=== PATIENT | female | born 1990 | race Caucasian/White ===

== ENCOUNTER → 2019-03-05 16:03 | Outpatient (CLI) | payer MEDICAID, SELFPAY ==
[2019-03-05 11:25] VITALS: BMI 20.2
[2019-03-12 15:48] LABS: HPV APTIMA, High Risk Negative (Negative)
== END ==
PROVIDERS: Family Provider Family Medicine; PCP Family Medicine; Referring Provider Nurse Practitioner Women's Health; Visit Provider Nurse Practitioner Women's Health
DX: Z12.4 Encounter for screening for malignant neoplasm of cervix (principal)
CPT/HCPCS: 87624; 88175; G0145

== ENCOUNTER → 2019-03-23 12:40 | Outpatient (CLI) | payer MEDICAID, SELFPAY ==
[2019-03-05 11:25] VITALS: BMI 20.2
--- NOTE | 2019-03-23 12:44 | US_ITS ---
STUDY: ULTRASOUND TRANSVAGINAL CLINICAL: Female, 28 years old. Removal of IUD 2 weeks ago, pelvic pain TECHNIQUE: Transvaginal COMPARISON: None. FINDINGS: Normal uterine size measuring 9.7 x 4.3 cm in maximal craniocaudal dimension. There are no myometrial masses. Normal endometrial thickness measuring 10 mm. There are no endometrial masses, and there is no fluid in the endometrial cavity. There is a questionable echogenic 5 x 8 mm focus in the lower endometrium. This may be related to focal calcification versus foreign body. Normal uterine cervix. Normal right ovary, measuring 2.1 x 2.9 x 4.0 cm. There are multiple follicles without a dominant cyst. Normal left ovary, measuring 3.1 x 2.2 x 1.6 cm. There are multiple follicles without a dominant cyst. There is mild free fluid in the pelvis. US/Pelvic (Non ) IMPRESSION: There is a questionable echogenic 5 x 8 mm focus in the lower endometrium. This may be related to focal calcification versus foreign body. Mild pelvic fluid. Electronically Signed: Tucker Champagne DO at 23:58 EDT Tel [phone], Service support ,
--- NOTE | 2019-03-23 12:44 | US_ITS ---
STUDY: ULTRASOUND TRANSVAGINAL CLINICAL: Female, 28 years old. Removal of IUD 2 weeks ago, pelvic pain TECHNIQUE: Transvaginal COMPARISON: None. FINDINGS: Normal uterine size measuring 9.7 x 4.3 cm in maximal craniocaudal dimension. There are no myometrial masses. Normal endometrial thickness measuring 10 mm. There are no endometrial masses, and there is no fluid in the endometrial cavity. There is a questionable echogenic 5 x 8 mm focus in the lower endometrium. This may be related to focal calcification versus foreign body. Normal uterine cervix. Normal right ovary, measuring 2.1 x 2.9 x 4.0 cm. There are multiple follicles without a dominant cyst. Normal left ovary, measuring 3.1 x 2.2 x 1.6 cm. There are multiple follicles without a dominant cyst. There is mild free fluid in the pelvis. US/Transvaginal Non- IMPRESSION: There is a questionable echogenic 5 x 8 mm focus in the lower endometrium. This may be related to focal calcification versus foreign body. Mild pelvic fluid. Electronically Signed: Tucker Champagne DO at 23:58 EDT Tel [phone], Service support ,
== END ==
PROVIDERS: Family Provider Family Medicine; PCP Family Medicine; Referring Provider Obstetrics & Gynecology; Visit Provider Obstetrics & Gynecology
DX: R10.2 Pelvic and perineal pain (principal)
CPT/HCPCS: 76830; 76856; 93976

== ENCOUNTER → 2023-10-21 | Outpatient (CLI) | payer MEDICAID, SELFPAY ==
--- NOTE | 2023-10-21 09:38 | US_ITS ---
STUDY: ULTRASOUND BREAST - RIGHT REASON FOR EXAM: Female, 33 years old. Palpable mass TECHNIQUE: Axial and longitudinal images of the RIGHT breast were performed with a high resolution ultrasound transducer. # OF IMAGES: 10 COMPARISON: Diagnostic mammogram earlier today FINDINGS: RIGHT Breast: Heterogeneous background echotexture. At 10:00, 12 cm from nipple, in the area of the palpable abnormality, ultrasound fails demonstrate a discrete solid or cystic mass most consistent with normal breast parenchyma.: US/Breast Limited Unilateral IMPRESSION: Normal diagnostic mammogram right breast ultrasound. However, biopsy of any palpable abnormality should be performed if clinically indicated. ASSESSMENT CATEGORY: BIRADS Category 1: Negative. A letter regarding these results will be sent to the patient by the facility within 30 days. Electronically Signed: Mina White MD at 15:50 EST ,
--- NOTE | 2023-10-21 09:38 | BI_ITS ---
MAMMOGRAPHY - BILATERAL DIAGNOSTIC REASON FOR EXAM: Female, 33 years old. breast lump, painful PERTINENT HISTORY: Non-contributory. TECHNIQUE: Digital examination. Mediolateral oblique (MLO) and craniocaudad (CC) views of both breasts were obtained. CAD: CAD was performed on this study. COMPARISON: None. FINDINGS: Breast Composition: The breasts are extremely dense, which lowers the sensitivity of mammography. There are no dominant masses or suspicious calcifications. No other significant abnormalities are identified. BI/DIAG MAMM W/CAD, BILAT IMPRESSION: Stable bilateral diagnostic mammogram. Ultrasound of the palpable abnormality will be obtained. ASSESSMENT CATEGORY: BIRADS Category 0: Incomplete. Need additional imaging evaluation. A letter regarding these results will be sent to the patient by the facility within 30 days. FOLLOW UP RECOMMENDATION: Ultrasound Recommended. (I) Approximately 10% of breast cancers are not detected by mammography. A normal mammogram should not delay biopsy of a clinically suspicious abnormality. Electronically Signed: Mina White MD at 10:26 EST ,
== END | disposition home or self-care (01) ==
LOC: OPUS 09:36
PROVIDERS: PCP Family Medicine; Referring Provider Registered Nurse; Visit Provider Registered Nurse
DX: N63.10 Unspecified lump in the right breast, unspecified quadrant (principal)
CPT/HCPCS: 77062; 76642; 77066; G0279

== ENCOUNTER → 2024-09-11 | Outpatient (CLI) | payer MEDICAID, SELFPAY ==
[2024-09-11 16:29] LABS: Absolute Lymphocyte Count 1.67 X10^3/uL (0.83-4.51); Absolute Neutrophil Count 3.3 X10^3/uL (2.0-7.7); Basophil# 0.03 X10^3/uL; Basophil% 0.5 % (0-1); Eosinophil# 0.19 X10^3/uL; Eosinophils% 3.3 % (0-5); Hematocrit 31.1 % (37-47); Hemoglobin 9.8 g/dL (12.0-15.0); Lymphocyte # 1.67 X10^3/ul (0.83-4.51); Mean Corp Hgb Conc 31.5 g/dL (32-36); Mean Corpuscular Hgb 26.1 pg (27.0-32.0); Mean Corpuscular Volume 82.7 fL (81-99); Mean Platelet Vol. 9.4 fl (6.2-12.0); Monocyte# 0.59 X10^3/uL; Monocyte% 10.3 % (0-10); NRBC Flagged by Analyzer 0 % (0-5); Neutrophil # 3.25 X10^3/uL (2.7-7.7); Neutrophil % 56.6 % (47-70); Platelet Count 191 K/mm3 (150-450); RBC Distribution Width CV 13.9 % (11.6-14.6); RBC Distribution Width SD 42.3 fl (35.1-43.9); Red Blood Count 3.76 M/mm3 (4.2-5.4); White Blood Count 5.8 K/mm3 (4.4-11.0)
[2024-09-18 09:09] LABS: HPV APTIMA, High Risk Negative (Negative)
== END | disposition home or self-care (01) ==
LOC: WOBLAB 16:18
PROVIDERS: PCP Family Medicine; Referring Provider Registered Nurse; Visit Provider Registered Nurse
DX: N93.9 Abnormal uterine and vaginal bleeding, unspecified (principal); Z12.4 Encounter for screening for malignant neoplasm of cervix
CPT/HCPCS: 36415; 85025; 87624; 88175; G0145

== ENCOUNTER → 2025-01-15 | Outpatient (CLI) | payer MEDICAID, SELFPAY ==
[2025-01-15 13:12] LABS: Free T3 2.9 pg/mL (2.18-3.98); T4 Free Direct 0.97 ng/dL (0.76-1.46)
== END | disposition home or self-care (01) ==
LOC: BWCLAB 11:23
PROVIDERS: Referring Provider Obstetrics & Gynecology; Visit Provider Obstetrics & Gynecology
DX: N93.9 Abnormal uterine and vaginal bleeding, unspecified (principal)
CPT/HCPCS: 36415; 84439; 84481

== ENCOUNTER 2025-07-12 16:25 | Observation (INO) | payer MEDICAID, SELFPAY ==
[2025-07-12] VITALS (10 sets, daily range): BP systolic 99–114; BP diastolic 61–74; PULSE 92–109; RESP 12–18; TEMP 36.4–37.2; O2SAT 98–100; BMI 23.3; BMI 23.1
--- NOTE | 2025-07-12 16:30 | US_ITS ---
EXAM: US Pelvis Transvaginal CLINICAL INDICATION: VAGINAL BLEEDING TECHNIQUE: Real-time transvaginal pelvic ultrasound with image documentation. Transvaginal imaging was used for better evaluation of the endometrium and adnexa. COMPARISON: No relevant prior studies available. FINDINGS: UTERUS/CERVIX: 4.5 uterine fibroid. Endometrium not visualized secondary to uterine fibroid. The uterus measures 10.8 x 6.2 x 5.6 cm. RIGHT OVARY: Unremarkable. Normal blood flow. The right ovary measures 4.8 x 2.4 x 2.4 cm. LEFT OVARY: Left ovary not visualized secondary to overlying bowel gas. FREE FLUID: No free fluid. BLADDER: Empty bladder which cannot be evaluated with this probe. US/Transvaginal Non- IMPRESSION: Uterine fibroid. Reading Location: [id number]
--- NOTE | 2025-07-12 16:50 | ED.VIS.FEGU ---
HPI HPI - Female History of Present Illness Chief Complaint: Vag Bleeding Narrative Narrative: Chief complaint and HPI: Vaginal bleeding. 35-year-old female with past medical history of menorrhagia and iron deficiency anemia presents for evaluation of vaginal bleeding with symptoms of anemia. 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 Patient states that she has a history of iron deficiency anemia but stopped taking iron supplementation secondary to medication side effects. She states in January she had an IUD placed that helped with her menorrhagia. States she still gets monthly periods however they are not heavy. Patient states that the end of her last menstrual period was 8/5. She states on her IUD fell out. She states shortly after she developed heavy bleeding with clots. She states the bleeding is intermittent. She states she feels lightheaded and short of breath when ambulating. States this feels similar to her symptomatic anemia which is why she presents to the emergency department. She denies any transfer one fever, chills, chest pain, abdominal pain, nausea, vomiting, dysuria. Review of systems: See HPI Medications: As listed on the chart Allergies: As listed on the chart PFSH: Per chart Vital signs: As listed on the chart. Reviewed. Physical exam: Gen: A&O x3, NAD Head: Normocephalic, atraumatic Eyes: No sclera icterus, conjunctiva clear ENT: Moist mucous membranes Neck: Trachea midline, No JVD CV: RRR, no murmurs, no peripheral edema Resp: Lungs CTA BL, no w/r/c GI: Abd soft, non-distended, non-tender, no r/r/g Pelvic: Normal external genitalia. No lesions, masses, or rashes appreciated. + Vaginal bleeding with clots in the vaginal vault. Cervix unable to be visualized secondary to bleeding. Musc: Full ROM, no deformity Skin: Warm, dry Neuro: Alert, oriented, grossly intact, sensation intact Psych: Cooperative, appropriate mood and affect [facility] Medical History (Updated 02/17/25 @ 14:21 by Sultana Hernandez) Apneic episode Weight gain History of opioid abuse Anemia Encounter for IUD removal Home Medications ?Medication ?Instructions ?Recorded ?Last Taken ?Type buprenorphine 8 mg-naloxone 2 mg 8 mg PO BID 10/25/16 Unknown History sublingual film hydroxyzine HCl 10 mg tablet 10 mg PO QHS #2 tabs 03/13/24 Unknown Rx levonorgestrel 14 mcg/24 hr (up to 1 insert intrauterine ONCE #1 ea 11/16/24 Unknown Clinic 3 yrs) 13.5 mg intrauterine device levonorgestrel 14 mcg/24 hr (up to 1 device intrauterine ONCE 01/15/25 Unknown History 3 yrs) 13.5 mg intrauterine device (Josephine) Allergy/AdvReac Type Severity Reaction Status Date / Time mebendazole Allergy Unknown Verified 07/12/25 16:26 promethazine HCl (From Allergy Other Verified 07/12/25 16:26 Phenergan) sertraline HCl (From Zoloft) Allergy Unknown Verified 07/12/25 16:26 Family History Grandfather Colon cancer Cancer prostate Surgical History H/O: Social History (Updated 02/17/25 @ 14:23 by Sultana Hernandez) adopted: No household members: family and children housing: house number of children: 2 current occupational status: unemployed 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 sexually active: No Smoking Status: Current every day smoker tobacco type: e-cigarettes how long ago did patient quit smoking: more than 30 days ago alcohol intake: never substance use type: former substance user well-balanced diet: rarely or never caffeine: Yes (2) Type: coffee what type of physical activity do you participate in: walking frequency: 5-6 times per week seatbelt use: always do you feel safe at home: Yes EXAM Physical Exam Const Vital Signs: 07/12/25 16:26 07/12/25 18:25 07/12/25 18:53 Temperature 98.2 F 99.0 F Temperature Source Oral Oral Pulse Rate 109 H 100 100 Respiratory Rate 16 16 Blood Pressure 114/74 99/63 109/64 Blood Pressure Mean 87 75 79 Blood Pressure Source Monitor Blood Pressure Position Supine Blood Pressure Location Right Arm Pulse Ox 98 100 Oxygen Delivery Method Room Air 07/12/25 19:08 Temperature 98.9 F Temperature Source Oral Pulse Rate 99 Respiratory Rate 12 Blood Pressure 102/65 Blood Pressure Mean 77 Blood Pressure Source Monitor Blood Pressure Position Supine Blood Pressure Location Right Arm Pulse Ox 99 Oxygen Delivery Method MDM MDM MDM Narrative Medical decision making narrative: 35-year-old female with past medical history of menorrhagia and iron deficiency anemia presents for evaluation of vaginal bleeding with symptoms of anemia. 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 Has a history of iron deficiency anemia. IUD fell out on and since then has had vaginal bleeding with clots. Feels lightheaded and short of breath with ambulation. Differential diagnosis includes but is not limited to acute on chronic anemia, electrolyte abnormality, dehydration, suspect less likely , uterine/vaginal pathology. Pelvic exam was positive for vaginal bleeding and blood clots. I was unable to visualize the cervix. NS bolus ordered. Laboratory workup ordered including urine and transvaginal ultrasound. CBC shows leukopenia of 3.8. Patient has history of leukopenia in the past. She has anemia 5.6. She states her baseline is about 7.6. However in 2023 she was 9.8. Platelets unremarkable. Serum negative. Patient will warrant blood transfusion. 2 units ordered. Given that she still having vaginal bleeding with acute anemia. I did reach out to Dr. Tai Kerr. She agrees that the patient will need to be admitted. Recommends updating her on transvaginal ultrasound results. BMP relatively unremarkable. Serum negative. Ultrasound was performed. Waiting on read. Dr. Tai Kerr looked at the imaging herself, patient has a large fibroid which is likely the cause of her bleeding. Patient will be admitted to her service. She came down to evaluate the patient. Patient confirmed understanding plan. 30 minutes of critical care time utilized in managing the patient. This is due to high probability of and deterioration of the patient based on the patient's condition and excludes any separately billable procedures. Impression: 1. Acute on chronic anemia requiring blood transfusion 2. Vaginal bleeding 3. Uterine fibroid Lab Data Labs: Laboratory Results - last 24 hr 07/12/25 07/12/25 16:41 17:31 WBC 3.8 L RBC 3.35 L Hgb 5.6 L* Hct 20.0 L MCV 59.7 L MCH 16.7 L MCHC 28.0 L RDW Std Deviation 42.0 RDW Coeff of German 20.0 H Plt Count 225 MPV 8.9 Immature Gran % (Auto) 0.300 Neut % (Auto) 58.1 Lymph % (Auto) 27.2 [place] % (Auto) 12.5 H Eos % (Auto) 1.6 Baso % (Auto) 0.3 Absolute Neuts (auto) 2.2 Absolute Lymphs (auto) 1.02 Nucleated RBC % 0 Sodium 139 Potassium 3.9 Chloride 107 Carbon Dioxide 20.6 L Anion Gap 12 BUN 9 Creatinine 0.44 L Estim Creat Clear Calc 151.17 Est GFR (MDRD) Non-Af 128 BUN/Creatinine Ratio 20.4 H Glucose 99 Calcium 8.9 Serum , Qual NEGATIVE Blood Type A POSITIVE Antibody Screen NEGATIVE Crossmatch See Detail Discharge Plan Triage Chief Complaint: Vag Bleeding ED Provider: [place] Brizuela Dx/Rx/DC Orders Prescriptions: No Action hydroxyzine HCl 10 mg tablet 10 mg PO QHS Qty: 2 0RF levonorgestrel 14 mcg/24 hr (3 yrs) 13.5 mg intrauterine device 1 insert intrauterine ONCE Qty: 1 0RF Josephine 14 mcg/24 hr (3 yrs) 13.5 mg intrauterine device 1 device intrauterine ONCE Rx Instructions: as a single dose buprenorphine-naloxone 1 EACH film 8 mg PO BID Patient Comments: Primary Care Provider: Care Physician,No Primary Referrals: Care Physician,No Primary [Primary Care Provider] - Print Language: Panamanian
[2025-07-12] MEDS: 0.9% Normal Saline (1000mL) 1,000 ML 999 ML IV (16:52)
[2025-07-12 16:57] LABS: Hematocrit 20.0 % (37-47); Immature Granulocytes Count 0.010 X10^3/uL (0.0-0.0); Mean Corp Hgb Conc 28.0 g/dL (32-36); Mean Corpuscular Volume 59.7 fL (81-99); Mean Platelet Vol. 8.9 fl (6.2-12.0); NRBC Flagged by Analyzer 0 % (0-5); POSITIVE COUNT YES; Platelet Count 225 K/mm3 (150-450); RBC Distribution Width CV 20.0 % (11.6-14.6); RBC Distribution Width SD 42.0 fl (35.1-43.9); Red Blood Count 3.35 M/mm3 (4.2-5.4); White Blood Count 3.8 K/mm3 (4.4-11.0)
[2025-07-12 17:04] LABS: Differential Indicated SCAN CRITERIA MET; Hemoglobin 5.6 g/dL (12.0-15.0)
[2025-07-12 17:24] LABS: Internal QC Validated? YES +Cl - CLEAR BKGD; Pregnancy, Serum, hCG Quali. NEGATIVE Negative
[2025-07-12 17:26] LABS: Record Kit Lot#, Serum Preg. 962302
[2025-07-12 17:42] LABS: Anion Gap 12 (5-15); BUN 9 mg/dL (4-19); BUN/Creat Ratio 20.4 RATIO (10-20); Calcium,Total 8.9 mg/dL (7.6-11.0); Carbon Dioxide 20.6 mmol/L (21.0-32.0); Chloride 107 mmol/L (98-108); Estimated Creatinine Clearance 151.17 ml/min (50-250); Glucose 99 mg/dL (70-99); Potassium 3.9 mmol/L (3.3-5.1)
--- NOTE | 2025-07-12 20:23 | PCM.HP.OB ---
HPI - General General Date of Admission: 07/12/25 HPI Narrative TED ZABALA, is a 35 F who presents with acute heavy menstrual bleeding. Patient is a history of using IUDs in the past which have worked well for her to have minimal to light bleeding and then she has had intermittent heavy bleeding since the fall, she had her IUD replaced in January and has had bleeding persistent since and then it fell out several weeks ago. She hadn't followed up for her string check and declined coming in sooner as recommended. She started feeling dizzy and lightheaded and has been passing large clots with changing a pad several times an hour the last few days and presented to the ED with a Hg of 5.6 and mild tachycardia. bleeding ahs been slowing down the last few hours while in the ED and she is receiving a transfusion. US showed 4.5 cm fibroid. [facility] Medical History (Updated 07/12/25 @ 20:[address] Annamarie Norton MD) Apneic episode Weight gain History of opioid abuse Anemia Encounter for IUD removal Home Medications ?Medication ?Instructions ?Recorded ?Last Taken ?Type buprenorphine 8 mg-naloxone 2 mg 8 mg PO BID 10/25/16 07/11/25 History sublingual film Allergy/AdvReac Type Severity Reaction Status Date / Time mebendazole Allergy Unknown Verified 07/12/25 16:26 promethazine HCl (From Allergy Other Verified 07/12/25 16:26 Phenergan) sertraline HCl (From Zoloft) Allergy Unknown Verified 07/12/25 16:26 Family History Grandfather Colon cancer Cancer prostate Surgical History H/O: Social History (Updated 02/17/25 @ 14:23 by Sultana Hernandez) adopted: No household members: family and children housing: house number of children: 2 current occupational status: unemployed 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 sexually active: No Smoking Status: Current every day smoker tobacco type: e-cigarettes how long ago did patient quit smoking: more than 30 days ago alcohol intake: never substance use type: former substance user well-balanced diet: rarely or never caffeine: Yes (2) Type: coffee what type of physical activity do you participate in: walking frequency: 5-6 times per week seatbelt use: always do you feel safe at home: Yes History 3 Elective abortions 1 Hx Para 2 Spontaneous abortions 0 Hx # Term Pregnancies 2 Ectopic pregnancies 0 Hx # Pregnancies 0 Multiple births 0 # of living children 2 Past Pregnancies Del. Date Name GA/Weeks Outcome Route Bth Weight Infant Gen Labor Lgth Anesthesia Del Locatn Provider FOB Unknown Maddix 2006 42 live - full term Male epidural [facility] Dr Rahman Unknown Talia 2011 38 live - full term Female epidural [facility] Dr Errol [place] Constitutional Constitutional: Reports systems reviewed and no addt'l complaints, except as documented, fatigue and weakness; Denies as per HPI, change in weight, fever(s), malaise or other Eyes Eyes: Reports systems reviewed and no addt'l complaints, except as documented; Denies as per HPI, change in vision or other ENT HEENT: Reports systems reviewed and no addt'l complaints, except as documented Respiratory/Chest Respiratory/Chest: Reports systems reviewed and no addt'l complaints, except as documented Gastrointestinal Gastrointestinal: Reports systems reviewed and no addt'l complaints, except as documented and as per HPI Genitourinary Genitourinary: Reports as per HPI Musculoskeletal Musculoskeletal: Reports systems reviewed and no addt'l complaints, except as documented Neurologic Neurologic: Reports systems reviewed and no addt'l complaints, except as documented Psychiatric Psychiatric: Reports systems reviewed and no addt'l complaints, except as documented Endocrine Endocrinology: Reports systems reviewed and no addt'l complaints, except as documented Hematologic/Lymphatic Hematologic/Lymphatic: Reports systems reviewed and no addt'l complaints, except as documented Vital Signs Vital Signs Vital Signs: 07/12/25 16:26 07/12/25 18:25 07/12/25 18:53 Temperature 98.2 F 99.0 F Temperature Source Oral Oral Pulse Rate 109 H 100 100 Respiratory Rate 16 16 Blood Pressure 114/74 99/63 109/64 Blood Pressure Mean 87 75 79 Blood Pressure Source Monitor Blood Pressure Position Supine Blood Pressure Location Right Arm Pulse Ox 98 100 Oxygen Delivery Method Room Air 07/12/25 19:08 07/12/25 20:06 07/12/25 20:12 Temperature 98.9 F 98.4 F 98.4 F Temperature Source Oral Oral Pulse Rate 99 96 92 Respiratory Rate 12 18 18 Blood Pressure 102/65 106/69 106/69 Blood Pressure Mean 77 81 81 Blood Pressure Source Monitor Monitor Blood Pressure Position Supine Semi-Fowlers Blood Pressure Location Right Arm Right Arm Pulse Ox 99 98 98 Oxygen Delivery Method Room Air Weight Weight: 136 lb Body Mass Index (BMI) 23.3 Physical Exam Const alert, oriented x3 and no apparent distress HEENT normocephalic Head and Scalp: atraumatic Eyes EOMs intact bilaterally and conjunctivae normal Neck full ROM, no lymphadenopathy, supple and thyroid normal General: trachea midline Lymph Lymphatic: no lymphadenopathy noted Resp normal respiratory effort, no retractions and no use of accessory muscles Cardio Rate: tachycardic GI soft to palpation, non-tender, non-distended and no masses Inspection: Negative for abdominal distention Back/Spine no CVA tenderness Extremity normal to inspection Skin no rashes or lesions noted Neuro moves all extremities and deep tendon reflexes 2+ bilaterally Psych mental status grossly normal Labs Labs Labs: Blood Type A POSITIVE Antibody Screen NEGATIVE Hct 20.0 % (37-47) L Hgb 5.6 g/dL (12.0-15.0) L* Assessment & Plan (1) Abnormal uterine bleeding: COMMENT: US reviewed and fibroid present. TXA ordered for acute, transfusion. (2) Fibroid: COMMENT: 4 cm submucosal. s/p IUD. anemic. admit for transfusion, IV TXA. (3) History of opioid abuse: COMMENT: on suboxone PLAN: Plan admit for monitoring, transfusion, give IV TXA. repeat cbc 4 hours post transfusion. s/p US. continue suboxone. scds.
--- NOTE | 2025-07-12 20:37 | ED.RN ---
PATIENT WANTING TO REACH INFORMATION PROVIDED BY NURSE ABOUT TRANEXAMIC ACID BEFORE RECEIVING.
[2025-07-12] MEDS: TRANEXAMIC ACID IV (21:09)
[2025-07-12] MEDS: NORMAL SALINE 0.9% IV (21:09)
--- OUTSIDE RECORDS SUMMARY | 2025-07-12 21:32 | XMS RPT_ITS | CCD ---
Author Organization [facility] [employer] Care Team Providers Care Silk Screen Printer Name Role Phone VIRGINIE CROCKER Unavailable Unavailable VIRGINIE CROCKER Unavailable Unavailable Dr. Virginie Crocker Primary Care Provider Dr. Virginie Crocker Referring Provider CHAUNCEY Ramos Attending Provider Unavailable Primary Care Provider WILLIAM Wesley DO Primary Care Physician WILLIAM VANN DO Attending Unavailable WILLIAM VANN DO Primary Care Unavailable Care Physician, No Primary Primary Care Unava ilable Annamarie Lira Attending Unavailable Annamarie Lira Referring Unavailable Virginie Crocker Primary Care Unavailable Autumn Ramos Attending Unavailable Autumn Ramos Referring Unavailable Autumn Ramos Attending Unavailable Autumn Ramos Referring Unavailable Care Physician, No Primary Primary Care Unava ilable Care Physician, No Primary Referring Unava ilable Michelle Luis Attending Unavailabl e Care Physician, No Primary Primary Care Unava ilable Care Physician, No Primary Primary Care Unava ilable Autumn Ramos Attending Unavailable Care Physician, No Primary Referring Unava ilable Care Physician, No Primary Primary Care Unava ilable Michelle Kerr Attending Unavailable Care Physician, No Primary Referring Unava ilable Care Physician, No Primary Referring Unava ilable Annamarie Lira Attending Unavailable Care Physician, No Primary Primary Care Unava ilable Virginie Crocker Primary Care Unavailable Virginie Crocker Referring Unavailable Autumn Ramos Attending Unavailable Lizzette, Virginie Primary Care Unavailable Virginie Crocker Referring Unavailable Autumn Ramos Attending Unavailable Care Physician, No Primary Primary Care Provider Unavailable Dr. Berlin Brizuela DO Emergency Provider Errol JADE, Dr. De Luna Admit Provider Errol JADE, Dr. De Luna Attending Provider Allergies Allergy Classification Reported Allergen(s) Allergy Type Date of Onset Reaction(s) Facility (5 sources) mebendazole; Translations: [MEBENDAZOLE] Drug Allergy 5 [facility] (5 sources) promethazine; Translations: [PROMETHAZINE HCL] Drug Allergy 2 Other: See [facility] (5 sources) sertraline; Translations: [SERTRALINE HCL] Drug Allergy 8 GI [facility] (1 source) Promethazine; Translations: [promethazine] Drug Allergy Anxiety (finding) [facility] (1 source) Sertraline; Translations: [sertraline] Drug Allergy Mood swings (finding) [facility] Medications Current Medications Medication Drug Class(es) Dates Sig (Normalized) Sig (Original) buprenorphine 8 mg / naloxone 2 mg sublingual film (4 sources) Partial Opioid Agonist, Opioid Antagonist Start: 11-12-2024 take 3 doses under the tongue once daily Suboxone 8 mg-2 mg sublingual film Dose = 3 EA, Sublingual, qDay, 0 Refill(s) Start Date: 11/12/24 Status: Ordered Start: 10-25-2016 take 1 dose by mouth twice daily Buprenorphine-Naloxone 1 EACH film Activ e 8 mg PO TWICE A DAY October 25, 2016 1:00am buprenorphine-na lOXone SL (SUBOXONE) 8-2 mg subl Dissolve 1 tablet under the tongue twice daily. Active ondansetron 4 mg disintegrating oral tablet (3 sources) Serotonin-3 Receptor Antagonist Start: 01-30-2017 take 1 tablet by mouth every six hours as needed ondansetron orally disintegrating (ZOFRAN ODT) 4 mg disintegrating tablet Take 1 tablet by mouth every 6 hours as needed for Nausea/Vomiting. 12 tablet 1 01/30/2017 Active Start: 01-11-2014 End: 03-05-2019 take 4 mg by mouth every eight hours as needed for nausea Ondansetron Hcl 8 MG tablet Discontinued 4 mg PO EVERY 8 HOURS NEEDED as needed for Nausea 20 0 January 11, 2014 2:40pm March 05, 2019 11:12am Start: 01-11-2014 End: 03-05-2019 take 4 mg by mouth every eight hours as needed Ondansetron Hcl Discontinued 4 MG PO EVERY 8 HOURS NEEDED January 11, 2014 1:40pm March 05, 2019 10:12am Completed/Discontinued Medications Medication Drug Class(es) Dates Sig (Normalized) Sig (Original) azithromycin 250 mg oral tablet (2 sources) Macrolide Antimicrobial Start: 10-25-2016 End: 03-05-2019 take 1 tablet by mouth once daily Azithromycin 250 MG tablet Discontinued 250 mg PO DAILY 4 0 October 25, 2016 1:00am March 05, 2019 11:12am hydrOXYzine hydrochloride 10 mg oral tablet (1 source) Antihistamine Start: 03-13-2024 End: 07-12-2025 take 1 tablet by mouth at bedtime Hydroxyzine Hcl 10 mg tablet Discontinued 10 mg PO AT BEDTIME 2 0 March 13, 2024 12:00am July 12, 2025 8:09pm levonorgestrel 0.027022 mg/hr intrauterine system (2 sources) Progestin, Progestin-containin g Intrauterine Device Start: 01-15-2025 End: 07-12-2025 Levonorgestrel (Josephine) 14 mcg/24 hr (3 yrs) 13.5 mg intrauterine device Discontinued 1 NMA INTRA-UTER ONCE January 15, 2025 1:00am July 12, 2025 8:10pm as a single dose levonorgestrel ( MIRENA) 20 mcg/24 hour (5 years) IUD 1 Each by INTRAUTERINE route one time only. Active Problems Active Problems Problem Classification Problem Date Documented Date Episodic/Chronic Contraceptive and procreative management (7 sources) Patient encounter status; Translations: [Encounter for removal of intrauterine contraceptive device] Onset: 08-14-2011 Resolved: 03-03-2012 10-16-2023 Episodic Comment on above: IUD removed intact, needs prior authorization and will return for josephine reinsertion next week. is not sexually active, desires IUD for menses control Deficiency and other anemia (2 sources) Anemia; Translations: [Anemia, unspecified] 11-12-2024 Episodic Comment on above: chronic- transfuse 2 units prbcs and reassess Deficiency and other anemia (1 source) Anemia, unspecified; Translations: [Anemia, unspecified] Onset: 02-19-2025 Episodic Delirium, dementia, and amnestic and other cognitive disorders (1 source) Postconcussion syndrome; Translations: [Postconcussional syndrome] Onset: 04-29-2018 04-29-2018 Chronic Disorders of teeth and jaw (2 sources) Toothache; Translations: [Other specified disorders of teeth and supporting structures] 12-04-2014 Episodic Headache; including migraine (1 source) Chronic post-traumatic headache; Translations: [Chronic post-traumatic headache, not intractable] Onset: 04-29-2018 04-29-2018 Chronic Nonmalignant breast conditions (4 sources) Breast lump; Translations: [Unspecified lump in unspecified breast] Onset: 10-07-2014 10-16-2023 Episodic Comment on above: diagnostic mammogram and ultrasound Other and unspecified benign neoplasm (1 source) Leiomyoma; Translations: [Benign neoplasm of connective and other soft tissue, unspecified] 07-12-2025 Episodic Comment on above: 4 cm submucosal. s/p IUD. anemic. admit for transfusion, IV TXA. Other female genital disorders (2 sources) Abnormal uterine and vaginal bleeding, unspecified; Translations: [Abnormal uterine and vaginal bleeding, unspecified] Onset: 11-30-2024 Chronic Other female genital disorders (1 source) Abnormal uterine bleeding; Translations: [Abnormal uterine and vaginal bleeding, unspecified] 07-12-2025 Chronic Comment on above: US reviewed and fibr oid present. TXA ordered for acute, transfusion. Residual codes; unclassified (1 source) Failed encounter; Translations: [No-show for appointment] 09-10-2024 Episodic Residual codes; unclassified (1 source) Unsuccessful intrauterine contraceptive device insertion; Translations: [Procedure and treatment not carried out for other reasons] 01-15-2025 Episodic Comment on above: will attempt to retr y with anti-anxiety medication. would trial a dose of hydroxyzine and take 30 minutes to prior to insertion if attempt again. currently not sexually active. Substance-related disorders (4 sources) Other psychoactive substance dependence, uncomplicated; Translations: [Unspecified drug dependence, unspecified] Onset: 11-17-2012 Resolved: 01-12-2013 12-06-2014 Chronic Comment on above: on suboxone Unclassified (1 source) Unknown / UNK(Unknown) Onset: 01-28-2018 Past or Other Problems Problem Classification Problem Date Documented Da te Episodic/Chronic Deficiency and other anemia (1 source) Iron deficiency anemia; Translations: [Iron deficiency anemia, unspecified] Onset: 08-20-2008 Resolved: 01-12-2013 01-12-2013 Episodic Inflammatory diseases of female pelvic organs (2 sources) Bacterial vaginosis; Translations: [Acute vaginitis] Onset: 09-25-2012 Resolved: 01-12-2013 02-04-2015 Episodic Other complications of (1 source) History of delivery of macrosomal infant; Translations: [Supervision of with other poor reproductive or obstetric history, unspecified trimester] Onset: 04-15-2012 Resolved: 01-12-2013 11-27-2021 Episodic Other complications of (1 source) Maternal tobacco use in ; Translations: [Smoking (tobacco) complicating , unspecified trimester] Onset: 04-15-2012 Resolved: 01-12-2013 11-27-2021 Episodic Other complications of (1 source) Supervision of other high risk pregnancies, unspecified trimester; Translations: [Supervision of other high-risk ] Onset: 04-29-2012 Resolved: 01-12-2013 11-27-2021 Episodic Other infections; including parasitic (1 source) Trichomonal vaginitis; Translations: [Trichomonal vulvovaginitis] Onset: 02-04-2015 02-04-2015 Episodic Screening and history of mental health and substance abuse codes (1 source) H/O: depression; Translations: [Personal history of other mental and behavioral disorders] Onset: 04-15-2012 Resolved: 01-12-2013 11-27-2021 Episodic Spondylosis; intervertebral disc disorders; other back problems (1 source) Chronic low back pain; Translations: [Chronic midline low back pain without sciatica] Onset: 05-05-2018 05-05-2018 Episodic Results Test Name Value Interpretation Reference Range Facility Absolute lymphocyte countOrd ered By: Berlin Brizuela on 07-12-2025 Lymphocytes Auto (Unsp spec) [#/Vol] 1.02 10*3/uL 0.83-4.51 [facility] Absolute neutrophil countOrd ered By: Berlin Brizuela on 07-12-2025 Neutrophils (Bld) [#/Vol] 2.2 10*3/uL 2.0-7.7 [facility] Anion gap in Serum or Plasma Ordered By: Berlin Brizuela on 07-12-2025 Anion gap [Moles/Vol] 12 mmol/L 5-15 [facility] Automated lymphocyte count a s percentage of total leukocytesOrdered By: Berlin Brizuela on 07-12-2025 Lymphocytes/100 WBC Auto (Unsp spec) 27.2 % 19-41 [facility] BUN/creatinine ratioOrdered By: Berlin Brizuela on 07-12-2025 Urea nitrogen/Creatinine [Mass ratio] 20.4 mg/mg High 10-20 [facility] Basophil percentageOrdered B y: Berlin Brizuela on 07-12-2025 Basophils/100 WBC (Bld) 0.3 % 0-1 [facility] Carbon dioxide, total [Moles /volume] in Central venous bloodOrdered By: Berlin Brizuela on 07-12-2025 CO2 [Moles/Vol] 20.6 mmol/L Low 21.0-32.0 [facility] Chloride assayOrdered By: Nicholas Brizuela on 07-12-2025 Chloride [Moles/Vol] 107 mmol/L 98-108 [facility] Eosinophil percentageOrdered By: Berlin Brizuela on 07-12-2025 Eosinophils/100 WBC (Bld) 1.6 % 0-5 [facility] Erythrocyte distribution wid th ratioOrdered By: Berlin Brizuela on 07-12-2025 Erythrocyte distribution width (RBC) [Ratio] 20.0 % High 11.6-14.6 [facility] Erythrocyte distribution wid th standard deviationOrdered By: Berlin Eagle on 07-12-2025 Erythrocyte distribution width (RBC) [Ratio] 42.0 fl 35.1-43.9 [facility] Glomerular filtration rate ( GFR) estimation/1.73 sq m using serum, plasma, or whole bOrdered By: Berlin Brizuela on 07-12-2025 GFR/1.73 sq M.predicted among non-blacks MDRD (S/P/Bld) [Vol rate/Area] 128 mL/min/{1.73_m2} >60 [facility] Comment on above: mL/min/1.73m2 CKD-EP I Creatinine Equation (2020) Hematocrit Auto (Bld) [Volum e fraction]Ordered By: Berlin Brizuela on 07-12-2025 Hematocrit (Bld) [Volume fraction] 20.0 % Low 37-47 [facility] Hemoglobin measurementOrdere d By: Berlin Brizuela on 07-12-2025 Hemoglobin (Bld) [Mass/Vol] 5.6 g/dL Low 12.0-15.0 [facility] Comment on above: CRITICAL VALUE MICHELE D TO VIANNEY HOOD07/12/25 1704 Galilea Kaufman.RESULTS READ BACK BY SAME. Immature granulocytes/100 WB C Auto (Bld)Ordered By: Berlin Brizuela on 07-12-2025 Immature granulocytes/100 WBC (Bld) 0.300 % 0.0-0.9 [facility] Comment on above: IG% - Immature Granu locytes (promyelocytes, myelocytes and metamyelocytes) > 1% indicates that a LEFT SHIFT is Present. MCV (mean corpuscular volume ) determinationOrdered By: Berlin Brizuela on 07-12-2025 MCV (RBC) [Entitic vol] 59.7 fL Low 81-99 [facility] Mean corpuscular hemoglobin (MCH) determinationOrdered By: Berlin Brizuela on 07-12-2025 MCH (RBC) [Entitic mass] 16.7 pg Low 27.0-32.0 [facility] Mean corpuscular hemoglobin concentration (MCHC) determinationOrdered By: Berlin Brizuela on 07-12-2025 MCHC (RBC) [Mass/Vol] 28.0 g/dL Low 32-36 [facility] Mean platelet volume determi nationOrdered By: Berlin Brizuela on 07-12-2025 Platelet mean volume (Bld) [Entitic vol] 8.9 fL 6.2-12.0 [facility] Monocyte percentageOrdered B y: Berlin Brizuela on 07-12-2025 Monocytes/100 WBC (Bld) 12.5 % High 0-10 [facility] Neutrophil percentageOrdered By: Berlin Brizuela on 07-12-2025 Neutrophils/100 WBC (Bld) 58.1 % 47-70 [facility] Nucleated red blood cell per centageOrdered By: Berlin Brizuela on 07-12-2025 Nucleated RBC/100 WBC (Bld) [Ratio] 0 % 0-5 [facility] Platelet countOrdered By: Nicholas Brizuela on 07-12-2025 Platelets (Bld) [#/Vol] 225 10*3/uL 150-450 [facility] Potassium measurement (mass/ volume)Ordered By: Berlin Brizuela on 07-12-2025 Potassium (Unsp spec) [Mass/Vol] 3.9 mmol/L 3.3-5.1 [facility] RBC Auto (Bld) [#/Vol]Ordere d By: Berlin Brizuela on 07-12-2025 RBC (Bld) [#/Vol] 3.35 10*6/uL Low 4.2-5.4 [facility] Serum beta-hCG test, qualita tiveOrdered By: Berlin Brizuela on 07-12-2025 Beta HCG ( test) Ql Negative [facility] Serum creatinine measurement (mass/volume)Ordered By: Berlin Brizuela on 07-12-2025 Creatinine [Mass/Vol] 0.44 mg/dL Low 0.70-1.20 [facility] Serum glucose measurement (m ass/volume)Ordered By: Berlin Brizuela on 07-12-2025 Glucose [Mass/Vol] 99 mg/dL 70-99 [facility] Serum or plasma calcium rick urement (mass/volume)Ordered By: Berlin Eagle on 07-12-2025 Calcium [Mass/Vol] 8.9 mg/dL 7.6-11.0 [facility] Serum or plasma urea nitroge n measurement (mass/volume)Ordered By: Berlin [facility] on 07-12-2025 Urea nitrogen [Mass/Vol] 9 mg/dL 4-19 [facility] Sodium levelOrdered By: Silas KwonShagufta on 07-12-2025 Sodium [Moles/Vol] 139 mmol/L 133-145 [facility] White blood cell (WBC) count Ordered By: Berlin [facility] on 07-12-2025 WBC (Bld) [#/Vol] 3.8 10*3/uL Low 4.4-11.0 [facility] Free T3on 01-15-2025 Free T3 [Mass/Vol] 2.9 pg/mL Normal 2.18-3.98 [facility] Comment on above: Performed By: #### L [id number], [id number] #### [facility] [address] [place], [address] Paunch Trimmer Office Visit Reporton 01-15-2025 Paunch Trimmer Office Visit Report [facility]'s [address], [address] [place] [address] OFFICE VISIT Date of Service: 01/15/25 MR#: [id number] Acct: [id number] Name: TED ZABALA Rep #: [id number] 2 : 1990 Provider: Dr. Annamarie narayan MD Age/Sex: 34/F [place] [facility] [place]: Signed with Addenda ADDENDUM by Natasha Driver on 01/15/25 at 1130 Office Procedure Documentation entered by Natasha Driver 01/15/25 11:30: IUD Insertion IUD GC/Chlamydia:: not done Test: Yes Negative Consent Signed: Yes Time out checklist: patient, procedure, site marked/identified, positioning of patient, supplies available, allergies confirmed and team agrees on procedure IUD: Yes Josephine IUD inserted Time out time: 11:17 Details: Sign in Communication: Completed Sign out documentation: Completed The uterus sounded to 11 cm. After prepping the cervix with betadine and using sterile technique, the cervix was grasped with a single tooth tenaculum and the IUD was inserted without difficulty and the string was cut to 3cm from the external os of the cervix. All instruments were removed from the vagina and excellent hemostasis was noted. Procedure Summary: patient tolerated the procedure well without complication. Office Meds levonorgestrel 14 mcg/24 hr (up to 3 yrs) 13.5 mg intrauterine device Performing Provider: Annamarie Lira MD Performing Location: [facility] Administered by: Annamarie Lira MD on 01/15/25 11:16 Dose Route Admin Location Dispensed Lot Number Expiration Date [facility] [place] Man ufacturer 1 insert intrauterine [facility] 1 insert [id number] 01/29/27 40630-6 MIRIAM JAIN [employer] Total Dispensed Waste 1 insert 0 % Date cc: * Signed Intake Vital Signs 11/16/24 15:47 01/15/25 10:38 01/15/25 10:39 Height 5 ft 4 in 5 ft 4 in 5 ft 4 in Weight: 144 lb 2 oz BMI 24.7 BP 110/75 Intake Visit Reasons: IUD INSERTION 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 Is patient in pain?: No Allergies mebendazole Allergy (Verified 01/15/25 10:38) Unknown promethazine HCl (From Phenergan) Allergy (Verified 01/15/25 10:38) Other sertraline HCl (From Zoloft) Allergy (Verified 01/15/25 10:38) Unknown Medications ???Medication ???Instructions ???Recorded ???Confirmed ???Type buprenorphine 8 mg-naloxone 2 mg 8 mg PO BID 10/25/16 01/15/25 Hist ory sublingual film hydroxyzine HCl 10 mg tablet 10 mg PO QHS #2 tabs 03/13/2401/02 Rx levonorgestrel 14 mcg/24 hr (up to 1 device intrauterine ONCE 01/1501/15/25 History 3 yrs) 13.5 mg intrauterine device (Josephine) Is last menstrual period known: Yes Last Menstrual Period: 01/02/25 Post menopausal: No Patient : No : No PFSH PFSH Medical History Encounter for IUD removal Surgical History H/O: Family History Grandfather Colon cancer Cancer prostate Social History adopted: No household members: family and children housing: house number of children: 2 current occupational status: unemployed 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 Date Name GA/Weeks Outcome Route Bth Weight Infant Gen Labor Lgth Anesthesia Del Locatn Provider FOB Unknown Maddix 2006 42 live - full term Male epidural [facility] Dr Rahman Unknown Talia 2011 38 live - full term Female epidural W Dr Lira HPI IUD INSERTION Details: TED ZABALA is a 34 year old who presents for tripp IUD insertion Female Reproductive History Last Menstrual Period: 01/02/25 ROS Const Constitutional: Reports system reviewed and no additional complaints, except as documented : Reports system reviewed and no additional complaints, except as documented and as per HPI Exam Const General: cooperative, healthy appearing, comfortable and no acute distress External Female Exam: normal external appearance and (more content not included)... Normal [facility] T4 Free Directon 01-15-2025 T4 FREE DIRECT 0.97 ng/dL Normal 0.76-1.46 [facility] Comment on above: Performed By: #### L [id number], [id number] #### [facility] [address] [place], [address] Paunch Trimmer Office Visit Reporton 11-16-2024 Paunch Trimmer Office Visit Report [facility] [address] [place] [address], [address] [place] [address] OFFICE VISIT Date of Service: 11/16/24 MR#: [id number] Acct: [id number] Name: TED ZABALA Rep #: [id number] 4 : 1990 Provider: Dr. Michelle Mejia DO Age/Sex: 34/F [place] [facility] [place]: Signed with Addenda ADDENDUM by Kiki Cadena on 11/26/24 at 1422 Assessment and Plan Assessment and Plan (1) Abnormal uterine bleeding: Status: Acute Comment: CBC today tvus/pelvic us pap obtained today. not sexually active declines sti screening. discussed [place]/pop will re-address after evaluation as this month is improved symptoms. bleeding precautions provided. Orders: Orders POC Urine 11/16/24 Z30.9 - Encounter for contraceptive management, unspecified Josephine IUD 11/16/24 Z30.430 - Encounter for insertion of intrauterine contraceptive device Medications: New levonorgestrel 1 insert intrauterine ONCE 1 ea 0RF Z30.430 - Encounter for insertion of intrauterine contraceptive device Plan Details Additional Comments: IUD [facility] [place] [id number] Expiration 12/2024 [id number] 12/01/24 1059 Date Michelle Luis DO cc: * Signed Intake Vital Signs 09/11/24 15:41 11/09/24 10:24 11/16/24 15:45 11/16/24 15:47 Height 5 ft 4 in 5 ft 4 in 5 ft 4 in 5 ft 4 in Weight: 141 lb BMI 24.2 BP 99/68 Blood Pressure Location Rt brachial Position Sitting Respiration 16 Pulse 81 Pulse Source Monitor Pulse Oximetry (%) 98 Oxygen Delivery Method room air Intake Visit Reasons: Josephine IUD insertion Chief Complaint: Josephine IUD Insertion Allergies mebendazole Allergy (Verified 11/16/24 15:46) Unknown promethazine HCl (From Phenergan) Allergy (Verified 11/16/24 15:46) Other sertraline HCl (From Zoloft) Allergy (Verified 11/16/24 15:46) Unknown Medications ???Medication ???Instructions ???Recorded ???Confirmed ???Type buprenorphine 8 mg-naloxone 2 mg 8 mg PO BID 10/25/16 11/16/24 History sublingual film hydroxyzine HCl 10 mg tablet 10 mg PO QHS #2 tabs 03/13/24 11/16/24 Rx Nurse's Note: Josephine IUD insertion PFSH PFSH Medical History Encounter for IUD removal Surgical History H/O: Family History Grandfather Colon cancer Cancer prostate Social History adopted: No household members: family and children housing: house number of children: 2 current occupational status: unemployed 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 Date Name GA/Weeks Outcome Route Bth Weight Gen Labor Lgth Anesthesia Del Locatn Provider FOB Unknown Maddix 2006 42 live - full term Male epidural [facility] Dr Rahman Unknown Talia2011 38 live - full term Female epidural W Dr Lira HPI Josephine IUD insertion Details: TED ZABALA is a 34 year old who presents for IUD insertion ROS Const ROS Unobtainable: All systems reviewed are unremarkable except as noted in H Resp Resp: Reports system reviewed and no additional complaints, except as documented; Denies cough GI GI: Reports as per HPI Psych Psych: Reports system reviewed and no additional complaints, except as documented Exam Const General: cooperative, healthy appearing, comfortable and no acute distress Resp Effort Inspection: normal respiratory effort General: bimanual renal exam normal bilaterally External Female Exam: normal appearance of the urethra Urethra: normal appearance of the urethra Speculum Exam - Vagina: normal appearance of the vagina Speculum Exam - Cervix: normal appearance of the cervix Bimanual Exam- Adnexa, other: normal adnexae and normal Pelvic Support: normal Other: see IUD insertion procedure. Skin General: no rashes or lesions noted Psych Appearance: grossly normal Speech and Movement: speech and movement normal Office Procedures IUD Insertion IUD GC/Chlamydia:: not done Pre (more content not included)... Normal [facility] .Auto Diffon 11-12-2024 Basophil, Absolute 0.1 10 3/mcL Normal 0.0-0.2 [facility] Comment on above: Performed By: #### F OL, B12 #### [place] [address] #### IBC, ADIFF, FE, FERR, RETO, TSH, CBC, CMP, ANEU, GFR #### [address] [address] Basophils/100 WBC (Bld) 1.3 % Normal 0.0-2.5 [facility] Comment on above: Performed By: #### F OL, B12 #### [place] [address] #### IBC, ADIFF, FE, FERR, RETO, TSH, CBC, CMP, ANEU, GFR #### [address] [address] Eosinophil, Absolute 0.1 10 3/mcL Normal 0.0-0.7 [facility] Comment on above: Performed By: #### F OL, B12 #### [place] [address] #### IBC, ADIFF, FE, FERR, RETO, TSH, CBC, CMP, ANEU, GFR #### [address] [address] Eosinophils/100 WBC (Bld) 3.3 % Normal 0.0-7.0 [facility] Comment on above: Performed By: #### F OL, B12 #### [place] [address] #### IBC, ADIFF, FE, FERR, RETO, TSH, CBC, CMP, ANEU, GFR #### [address] [address] Lymphocyte, Absolute 1.4 10 3/mcL Normal 0.9-4.3 [facility] Comment on above: Performed By: #### F OL, B12 #### [place] [address] #### IBC, ADIFF, FE, FERR, RETO, TSH, CBC, CMP, ANEU, GFR #### [address] [address] Lymphocytes/100 WBC (Bld) 34.9 % Normal 20.0-40.0 [facility] Comment on above: Performed By: #### F OL, B12 #### [place] [address] #### IBC, ADIFF, FE, FERR, RETO, TSH, CBC, CMP, ANEU, GFR #### [address] [address] Monocyte, Absolute 0.5 10 3/mcL Normal 0.1-1.4 [facility] Comment on above: Performed By: #### F OL, B12 #### [place] [address] #### IBC, ADIFF, FE, FERR, RETO, TSH, CBC, CMP, ANEU, GFR #### [address] [address] Monocytes/100 WBC (Bld) 11.7 % Normal 2.0-13.0 [facility] Comment on above: Performed By: #### F OL, B12 #### [address] [address] #### IBC, ADIFF, FE, FERR, RETO, TSH, CBC, CMP, ANEU, GFR #### [address] [address] Neutrophils/100 WBC (Bld) 48.8 % Low 50.0-75.0 [facility] Comment on above: Performed By: #### F OL, B12 #### [address] [address] #### IBC, ADIFF, FE, FERR, RETO, TSH, CBC, CMP, ANEU, GFR #### [address] [address] .GFRon 11-12-2024 GFR 145 ml/min/1.73sqm [facility] Comment on above: Result Comment: GFR Population mean for , Non- Americans Ages 20-29 = 116 mL/min/1.73 sq.m. Ages 30-39 = 107 mL/min/1.73 sq.m. Ages 40-49 = 99 mL/min/1.73 sq.m. Ages 50-59 = 93 mL/min/1.73 sq.m. Ages 60-69 = 85 mL/min/1.73 sq.m. Ages 70+ = 75 mL/min/1.73 sq.m. Chronic Kidney Disease: Less than 60 mL/min/1.73 square meters End Stage Renal Disease: Less than 15 mL/min/1.73 square meters Performed By: #### F OL, B12 #### [address] [address] #### IBC, ADIFF, FE, FERR, RETO, TSH, CBC, CMP, ANEU, GFR #### [address] [address] GFR Non- 120 ml/min/1.73sqm [facility] Comment on above: Result Comment: GFR Population mean for , Non- Americans Ages 20-29 = 116 mL/min/1.73 sq.m. Ages 30-39 = 107 mL/min/1.73 sq.m. Ages 40-49 = 99 mL/min/1.73 sq.m. Ages 50-59 = 93 mL/min/1.73 sq.m. Ages 60-69 = 85 mL/min/1.73 sq.m. Ages 70+ = 75 mL/min/1.73 sq.m. Chronic Kidney Disease: Less than 60 mL/min/1.73 square meters End Stage Renal Disease: Less than 15 mL/min/1.73 square meters Performed By: #### F OL, B12 #### [place] [address] #### IBC, ADIFF, FE, FERR, RETO, TSH, CBC, CMP, ANEU, GFR #### [address] [address] .NEUABSon 11-12-2024 Neutrophil, Absolute 2.0 10 3/mcL Low 2.3-8.1 [facility] Comment on above: Performed By: #### F OL, B12 #### [place] [address] #### IBC, ADIFF, FE, FERR, RETO, TSH, CBC, CMP, ANEU, GFR #### [address] [address] B12on 11-12-2024 Cobalamin (Vitamin B12) [Mass/Vol] 455 pg/mL Normal 211-911 [facility] Comment on above: Performed By: #### F OL, B12 #### [place] [address] #### IBC, ADIFF, FE, FERR, RETO, TSH, CBC, CMP, ANEU, GFR #### [address] [address] CBCon 11-12-2024 Erythrocyte distribution width (RBC) [Ratio] 15.7 % High 11.5-15.5 [facility] Comment on above: Performed By: #### F OL, B12 #### [place] [address] #### IBC, ADIFF, FE, FERR, RETO, TSH, CBC, CMP, ANEU, GFR #### [address] [address] Hematocrit (Bld) [Volume fraction] 25.4 % Low 34.0-46.0 [facility] Comment on above: Performed By: #### F OL, B12 #### [place] [address] #### IBC, ADIFF, FE, FERR, RETO, TSH, CBC, CMP, ANEU, GFR #### [place] [address] Hgb 8.3 G/dL Low 12.0-16.0 [facility] Comment on above: Performed By: #### F OL, B12 #### [place] [address] #### IBC, ADIFF, FE, FERR, RETO, TSH, CBC, CMP, ANEU, GFR #### [place] [id number] MCH (RBC) [Entitic mass] 24.2 pg Low 27.0-33.0 [facility] Comment on above: Performed By: #### F OL, B12 #### [place] [address] #### IBC, ADIFF, FE, FERR, RETO, TSH, CBC, CMP, ANEU, GFR #### [place] [address] MCHC 32.5 G/dL Normal 32.0-36.0 [facility] Comment on above: Performed By: #### F OL, B12 #### [place] [address] #### IBC, ADIFF, FE, FERR, RETO, TSH, CBC, CMP, ANEU, GFR #### [place] [id number] MCV (RBC) [Entitic vol] 74.6 fL Low 80.0-99.0 [facility] Comment on above: Performed By: #### F OL, B12 #### [place] [address] #### IBC, ADIFF, FE, FERR, RETO, TSH, CBC, CMP, ANEU, GFR #### [address] [address] Platelet 214 10 3/mcL Normal 150-450 [facility] Comment on above: Performed By: #### F OL, B12 #### [place] [address] #### IBC, ADIFF, FE, FERR, RETO, TSH, CBC, CMP, ANEU, GFR #### [address] [address] Platelet mean volume (Bld) [Entitic vol] 7.2 fL Normal 6.6-10.5 [facility] Comment on above: Performed By: #### F OL, B12 #### [place] [address] #### IBC, ADIFF, FE, FERR, RETO, TSH, CBC, CMP, ANEU, GFR #### [address] [address] RBC 3.41 10 6/mcL Low 4.10-5.30 [facility] Comment on above: Performed By: #### F OL, B12 #### [place] [address] #### IBC, ADIFF, FE, FERR, RETO, TSH, CBC, CMP, ANEU, GFR #### [place] [address] WBC 4.1 10 3/mcL Low 4.5-10.8 [facility] Comment on above: Performed By: #### F OL, B12 #### [place] [address] #### IBC, ADIFF, FE, FERR, RETO, TSH, CBC, CMP, ANEU, GFR #### [address] [address] CMPon 11-12-2024 Albumin Level 4.0 G/dL Normal 3.5-5.0 [facility] Comment on above: Performed By: #### F OL, B12 #### [place] [address] #### IBC, ADIFF, FE, FERR, RETO, TSH, CBC, CMP, ANEU, GFR #### [address] [address] Albumin/Globulin [Mass ratio] 1.2 {ratio} Normal 1.1-2.5 [facility] Comment on above: Performed By: #### F OL, B12 #### [place] [address] #### IBC, ADIFF, FE, FERR, RETO, TSH, CBC, CMP, ANEU, GFR #### [address] [address] ALP [Catalytic activity/Vol] 54 U/L Normal 40-135 [facility] Comment on above: Performed By: #### F OL, B12 #### [place] [address] #### IBC, ADIFF, FE, FERR, RETO, TSH, CBC, CMP, ANEU, GFR #### [address] [address] ALT [Catalytic activity/Vol] 28 U/L Normal 14-59 [facility] Comment on above: Performed By: #### F OL, B12 #### [place] [address] #### IBC, ADIFF, FE, FERR, RETO, TSH, CBC, CMP, ANEU, GFR #### [address] [address] AST [Catalytic activity/Vol] 18 U/L Normal 10-40 [facility] Comment on above: Performed By: #### F OL, B12 #### [place] [address] #### IBC, ADIFF, FE, FERR, RETO, TSH, CBC, CMP, ANEU, GFR #### [address] [address] Bili Total 0.2 mg/dL Normal 0.2-1.0 [facility] Comment on above: Result Comment: Use of this assay is not recommended for patients undergoing treatment with eltrombopag due to the potential for falsely elevated results. Performed By: #### F OL, B12 #### [place] [address] #### IBC, ADIFF, FE, FERR, RETO, TSH, CBC, CMP, ANEU, GFR #### [address] [address] BUN/Creatinine Ratio 23 ratio Normal 7-27 [facility] Comment on above: Performed By: #### F OL, B12 #### [place] [address] #### IBC, ADIFF, FE, FERR, RETO, TSH, CBC, CMP, ANEU, GFR #### [address] [address] Calcium [Mass/Vol] 8.9 mg/dL Normal 8.4-10.2 [facility] Comment on above: Performed By: #### F OL, B12 #### [place] [address] #### IBC, ADIFF, FE, FERR, RETO, TSH, CBC, CMP, ANEU, GFR #### [address] [address] Chloride [Moles/Vol] 103 mmol/L Normal 98-107 [facility] Comment on above: Performed By: #### F OL, B12 #### [place] [address] #### IBC, ADIFF, FE, FERR, RETO, TSH, CBC, CMP, ANEU, GFR #### [address] [address] CO2 [Moles/Vol] 27 mmol/L Normal 22-29 [facility] Comment on above: Performed By: #### F OL, B12 #### [place] [address] #### IBC, ADIFF, FE, FERR, RETO, TSH, CBC, CMP, ANEU, GFR #### [address] [address] Creatinine [Mass/Vol] 0.57 mg/dL Normal 0.55-1.02 [facility] Comment on above: Result Comment: Test ing performed on Siemens Dimension EXL analyzer using a modified kinetic Antonella technique. Performed By: #### F OL, B12 #### [place] [address] #### IBC, ADIFF, FE, FERR, RETO, TSH, CBC, CMP, ANEU, GFR #### [address] [address] Electrolyte Balance 9.0 mEq/L Normal 4.0-15.0 [facility] Comment on above: Performed By: #### F OL, B12 #### [place] [address] #### IBC, ADIFF, FE, FERR, RETO, TSH, CBC, CMP, ANEU, GFR #### [address] [address] Globulin 3.3 G/dL Normal [facility] Comment on above: Performed By: #### F OL, B12 #### [place] [address] #### IBC, ADIFF, FE, FERR, RETO, TSH, CBC, CMP, ANEU, GFR #### [address] [address] Glucose [Mass/Vol] 90 mg/dL Normal 70-105 [facility] Comment on above: Performed By: #### F OL, B12 #### [place] [address] #### IBC, ADIFF, FE, FERR, RETO, TSH, CBC, CMP, ANEU, GFR #### [address] [address] Potassium [Moles/Vol] 4.0 mmol/L Normal 3.5-5.1 [facility] Comment on above: Performed By: #### F OL, B12 #### [address] [address] #### IBC, ADIFF, FE, FERR, RETO, TSH, CBC, CMP, ANEU, GFR #### [address] [address] Sodium [Moles/Vol] 139 mmol/L Normal 136-145 [facility] Comment on above: Performed By: #### F OL, B12 #### [place] [address] #### IBC, ADIFF, FE, FERR, RETO, TSH, CBC, CMP, ANEU, GFR #### [place] [id number] Total Protein 7.3 G/dL Normal 6.4-8.2 [facility] Comment on above: Performed By: #### F OL, B12 #### [place] [address] #### IBC, ADIFF, FE, FERR, RETO, TSH, CBC, CMP, ANEU, GFR #### [address] [address] Urea nitrogen [Mass/Vol] 13 mg/dL Normal 7-18 [facility] Comment on above: Performed By: #### F OL, B12 #### [place] [address] #### IBC, ADIFF, FE, FERR, RETO, TSH, CBC, CMP, ANEU, GFR #### [address] [address] FEon 11-12-2024 Iron [Mass/Vol] 9 ug/dL Low 50-170 [facility] Comment on above: Performed By: #### F OL, B12 #### [place] [address] #### IBC, ADIFF, FE, FERR, RETO, TSH, CBC, CMP, ANEU, GFR #### [address] [address] Adan 11-12-2024 Ferritin [Mass/Vol] 5.0 ng/mL Low 8.0-252.0 [facility] Comment on above: Performed By: #### F OL, B12 #### [address] [address] #### IBC, ADIFF, FE, FERR, RETO, TSH, CBC, CMP, ANEU, GFR #### [address] [address] FOLon 11-12-2024 Folate 14.16 ng/mL Normal 5.38-24.00 [facility] Comment on above: Performed By: #### F OL, B12 #### [address] [address] #### IBC, ADIFF, FE, FERR, RETO, TSH, CBC, CMP, ANEU, GFR #### [address] [address] IBCon 11-12-2024 TIBC 456 mcg/dL High 250-450 [facility] Comment on above: Performed By: #### F OL, B12 #### [place] [address] #### IBC, ADIFF, FE, FERR, RETO, TSH, CBC, CMP, ANEU, GFR #### [address] [address] LABORATORYOrdered By: SYSTEM SYSTEM on 11-12-2024 Albumin BCP dye [Mass/Vol] 4.0 G/dL Normal 3.5 - 5.0 G/dL AO ADM SS Albumin/Globulin [Mass ratio] 1.2 {ratio} Normal 1.1 - 2.5 ratio AO ADM SS ALP [Catalytic activity/Vol] 54 U/L Normal 40 - 135 U/L AO ADM SS ALT With P-5'-P [Catalytic activity/Vol] 28 U/L Normal 14 - 59 U/L AO ADM SS AST With P-5'-P [Catalytic activity/Vol] 18 U/L Normal 10 - 40 U/L AO ADM SS Basophils (Bld) [#/Vol] 0.1 103/mcL Normal 0.0 - 0.2 10^3/mcL AO Workflow SS Basophils/100 WBC (Bld) 1.3 % Normal 0.0 - 2.5 % AO Workflow SS Bilirubin [Mass/Vol] 0.2 mg/dL Normal 0.2 - 1 .0 mg/dL AO ADM SS Comment on above: Interpretive Data: U se of this assay is not recommended for patients undergoing treatment with eltrombopag due to the potential for falsely elevated results. Calcium [Mass/Vol] 8.9 mg/dL Normal 8.4 - 10. 2 mg/dL AO ADM SS Chloride [Moles/Vol] 103 mmol/L Normal 98 - 10 7 mmol/L AO ADM SS CO2 [Moles/Vol] 27 mmol/L Normal 22 - 29 mmol/L AO ADM SS Cobalamin (Vitamin B12) [Mass/Vol] 455 pg/mL Normal 211 - 911 pg/mL AH ADM SS Creatinine [Mass/Vol] 0.57 mg/dL Normal 0.55 - 1.02 mg/dL AO ADM SS Comment on above: Interpretive Data: T esting performed on Siemens Dimension EXL analyzer using a modified kinetic Antonella technique. Electrolyte Balance 9.0 mEq/L Normal 4.0 - 15 .0 mEq/L AO ADM SS Eosinophil, Absolute 0.1 103/mcL Normal 0.0 - 0 .7 10^3/mcL AO Workflow SS Eosinophils/100 WBC (Bld) 3.3 % Normal 0.0 - 7.0 % AO Workflow SS Erythrocyte distribution width (RBC) [Ratio] 15.7 % High 11.5 - 15.5 % AO Workflow SS Ferritin [Mass/Vol] 5.0 ng/mL Low 8.0 - 25 2.0 ng/mL AO ADM SS Folate [Mass/Vol] 14.16 ng/mL Normal 5.38 - 24.00 ng/mL ADM SS GFR/1.73 sq M.predicted among blacks MDRD (S/P/Bld) [Vol rate/Area] 145 ml/min/1.73sqm Invalid Interpretation Code AO Chemistry S Comment on above: Interpretive Data: GFR Population mean for , Non- Americans Ages 20-29 = 116 mL/min/1.73 sq.m. Ages 30-39 = 107 mL/min/1.73 sq.m. Ages 40-49 = 99 mL/min/1.73 sq.m. Ages 50-59 = 93 mL/min/1.73 sq.m. Ages 60-69 = 85 mL/min/1.73 sq.m. Ages 70+ = 75 mL/min/1.73 sq.m. Chronic Kidney Disease: Less than 60 mL/min/1.73 square meters End Stage Renal Disease: Less than 15 mL/min/1.73 square meters GFR/1.73 sq M.predicted among non-blacks MDRD (S/P/Bld) [Vol rate/Area] 120 ml/min/1.73sqm Invalid Interpretation Code AO Chemistry S Comment on above: Interpretive Data: GFR Population mean for , Non- Americans Ages 20-29 = 116 mL/min/1.73 sq.m. Ages 30-39 = 107 mL/min/1.73 sq.m. Ages 40-49 = 99 mL/min/1.73 sq.m. Ages 50-59 = 93 mL/min/1.73 sq.m. Ages 60-69 = 85 mL/min/1.73 sq.m. Ages 70+ = 75 mL/min/1.73 sq.m. Chronic Kidney Disease: Less than 60 mL/min/1.73 square meters End Stage Renal Disease: Less than 15 mL/min/1.73 square meters Globulin 3.3 G/dL Invalid Interpretation Code AO ADM SS Glucose [Mass/Vol] 90 mg/dL Normal 70 - 105 mg/dL AO ADM SS Hematocrit (Bld) [Volume fraction] 25.4 % Low 34.0 - 46.0 % AO Workflow SS Hemoglobin (Bld) [Mass/Vol] 8.3 G/dL Low 12.0 - 16.0 G/dL AO Workflow SS Immature reticulocytes/Total reticulocytes (Bld) 0.45 IRF Normal 0.20 - 0.46 IRF AO Workflow SS Iron [Mass/Vol] 9 ug/dL Low 50 - 170 mcg/dL AO ADM SS Iron binding capacity [Mass/Vol] 456 mcg/dL High 250 - 450 mcg/dL AO ADM SS Lymphocytes (Bld) [#/Vol] 1.4 103/mcL Normal 0.9 - 4.3 10^3/mcL AO Workflow SS Lymphocytes/100 WBC (Bld) 34.9 % Normal 20.0 - 40.0 % AO Workflow SS MCH (RBC) [Entitic mass] 24.2 pg Low 27.0 - 33.0 pg AO Workflow SS MCHC 32.5 G/dL Normal 32.0 - 36.0 G/dL AO Workflow SS MCV (RBC) [Entitic vol] 74.6 fL Low 80.0 - 99.0 fL AO Workflow SS Monocytes (Bld) [#/Vol] 0.5 103/mcL Normal 0.1 - 1.4 10^3/mcL AO Workflow SS Monocytes/100 WBC (Bld) 11.7 % Normal 2.0 - 13.0 % AO Workflow SS Neutrophils (Bld) [#/Vol] 2.0 103/mcL Low 2.3 - 8.1 10^3/mcL AO Workflow SS Neutrophils/100 WBC (Bld) 48.8 % Low 50.0 - 75.0 % AO Workflow SS Platelet mean volume (Bld) [Entitic vol] 7.2 fL Normal 6.6 - 10.5 fL AO Workflow SS Platelets (Bld) [#/Vol] 214 103/mcL Normal 150 - 450 10^3/mcL AO Workflow SS Potassium [Moles/Vol] 4.0 mmol/L Normal 3.5 - 5.1 mmol/L AO ADM SS Protein [Mass/Vol] 7.3 G/dL Normal 6.4 - 8.2 G/dL AO ADM SS RBC (Bld) [#/Vol] 3.41 106/mcL Low 4.10 - 5.3 0 10^6/mcL AO Workflow SS Reticulocytes, Auto 1.0 % Normal 0.2 - 2.3 % AO W orkflow SS Sodium [Moles/Vol] 139 mmol/L Normal 136 - 145 mmol/L AO ADM SS TSH Qn 1.39 m[IU]/L Normal 0.36 - 3.74 mcIU/mL AO ADM SS Urea nitrogen [Mass/Vol] 13 mg/dL Normal 7 - 18 mg/dL AO ADM SS Urea nitrogen/Creatinine [Mass ratio] 23 ratio Normal 7 - 27 ratio AO ADM SS WBC (Bld) [#/Vol] 4.1 103/mcL Low 4.5 - 10.8 10^3/mcL AO Workflow SS RETO (AO)on 11-12-2024 Immature Retic Fraction 0.45 IRF Normal 0.20-0.46 [facility] Comment on above: Performed By: #### F OL, B12 #### [facility] [address] [place], [place] [address] #### IBC, ADIFF, FE, FERR, RETO, TSH, CBC, CMP, ANEU, GFR #### [address] [address] Reticulocytes, Auto 1.0 % Normal 0.2-2.3 [facility] Comment on above: Performed By: #### F OL, B12 #### [address] [address] #### IBC, ADIFF, FE, FERR, RETO, TSH, CBC, CMP, ANEU, GFR #### [address] [address] TSHon 11-12-2024 TSH Qn 1.39 m[IU]/L Normal 0.36-3.74 [facility] Comment on above: Performed By: #### F OL, B12 #### [address] [address] #### IBC, ADIFF, FE, FERR, RETO, TSH, CBC, CMP, ANEU, GFR #### [address] [address] PAP IG HPV APTIMA 16/18,45on 09-18-2024 ADEQ Comment Normal . [facility] Comment on above: Order Comment: Speci men Comment: [id number] Specimen Comment: Source.............Cervix Specimen Comment: No. of containers..01 ThinPrep Vial Result Comment: Sati sfactory for evaluation. Endocervical and/or squamous metaplastic cells (endocervical component) are present. Performed By: #### L 7400.0280 #### [facility] [address] [place], [address] COMM . Normal . [facility] Comment on above: Order Comment: Speci men Comment: [id number] Specimen Comment: Source.............Cervix Specimen Comment: No. of containers..01 ThinPrep Vial Performed By: #### L 7400.0280 #### [facility] [address] [place], [place], [id number] COMMENT Comment Normal . [facility] Comment on above: Order Comment: Speci men Comment: [id number] Specimen Comment: Source.............Cervix Specimen Comment: No. of containers..01 ThinPrep Vial Result Comment: This liquid based ThinPrep(R) pap test was screened with the use of an image guided system. Performed By: #### L 7400.0280 #### [facility] [address] [place], [address] DIAG Comment Normal . [facility] Comment on above: Order Comment: Speci men Comment: [id number] Specimen Comment: Source.............Cervix Specimen Comment: No. of containers..01 ThinPrep Vial Result Comment: NEGA TIVE FOR INTRAEPITHELIAL LESION OR MALIGNANCY. Performed By: #### L 7400.0280 #### [facility] [address] [place], [address] HPV APTIMA, HR Negative Normal Negative [facility] Comment on above: Order Comment: Speci men Comment: [id number] Specimen Comment: Source.............Cervix Specimen Comment: No. of containers..01 ThinPrep Vial Result Comment: This nucleic acid amplification test detects fourteen high- risk HPV types (16,18,31,33,35,39,45,51,52,56,58,59,66,68) without differentiation. Performed By: #### L 7400.0280 #### [facility] [address] [place], [place], [id number] HPV Charlotte Rfx Comment Normal . [facility] Comment on above: Order Comment: Speci men Comment: [id number] Specimen Comment: Source.............Cervix Specimen Comment: No. of containers..01 ThinPrep Vial Result Comment: Crit angel not met, HPV Genotype not performed. Performed at: - [facility] [id number] [employer]ader: Hansa Longoria MD, Phone: [phone] Performed at: = - [facility] [id number] [employer]lee[employer] Grader: Hansa Longoria MD, Phone: [phone] Performed By: #### L 7400.0280 #### [facility] [address] [place], [place], [id number] PAPSMR Comment Normal . [facility] Comment on above: Order Comment: Speci men Comment: [id number] Specimen Comment: Source.............Cervix Specimen Comment: No. of containers..01 ThinPrep Vial Result Comment: The Pap smear is a screening test designed to aid in the detection of premalignant and malignant conditions of the uterine cervix. It is not a diagnostic procedure and should not be used as the sole means of detecting cervical cancer. Both false-positive and false-negative reports do occur. Performed By: #### L 7400.0280 #### [facility] [address] [place], [place], [id number] PERFORM Comment Normal . [facility] Comment on above: Order Comment: Speci men Comment: [id number] Specimen Comment: Source.............Cervix Specimen Comment: No. of containers..01 ThinPrep Vial Result Comment: James M[employer] (ASCP) Performed By: #### L 7400.0280 #### [facility] [address] [place], [place], [address] CBC W/Diff, Automatedon 10-1 Absolute Lymph 1.67 X10 3/uL Normal 0.83-4.51 [facility] Comment on above: Performed By: #### L 100.0100 #### [facility] [address] [place], [address] Absolute Neut 3.3 X10 3/uL Normal 2.0-7.7 [facility] Comment on above: Performed By: #### L 100.0100 #### [facility] [address] [place] [place], [address] Basophils/100 WBC (Bld) 0.5 % Normal 0-1 [facility] Comment on above: Performed By: #### L 100.0100 #### [facility] [address] [place], [address] Eosinophils/100 WBC (Bld) 3.3 % Normal 0-5 [facility] Comment on above: Performed By: #### L 100.0100 #### [facility] [address] [place], [address] Erythrocyte distribution width (RBC) [Ratio] 13.9 % Normal 11.6-14.6 [facility] Comment on above: Performed By: #### L 100.0100 #### [facility] [address] [place], [address] Hematocrit (Bld) [Volume fraction] 31.1 % Low 37-47 [facility] Comment on above: Performed By: #### L 100.0100 #### [facility] [address] [place], [address] Hemoglobin (Bld) [Mass/Vol] 9.8 g/dL Low 12.0-15.0 [facility] Comment on above: Performed By: #### L 100.0100 #### [facility] [address] [place], [address] IG% 0.300 Normal 0.0-0.9 [facility] [facility] Comment on above: Result Comment: IG% - Immature Granulocytes (promyelocytes, myelocytes and metamyelocytes) > 1% indicates that a LEFT SHIFT is Present. Performed By: #### L 100.0100 #### [facility] [address] [place] [place], [address] Lymphocytes/100 WBC (Bld) 29.0 % Normal 19-41 [facility] Comment on above: Performed By: #### L 100.0100 #### [facility] [address] [place] [place], [address] MCH (RBC) [Entitic mass] 26.1 pg Low 27.0-32.0 [facility] Comment on above: Performed By: #### L 100.0100 #### [facility] [address] [place], [address] MCHC (RBC) [Mass/Vol] 31.5 g/dL Low 32-36 [facility] Comment on above: Performed By: #### L 100.0100 #### [facility] [address] [place], [address] MCV (RBC) [Entitic vol] 82.7 fL Normal 81-99 [facility] Comment on above: Performed By: #### L 100.0100 #### [facility] [address] [place] [place], [address] Monocytes/100 WBC (Bld) 10.3 % High 0-10 [facility] Comment on above: Performed By: #### L 100.0100 #### [facility] [address] [place], [address] Neutrophils/100 WBC (Bld) 56.6 % Normal 47-70 [facility] Comment on above: Performed By: #### L 100.0100 #### [facility] [address] [place] [place], [address] Nucleated RBC (Bld) [#/Vol] 0 10*3/uL Normal 0-5 [facility] Comment on above: Performed By: #### L 100.0100 #### [facility] [address] [place], [address] Platelet mean volume (Bld) [Entitic vol] 9.4 fL Normal 6.2-12.0 [facility] Comment on above: Performed By: #### L 100.0100 #### [facility] [address] [place], [address] Platelets (Bld) [#/Vol] 191 10*3/uL Normal 150-450 [facility] Comment on above: Performed By: #### L 100.0100 #### [facility] [address] [place], [address] RBC (Bld) [#/Vol] 3.76 10*6/uL Low 4.2-5.4 [facility] Comment on above: Performed By: #### L 100.0100 #### [facility] [address] [place], [address] RDW SD 42.3 fl Normal 35.1-43.9 [facility] Comment on above: Performed By: #### L 100.0100 #### [facility] [address] [place], [address] WBC (Bld) [#/Vol] 5.8 10*3/uL Normal 4.4-11.0 [facility] Comment on above: Performed By: #### L 100.0100 #### [facility] [address] 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 Is patient in pain?: No Allergies mebendazole Allergy (Verified 09/11/24 15:40) Unknown promethazine HCl (From Phenergan) Allergy (Verified 09/11/24 15:40) Other sertraline HCl (From Zoloft) Allergy (Verified 09/11/24 15:40) Unknown Medications ???Medication ???Instructions ???Recorded ???Confirmed ???Type buprenorphine 8 mg-naloxone 2 mg 8 mg PO BID 10/25/16 09/11/24 History sublingual film hydroxyzine HCl 10 mg tablet 10 mg PO QHS #2 tabs 03/13/24 09/11/24 Rx Is last menstrual period known: Yes Last Menstrual Period: 09/05/24 Post menopausal: No Patient : No : No Control Method: None PFSH Medical History Encounter for IUD removal Surgical History H/O: Family History Grandfather Colon cancer Cancer prostate Social History adopted: No household members: family and children housing: house number of children: 2 current occupational status: unemployed 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 monthly bleeding with spotting, increased periods of heavy bleeding with clots. LMP 09/05/2024 Flow: Heavy, Light, Spotting if heavy:??? clots- yes but not this month, last month orange size clot multiple. 30 that week. feeling anemic. ? saturating a pad front to back, side to side in less than an hour 2 hours in a row- no Female Reproductive History Last Menstrual Period: 09/05/24 History 3 Elective abortions 1 Hx Para 2 Spontaneous abortions 0 Hx # Term Pregnancies 2 Ectopic pregnancies 0 Hx #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 levonorgestrel 14 mcg/24 hr (3 yrs) 13.5 mg intrauterine device 1 insert intrauterine ONCE Qty: 1 0RF Josephine 14 mcg/24 hr (3 yrs) 13.5 mg intrauterine device 1 device intrauterine ONCE Rx Instructions: as a single dose buprenorphine-naloxone 1 EACH film 8 mg PO BID Patient Comments: Primary Care Provider: Care Physician,No Primary Referrals: Care Physician,No Primary [Primary Care Provider] - Print Language: Burkinan What to do if you have Problems For any increased pain, shortness of breath, bleeding, nausea or vomiting, chestpain, or any unexpected problems, contact your Primary Care Provider. Call [facility] ([phone]) or report to the closest Emergency Room. Call 911 if necessary. 07/12/251937 <Electronically signed by Berlin Brizuela DO> Cosigner Signature (if applicable): CC: No Primary Care Physician ~ Signed [facility] Work Phone: [phone]) 981-183310-09-2024 NoteHNO ID: [id number] Author: AIDE WOODS MA Service: ? Author Type: [employer] Type: Progress Notes Filed: 09/10/2024 17:31 Note Text: Items addressed in this encounter: Virtual Visit Pre Check In Attempted to reach patient no answer GALLO Woods MA September 09, 2024 12:46 PM 12:46 [facility]10-09-2024 History of Present illness Narrative* Aide Woods MA - 09/09/2024 12:46 PM EDT Items addressed in this encounter: Virtual Visit Pre Check In Attempted to reach patient no answer GALLO Woods MA September 09, 2024 12:46 PM 12:46 PM documented in this encounterUniversity [facility]als [facility] CenterEvaluation + Plan note No data available for this section [facility] Evaluation note* Diagnosis Onset Date Resolution Status Breast lump in female acute Encounter for IUD removal ac [employer] [employer] [facility] Work Phone: Evaluation note* Diagnosis No-show for appointment- Primary documented in this encounter [facility] noteNo assessment information availableWKettering [facility] Work Phone: Hospital Discharge instructions No data available for this section [facility] Progress note No data available for this section [facility] Reason for referral (narrative)No reason for referral information availableWKettering Health [facility] Work Phone: Summary Purpose Family History Relationship Condition Age at Onset Recorded Date/T cyndie grandfather Malignant neoplasm of colon Unknown Malignant neoplasm Unknown Advance Directives Advance Directive Response Recorded Date/ Time Advance Directives No February 18 023 12:29pm Living Will No February 18, 2023 12:29pm Power of Product Support Manager No February 18 23 12:29pm Advance Directive Response Recorded Date/ Time Do you have a [facility] Power of Product Support Manager? No July 12, 2025 4:42pm Advance Directives No November 09, 2024 11:24am Chief Complaint and Reason for Visit Chief Complaint IUD removal only, pt no show last appt UNSPECIFIED LUMP IN UNSPECIFIED BREAST Reason for Visit Breast lump in femal e Encounter for IUD removal Chief Complaint Admit Date ANEMIA, VAGINAL BLEEDING July 12 8:12pm Additional Source Comments INFORMATION SOURCE (unrecogn ized section and content) DATE CREATED AUTHOR 05/23/2018 [facility] DATE CREATED AUTHOR AUTHOR'S ORGANIZ ATION 09/13/2024 [facility] DATE CREATED AUTHOR AUTHOR'S ORGANIZ ATION 11/15/2024 [facility] DATE CREATED AUTHOR AUTHOR'S ORGANIZ ATION 02/20/2025 [facility] Care Teams (unrecognized sec tion and content) Team Status: Active Member Role Status Dates Dr. Virginie Crocker MD Family Provider Active Dr. Virginie Crocker MD Primary Care Provider Active Team Status: Inactive Member Role Status Dates Dr. Virginie Crocker MD Primary Care Provider, Referring Provider Active Autumn Ramos , CNM Attending Provider Active Team Status: Inactive Member Role Status Dates Dr. Virginie Crocker MD Primary Care Provider Active Autumn Ramos CNM Attending Provider, Referring Pr primo Active Team Status: Active Member Role/Relationship Status Dates No Primary Care Physician Primary Care Provider Active Team Status: Active Member Role/Relationship Status Dates No Primary Care Physician Primary Care Provider Active Start: July 12, 2025 Dr. Berlin Brizuela DO Emergency Provider Activ e Start: July 12, 2025 Dr. Annamarie Lira MD Admit Provider Active Start: July 12, 2025 Dr. Annamarie Lira MD Attending Provider Active Start: July 12, 2025 Goals (unrecognized section and content) Goals may be documented in a n alternate section No data available for this sectionGoals may be documented in an alternate section Source Comments (unrecognize d section and content) In the event this informatio n is protected by the Federal Confidentiality of Alcohol and Drug Abuse Patient Records regulations: The Federal rules restrict any use of the information to criminally investigate or prosecute any alcohol or drug abuse patient.[facility] Reason for Visit (unrecogniz ed section and content) Reason Comments Multiple Concerns FOR RECORDS PERTAINING TO PATIENTS WHO ARE OR HAVE BEEN ENROLLED IN A CHEMICAL DEPENDENCY/SUBSTANCEABUSE PROGRAM, SOME INFORMATION MAY BE OMITTED. This clinical summary was aggregated from multiple sources. Caution should be exercised in using it in the provision of clinical care. This summary normalizes information from multiple sources, and as a consequence, information in this document may materially change the coding, format and clinical context of patient data. In addition, data may be omitted in some cases. CLINICAL DECISIONS SHOULD BE BASED ON THE PRIMARY CLINICAL RECORDS. [facility]. provides no warranty or guarantee of the accuracy or completeness of information in this document.
[2025-07-13] VITALS (11 sets, daily range): BP systolic 100–122; BP diastolic 51–84; PULSE 88–131; RESP 11–18; TEMP 36.7–39.3; O2SAT 95–99
[2025-07-13] MEDS: KCL 20MEQ in D5.45NS 20 MEQ/1,000 ML IV.SOLN. 100 MEQ IV (02:50)
--- NOTE | 2025-07-13 04:00 | PCM.PN.OB ---
Subjective Subjective called by nursing at 315 and evaluated at 330. patient refusing subuxone and refusing benadryl and tylenol after febrile episode post transfusion. temp 102.6 initially right after finishing the 2nd unit of blood. patient feeling feverish and chills. she denies any CP SOB feels some nausea no abdominal pain or flank pain. has only changed her pad once since 730 last night. Objective Data Objective Data Vital Signs: Vital Signs Temp Pulse Resp BP Pulse Ox O2 Del Method 102.6 F H 129 H 14 108/64 95 Room Air 07/13/25 02:40 07/13/25 02:40 07/13/25 02:40 07/13/25 02:40 07/13/25 02:40 07/13/25 02:40 Oxygen Delivery Method Room Air Weight: 134 lb 14.766 oz Body Mass Index (BMI) 23.1 Intake & Output: Intake and Output for Last 24 Hours 07/11/25 07/12/25 07/13/25 23:59 23:59 23:59 Intake Total 1506 / 1506 400 / 400 Balance 1506 / 1506 400 / 400 Lab / Micro Data 07/12/25 16:41 07/12/25 16:41 Labs: Laboratory Results - last 24 hr 07/12/25 16:41: WBC 3.8 L, RBC 3.35 L, Hgb 5.6 L*, Hct 20.0 L, MCV 59.7 L, MCH 16.7 L, MCHC 28.0 L, RDW Std Deviation 42.0, RDW Coeff of German 20.0 H, Plt Count 225, MPV 8.9, Immature Gran % (Auto) 0.300, Neut % (Auto) 58.1, Lymph % (Auto) 27.2, Ceiba % (Auto) 12.5 H, Eos % (Auto) 1.6, Baso % (Auto) 0.3, Absolute Neuts (auto) 2.2, Absolute Lymphs (auto) 1.02, Nucleated RBC % 0, Sodium 139, Potassium 3.9, Chloride 107, Carbon Dioxide 20.6 L, Anion Gap 12, BUN 9, Creatinine 0.44 L, Estim Creat Clear Calc 151.17, Est GFR (MDRD) Non-Af 128, BUN/Creatinine Ratio 20.4 H, Glucose 99, Calcium 8.9, Serum , Qual NEGATIVE 07/12/25 17:31: Blood Type A POSITIVE, Antibody Screen NEGATIVE, Crossmatch See Detail Radiography Diagnostic Testing: Radiology Impression Transvaginal US 07/12/25 16:30 IMPRESSION: Uterine fibroid. Reading Location: [facility] Constitutional Constitutional: Reports as per HPI Cardiovascular Cardiovascular: Reports as per HPI Respiratory/Chest Respiratory/Chest: Reports as per HPI Gastrointestinal Gastrointestinal: Reports as per HPI Assessment & Plan (1) History of opioid abuse: COMMENT: on suboxone (2) Fibroid: COMMENT: 4 cm submucosal. s/p IUD. anemic. admit for transfusion, IV TXA. (3) Anemia: COMMENT: chronic- transfuse 2 units prbcs and reassess (4) Abnormal uterine bleeding: COMMENT: US reviewed and fibroid present. TXA ordered for acute, transfusion. (5) Transfusion reaction: COMMENT: evaluate blood products, supportive care, cbc ever test ua tylenol hydroxyzine (refused benadryl) (6) Opiate withdrawal: COMMENT: patient initially refusing suboxone, now accepting restarting therapy- given. PLAN: Plan consulted hospitalist for additional management, supportive care. patient now agreeing to take suboxone, tylenol, and agrees to hydroxyzine.
[2025-07-13 04:05] LABS: Hematocrit 24.7 % (37-47); Hemoglobin 7.8 g/dL (12.0-15.0); Immature Granulocytes Count 0.030 X10^3/uL (0.0-0.0); Mean Corp Hgb Conc 31.6 g/dL (32-36); Mean Corpuscular Volume 64.8 fL (81-99); Mean Platelet Vol. 8.4 fl (6.2-12.0); NRBC Flagged by Analyzer 0 % (0-5); POSITIVE DIFFERENTIAL YES; POSITIVE MORPHOLOGY YES; Platelet Count 110 K/mm3 (150-450); RBC Distribution Width CV 25.3 % (11.6-14.6); RBC Distribution Width SD 57.1 fl (35.1-43.9); Red Blood Count 3.81 M/mm3 (4.2-5.4); White Blood Count 5.9 K/mm3 (4.4-11.0)
[2025-07-13 04:10] LABS: Differential Indicated SCAN CRITERIA MET
[2025-07-13 04:14] LABS: Color, Urine- Transfusion RXN Yellow (Yellow)
--- NOTE | 2025-07-13 04:17 | PCM.CONS.GEN ---
Assessment & Plan Assessment/Plan (1) Transfusion reaction: QUALIFIERS: Encounter type: initial encounter Qualified Code(s): T80.92XA - Unspecified transfusion reaction, initial encounter (2) Fever: QUALIFIERS: Fever type: febrile nonhemolytic transfusion reaction Qualified Code(s): R50.84 - Febrile nonhemolytic transfusion reaction (3) Tachycardia as manifestation of blood transfusion reaction: (4) Abnormal uterine bleeding: (5) Fibroid: (6) Opiate withdrawal: (7) History of opioid abuse: (8) Depression with anxiety: (9) Hypokalemia: (10) Tobacco abuse: PLAN: Plan 1. Transfusion Reaction with Fever and Tachycardia - Continue supportive care with prn acetaminophen and prn diphenhydramine. Direct antiglobulin test negative. Check UA, Blood Cultures x 2 and CXR in case of evolving infection and to evaluate for possible TRALI. Check VBG to establish baseline. Blood Bank has been notified of suspected transfusion reaction. Patient has suspected febrile non-hemolytic transfusion reaction. The CLAY HOUSE WORKER informed me he patient's fever defervesced before she was treated with IM hydroxyzine after refusing diphenhydramine because it makes her sleepy. In the unlikely event the patient worsens in spite of conservative treatment the plan is to treat with steroids and consult public relations director for further recommendations. 2. Acute heavy menstrual bleeding with associated dizziness and lightheadedness after passing large clots and having to change her menstrual pads several times an hour for the past few days culminating in patient presenting to the ER here with a critically low hemoglobin of 5.6 g/dL and mild resting tachycardia with patient subsequently found to have n ~4.5 cm fibroid on ultrasound. She was then admitted and treated with IV tranexamic acid and transfused PRBC's with subsequent Fever up to 102.6 degrees Fahrenheit and sinus tachycardia of 129 bpm ~1 hour after transfusion prompting urgent hospitalist consultation for suspected transfusion reaction complicating #1 - Noted with improved hemoglobin up to 7.8 g/dL. 3. History of opiate abuse with patient temporarily refusing to take buprenorphine-naloxone for ~24 hours prompting concern for evolving opiate withdrawal compounding #1 & #2 - Patient now taking her medications as prescribed after mina counseling from [facility] attending. 4. Depression with Anxiety; currently not on treatment exacerbated by #1 - #3 - We will give hydroxyzine prn for breakthrough symptoms. Patient also noted to have severe anxiety with panic after she was going to be admitted to the 3rd floor - but could not be sent there because she refused to get on the elevator - resulting in her admission to PCU. 5. G3-P2; s/p x 2 (with one elective two living children) with history of IUD placement (01/2024); with intermittent heavy bleeding since last Fall and chronic anemia with patient reporting device fell out several weeks ago with no follow up for string check in addition to declining to come in sooner than recommended adding to the medical complexity of #1 - #4 - Noted. 6. Hypokalemia of 3.2 mmol/L noted on lab testing this AM - Give supplemental oral KCl and then recheck level to confirm repletion. 7. Tobacco abuse - Tobacco Cessation will be strongly encouraged. 8. DVT prophylaxis - SCD's only in light of #2. Total time: Approximately (but not less than) 60 minutes. HPI Consult Data Date of Consult: 07/13/25 HPI Narrative Reason for Consultation: Suspected Transfusion Reaction. HPI Narrative: TED ZABALA, is a 35 F with a past medical history of G3-P2; s/p x 2 (with one elective two living children) tobacco abuse, history of chronic opiate abuse; on buprenorphine-naloxone BID, history of depression with anxiety; currently not on treatment, history of IUD placement (01/2024); with intermittent heavy bleeding since last Fall and chronic anemia with patient reporting device fell out several weeks ago with no follow up for string check in addition to declining to come in sooner than recommended who was admitted to the [facility] service of Dr. Norton on the evening of July 12, 2025 with acute heavy menstrual bleeding with associated dizziness and lightheadedness after passing large clots and having to change her menstrual pads several times an hour for the past few days culminating in patient presenting to the ER here with a critically low hemoglobin of 5.6 g/dL and mild resting tachycardia with patient subsequently found to have n ~4.5 cm fibroid on ultrasound. She was then admitted and treated with IV tranexamic acid and transfused PRBC's with subsequent Fever up to 102.6 degrees Fahrenheit and sinus tachycardia of 129 bpm ~1 hour after transfusion prompting urgent hospitalist consultation for suspected transfusion reaction. I spoke directly to Dr. Norton and she informed me the patient has been very anxious and fearful throughout this admission with patient temporarily refusing to take her buprenorphine-naloxone adding concern for possible evolving superimposed opiate withdrawal. Her most recent hemoglobin has risen to 7.8 g/dL with moderate thrombocytopenia of 110K (down form 225K at 16:41 hours yesterday). I advised notification of the blood bank and stopping transfusion in addition to antihistamines with hydroxyzine as patient does not like to take diphenhydramine. Patient was also treated with acetaminophen for her fever. A CXR was also ordered to evaluate for TRALI with patient only admitting to nausea and anxiety - with no complaints of SOB or rash at this time. We will check VBG to establish baseline. Patient allegedly has no history of blood transfusions. Patient has suspected non-antibody medicated acute hemolytic reaction to damaged RBC's but we will also check UA and blood cultures in case of underlying infection. If patient worsens the plan is to treat with steroids and consult public relations director for further recommendations. Thank you for allowing us to participate in the care of your patient. REPLACED BY [facility] Medical History Apneic episode Weight gain History of opioid abuse Anemia Encounter for IUD removal Home Medications ?Medication ?Instructions ?Recorded ?Last Taken ?Type buprenorphine 8 mg-naloxone 2 mg 8 mg PO BID 10/25/16 07/11/25 History sublingual film Allergy/AdvReac Type Severity Reaction Status Date / Time mebendazole Allergy Unknown Verified 07/12/25 16:26 promethazine HCl (From Allergy Other Verified 07/12/25 16:26 Phenergan) sertraline HCl (From Zoloft) Allergy Unknown Verified 07/12/25 16:26 Family History Grandfather Colon cancer Cancer prostate Surgical History H/O: Social History adopted: No household members: family and children housing: house number of children: 2 current occupational status: unemployed 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 Eyes: Patient denies changes in vision or discharge from eyes. ENT: Patient denies runny nose, sore throat or ear pain. Resp: Patient denies SOB or cough. CV: Patient denies chest pain, palpitations, heart racing or LE edema. GI: Patient denies abdominal pain, nausea, vomiting, diarrhea or constipation. : Patient denies dysuria or hematuria. MSK: Patient denies arthralgia or myalgias, Skin: Patient has no evidence of rash or jaundice. Psych: Patient admits to heightened anxiety but she denies SI or HI. Neuro: Patient denies headache, paresthesias or focal neurologic deficits. Allergy: Patient denies lip swelling, tongue swelling or urticaria. Hematology: Patient admits to recent heavy vaginal bleeding with fever spiking ~1 hour after transfusion as per HPI. Endocrinology: Patient denies polyuria, polydipsia, polyphagia or heat/cold intolerance. 14 point ROS otherwise negative except for positives noted above in HPI. Physical Exam Const alert, oriented x3, no apparent distress, average body habitus and healthy appearing Constitutional Narrative: Patient nontoxic in appearance. General Appearance: cooperative HEENT normocephalic, head/scalp atraumatic, hearing grossly normal bilaterally and moist oral mucous membranes Eyes PERRL, EOMs intact bilaterally and conjunctivae normal Neck no lymphadenopathy, supple and no JVD Resp normal respiratory effort, no retractions, no use of accessory muscles and clear to auscultation bilaterally Cardio regular rate and regular rhythm Cardio Narrative: Tachycardia in the ~120 bpm range noted. GI normal to inspection, nondistended, normoactive bowel sounds, soft to palpation, non-tender and non-distended Extremity normal to inspection, full ROM and no clubbing, cyanosis or edema Skin Skin Narrative: Patient has no evidence of rash or jaundice. She does have a large tattoo over her Left forearm. Neuro oriented x3, CN's II-XII intact bilaterally, moves all extremities, no focal motor deficits and no sensory deficits noted Sensorium / Orientation: awake, alert, oriented to person, oriented to place and oriented to time Speech: speech normal Psych Mood & Affect: anxious Medical Records Data Attestation: I reviewed the patient's medical records Lab / Micro Data Attestation: I reviewed the patient's lab results. 07/13/25 03:51 07/13/25 03:51 Labs: Laboratory Results - last 24 hr 07/12/25 16:41: WBC 3.8 L, RBC 3.35 L, Hgb 5.6 L*, Hct 20.0 L, MCV 59.7 L, MCH 16.7 L, MCHC 28.0 L, RDW Std Deviation 42.0, RDW Coeff of [place] 20.0 H, Plt Count 225, MPV 8.9, Immature Gran % (Auto) 0.300, Neut % (Auto) 58.1, Lymph % (Auto) 27.2, [place] % (Auto) 12.5 H, Eos % (Auto) 1.6, Baso % (Auto) 0.3, Absolute Neuts (auto) 2.2, Absolute Lymphs (auto) 1.02, Nucleated RBC % 0, Sodium 139, Potassium 3.9, Chloride 107, Carbon Dioxide 20.6 L, Anion Gap 12, BUN 9, Creatinine 0.44 L, Estim Creat Clear Calc 151.17, Est GFR (MDRD) Non-Af 128, BUN/Creatinine Ratio 20.4 H, Glucose 99, Calcium 8.9, Serum , Qual NEGATIVE 07/12/25 17:31: Blood Type A POSITIVE, Antibody Screen NEGATIVE, Crossmatch See Detail 07/13/25 03:51: WBC 5.9, RBC 3.81 L, Hgb 7.8 L, Hct 24.7 L, MCV 64.8 L D, MCH 20.5 L, MCHC 31.6 L D, RDW Std Deviation 57.1 H, RDW Coeff of [place] 25.3 H, Plt Count 110 L, MPV 8.4, Immature Gran % (Auto) 0.500, Neut % (Auto) 81.1 H, Lymph % (Auto) 8.1 L, [place] % (Auto) 9.6, Eos % (Auto) 0.2, Baso % (Auto) 0.5, Absolute Neuts (auto) 4.8, Absolute Lymphs (auto) 0.48 L, Nucleated RBC % 0 Imaging Radiology Impression Transvaginal US 07/12/25 16:30 IMPRESSION: Uterine fibroid. Reading Location: [id number] Imaging Services [address] [place] [address] [id number] Chest 1 View (Portable) MR#: [id number] Acct: [id number] Name: TED ZABALA Rep #: [id number] : 1990 F 35 From: Shiraz Luke MD PCP: Care Physician,No Primary Status: ADM ALFREDITO Study: Chest 1 View (Portable) Date of Exam: 07/13/25 Exam# [id number] Ordering Dr: Ilya Adan DO PROCEDURE: CHEST 1 VIEW (PORTABLE) 07/13/2025 REASON FOR EXAM: SUSPECTED TRANSFUSION REACTION. TECHNIQUE: Frontal view of the chest. COMPARISON: No FINDINGS: Normal heart size. Well inflated lungs. No consolidation, effusion, or pneumothorax. RAD/Chest 1 View (Portable) IMPRESSION: No acute chest findings Reading [facility] CC: Dr. Ilya Adan DO; No Primary Care Physician ~ Ink Blender: Signed Charges/Coding Multi Select Codes Visit Charges Office Visit/Consults: 35094 IP Consult L4
--- NOTE | 2025-07-13 04:30 | RAD_ITS ---
PROCEDURE: CHEST 1 VIEW (PORTABLE) 07/13/2025 REASON FOR EXAM: SUSPECTED TRANSFUSION REACTION. TECHNIQUE: Frontal view of the chest. COMPARISON: No FINDINGS: Normal heart size. Well inflated lungs. No consolidation, effusion, or pneumothorax. RAD/Chest 1 View (Portable) IMPRESSION: No acute chest findings Reading Location: [facility]
[2025-07-13 04:42] LABS: Anion Gap 11 (5-15); BUN 9 mg/dL (4-19); BUN/Creat Ratio 20.0 RATIO (10-20); Calcium,Total 8.5 mg/dL (7.6-11.0); Carbon Dioxide 21.7 mmol/L (21.0-32.0); Chloride 105 mmol/L (98-108); Estimated Creatinine Clearance 141.52 ml/min (50-250); Glucose 111 mg/dL (70-99); Potassium 3.2 mmol/L (3.3-5.1)
[2025-07-13 05:09] LABS: Anisocytosis 2+; Differential Comment SCANNED; Hypochromasia 1+
[2025-07-13 05:09] LABS: Occult Blood-Urine Supernatant 3+ (Negative)
[2025-07-13 05:10] LABS: TXN RXN Red Blood Cells-Urine 25-50 SEEN /hpf
[2025-07-13 06:21] LABS: SITE vein; VBG BASE EXCESS 5 mmol/L (-1.0-3.5); VBG PO2 62 mmHg (25-40); VBG SO2 93 % (50-70); VBG TCO2 30 mmol/L (23-33)
[2025-07-13 06:37] LABS: Mucous, Urine 0 SEEN /hpf (<or=2+)
[2025-07-13 06:38] LABS: Color, Urine Yellow (Yellow); Glucose, Dipstick Normal (Normal); Ketone-Dipstick 15 mg/dl (Negative); Leukocyte Esterase-Dipstick Negative /ul (Negative); Nitrite-Dipstick Negative (Negative); Occult Blood-Urine 150 /ul (Negative); Protein-Dipstick Negative (Negative); Red Blood Cells-Urine 25-50 SEEN /hpf (0-5); Specific Gravity, Urine 1.015 (1.002-1.030); Squamous Epithelial Cells - UA 0-5 SEEN /hpf (5-10); Urine Bilirubin Dipstick Negative (Negative)
[2025-07-13] MEDS: TRANEXAMIC ACID IV (06:44)
[2025-07-13] MEDS: NORMAL SALINE 0.9% IV (06:44)
[2025-07-13 09:23] LABS: Hematocrit 24.0 % (37-47); Hemoglobin 7.4 g/dL (12.0-15.0); Immature Granulocytes Count 0.030 X10^3/uL (0.0-0.0); Mean Corp Hgb Conc 30.8 g/dL (32-36); Mean Corpuscular Volume 65.2 fL (81-99); Mean Platelet Vol. 9.4 fl (6.2-12.0); NRBC Flagged by Analyzer 0 % (0-5); POSITIVE MORPHOLOGY YES; Platelet Count 132 K/mm3 (150-450); RBC Distribution Width CV 25.3 % (11.6-14.6); RBC Distribution Width SD 58.3 fl (35.1-43.9); Red Blood Count 3.68 M/mm3 (4.2-5.4); White Blood Count 7.3 K/mm3 (4.4-11.0)
[2025-07-13 09:33] LABS: Differential Indicated SCAN CRITERIA MET
[2025-07-13 10:19] LABS: Anisocytosis 1+; Polychromasia 1+
--- NOTE | 2025-07-13 10:52 | PCM.PN.OB ---
Subjective Subjective repeat exam- minimial vaginal bleeding, feeling much better. no dizziness no fevers or chills. no cp sob no abdominal pain Objective Data Objective Data Vital Signs: Vital Signs Temp Pulse Resp BP Pulse Ox O2 Del Method 98.1 F 88 11 L 100/56 L 98 Room Air 07/13/25 10:00 07/13/25 10:00 07/13/25 10:00 07/13/25 10:00 07/13/25 10:00 07/13/25 10:00 Oxygen Delivery Method Room Air Weight: 134 lb 14.766 oz Body Mass Index (BMI) 23.1 Intake & Output: Intake and Output for Last 24 Hours 07/11/25 07/12/25 07/13/25 23:59 23:59 23:59 Intake Total 1506 / 1506 1006 / 1006 Balance 1506 / 1506 1006 / 1006 Lab / Micro Data 07/13/25 08:20 07/13/25 03:51 Labs: Laboratory Results - last 24 hr 07/12/25 16:41: WBC 3.8 L, RBC 3.35 L, Hgb 5.6 L*, Hct 20.0 L, MCV 59.7 L, MCH 16.7 L, MCHC 28.0 L, RDW Std Deviation 42.0, RDW Coeff of German 20.0 H, Plt Count 225, MPV 8.9, Immature Gran % (Auto) 0.300, Neut % (Auto) 58.1, Lymph % (Auto) 27.2, [place] % (Auto) 12.5 H, Eos % (Auto) 1.6, Baso % (Auto) 0.3, Absolute Neuts (auto) 2.2, Absolute Lymphs (auto) 1.02, Nucleated RBC % 0, Sodium 139, Potassium 3.9, Chloride 107, Carbon Dioxide 20.6 L, Anion Gap 12, BUN 9, Creatinine 0.44 L, Estim Creat Clear Calc 151.17, Est GFR (MDRD) Non-Af 128, BUN/Creatinine Ratio 20.4 H, Glucose 99, Calcium 8.9, Serum , Qual NEGATIVE 07/12/25 17:31: Blood Type A POSITIVE, Antibody Screen NEGATIVE, Crossmatch See Detail 07/13/25 03:51: WBC 5.9, RBC 3.81 L, Hgb 7.8 L, Hct 24.7 L, MCV 64.8 L D, MCH 20.5 L, MCHC 31.6 L D, RDW Std Deviation 57.1 H, RDW Coeff of [place] 25.3 H, Plt Count 110 L, MPV 8.4, Immature Gran % (Auto) 0.500, Neut % (Auto) 81.1 H, Lymph % (Auto) 8.1 L, [place] % (Auto) 9.6, Eos % (Auto) 0.2, Baso % (Auto) 0.5, Absolute Neuts (auto) 4.8, Absolute Lymphs (auto) 0.48 L, Nucleated RBC % 0, Differential Comment SCANNED, Hypochromasia 1+, Anisocytosis 2+, Sodium 138, Potassium 3.2 L, Chloride 105, Carbon Dioxide 21.7, Anion Gap 11, BUN 9, Creatinine 0.47 L, Estim Creat Clear Calc 141.52, Est GFR (MDRD) Non-Af 126, BUN/Creatinine Ratio 20.0, Glucose 111 H, Calcium 8.5 07/13/25 04:07: Urine Color Yellow, Urine Clarity Clear, Urine pH 6.0, Ur Specific [place] 1.015, Urine Protein Negative, Urine Glucose (UA) Normal, Urine Ketones 15 H, Urine Occult Blood 150 H, Urine Nitrite Negative, Urine Bilirubin Negative, Urine Urobilinogen Normal, Ur Leukocyte Esterase Negative, Urine RBC 25-50 SEEN, Urine WBC 0 SEEN, Ur Squamous Epith Cells 0-5 SEEN, Urine Bacteria RARE, Urine Mucus 0 SEEN 07/13/25 04:15: Direct Antiglob Test NEG w/POLYSPECIFIC 07/13/25 08:20: WBC 7.3, RBC 3.68 L, Hgb 7.4 L, Hct 24.0 L, MCV 65.2 L, MCH 20.1 L, MCHC 30.8 L, RDW Std Deviation 58.3 H, RDW Coeff of German 25.3 H, Plt Count 132 L, MPV 9.4, Immature Gran % (Auto) 0.400, Neut % (Auto) 80.2 H, Lymph % (Auto) 11.5 L, [place] % (Auto) 7.4, Eos % (Auto) 0.1, Baso % (Auto) 0.4, Absolute Neuts (auto) 5.9, Absolute Lymphs (auto) 0.84, Nucleated RBC % 0, Platelet Estimate SLT DEC, Polychromasia 1+, Anisocytosis 1+, Ovalocytes 1+ Micro: Microbiology 07/13/25 04:15 Blood product unit Transfusion Reaction Gram Stain - Final ABG Data ABG results: ABG 07/13/25 06:18 Specimen Type MOOK Sample Site vein VBG pH 7.48 H VBG pO2 62 H VBG HCO3 29 H VBG Total CO2 30 VBG O2 Sat (Calc) 93 H VBG Base Excess 5 H POC Mix VBG pCO2 Pt Tmp 38.8 L O2 Delivery Device Room Air Radiography Diagnostic Testing: Radiology Impression Transvaginal US 07/12/25 16:30 IMPRESSION: Uterine fibroid. Reading Location: [facility] Chest X-Ray 07/13/25 04:30 IMPRESSION: No acute chest findings Reading Location: [address] Constitutional Constitutional: Reports systems reviewed and no addt'l complaints, except as documented Cardiovascular Cardiovascular: Reports systems reviewed and no addt'l complaints, except as documented Respiratory/Chest Respiratory/Chest: Reports systems reviewed and no addt'l complaints, except as documented Gastrointestinal Gastrointestinal: Reports systems reviewed and no addt'l complaints, except as documented Physical Exam Const alert, oriented x3 and no apparent distress HEENT Head and Scalp: atraumatic Resp normal respiratory effort GI soft to palpation and non-tender Assessment & Plan (1) Transfusion reaction: QUALIFIERS: Encounter type: initial encounter Qualified Code(s): T80.92XA - Unspecified transfusion reaction, initial encounter COMMENT: evaluate blood products, supportive care, cbc ever test ua tylenol hydroxyzine (refused benadryl) (2) Opiate withdrawal: COMMENT: patient initially refusing suboxone, now accepting restarting therapy- given. (3) Fibroid: COMMENT: 4 cm submucosal. s/p IUD. anemic. admit for transfusion, IV TXA. (4) Anemia: COMMENT: chronic- transfuse 2 units prbcs and reassess (5) Abnormal uterine bleeding: COMMENT: US reviewed and fibroid present. TXA ordered for acute, transfusion. (6) History of opioid abuse: COMMENT: on suboxone PLAN: Plan stable now, appreciate medicine involvement. stable for discharge to home follow up within 1 week discharge on lysteda. Charges/Coding Visit Charges Inpatient E&M: 51320 Disch Hosp
--- NOTE | 2025-07-13 10:54 | DCINST_ITS ---
Discharge Instructions DC O2, CPAP, BIPAP needs Home O2 Discharge instructions: No Dressing / Incision Discharge Activity: Return to Normal Activity May shower in (days): 0 Dressing / Incision Call your doctor if you observe: Fever of 101 or Higher, Using more than 1 pad per hour (for 2 hours in a row or more), Shortness of breath, Dizziness, Chest pain, Increased palpitations (irregular heartbeat) and - Follow Up Care Test Results: Test results from this visit will be discussed in further detail at your follow- up appointment, if applicable. Discharge Plan Admission Admit Date/Time: 07/12/25 20:12 Attending Provider: Annamarie Norton Primary Care Provider: Mathew Bonilla,Susy Primary Consulting Providers: Ilya Adan; Oscar Thompson Discharge Orders/Prescriptions Prescriptions: New tranexamic acid 650 mg tablet 1,300 mg PO TID 4 Days Qty: 24 0RF ferrous sulfate [FeroSul] 325 mg (65 mg iron) tablet 325 mg PO BID Qty: 60 1RF No Action buprenorphine-naloxone 1 EACH film 8 mg PO BID Patient Comments: Referrals / Follow Up: Care Physician,No Primary [Primary Care Provider] - Disposition Disposition (needs filled in before D/C Order can be placed): Home, Self Care
--- NOTE | 2025-07-13 11:17 | PN.HOSP_ITS ---
Objective Data Objective Data Vital Signs: Vital Signs Temp Pulse Resp BP Pulse Ox O2 Del Method 98.1 F 88 11 L 100/56 L 98 Room Air 07/13/25 10:00 07/13/25 10:00 07/13/25 10:00 07/13/25 10:00 07/13/25 10:00 07/13/25 10:00 Oxygen Delivery Method Room Air Weight: 134 lb 14.766 oz Body Mass Index (BMI) 23.1 Intake & Output: Intake and Output for Last 24 Hours 07/11/25 07/12/25 07/13/25 23:59 23:59 23:59 Intake Total 1506 / 1506 1006 / 1006 Balance 1506 / 1506 1006 / 1006 Lab / Micro Data 07/13/25 08:20 07/13/25 03:51 Labs: Laboratory Results - last 24 hr 07/12/25 16:41: WBC 3.8 L, RBC 3.35 L, Hgb 5.6 L*, Hct 20.0 L, MCV 59.7 L, MCH 16.7 L, MCHC 28.0 L, RDW Std Deviation 42.0, RDW Coeff of [place] 20.0 H, Plt Count 225, MPV 8.9, Immature Gran % (Auto) 0.300, Neut % (Auto) 58.1, Lymph % (Auto) 27.2, [place] % (Auto) 12.5 H, Eos % (Auto) 1.6, Baso % (Auto) 0.3, Absolute Neuts (auto) 2.2, Absolute Lymphs (auto) 1.02, Nucleated RBC % 0, Sodium 139, Potassium 3.9, Chloride 107, Carbon Dioxide 20.6 L, Anion Gap 12, BUN 9, C reatinine 0.44 L, Estim Creat Clear Calc 151.17, Est GFR (MDRD) Non-Af 128, B UN/Creatinine Ratio 20.4 H, Glucose 99, Calcium 8.9, Serum , Qual NEGATIVE 07/12/25 17:31: Blood Type A POSITIVE, Antibody Screen NEGATIVE, Crossmatch See Detail 07/13/25 03:51: WBC 5.9, RBC 3.81 L, Hgb 7.8 L, Hct 24.7 L, MCV 64.8 L D, MCH 20.5 L, MCHC 31.6 L D, RDW Std Deviation 57.1 H, RDW Coeff of [place] 25.3 H, Plt Count 110 L, MPV 8.4, Immature Gran % (Auto) 0.500, Neut % (Auto) 81.1 H, Lymph % (Auto) 8.1 L, [place] % (Auto) 9.6, Eos % (Auto) 0.2, Baso % (Auto) 0.5, Absolute Neuts (auto) 4.8, Absolute Lymphs (auto) 0.48 L, Nucleated RBC % 0, Differential Comment SCANNED, Hypochromasia 1+, Anisocytosis 2+, Sodium 138, Potassium 3.2 L, Chloride 105, Carbon Dioxide 21.7, Anion Gap 11, BUN 9, Creatinine 0.47 L, Estim Creat Clear Calc 141.52, Est GFR (MDRD) Non-Af 126, BUN/Creatinine Ratio 20.0, G lucose 111 H, Calcium 8.5 07/13/25 04:07: Urine Color Yellow, Urine Clarity Clear, Urine pH 6.0, Ur Specific [place] 1.015, Urine Protein Negative, Urine Glucose (UA) Normal, Urine Ketones 15 H, Urine Occult Blood 150 H, Urine Nitrite Negative, Urine Bilirubin Negative, Urine Urobilinogen Normal, Ur Leukocyte Esterase Negative, Urine RBC 25-50 SEEN, Urine WBC 0 SEEN, Ur Squamous Epith Cells 0-5 SEEN, Urine Bacteria RARE, Urine Mucus 0 SEEN 07/13/25 04:15: Direct Antiglob Test NEG w/POLYSPECIFIC 07/13/25 08:20: WBC 7.3, RBC 3.68 L, Hgb 7.4 L, Hct 24.0 L, MCV 65.2 L, MCH 20.1 L, MCHC 30.8 L, RDW Std Deviation 58.3 H, RDW Coeff of [place] 25.3 H, Plt Count 132 L, MPV 9.4, Immature Gran % (Auto) 0.400, Neut % (Auto) 80.2 H, Lymph % (Auto) 11.5 L, [place] % (Auto) 7.4, Eos % (Auto) 0.1, Baso % (Auto) 0.4, Absolute Neuts (auto) 5.9, Absolute Lymphs (auto) 0.84, Nucleated RBC % 0, Platelet Estimate SLT DEC, Polychromasia 1+, Anisocytosis 1+, Ovalocytes 1+ Micro: Microbiology 07/13/25 04:15 Blood product unit Transfusion Reaction Gram Stain - Final ABG Data ABG results: ABG 07/13/25 06:18 Specimen Type MOOK Sample Site vein VBG pH 7.48 H VBG pO2 62 H VBG HCO3 29 H VBG Total CO2 30 VBG O2 Sat (Calc) 93 H VBG Base Excess 5 H POC Mix VBG pCO2 Pt Tmp 38.8 L O2 Delivery Device Room Air Radiography Diagnostic Testing: Radiology Impression Transvaginal US 07/12/25 16:30 IMPRESSION: Uterine fibroid. Reading Location: [facility] Chest X-Ray 07/13/25 04:30 IMPRESSION: No acute chest findings Reading Location: [place] [id number] Physical Exam Narrative Seen and examined Patient was admitted with severe anemia and vaginal bleeding. Discussed with the HAT SPRAYER attending Dr. Ayden Kerr. Patient had fever at the end of the second transfusion 102 Fahrenheit but no hives rash, wheals or other systemic symptoms including nausea vomiting, abdominal pain or hematuria Physical exam General: Alert, Oriented x3, Cooperative HEENT: Atraumatic, PERRLA, EOMI, Normocephalic. Oral: No Gingival or Mucosal Lesions/ Ulcerations Neck: Supple, No JVD, Negative Carotid Bruits Chest wall/Lungs: Air entry equal in bilateral lung bases. No crepitation/rhonchi Cardiovascular: Regular rate and rhythm, Normal S1,S2, No M/G/R Abdomen: Bowel Sounds Present, Soft, Non Tender, Non-Distended : Minorities he has decreased and almost stopped. No dysuria. No renal angle tenderness. No suprapubic tenderness. Extremities: No edema, Capillary Refill Less than 3 Seconds Skin: No rashes, No breakdown Musculoskeletal: No Tenderness to Palpation of Joints or Extremities Neurological: Cranial nerves II-XII grossly intact, DTR 2+/4. No acute focal neurological deficit. Psych/Mental Status: Normal Affect, Appropriate. Assessment & Plan Assessment/Plan (1) Transfusion reaction: QUALIFIERS: Encounter type: initial encounter Qualified Code(s): T80.92XA - Unspecified transfusion reaction, initial encounter (2) Fever: QUALIFIERS: Fever type: febrile nonhemolytic transfusion reaction Qualified Code(s): R50.84 - Febrile nonhemolytic transfusion reaction (3) Tachycardia as manifestation of blood transfusion reaction: (4) Abnormal uterine bleeding: (5) Fibroid: (6) Opiate withdrawal: (7) History of opioid abuse: (8) Depression with anxiety: (9) Hypokalemia: (10) Tobacco abuse: PLAN: Plan The patient was admitted with severe vaginal bleeding started on past after she noticed her IUD fell out. Her bleeding was intermittent but heavy with clots. Mild shortness of breath and lightheadedness from embolization. Mild sinus tachycardia. H&H was 5.6/20% on admission 1. Acute severe symptomatic anemia with dizziness and lightheadedness due to vaginal bleeding/menorrhagia from uterine fibroid: Patient was admitted by HOUSE CARPENTER attending. Medicine was consulted to manage anemia. Patient had 2 units of PRBC transfusion. H&H improved from 5.6/20% to 7.8/24.7%. Patient is discharged on ferrous sulfate by HAT SPRAYER attending and tranexamic acid. Follow-up with radio antenna installer Dr. Ayden Kerr. 2. Febrile nonhemolytic transfusion reaction: Patient had fever 102 Fahrenheit almost at the end of the second liter [place] transfusion. She denies any rash hives wheals abdominal pain, nausea vomiting hematuria or abdominal pain. Her hemoglobin went up appropriately after initial transfusion therefore no hemolytic reaction. It might be triggered by cytokines related from the donor WBC. 3. History of opiate abuse with patient temporarily refusing to take buprenorphine-naloxone for ~24 hours: No acute withdrawal noticed. 4. Depression with Anxiety; follow with PCP 5. Hypokalemia of 3.2 mmol/L: Was corrected . 7. Tobacco abuse - Tobacco Cessation strongly encouraged 8. DVT prophylaxis - SCD's Patient discharged by HOUSE CARPENTER attending. Charges/Coding Visit Charges Inpatient E&M: 10582 Subs Hosp L2
--- NOTE | 2025-07-13 11:38 | PHA.DC.MC.R ---
Pharmacy [facility] Counseling Pharmacy Service has performed discharge medication reconciliation and counseling for this patient. 1. FERROUS SULFATE 325MG PO BID 2. TRANEXAMIC ACID 1300MG PO TID X 4 DAYS 3. POTASSIUM CHLORIDE 20MEQ PO BID X 3 DAYS The patient's discharge medication list was reviewed for discrepancies and discrepancies were resolved. The patient was counseled on the following discharge medications and changes in medications for homegoing were reviewed. The Reason for Use, instructions for use, and potential side effects were reviewed for all new medications. The patient's questions regarding all of their medications were answered. The patient was able to verbally demonstrate an understanding of their discharge medications. Medications at Discharge Home Medications buprenorphine 8 mg-naloxone 2 mg sublingual film 8 mg PO BID 10/25/16 ferrous sulfate 325 mg (65 mg iron) tablet (FeroSul) 325 mg PO BID #60 tabs 07/13/25 potassium chloride 20 mEq tablet,extended release (K-Tab) 20 meq PO BID 3 days #6 tabs 07/13/25 tranexamic acid 650 mg tablet 1,300 mg (2 x 650 mg) PO TID 4 days #24 tabs 07/13/25
== END 2025-07-13 12:01 | disposition home or self-care (01) ==
LOC: ED 17:08 → MS3 20:25 → PCU 20:58
PROVIDERS: Admitting Provider Obstetrics & Gynecology; Emergency Provider Surgery; Visit Provider Obstetrics & Gynecology
DX: R50.84 Febrile nonhemolytic transfusion reaction (principal); F11.23 Opioid dependence with withdrawal; D64.9 Anemia, unspecified; R06.02 Shortness of breath; N92.0 Excessive and frequent menstruation with regular cycle; D25.9 Leiomyoma of uterus, unspecified; N93.9 Abnormal uterine and vaginal bleeding, unspecified; E87.6 Hypokalemia; Z79.891 Long term (current) use of opiate analgesic; F41.8 Other specified anxiety disorders; F17.290 Nicotine dependence, other tobacco product, uncomplicated
CPT/HCPCS: 36415; 36430; 71045; 76830; 80048; 81001; 82803; 84703; 85025; 86850; 86880; 86900; 86901; 87040; 96361; 96365; 96366; 96367; 96368; 96372; 99284; 99406; P9016; A4216

== ENCOUNTER → 2025-10-05 | Outpatient (CLI) | payer MEDICAID, SELFPAY ==
[2025-10-05 17:30] LABS: hCG Titer Quant., Serum < 1 mIU/mL (<9 non-preg)
[2025-10-05 17:41] LABS: Follicle Stimulating Hormone 8.9 mIU/mL
[2025-10-07 04:07] LABS: PROGESTERONE 0.4 ng/mL (.)
== END | disposition home or self-care (01) ==
PROVIDERS: Visit Provider Obstetrics & Gynecology
DX: N91.2 Amenorrhea, unspecified (principal)
CPT/HCPCS: 36415; 82670; 83001; 83002; 84144; 84443; 84702

== ENCOUNTER → 2025-10-06 | Outpatient (CLI) | payer MEDICAID, SELFPAY ==
[2025-10-06 17:02] LABS: Hematocrit 23.6 % (37-47); Hemoglobin 6.7 g/dL (12.0-15.0); Immature Granulocytes Count 0.010 X10^3/uL (0.0-0.0); Mean Corp Hgb Conc 28.4 g/dL (32-36); Mean Corpuscular Volume 56.6 fL (81-99); Mean Platelet Vol. 9.5 fl (6.2-12.0); NRBC Flagged by Analyzer 0 % (0-5); POSITIVE MORPHOLOGY YES; Platelet Count 244 K/mm3 (150-450); RBC Distribution Width CV 21.3 % (11.6-14.6); RBC Distribution Width SD 41.7 fl (35.1-43.9); Red Blood Count 4.17 M/mm3 (4.2-5.4); White Blood Count 3.4 K/mm3 (4.4-11.0)
[2025-10-06 17:13] LABS: Differential Indicated SCAN CRITERIA MET
[2025-10-06 18:12] LABS: Free T3 14.4 pg/mL (2.18-3.98)
[2025-10-06 19:43] LABS: Differential Comment SCANNED
[2025-10-06 19:44] LABS: Anisocytosis 2+; Polychromasia 1+
[2025-10-06 19:45] LABS: Hypochromasia 1+
== END | disposition home or self-care (01) ==
PROVIDERS: Referring Provider Obstetrics & Gynecology; Visit Provider Obstetrics & Gynecology
DX: R79.89 Other specified abnormal findings of blood chemistry (principal)
CPT/HCPCS: 36415; 84439; 84481; 85025; 86376

== ENCOUNTER 2025-10-15 08:26 | Outpatient (CLI) | payer MEDICAID, SELFPAY ==
[2025-10-15 08:59] VITALS: BP 97/55; PULSE 102; RESP 16; TEMP 36.1; O2SAT 100
[2025-10-15] MEDS: 0.9% NaCl Peripheral Flush Adult IV (09:36)
[2025-10-15] MEDS: Iron Sucrose Complex 300 MG in 0.9% Normal Saline (250mL Bag) 250 ML 177 MG IV (09:44)
[2025-10-15] MEDS: 0.9% NaCl IVPB Med Flush (100mL) 15 ML IV (09:48)
[2025-10-15 12:08] VITALS: BP 109/72; PULSE 87; RESP 16; TEMP 36.3; O2SAT 100
== END 2025-10-15 23:59 | disposition home or self-care (01) ==
LOC: MEDOUTP 08:26
PROVIDERS: Referring Provider Obstetrics & Gynecology; Visit Provider Obstetrics & Gynecology
DX: D64.9 Anemia, unspecified (principal)
CPT/HCPCS: 96365; 96366; J1756; A4216

== ENCOUNTER 2025-10-22 09:53 | Outpatient (CLI) | payer MEDICAID, SELFPAY ==
[2025-10-22 09:57] VITALS: BP 106/60; PULSE 83; RESP 16; TEMP 35.7
[2025-10-22] MEDS: 0.9% NaCl Peripheral Flush Adult IV ×2 (10:01→10:22)
[2025-10-22] MEDS: Iron Sucrose Complex (Venofer) 300 MG in 0.9% NaCl 250 ML 176.7 MG IV (10:38)
[2025-10-22 12:38] VITALS: BP 99/63; PULSE 79; RESP 16; O2SAT 96
== END 2025-10-22 23:59 | disposition home or self-care (01) ==
PROVIDERS: Referring Provider Obstetrics & Gynecology; Visit Provider Obstetrics & Gynecology
DX: D64.9 Anemia, unspecified (principal)
CPT/HCPCS: 96365; 96366; J1756; A4216

== ENCOUNTER 2025-10-29 09:46 | Outpatient (CLI) | payer MEDICAID, SELFPAY ==
--- OUTSIDE RECORDS SUMMARY | 2025-10-29 09:52 | XMS RPT_ITS | CCD ---
Author Organization [facility] Care Team Providers Care Telehealth Nurse Name Role Phone BENY CROCKER Unavailable Unavailable BENY CROCKER Unavailable Dr. Beny Reynolds Primary Care Provider Dr. Beny Crocker Referring Provider [phone] CHAUNCEY Ramos Attending Provider Unavailable Primary Care Provider UnavailWILLIAM Denise DO Primary Care Physician WILLIAM VANN DO Attending Unavailable WILLIAM VANN DO Primary Care Unavailable Care Physician, No Primary Primary Care Provider Unavailable Dr. Berlin Brizuela DO Emergency Provider Errol JADE, Dr. De Luna Admit Provider Errol JADE, Dr. De Luna Attending Provider [phone] Dr. Ilya Adan DO Other Provider Unavail able Dr. Oscar Thompson MD Other Provider [phone] Dr. Annamarie Lira MD Other Provider Dr. Ilya Adan DO Attending Provider Unav ailable Care Physician, No Primary Referring Provider Un available Annamarie Lira Attending Unavailable Care Physician, No Primary Primary Care Unava ilAnnamarie Haile Admitting Unavailable Oscar Thompson Consulting Unavailable Ilya Adan Consulting Unavailable Michelle Luis Attending Unavailabl e Care Physician, No Primary Primary Care Unava ilable Care Physician, No Primary Referring Unava ilable Michelle Kerr Attending Unavailable Care Physician, No Primary Primary Care Unava ilable Care Physician, No Primary Referring Unava ilable Care Physician, No Primary Primary Care Unava ilable Annamarie Lira Attending Unavailable Care Physician, No Primary Referring Unava ilable Care Physician, No Primary Primary Care Unava ilable Errol, Annamarie Attending Unavailable Care Physician, No Primary Referring Unava ilable Michelle Luis Attending Unavailabl e Care Physician, No Primary Primary Care Unava ilable Luis Felipe Nguyen Attending Unavailable Care Physician, No Primary Referring Unava ilable Care Physician, No Primary Primary Care Unava ilable Care Physician, No Primary Primary Care Unava ilable Marcanthkaila, Annamarie Attending Unavailable Care Physician, No Primary Referring Unava ilable Ilya Adan Consulting Unavailable Care Physician, No Primary Primary Care Unava ilable Marcanthony, Annamarie Admitting Unavailable Marcanthony, Annamarie Attending Unavailable Marcanthony, Annamarie Consulting Unavailable de FabriceIlya Attending Unavailable Marcanthony, Annamarie Referring Unavailable Vande Velde, Michelle Attending Unavailabl e Care Physician, No Primary Primary Care Unava ilable Care Physician, No Primary Referring Unava ilable Care Physician, No Primary Referring Unava ilable Autumn Ramos Attending Unavailable Care Physician, No Primary Primary Care Unava ilable Care Physician, No Primary Primary Care Unava ilable Marcanthony, Annamarie Referring Unavailable Marcanthony, Annamarie Attending Unavailable Care Physician, No Primary Primary Care Unava ilable Marcanthony, Annamarie Attending Unavailable Marcanthony, Annamarie Referring Unavailable Vande VeldeFatemehMichelle Referring Unavailabl e Vande Velde, Michelle Attending Unavailabl e Care Physician, No Primary Primary Care Unava ilable Care Physician, No Primary Primary Care Unava ilable Marcanthony, Annamarie Attending Unavailable Marcanthony, Annamarie Referring Unavailable Vande Velde, Michelle Referring Unavailabl e Vande VeldeMichelle Attending Unavailabl e Care Physician, No Primary Primary Care Unava ilable Allergies Allergy Classification Reported Allergen(s) Allergy Type Date of Onset Reaction(s) Facility (7 sources) mebendazole; Translations: [MEBENDAZOLE] Drug Allergy 5 GI Upset [facility] Repository (7 sources) promethazine; Translations: [PROMETHAZINE HCL] Drug Allergy 2 Other: See Comments [facility] Repository (7 sources) sertraline; Translations: [SERTRALINE HCL] Drug Allergy 05-23-200 8 GI Upset [facility] Repository (1 source) Promethazine; Translations: [promethazine] Drug Allergy Anxiety (finding) [facility] (1 source) Sertraline; Translations: [sertraline] Drug Allergy Mood swings (finding) [facility] Medications Current Medications Medication Drug Class(es) Dates Sig (Normalized) Sig (Original) buprenorphine 8 mg / naloxone 2 mg sublingual film (6 sources) Partial Opioid Agonist, Opioid Antagonist Start: [...] tablet under the tongue twice daily. Active ferrous sulfate 325 mg oral tablet (2 sources) Start: 07-13-2025 take 1 tablet by mouth twice daily Ferrous Sulfate (Ferosul) 325 mg (65 mg iron) tablet Active 325 mg PO TWICE A DAY 60 1 July 13, 2025 12:00am ondansetron 4 mg disintegrating oral tablet (5 sources) Serotonin-3 Receptor Antagonist Start: 01-30-2017 take [...] 11, 2014 1:40pm March 05, 2019 10:12am potassium chloride 20 meq extended release oral tablet (2 sources) Start: 07-13-2025 take 1 tablet by mouth twice daily Potassium Chloride (K-Tab) 20 mEq tablet extended release Active 20 meq PO TWICE A DAY 6 3 0 July 13, 2025 12:00am tranexamic acid 650 mg oral tablet (2 sources) Antifibrinolytic Agent Start: 07-13-2025 take 2 tablets by mouth three times daily Tranexamic Acid 650 mg tablet Active 1300 mg PO THREE TIMES A DAY 24 4 0 July 13, 2025 12:00am Completed/Discontinued Medications Medication Drug Class(es) Dates Sig (Normalized) Sig (Original) azithromycin 250 mg oral tablet (4 sources) Macrolide Antimicrobial Start: 10-25-2016 End: 03-05-2019 take 1 tablet by mouth once daily Azithromycin 250 MG tablet Discontinued 250 mg PO DAILY 4 0 October 25, 2016 1:00am March 05, 2019 11:12am hydrOXYzine hydrochloride 10 mg oral tablet (3 sources) Antihistamine Start: 03-13-2024 End: 07-12-2025 take 1 tablet by mouth at bedtime Hydroxyzine Hcl 10 mg tablet Discontinued 10 mg PO AT BEDTIME 2 0 March 13, 2024 12:00am July 12, 2025 8:09pm levonorgestrel 0.978208 mg/hr intrauterine system (4 sources) Progestin, Progestin-containin g Intrauterine Device Start: [...] Problem Classification Problem Date Documented Date Episodic/Chronic Anxiety disorders (5 sources) Mixed anxiety and depressive disorder; Translations: [Other specified anxiety disorders] Onset: 07-13-2025 07-13-2025 Chronic Complications of surgical procedures or medical care (11 sources) Blood transfusion reaction; Translations: [Unspecified transfusion reaction, initial encounter] Onset: 07-13-2025 07-13-2025 Episodic Comment on above: evaluate blood produ cts, supportive care, cbc brent test ua tylenol hydroxyzine (refused benadryl) Deficiency and other anemia (6 sources) Anemia; Translations: [Anemia, unspecified] 11-12-2024 Episodic Comment on above: chronic- transfuse 2 units prbcs and reassess Deficiency and other anemia (1 source) Anemia, unspecified; Translations: [Anemia, unspecified] Onset: 08-16-2025 Episodic Delirium, dementia, and amnestic and other cognitive disorders (1 source) Postconcussion syndrome; Translations: [Postconcussional syndrome] Onset: 04-29-2018 04-29-2018 Chronic Disorders of teeth and jaw (4 sources) Toothache; Translations: [Other specified disorders of teeth and supporting structures] 12-04-2014 Episodic Fever of unknown origin (5 sources) Fever; Translations: [Fever, unspecified] Onset: 08-16-2025 07-13-2025 Episodic Headache; including migraine (1 source) Chronic post-traumatic headache; Translations: [Chronic post-traumatic headache, not intractable] Onset: 04-29-2018 04-29-2018 Chronic Menstrual disorders (1 source) Amenorrhea, unspecified; Translations: [Amenorrhea, unspecified] Onset: 10-13-2025 Chronic Nonmalignant breast conditions (6 sources) Breast lump; Translations: [Unspecified lump in unspecified breast] Onset: 10-07-2014 10-16-2023 Episodic Comment on above: diagnostic mammogram and ultrasound Other and unspecified benign neoplasm (5 sources) Leiomyoma; Translations: [Benign neoplasm of connective and other soft tissue, unspecified] 07-12-2025 Episodic Comment on above: 4 cm submucosal. s/p IUD. anemic. admit for transfusion, IV TXA. Other and unspecified benign neoplasm (1 source) Benign neoplasm of connective and other soft tissue, unspecified; Translations: [Benign neoplasm of connective and other soft tissue, unspecified] Onset: 08-16-2025 Episodic Other female genital disorders (5 sources) Abnormal uterine bleeding; Translations: [Abnormal uterine and vaginal bleeding, unspecified] 07-12-2025 Chronic Comment on above: US reviewed and fibr oid present. TXA ordered for acute, transfusion. Other female genital disorders (2 sources) Abnormal uterine and vaginal bleeding, unspecified; Translations: [Abnormal uterine and vaginal bleeding, unspecified] Onset: 08-16-2025 Chronic Other screening for suspected conditions (not mental disorders or infectious disease) (1 source) Other specified abnormal findings of blood chemistry; Translations: [Other specified abnormal findings of blood chemistry] Onset: 10-11-2025 Episodic Residual codes; unclassified (1 source) Failed encounter; Translations: [No-show for appointment] 09-10-2024 Episodic Residual codes; unclassified (3 sources) Unsuccessful intrauterine contraceptive device insertion; Translations: [Procedure and treatment not carried out for other reasons] 01-15-2025 Episodic Comment on above: will attempt to retr y with anti-anxiety medication. would trial a dose of hydroxyzine and take 30 minutes to prior to insertion if attempt again. currently not sexually active. Residual codes; unclassified (4 sources) Tobacco user; Translations: [Tobacco use] 07-13-2025 Episodic Substance-related disorders (9 sources) Other psychoactive substance dependence, uncomplicated; Translations: [Unspecified drug dependence, unspecified] Onset: 11-17-2012 Resolved: 01-12-2013 12-06-2014 Chronic Comment on above: on suboxone Substance-related disorders (5 sources) Opioid withdrawal; Translations: [Opioid use, unspecified with withdrawal] Onset: 08-16-2025 07-13-2025 Episodic Comment on above: patient initially re fusing suboxone, now accepting restarting therapy- given. Thyroid disorders (1 source) Thyrotoxicosis with diffuse goiter without thyrotoxic crisis or storm; Translations: [Thyrotoxicosis with diffuse goiter without thyrotoxic crisis or storm] Onset: 10-11-2025 Chronic Unclassified (1 source) Unknown / UNK(Unknown) Onset: 01-28-2018 Past or Other Problems Problem Classification Problem Date Documented Date Episodic/Chronic Cardiac dysrhythmias (1 source) Tachycardia, unspecified; Translations: [Tachycardia, unspecified] Onset: 07-13-2025 Episodic Contraceptive and procreative management (9 sources) Patient encounter status; Translations: [Encounter for removal of intrauterine contraceptive device] Onset: 08-14-2011 Resolved: 03-03-2012 10-16-2023 Episodic Comment on above: IUD removed intact, needs prior authorization and will return for josephine reinsertion next week. is not sexually active, desires IUD for menses control Deficiency and other anemia (1 source) Iron deficiency anemia; Translations: [Iron deficiency anemia, unspecified] Onset: 08-20-2008 Resolved: 01-12-2013 01-12-2013 Episodic E Codes: Adverse effects of medical care (1 source) Other medical procedures as the cause of abnormal reaction of the patient, or of later complication, without mention of misadventure at the time of the procedure; Translations: [Other medical procedures as the cause of abnormal reaction of the patient, or of later complication, without mention of misadventure at the time of the procedure] Onset: 07-13-2025 Episodic Fluid and electrolyte disorders (5 sources) Hypokalemia; Translations: [Hypokalemia] Onset: 07-13-2025 07-13-2025 Episodic Inflammatory diseases of female pelvic organs (2 sources) Bacterial vaginosis; Translations: [Acute vaginitis] Onset: 09-25-2012 Resolved: 01-12-2013 02-04-2015 Episodic Other complications of (1 source) History of delivery of macrosomal ; Translations: [Supervision of with other poor reproductive [...] Translations: [Trichomonal vulvovaginitis] Onset: 02-04-2015 02-04-2015 Episodic Residual codes; unclassified (1 source) Tobacco use; Translations: [Tobacco use] Onset: 07-13-2025 Episodic Screening and history of mental health and substance abuse codes (1 source) H/O: depression; Translations: [Personal history of other mental and behavioral disorders] Onset: 04-15-2012 Resolved: 01-12-2013 11-27-2021 Episodic Spondylosis; intervertebral disc disorders; other back problems (1 source) Chronic low back pain; Translations: [Chronic midline low back pain without sciatica] Onset: 05-05-2018 05-05-2018 Episodic Results Test Name Value Interpretation Reference Range Facility Endocrinology Visit Reporton 10-11-2025 Endocrinology Visit Report [facility] [address] [place] [address] OFFICE VISIT Date of Service: 10/11/25 MR#: [id number] Acct: [id number] Name: TED ZABAAL Rep #: [id number] 3 : 1990 Provider: Alexia Schofield Age/Sex: 35/F Location: [facility] Status: Signed Intake Vital Signs 10/07/25 12:03 10/11/25 08:27 Height 5 ft 4 in 5 ft 4 in Weight: 120 lb 8 oz BMI 20.7 BP 101/70 Blood Pressure Location Lt brachial Position Sitting Pulse 106 H Pulse Source Monitor Pulse Oximetry (%) 98 Oxygen Delivery Method room air Intake Visit Reasons: thyroid Chief Complaint: Hyperthyroidism Is patient in pain?: No Allergies mebendazole Allergy (Verified 10/11/25 08:31) Unknown promethazine HCl (From Phenergan) Allergy (Verified 10/11/25 08:31) Other sertraline HCl (From Zoloft) Allergy (Verified 10/11/25 08:31) Unknown Medications ???Medication ???Instructions ???Recorded ???Confirmed ???Type buprenorphine 8 mg-naloxone 2 mg 8 mg PO BID 10/25/16 10/11/25 Hist ory sublingual film tranexamic acid 650 mg tablet 1,300 mg (2 x 650 mg) PO TID 5 10/11/25 Rx days #30 tabs methimazole 10 mg tablet 40 mg (4 x 10 mg) PO QDAY #120 tab s 10/11/25 10/11/25 Rx propranolol 60 mg capsule,24 60 mg PO QDAY #90 caps 10/11/25 Rx hr,extended release PFSH Medical History Thyrotoxicosis due to Graves' disease Apneic episode Weight gain History of opioid abuse Anemia Encounter for IUD removal Surgical History H/O: [...] do you feel safe at home: Yes Female Reproductive History Menstrual Ab induced: 1 Ab spontaneous: 0 Ectopics: 0 HPI HPI Chief Complaint: Hyperthyroidism Details: TED ZABALA, is a 35 F who presents to the office today for evaluation and management of thyroid disease. She has significant history of severe anemia due to uterine bleeding. HB 6.7 She reports the following symptoms: palpitations, tremors, heat intolerance, 24 pound weight loss, fatigue In January T4 0.97 T3 2.9 In October TSH < 0.005 T4 3.0 T3 14.4 TPO 144 Her mother and aunt both have hypothyroidism. She has read about Grave's disease. ROS Const Constitutional: Positive for fatigue and weight change; No change in appetite Eyes Eyes: No change in vision ENT ENT: No dizziness/vertigo or difficulty swallowing Cardio Cardiology: Positive for fast heart rate and palpitations; No chest pain at rest, chest pain with exertion or shortness of breath Musc Musculoskeletal: No abnormal gait, joint pain, numbness or tingling Neuro Neurology: No abnormal gait, memory loss, numbness or tingling Psych Psychiatric: No change in appetite, No memory loss and No Thoughts of harming yourself/Others Resp Respiratory: No cough, chest congestion or shortness of breath Gastro GI: No abdominal pain, constipation, diarrhea or difficulty swallowing Genitourinary-Female: No burning urination Skin Skin: No itchy eyes or wounds Endo Endocrine: Positive for fatigue, heat intolerance and weight change Aller/Imm Allergy/Immunologic: No itchy eyes Exam Const General: cooperative, healthy appearing, comfortable, no acute distress, well developed and not cushingoid Nutritional Appearance: well nourished Orientation: alert, awake and oriented x3 HENMT Head: normal to inspection Ears: hearing grossly normal bilaterally Nose: external nose normal Mouth: oral mucosae normal Eyes General: appearance normal, both eyes and all related structures Alignment and Position: alignment normal Periorbital: periorbital findings normal Eyelids: eyelids normal Conjunctivae: conjunctivae normal Neck Neck: normal visual inspection Neck mass: No Thyroid: asymmetrical (L > R) Carotids: bruit Lymphatic: no lymphadenopathy noted Chest Chest palpation inspection (more content not included)... Normal [facility] Thyroid Peroxidase ABon 11-0 THYR PEROX AB 144 IU/mL High 0-34 [facility] Comment on above: Result Comment: Perf ormed at: CB - [facility] [address] [id number] Embosser Apprentice: Rodney Espinoza PhD, Phone: [phone] Performed By: #### L 400.0001 #### [facility] [address] [place], [address] Road Supervisor Office Visit Reporton 10-07-2025 Road Supervisor Office Visit Report [facility] [address], [address] [place] [address] OFFICE VISIT Date of Service: 10/07/25 MR#: [id number] Acct: [id number] Name: TED ZABALA Rep #: [id number] 4 : 1990 Provider: Dr. Michelle Mejia DO Age/Sex: 35/F Location: [facility] Status: Signed with Addenda ADDENDUM by Dr. Michelle Luis DO on 10/07/25 at 1650 Assessment and Plan Assessment and Plan (1) Abnormal thyroid stimulating hormone (TSH) level: Status: Acute (2) Chronic anemia: Status: Chronic (3) Transfusion reaction: Status: Acute Qualifiers: Encounter type: initial encounter Qualified Code(s): T80.92XA - Unspecified transfusion reaction, initial encounter Comment: evaluate blood products, supportive care, cbc brent test ua tylenol hydroxyzine (refused benadryl) (4) Abnormal uterine bleeding: Status: Acute Comment: US reviewed and fibroid present. TXA ordered for acute, transfusion. plan EMB at fu visit, discussed risks of waiting vs immediate, comfortable with waiting. plan myfembree. Orders: Orders Pelvic w/ Transvaginal Today N93.9 - Abnormal uterine and vaginal bleeding, unspecified Referrals Endocrinology E05.00 - Thyrotoxicosis with diffuse goiter without thyrotoxic crisis or storm Office Visits / Consults: 17117 OV L4 Est 30min 10/07/25 1650 Date Michelle Luis DO cc: * Signed Intake Vital Signs 07/16/25 13:00 10/07/25 12:02 10/07/25 12:03 Height 5 ft 4 in 5 ft 4 in 5 ft 4 in Weight: 122 lb 1 oz BMI 20.9 BP 111/77 Intake Visit Reasons: Hyperthyroidism and anemia Chief Complaint: Hyperthyroidism and Anemia Signal System Testing Maintainer Required: No Is patient in pain?: No Allergies mebendazole Allergy (Verified 10/07/25 12:03) Unknown promethazine HCl (From Phenergan) Allergy (Verified 10/07/25 12:03) Other sertraline HCl (From Zoloft) Allergy (Verified 10/07/25 12:03) Unknown Medications ???Medication ???Instructions ???Recorded ???Confirmed ???Type buprenorphine 8 mg-naloxone 2 mg 8 mg PO BID 10/25/16 10/07/25 Hist ory sublingual film tranexamic acid 650 mg tablet 1,300 mg (2 x 650 mg) PO TID 5 10/07/25 Rx days #30 tabs Is last menstrual period known: No Post menopausal: No Patient : No : No PFSH Medical History Apneic episode Weight gain History of opioid abuse Anemia Encounter for IUD removal Surgical History H/O: [...] you feel safe at home: Yes HPI Hyperthyroidism and anemia Details: The patient is a 35-year-old female with a history of anemia, hyperthyroidism, and uterine fibroids presenting for evaluation of irregular menses and management of anemia. She does not want an emb today. Anemia - Hemoglobin was 6.7 g/dL, increased to 7.4 g/dL after hospitalization. - Stopped taking iron supplements three weeks ago due to gastrointestinal side effects. - Reports fatigue, palpitations described as heart dancing, and mild dyspnea on exertion, which she attributes to discontinuation of iron supplements. - Open to resuming iron supplementation if antiemetic medication is provided to counteract gastrointestinal side effects. - Mother reminded her that she previously took Zofran to manage nausea associated with iron supplements. - Open to blood transfusion if necessary. Hyperthyroidism - Recent TSH level was 0.005 mIU/L. - Reports significant weight loss and increased anxiety since May, with multiple panic attacks daily. - Denies previous history of thyroid issues or treatment. - Family history of thyroid problems. Menstrual History - Last menstrual period was in August. - Reports minimal bleeding this week, using half a tampon every couple of days, which has now stopped. - Last two menstrual cycles were loan coordinator and shorter, lasting 4-5 days with minimal bleeding and no clots. - Attribute (more content not included)... Normal [facility] PROGESTERONE 4317on 10-07-20 25 PROGESTERONE 0.4 ng/mL Normal . [facility] Comment on above: Order Comment: N Result Comment: Foll icular phase 0.1 - 0.9 Luteal phase 1.8 - 23.9 Ovulation phase 0.1 - 12.0 First trimester 11.0 - 44.3 Second trimester 25.4 - 83.3 Third trimester 58.7 - 214.0 Postmenopausal 0.0 - 0.1 Performed at: [address] [id number] Embosser Apprentice: Rodney Espinoza PhD, Phone: [phone] Performed By: #### L 9000.0810 #### [facility] [address] [place], [address] CBC W/Diff, Automatedon HYPOCHROMASIA 1+ Normal [facility] Comment on above: Performed By: #### L 400.0001 #### [facility] [address] [place], [address] Anisocytosis Ql (Bld) 2+ Normal [facility] Comment on above: Performed By: #### L 400.0001 #### [facility] [address] [place], [address] POLYCHROMASIA 1+ Normal [facility] Comment on above: Performed By: #### L 400.0001 #### [facility] [address] [place], [address] PLT EST ADEQUATE Normal ADEQ [facility] Comment on above: Performed By: #### L 400.0001 #### [facility] [address] [place], [address] SMEAR COMMENT SCANNED Normal [facility] Comment on above: Performed By: #### L 400.0001 #### [facility] [address] [place], [address] Free T3on 10-06-2025 Free T3 [Mass/Vol] 14.4 pg/mL High 2.18-3.98 [facility] Comment on above: Performed By: #### L 400.0001 #### [facility] [address] [place], [address] T4 Free Directon 10-06-2025 T4 FREE DIRECT 3.00 ng/dL High 0.76-1.46 [facility] Comment on above: Performed By: #### L 400.0001 #### [facility] [address] [place], [place], [id number] Estradiolon 10-05-2025 ESTRADIOL 107.0 pg/mL Normal [facility] Comment on above: Result Comment: FEMA LES ADULT FEMALE: Premenopausal: 15-350 pg/mL(E2 levels vary widely through the menstrual cycle) Postmenopausal: <10 pg/mL OREN STAGES MEAN AGE REFERENCE RANGES Stage I(>14 days and prepubertal) 7.1 years Undetectable-20 pg/mLL Stage II 10.5 years Undetectable-24 pg/mL Stage III 11.6 years Undetectable-60 pg/mL Stage IV 12.3 years 15-85 pg/mL Stage V 14.5 years 15-350 pg/mL Puberty onset (transition from Oren stage I to Oren stage II) occurs for girls at a median age of 10.5 (/- 2) years. There is evidence that it may occur up to 1 year earlier in obese girls and in girls. Progression through Oren stages is variable. Oren stage V (adult) should be reached by age 18. Performed By: #### L 9000.0810 #### [facility] [address] [place], [place], [id number] FSH and LHon 10-05-2025 FSH 8.9 mIU/mL Normal [facility] Comment on above: Result Comment: FEMA LE: Follicular: 1.4 - 18.1 mIU/mL Midcycle: 3.4 - 33.4 mIU/mL Luteal: 1.5 - 9.1 mIU/mL Post Menopause: 23.0 - 116.3 mIU/mL MALE: 1.4 - 18.1 mIU/mL Performed By: #### L 100.0100 #### [facility] [address] [place], [place], [id number] LH 7.2 mIU/mL Normal [facility] Comment on above: Result Comment: FEMA LE: Follicular: 1.9-12.5 mIU/mL Midcycle: 8.7-76.3 mIU/mL Luteal: 0.5-16.9 mIU/mL Post Menopause: 15.9-54.0 mIU/mL MALE: 20-70 Years: 1.5-9.3 mIU/mL >70 Years: 3.1-34.6 mIU/mL Performed By: #### L 100.0100 #### [facility] [address] [place] [place], [address] Thyroid Stim Hormone (TSH)on 10-05-2025 TSH Qn m[IU]/L Low 0.300-4.200 [facility] Comment on above: Performed By: #### L 100.0100 #### [facility] [address] [place], [place], [id number] hCG Titer Quant., Serumon HCG QUANT. < 1 Normal <9 non-preg [facility] Comment on above: Result Comment: Gest ational Age 0.2-1 Week: 5-50 mIU/mL 1-2 Weeks: 50-500 mIU/mL 2-3 Weeks: 100-5000 mIU/mL 3-4 Weeks: 500-10,000 mIU/mL 4-5 Weeks:1000-50,000 mIU/mL 5-6 Weeks: 10,000-100,000 mIU/mL 6-8 Weeks: 15,000-200,000 mIU/mL 2-3 Months:10,000-100,000 mIU/mL Performed By: #### L 100.0100 #### [facility] [address] [place], [place], [id number] Culture, Blood (WB)on 2024 CUB Please obtain blood cultures x 2 from 2 diff sourc No growth in 5 days. Normal [facility] Comment on above: Performed By: #### L 500.2500 #### [facility] [address] [place] [place], [address] Transfusion RX Blood Culture on 07-18-2025 TXCUB PRBC UNIT [id number] No growth in 5 days. Normal [facility] Comment on above: Performed By: #### L 400.0001 #### [facility] [address] [place], [address] Road Supervisor Office Visit Reporton 07-16-2025 Road Supervisor Office Visit Report [facility] [address], [address] [place] [address] OFFICE VISIT Date of Service: 07/16/25 MR#: [id number] Acct: [id number] Name: TED ZABALA Rep #: [id number] : 1990 Provider: Dr. Annamarie narayan MD Age/Sex: 35/F Location: [facility] Status: Signed Intake Vital Signs 01/15/25 10:39 07/12/25 21:12 07/16/25 13:00 Height 5 ft 4 in 5 ft 4 in 5 ft 4 in Weight: 139 lb 5 oz BMI 23.9 BP 113/72 Intake Visit Reasons: Heavy bleeding post IUD Signal System Testing Maintainer Required: No Is patient in pain?: No Allergies mebendazole Allergy (Verified 07/16/25 13:03) Unknown promethazine HCl (From Phenergan) Allergy (Verified 07/16/25 13:03) Other sertraline HCl (From Zoloft) Allergy (Verified 07/16/25 13:03) Unknown Medications ???Medication ???Instructions ???Recorded ???Confirmed ???Type buprenorphine 8 mg-naloxone 2 mg 8 mg PO BID 10/25/16 07/16/25 Hist ory sublingual film ferrous sulfate 325 mg (65 mg 325 mg PO BID #60 tabs 07/13/25 Rx iron) tablet (FeroSul) potassium chloride 20 mEq 20 meq PO BID 3 days #6 tabs 07/1307/16/25 Rx tablet,extended release (K-Tab) tranexamic acid 650 mg tablet 1,300 mg (2 x 650 mg) PO TID 4 11/2507/16/25 Rx days #24 tabs Post menopausal: No Patient : No : No [facility] Medical History Apneic episode Weight gain History of opioid abuse Anemia Encounter for IUD removal Surgical History H/O: [...] you feel safe at home: Yes HPI Heavy bleeding post IUD Details: TED ZABALA is a 35 year old who presents for follow up of anemia, heavy menses. she has been having heavy irregular bleeding since her IUD was placed and then removed, and was admitted t [facility] this week and transfused 2 unit sof blood, bleeding stopped with lysteda administration. she had a headache todya but otherwise is doing well. no abdominal pain History 3 Elective abortions 1 Hx Para 2 Spontaneous abortions 0 Hx # Term Pregnancies 2 Ectopic pregnancies 0 Hx # Pregnancies 0 Multiple births 0 # of living children 2 Past Pregnancies Del. Date Name GA/Weeks Outcome Route Bth Weight Infant Gen Labor Lgth Anesthesia Del Locatn Provider FOB Unknown Maddix 2006 42 live - full term Male epidural [facility] Dr Rahman Unknown Talia2011 36 live - full term Female epidural W Dr Errol Mays Constitutional: Denies fatigue, fever(s), headache(s), increased appetite, poor appetite, weight gain or weight loss GI GI: Reports as per HPI; Denies abdominal pain, constipation, nausea or vomiting : Reports as per HPI; Denies difficulty voiding, dysuria, hematuria, pelvic pain, urinary frequency, urinary incontinence, urinary hesitancy, urinary urgency, vaginal discharge, vaginal dryness, vaginal odor, vaginal pruritus or other Exam Const General: cooperative, healthy appearing, comfortable, no acute distress and well developed Orientation: alert HENMT Head: normal to inspection and normocephalic Ears: hearing grossly normal bilaterally and external ears normal Nose: external nose normal and nares normal Face and sinus: normal facial exam Neck Neck: normal visual inspection, no lymphadenopathy and trachea midline Thyroid: thyroid normal Resp Effort Inspection: normal respiratory effort Musc Other: gross motor intact no deficits, full bilateral strength Skin General: no rashes or lesions noted Neuro Motor: muscle tone normal throughout Coding Level of Care Code Off vis,est,level 4 Diagnoses Fibroid D21.9 Abnormal uterine bleeding N93.9 Anemia D64.9 History of opioid abuse F11.11 Assessment and Plan Assessment and Plan (1) Fibroid: Status: Acute Comment: 4 cm submucosal. s/p IUD. anemic. admit for transfusion, IV TXA. plan myfembre (more content not included)... Normal [facility] Absolute lymphocyte countOrd ered By: Annamarie Lira on 07-13-2025 Lymphocytes Auto (Unsp spec) [#/Vol] 0.84 10*3/uL 0.83-4.51 [facility] Absolute neutrophil countOrd ered By: Annamarie Lira on 07-13-2025 Neutrophils (Bld) [#/Vol] 5.9 10*3/uL 2.0-7.7 [facility] Anion gap in Serum or Plasma Ordered By: Annamarie Lira on 07-13-2025 Anion gap [Moles/Vol] 11 mmol/L 5-15 [facility] Automated lymphocyte count a s percentage of total leukocytesOrdered By: Annamarie Lira on 07-13-2025 Lymphocytes/100 WBC Auto (Unsp spec) 11.5 % Low 19-41 [facility] [id number] 07-13-2025 DIRECT BRENT NEG w/POLYSPECIFIC Normal NEGATIVE [facility] Comment on above: Performed By: #### L 400.0001 #### [facility] [address] [place], [address] BUN/creatinine ratioOrdered By: Annamarie Lira on 07-13-2025 Urea nitrogen/Creatinine [Mass ratio] 20.0 mg/mg 10- [facility] Basic Metabolic Profile (BMP )on 07-13-2025 BUN Normal 4-19 [facility] Comment on above: Result Comment: Canc elled via OM: Order cancelled - Patient discharged Performed By: #### L 500.2500 #### [facility] [address] [facility] [address] BUN/CRE Normal 10- [facility] Comment on above: Result Comment: Canc elled via OM: Order cancelled - Patient discharged Performed By: #### L 500.2500 #### [facility] [address] [facility] [address] Calcium Normal 7.6-11.0 [facility] Comment on above: Result Comment: Canc elled via OM: Order cancelled - Patient discharged Performed By: #### L 500.2500 #### [facility] [address] [place], [address] CL Normal 98-108 [facility] Comment on above: Result Comment: Canc elled via OM: Order cancelled - Patient discharged Performed By: #### L 500.2500 #### [facility] [address] [place], [address] CO2 Normal 21.0-32.0 [facility] Comment on above: Result Comment: Canc elled via OM: Order cancelled - Patient discharged Performed By: #### L 500.2500 #### [facility] [address] [place], [address] CREAT,SERUM Normal 0.70-1.20 [facility] Comment on above: Result Comment: Canc elled via OM: Order cancelled - Patient discharged Performed By: #### L 500.2500 #### [facility] [address] [place], [address] eGFR Normal >60 [facility] Comment on above: Result Comment: Canc elled via OM: Order cancelled - Patient discharged Performed By: #### L 500.2500 #### [facility] [address] [place], [address] GAP Normal 5-15 [facility] Comment on above: Result Comment: Canc elled via OM: Order cancelled - Patient discharged Performed By: #### L 500.2500 #### [facility] [address] [place], [address] GLU Normal 70-99 [facility] Comment on above: Result Comment: Canc elled via OM: Order cancelled - Patient discharged Performed By: #### L 500.2500 #### [facility] [address] [place], [address] Potassium Normal 3.3-5.1 [facility] Comment on above: Result Comment: Canc elled via OM: Order cancelled - Patient discharged Performed By: #### L 500.2500 #### [facility] [address] [place], [address] Basic Metabolic Profile (BMP) Normal 133-145 [facility] Comment on above: Result Comment: Canc elled via OM: Order cancelled - Patient discharged Performed By: #### L 500.2500 #### [facility] [address] [place], [address] BUN/CRE 20.0 RATIO Normal 10-20 [facility] Comment on above: Performed By: #### L 500.2500, L100.0100 #### [facility] [address] [place], [address] Calcium [Mass/Vol] 8.5 mg/dL Normal 7.6-11.0 [facility] Comment on above: Performed By: #### L 500.2500, L100.0100 #### [facility] [address] [place], [address] Chloride [Moles/Vol] 105 mmol/L Normal 98-108 [facility] Comment on above: Performed By: #### L 500.2500, L100.0100 #### [facility] [address] [place], [address] CO2 [Moles/Vol] 21.7 mmol/L Normal 21.0-32.0 [facility] Comment on above: Performed By: #### L 500.2500, L100.0100 #### [facility] [address] [place], [address] Creatinine [Mass/Vol] 0.47 mg/dL Low 0.70-1.20 [facility] Comment on above: Performed By: #### L 500.2500, L100.0100 #### [facility] [address] [place], [address] ECRCL 141.52 ml/min Normal 50-250 [facility] Comment on above: Performed By: #### L 500.2500, L100.0100 #### [facility] [address] [place], [address] GAP 11 Normal 5-15 [facility] Comment on above: Performed By: #### L 500.2500, L100.0100 #### [facility] [address] [place], [address] GFR/1.73 sq M.predicted among non-blacks MDRD (S/P/Bld) [Vol rate/Area] 126 mL/min/{1.73_m2} Normal >60 [facility] Comment on above: Result Comment: mL/m in/1.73m2 CKD-EPI Creatinine Equation (2020) Performed By: #### L 500.2500, L100.0100 #### [facility] [address] [place], [address] Glucose [Mass/Vol] 111 mg/dL High 70-99 [facility] Comment on above: Performed By: #### L 500.2500, L100.0100 #### [facility] [address] [place], [address] Potassium [Moles/Vol] 3.2 mmol/L Low 3.3-5.1 [facility] Comment on above: Performed By: #### L 500.2500, L100.0100 #### [facility] [address] [place], [address] Sodium [Moles/Vol] 138 mmol/L Normal 133-145 [facility] Comment on above: Performed By: #### L 500.2500, L100.0100 #### [facility] [address] [place], [address] Urea nitrogen [Mass/Vol] 9 mg/dL Normal 4-19 [facility] Comment on above: Performed By: #### L 500.2500, L100.0100 #### [facility] [address] [place], [address] Basophil percentageOrdered B y: Annamarie Lira on 07-13-2025 Basophils/100 WBC (Bld) 0.4 % 0-1 W [facility] Bilirubin Test strip Ql (U)O rdered By: Berlin Brizuela on 07-13-2025 Bilirubin Ql (U) Negative Negative [facility] Blood manual differential co mment interpretation (narrative result)Ordered By: Annamarie Lira on 07-13-2025 Manual differential comment Cipriano (Bld) [Interp] SCANNED [facility] Comment on above: LYMPHOPENIA NOTED Blood polychromasia detectio n by light microscopyOrdered By: Annamarie Lira on 07-13-2025 Polychromasia LM Ql (Bld) 1+ [facility] CBC W/Diff, Automatedon 07-02 Anisocytosis Ql (Bld) 1+ Normal [facility] Comment on above: Performed By: #### L 100.0100 #### [facility] [address] [place], [address] OVALOCYTE 1+ Normal [facility] Comment on above: Performed By: #### L 100.0100 #### [facility] [address] [place], [address] PLT EST SLT DEC Normal ADEQ [facility] Comment on above: Performed By: #### L 100.0100 #### [facility] [address] [place], [address] POLYCHROMASIA 1+ Normal [facility] Comment on above: Performed By: #### L 100.0100 #### [facility] [address] [place], [address] Absolute Neut Normal 2.0-7.7 [facility] Comment on above: Result Comment: OVER LAPPING ORDERS-TIMED CBCD ALSO ORDERED Performed By: #### L 500.2500, L100.0100 #### [facility] [address] [place], [address] HCT Normal 37-47 [facility] Comment on above: Result Comment: OVER LAPPING ORDERS-TIMED CBCD ALSO ORDERED Performed By: #### L 500.2500, L100.0100 #### [facility] [address] [place], [address] HGB Normal 12.0-15.0 [facility] Comment on above: Result Comment: OVER LAPPING ORDERS-TIMED CBCD ALSO ORDERED Performed By: #### L 500.2500, L100.0100 #### [facility] [address] [place], [address] MCH Normal 27.0-32.0 [facility] Comment on above: Result Comment: OVER LAPPING ORDERS-TIMED CBCD ALSO ORDERED Performed By: #### L 500.2500, L100.0100 #### [facility] [address] [place], [address] MCHC Normal 32-36 [facility] Comment on above: Result Comment: OVER LAPPING ORDERS-TIMED CBCD ALSO ORDERED Performed By: #### L 500.2500, L100.0100 #### [facility] [address] [place], [address] MCV Normal 81-99 [facility] Comment on above: Result Comment: OVER LAPPING ORDERS-TIMED CBCD ALSO ORDERED Performed By: #### L 500.2500, L100.0100 #### [facility] [address] [place], [address] NEUT% Normal 47-70 [facility] Comment on above: Result Comment: OVER LAPPING ORDERS-TIMED CBCD ALSO ORDERED Performed By: #### L 500.2500, L100.0100 #### [facility] [address] [place], [address] PLT Normal 150-450 [facility] Comment on above: Result Comment: OVER LAPPING ORDERS-TIMED CBCD ALSO ORDERED Performed By: #### L 500.2500, L100.0100 #### [facility] [address] [place], [address] RBC Normal 4.2-5.4 [facility] Comment on above: Result Comment: OVER LAPPING ORDERS-TIMED CBCD ALSO ORDERED Performed By: #### L 500.2500, L100.0100 #### [facility] [address] [place], [address] RDW CV Normal 11.6-14.6 [facility] Comment on above: Result Comment: OVER LAPPING ORDERS-TIMED CBCD ALSO ORDERED Performed By: #### L 500.2500, L100.0100 #### [facility] [address] [place], [address] RDW SD Normal 35.1-43.9 [facility] Comment on above: Result Comment: OVER LAPPING ORDERS-TIMED CBCD ALSO ORDERED Performed By: #### L 500.2500, L100.0100 #### [facility] [address] [place], [address] WBC Normal 4.4-11.0 [facility] Comment on above: Result Comment: OVER LAPPING ORDERS-TIMED CBCD ALSO ORDERED Performed By: #### L 500.2500, L100.0100 #### [facility] [address] [place], [address] Absolute Neut Normal 2.0-7.7 [facility] Comment on above: Result Comment: DUPL ICATE BY AFLICKINGER Performed By: #### L 400.0001 #### [facility] [address] [place], [address] HCT Normal 37-47 [facility] Comment on above: Result Comment: DUPL ICATE BY AFLICKINGER Performed By: #### L 400.0001 #### [facility] [address] [place], [address] HGB Normal 12.0-15.0 [facility] Comment on above: Result Comment: DUPL ICATE BY AFLICKINGER Performed By: #### L 400.0001 #### [facility] [address] [place], [address] MCH Normal 27.0-32.0 [facility] Comment on above: Result Comment: DUPL ICATE BY AFLICKINGER Performed By: #### L 400.0001 #### [facility] [address] [place], [address] MCHC Normal 32-36 [facility] Comment on above: Result Comment: DUPL ICATE BY AFLICKINGER Performed By: #### L 400.0001 #### [facility] [address] [place], [address] MCV Normal 81-99 [facility] Comment on above: Result Comment: DUPL ICATE BY AFLICKINGER Performed By: #### L 400.0001 #### [facility] [address] [place], [address] NEUT% Normal 47-70 [facility] Comment on above: Result Comment: DUPL ICATE BY AFLICKINGER Performed By: #### L 400.0001 #### [facility] [address] [place], [address] PLT Normal 150-450 [facility] Comment on above: Result Comment: DUPL ICATE BY AFLICKINGER Performed By: #### L 400.0001 #### [facility] [address] [place], [address] RBC Normal 4.2-5.4 [facility] Comment on above: Result Comment: DUPL ICATE BY AFLICKINGER Performed By: #### L 400.0001 #### [facility] [address] [place], [address] RDW CV Normal 11.6-14.6 [facility] Comment on above: Result Comment: DUPL ICATE BY AFLICKINGER Performed By: #### L 400.0001 #### [facility] [address] [place], [address] RDW SD Normal 35.1-43.9 [facility] Comment on above: Result Comment: DUPL ICATE BY AFLICKINGER Performed By: #### L 400.0001 #### [facility] [address] [place], [address] WBC Normal 4.4-11.0 [facility] Comment on above: Result Comment: DUPL ICATE BY AFLICKINGER Performed By: #### L 400.0001 #### [facility] [address] [place], [address] Anisocytosis Ql (Bld) 2+ Normal [facility] Comment on above: Performed By: #### L 100.0100 #### [facility] [address] [place], [address] HYPOCHROMASIA 1+ Normal [facility] Comment on above: Performed By: #### L 100.0100 #### [facility] [address] [facility] [address] SMEAR COMMENT SCANNED Normal [facility] Comment on above: Result Comment: LYMP HOPENIA NOTED Performed By: #### L 100.0100 #### [facility] [address] [place], [address] CO2 (BldV) [Moles/Vol]Ordere d By: Annamarie Lira on 07-13-2025 CO2 [Moles/Vol] 30 mmol/L 23-33 [facility] Carbon dioxide, total [Moles /volume] in Central venous bloodOrdered By: Annamarie Lira on 07-13-2025 CO2 [Moles/Vol] 21.7 mmol/L 21.0-32.0 [facility] Chest 1 View (Portable)on Chest 1 View (Portable) [facility] Imaging Services [address] [place] [address] Chest 1 View (Portable) MR#: [id number] Acct: [id number] Name: TED ZABALA Shefali Rep #: [id number] : 1990 F 35 From: Shiraz Chery MD PCP: Care Physician,No Primary Status: ADM ALFREDITO Study: Chest 1 View (Portable) Date of Exam: 07/13/25 Exam# [id number] Ordering Dr: Ilya Adan DO PROCEDURE: CHEST 1 VIEW (PORTABLE) 07/13/2025 REASON FOR EXAM: SUSPECTED TRANSFUSION REACTION. TECHNIQUE: Frontal view of the chest. COMPARISON: No FINDINGS: Normal heart size. Well inflated lungs. No consolidation, effusion, or pneumothorax. RAD/Chest 1 View (Portable) IMPRESSION: No acute chest findings Reading Location: [place] [address] CC: Dr. Ilya Adan, DO; No Primary Care Physician Caddy/Caddie Supervisor: Signed Normal [facility] Chloride assayOrdered By: Serena Lira on 07-13-2025 Chloride [Moles/Vol] 105 mmol/L 98-108 [facility] Consultation - [facility] 07-13-2025 Consultation - Hospitalist [facility] Medical Records Department [address] [place] [address] Consultation - Hospitalist 07/13/25 0417 MR#: [id number] Acct: [id number] Name: TED ZABALA Rep #: [id number] : 1990 35 From: Ilya Adan DO PCP: Care Physician,No Primary Status:ADM ALFREDITO Location: [place] [address] Assessment Plan Assessment/Plan (1) Transfusion reaction: QUALIFIERS: Encounter type: initial encounter Qualified Code(s): T80.92XA - Unspecified transfusion reaction, initial encounter (2) Fever: QUALIFIERS: Fever type: febrile nonhemolytic transfusion reaction Qualified Code(s): R50.84 - Febrile nonhemolytic transfusion reaction (3) Tachycardia as manifestation of blood transfusion reaction: (4) Abnormal uterine bleeding: (5) Fibroid: (6) Opiate withdrawal: (7) History of opioid abuse: (8) Depression with anxiety: (9) Hypokalemia: (10) Tobacco abuse: PLAN: Plan 1. Transfusion Reaction with Fever and Tachycardia - Continue supportive care with prn acetaminophen and prn diphenhydramine. Direct antiglobulin test negative. Check UA, Blood Cultures x 2 and CXR in case of evolving infection and to evaluate for possible TRALI. Check VBG to establish baseline. Blood Bank has been notified of suspected transfusion reaction. Patient has suspected febrile non-hemolytic transfusion reaction. The HARVE[employer] WORKER [employer]ELD [employer] informed me he patient's fever defervesced before she was treated with IM hydroxyzine after refusing diphenhydramine because it makes her sleepy. In the unlikely event the patient worsens in spite of conservative treatment the plan is to treat with steroids and consult fuel storage technician for further recommendations. 2. Acute heavy menstrual bleeding with associated dizziness and lightheadedness after passing large clots and having to change her menstrual pads several times an hour for the past few days culminating in patient presenting to the ER here with a critically low hemoglobin of 5.6 g/dL and mild resting tachycardia with patient subsequently found to have n 4.5 cm fibroid on ultrasound. She was then admitted and treated with IV tranexamic acid and transfused PRBC's with subsequent Fever up to 102.6 degrees Fahrenheit and sinus tachycardia of 129 bpm 1 hour after transfusion prompting urgent hospitalist consultation for suspected transfusion reaction complicating #1 - Noted with improved hemoglobin up to 7.8 g/dL. 3. History of opiate abuse with patient temporarily refusing to take buprenorphine-naloxone for 24 hours prompting concern for evolving opiate withdrawal compounding #1 #2 - Patient now taking her medications as prescribed after mina counseling from INFORMATICS ANALYST attending. 4. Depression with Anxiety; currently not on treatment exacerbated by #1 - #3 - We will give hydroxyzine prn for breakthrough symptoms. Patient also noted to have severe anxiety with panic after she was going to be admitted to the 3rd floor - but could not be sent there because she refused to get on the elevator - resulting in her admission to PCU. 5. G3-P2; s/p x 2 (with one elective two living children) with history of IUD placement (01/2024); with intermittent heavy bleeding since last Fall and chronic anemia with patient reporting device fell out several weeks ago with no follow up for string check in addition to declining to come in sooner than recommended adding to the medical complexity of #1 - #4 - Noted. 6. Hypokalemia of 3.2 mmol/L noted on lab testing this AM - Give supplemental oral KCl and then recheck level to confirm repletion. 7. Tobacco abuse - Tobacco Cessation will be strongly encouraged. 8. DVT prophylaxis - SCD's only in light of #2. Total time: Approximately (but not less than) 60 minutes. HPI Consult Data Date of Consult: 07/13/25 HPI Narrative Reason for Consultation: Suspected Transfusion Reaction. HPI Narrative: TED ZABALA, is a 35 F with a past medical history of G3-P2; s/p x 2 (with one elective two living children) tobacco abuse, history of chronic opiate abuse; on buprenorphine-naloxone BID, history of depression with anxiety; currently not on treatment, history of IUD placement (01/2024); with intermittent heavy bleeding since last Fall and chronic anemia with patient reporting device fell out several weeks ago with no follow up for string check in addition to declining to come in sooner than recommended who was admitted to the [facility] service of Dr. Lira on the evening of July 12, 2025 with acute heavy menstrual bleeding with associated dizziness and lightheadedness after passing large clots and having to change her menstrual pads several times an hour for the past few days culminating in patient presenting to the ER here with a critically low hemoglobin of 5.6 g/dL and mild resting tachycardia with patient subsequently found to have n 4.5 cm fibroi (more content not included)... Normal [facility] Discharge Instructionon 07-02 Discharge Instruction [facility] Medical Records Department [address] [place] [address] Instructions for Home/Discharge Instructions 07/13/25 1054 MR#: [id number] Acct: [id number] Name: TED ZABALA Rep #: [id number] : 1990 35 From: Annamarie Lira MD PCP: Care Physician,No Primary Status:ADM ALFREDITO Discharge Instructions DC O2, CPAP, BIPAP needs Home O2 Discharge instructions: No Dressing / Incision Discharge Activity: Return to Normal Activity May shower in (days): 0 Dressing / Incision Call your doctor if you observe: Fever of 101 or Higher, Using more than 1 pad per hour (for 2 hours in a row or more), Shortness of breath, Dizziness, Chest pain, Increased palpitations (irregular heartbeat) and - Follow Up Care Test Results: Test results from this visit will be discussed in further detail at your follow-up appointment, if applicable. Discharge Plan Admission Admit Date/Time: 07/12/25 20:12 Attending Provider: Annamarie Lira Primary Care Provider: Care Physician,No Primary Consulting Providers: Ilya Adan; Oscar Thompson Discharge Orders/Prescriptions Prescriptions: New tranexamic acid 650 mg tablet 1,300 mg PO TID 4 Days Qty: 24 0RF ferrous sulfate [FeroSul] 325 mg (65 mg iron) tablet 325 mg PO BID Qty: 60 1RF No Action buprenorphine-naloxone 1 EACH film 8 mg PO BID Patient Comments: Referrals / Follow Up: Care Physician,No Primary [Primary Care Provider] - Disposition Disposition (needs filled in before D/C Order can be placed): Home, Self Care 07/13/25 1057 Ananmarie Lira MD CC: Dr. Ilya Adan DO; Dr. Oscar Thompson MD; No Primary Care Physician Signed Normal [facility] Eosinophil percentageOrdered By: Annamarie Lira on 07-13-2025 Eosinophils/100 WBC (Bld) 0.1 % 0-5 [facility] Erythrocyte distribution wid th ratioOrdered By: Annamarie Lira on 07-13-2025 Erythrocyte distribution width (RBC) [Ratio] 25.3 % High 11.6-14.6 [facility] Erythrocyte distribution wid th standard deviationOrdered By: Annamarie Lira on 07-13-2025 Erythrocyte distribution width (RBC) [Ratio] 58.3 fl High 35.1-43.9 [facility] Glomerular filtration rate ( GFR) estimation/1.73 sq m using serum, plasma, or whole bOrdered By: Annamarie Lira on 07-13-2025 GFR/1.73 sq M.predicted among non-blacks MDRD (S/P/Bld) [Vol rate/Area] 126 mL/min/{1.73_m2} >60 [facility] Comment on above: mL/min/1.73m2 CKD-EP I Creatinine Equation (2020) Gram stain for investigation of transfusion reactionOrdered By: Annamarie Lira on 07-13-2025 Microscopic observation Gram stain Nom (Unsp spec) [facility] Hematocrit Auto (Bld) [Volum e fraction]Ordered By: Annamarie Lira on 07-13-2025 Hematocrit (Bld) [Volume fraction] 24.0 % Low 37-47 [facility] Hemoglobin measurementOrdere d By: Annamarie Lira on 07-13-2025 Hemoglobin (Bld) [Mass/Vol] 7.4 g/dL Low 12.0-15.0 [facility] Hypochromatic red blood cell detectionOrdered By: Annamarie Lira on 07-13-2025 Hypochromia Ql (Bld) 1+ [facility] Immature granulocytes/100 WB C Auto (Bld)Ordered By: Annamarie Lira on 07-13-2025 Immature granulocytes/100 WBC (Bld) 0.400 % 0.0-0.9 [facility] Comment on above: IG% - Immature Granu locytes (promyelocytes, myelocytes and metamyelocytes) > 1% indicates that a LEFT SHIFT is Present. Ketones Test strip Ql (U)Ord ered By: Berlin Brizuela on 07-13-2025 Ketones Ql (U) 15 mg/dl High Negative [facility] Laboratory - Hematology and Cell countsOrdered By: Annamarie Lira on 07-13-2025 Anisocytosis Ql (Bld) 1+ [facility] MCV (mean corpuscular volume ) determinationOrdered By: Annamarie Lira on 07-13-2025 MCV (RBC) [Entitic vol] 65.2 fL Low 81-99 [facility] Mean corpuscular hemoglobin (MCH) determinationOrdered By: Annamarie Lira on 07-13-2025 MCH (RBC) [Entitic mass] 20.1 pg Low 27.0-32.0 [facility] Mean corpuscular hemoglobin concentration (MCHC) determinationOrdered By: Annamarie Lira on 07-13-2025 MCHC (RBC) [Mass/Vol] 30.8 g/dL Low 32-36 [facility] Mean platelet volume determi nationOrdered By: Annamarie Lira on 07-13-2025 Platelet mean volume (Bld) [Entitic vol] 9.4 fL 6.2-12.0 [facility] Microscopic analysis of urin e for red blood cells (RBC)Ordered By: Berlin Brizuela on 07-13-2025 Microscopic analysis of urine for red blood cells (RBC) 25-50 SEEN /hpf 0-5 [facility] Monocyte percentageOrdered B y: Annamarie Lira on 07-13-2025 Monocytes/100 WBC (Bld) 7.4 % 0-10 W [facility] Mucus LM Ql (Urine sed)Order ed By: Berlin Brizuela on 07-13-2025 Mucus Ql (Urine sed) 0 SEEN /hpf [facility] Neutrophil percentageOrdered By: Annamarie Lira on 07-13-2025 Neutrophils/100 WBC (Bld) 80.2 % High 47-70 [facility] Nitrite Test strip Ql (U)Ord ered By: Berlin Brizuela on 07-13-2025 Nitrite Ql (U) Negative Negative [facility] No Panel InformationOrdered By: Annamarie Lira on 07-13-2025 Blood Gas Sample Site vein [facility] Blood Gas Specimen Type MOOK W [facility] Oxygen Delivery Device Room Air [facility] Nucleated red blood cell per centageOrdered By: Annamarie Lira on 07-13-2025 Nucleated RBC/100 WBC (Bld) [Ratio] 0 % 0-5 [facility] Ovalocyte detectionOrdered B y: Annamarie Lira on 07-13-2025 Ovalocytes LM Ql (Bld) 1+ [facility] Platelet countOrdered By: Serena Lira on 07-13-2025 Platelets (Bld) [#/Vol] 132 10*3/uL Low 150-450 [facility] Platelet estimateOrdered By: Annamarie Lira on 07-13-2025 Platelets LM Ql (Bld) SLT DEC ADEQ [facility] Potassium measurement (mass/ volume)Ordered By: Annamarie Lira on 07-13-2025 Potassium (Unsp spec) [Mass/Vol] 3.2 mmol/L Low 3.3-5.1 [facility] Protein Test strip Ql (U)Ord ered By: Berlin Brizuela on 07-13-2025 Protein Ql (U) Negative Negative [facility] RBC Auto (Bld) [#/Vol]Ordere d By: Annamarie Lira on 07-13-2025 RBC (Bld) [#/Vol] 3.68 10*6/uL Low 4.2-5.4 [facility] Serum creatinine measurement (mass/volume)Ordered By: Annamarie Lira on 07-13-2025 Creatinine [Mass/Vol] 0.47 mg/dL Low 0.70-1.20 [facility] Serum glucose measurement (m ass/volume)Ordered By: Annamarie Lira on 07-13-2025 Glucose [Mass/Vol] 111 mg/dL High 70-99 [facility] Serum or plasma calcium rick urement (mass/volume)Ordered By: Annamarie Lujannik on 07-13-2025 Calcium [Mass/Vol] 8.5 mg/dL 7.6-11.0 [facility] Serum or plasma urea nitroge n measurement (mass/volume)Ordered By: Annamarie Lira on 07-13-2025 Urea nitrogen [Mass/Vol] 9 mg/dL 4-19 [facility] Sodium levelOrdered By: Refugio ally Errol on 07-13-2025 Sodium [Moles/Vol] 138 mmol/L 133-145 [facility] Squamous epithelial cells de tection in urine sediment by light microscopyOrdered By: Berlin Brizuela on 07-13-2025 Epithelial cells.squamous LM Ql (Urine sed) 0-5 SEEN /hpf 5-10 [facility] Transfusion RX Gram Stainon 07-13-2025 TXGS PRBC UNIT [id number] Gram Stain No organisms seen Normal [facility] Comment on above: Performed By: #### L 400.0001 #### [facility] [address] [place], [place], [id number] Transfusion RXN Urinalysison 07-13-2025 UR Preservative Normal [facility] Comment on above: Performed By: #### L 100.0100 #### [facility] [address] [place], [address] Txn Rxn Pre-Specmen Workupon 07-13-2025 *POST* GRIFFIN POS? Not performed Normal [facility] Comment on above: Result Comment: WRON G ORDER Performed By: #### L 100.0100 #### [facility] [address] [place], [address] A1 CELL Not performed Normal [facility] Comment on above: Result Comment: WRON G ORDER Performed By: #### L 100.0100 #### [facility] [address] [place], [address] ABO and Rh group Nom (Bld) Test Not Performed Normal [facility] Comment on above: Result Comment: WRON G ORDER Performed By: #### L 100.0100 #### [facility] [address] [place], [address] ANTI A Not performed Normal [facility] Comment on above: Result Comment: WRON G ORDER Performed By: #### L 100.0100 #### [facility] [address] [place], [address] ANTI B Not performed Normal [facility] Comment on above: Result Comment: WRON G ORDER Performed By: #### L 100.0100 #### [facility] [address] [place], [address] ANTI D Not performed Normal [facility] Comment on above: Result Comment: WRON G ORDER Performed By: #### L 100.0100 #### [facility] [address] [place], [address] B CELLS Not performed Normal [facility] Comment on above: Result Comment: WRON G ORDER Performed By: #### L 100.0100 #### [facility] [address] [place], [address] COMP BRENT Not performed Normal NEGATIVE [facility] Comment on above: Result Comment: WRON G ORDER Performed By: #### L 100.0100 #### [facility] [address] [place], [address] D CONTROL Not performed Normal [facility] Comment on above: Result Comment: WRON G ORDER Performed By: #### L 100.0100 #### [facility] [address] [place], [address] GRIFFIN INTERPR-PRE Not performed Normal NEGATIVE [facility] Comment on above: Result Comment: WRON G ORDER Performed By: #### L 100.0100 #### [facility] [address] [place], [address] GRIFFIN POLYSP -PRE Not performed Normal NEGATIVE [facility] Comment on above: Result Comment: WRON G ORDER Performed By: #### L 100.0100 #### [facility] [address] [place], [address] IgG BRENT Not performed Normal NEGATIVE [facility] Comment on above: Result Comment: WRON G ORDER Performed By: #### L 100.0100 #### [facility] [address] [place], [address] VISUAL,SERUM Not performed Normal Yellow [facility] Comment on above: Result Comment: WRON G ORDER Performed By: #### L 100.0100 #### [facility] [address] [place], [address] Urinalysis, Completeon 07-13 BACTERIA RARE Normal None Seen [facility] Comment on above: Order Comment: SPOKE WITH NURSE WILL TRY TO COLLECT 07-13-25 03:20AM CLEAN CATCH Performed By: #### L 400.0001 #### [facility] [address] [place], [address] BILIRUBIN URINE Negative Normal Negative [facility] Comment on above: Order Comment: SPOKE WITH NURSE WILL TRY TO COLLECT 07-13-25 03:20AM CLEAN CATCH Performed By: #### L 400.0001 #### [facility] [address] [place], [address] Clarity (U) Clear Normal Clear [facility] Comment on above: Order Comment: SPOKE WITH NURSE WILL TRY TO COLLECT 07-13-25 03:20AM CLEAN CATCH Performed By: #### L 400.0001 #### [facility] [address] [place], [address] Color (U) Yellow Normal Yellow [facility] Comment on above: Order Comment: SPOKE WITH NURSE WILL TRY TO COLLECT 07-13-25 03:20AM CLEAN CATCH Performed By: #### L 400.0001 #### [facility] [address] [facility] [address] EPI,SQUAMOUS 0-5 SEEN Normal 5-10 [facility] Comment on above: Order Comment: SPOKE WITH NURSE WILL TRY TO COLLECT 08-1225 03:20AM CLEAN CATCH Performed By: #### L 400.0001 #### [facility] [address] [place] [id number] GLUCOSE, UR Normal Normal Normal [facility] Comment on above: Order Comment: SPOKE WITH NURSE WILL TRY TO COLLECT 08 03:20AM CLEAN CATCH Performed By: #### L 400.0001 #### [facility] [address] [place] [address] KETONE UR 15 mg/dl Abnormal Negative [facility] Comment on above: Order Comment: SPOKE WITH NURSE WILL TRY TO COLLECT 0825 03:20AM CLEAN CATCH Performed By: #### L 400.0001 #### [facility] [address] [place] [id number] LEUK ESTERASE Negative Normal Negative [facility] Comment on above: Order Comment: SPOKE WITH NURSE WILL TRY TO COLLECT 08-1225 03:20AM CLEAN CATCH Performed By: #### L 400.0001 #### [facility] [address] [facility] [address] Nitrite Ql (U) Negative Normal Negative [facility] Comment on above: Order Comment: SPOKE WITH NURSE WILL TRY TO COLLECT 08-12-25 03:20AM CLEAN CATCH Performed By: #### L 400.0001 #### [facility] [address] [facility] [address] OCCULT BLOOD-UR 150 /ul Abnormal Negative [facility] Comment on above: Order Comment: SPOKE WITH NURSE WILL TRY TO COLLECT 081225 03:20AM CLEAN CATCH Performed By: #### L 400.0001 #### [facility] [address] [place], [address] pH UR 6.0 Normal 5.0 - 8.0 [facility] Comment on above: Order Comment: SPOKE WITH NURSE WILL TRY TO COLLECT 07-13-25 03:20AM CLEAN CATCH Performed By: #### L 400.0001 #### [facility] [address] [place], [address] PROT DIPSTX Negative Normal Negative [facility] Comment on above: Order Comment: SPOKE WITH NURSE WILL TRY TO COLLECT 07-13-25 03:20AM CLEAN CATCH Performed By: #### L 400.0001 #### [facility] [address] [facility] [address] RBC 25-50 SEEN Normal 0-5 [facility] Comment on above: Order Comment: SPOKE WITH NURSE WILL TRY TO COLLECT 07-13-25 03:20AM CLEAN CATCH Performed By: #### L 400.0001 #### [facility] [address] [facility] [address] SP.GR. DIPSTX 1.015 Normal 1.002-1.030 [facility] Comment on above: Order Comment: SPOKE WITH NURSE WILL TRY TO COLLECT 07-13-25 03:20AM CLEAN CATCH Performed By: #### L 400.0001 #### [facility] [address] [facility] [address] UROBILI Normal Normal Normal [facility] Comment on above: Order Comment: SPOKE WITH NURSE WILL TRY TO COLLECT 07-13-25 03:20AM CLEAN CATCH Performed By: #### L 400.0001 #### [facility] [address] [place], [address] Mucus Ql (Urine sed) 0 SEEN Normal [facility] Comment on above: Order Comment: SPOKE WITH NURSE WILL TRY TO COLLECT 07-13-25 03:20AM CLEAN CATCH Performed By: #### L 400.0001 #### [facility] [address] [place], [address] WBC 0 SEEN Normal 0-5 [facility] Comment on above: Order Comment: SPOKE WITH NURSE WILL TRY TO COLLECT 07-13-25 03:20AM CLEAN CATCH Performed By: #### L 400.0001 #### [facility] [address] [place], [address] BACTERIA Normal None Seen [facility] Comment on above: Order Comment: CLEAN CATCH Result Comment: TARI ENT DISCHARGED. Performed By: #### L 400.0001 #### [facility] [address] [place], [address] BILIRUBIN URINE Normal Negative [facility] Comment on above: Order Comment: CLEAN CATCH Result Comment: TARI ENT DISCHARGED. Performed By: #### L 400.0001 #### [facility] [address] [place], [address] Clarity (U) Normal Clear [facility] Comment on above: Order Comment: CLEAN CATCH Result Comment: TARI ENT DISCHARGED. Performed By: #### L 400.0001 #### [facility] [address] [place], [address] Color (U) Normal Yellow [facility] Comment on above: Order Comment: CLEAN CATCH Result Comment: TARI ENT DISCHARGED. Performed By: #### L 400.0001 #### [facility] [address] [place], [address] EPI,SQUAMOUS Normal 5-10 [facility] Comment on above: Order Comment: CLEAN CATCH Result Comment: TARI ENT DISCHARGED. Performed By: #### L 400.0001 #### [facility] [address] [place], [address] GLUCOSE, UR Normal Normal [facility] Comment on above: Order Comment: CLEAN CATCH Result Comment: TARI ENT DISCHARGED. Performed By: #### L 400.0001 #### [facility] [address] [place], [address] KETONE UR Normal Negative [facility] Comment on above: Order Comment: CLEAN CATCH Result Comment: TARI ENT DISCHARGED. Performed By: #### L 400.0001 #### [facility] [address] [place], [address] LEUK ESTERASE Normal Negative [facility] Comment on above: Order Comment: CLEAN CATCH Result Comment: TARI ENT DISCHARGED. Performed By: #### L 400.0001 #### [facility] [address] [place] [id number] Mucus Ql (Urine sed) Normal [facility] Comment on above: Order Comment: CLEAN CATCH Result Comment: TARI ENT DISCHARGED. Performed By: #### L 400.0001 #### [facility] [address] [place], [address] Nitrite Ql (U) Normal Negative [facility] Comment on above: Order Comment: CLEAN CATCH Result Comment: TARI ENT DISCHARGED. Performed By: #### L 400.0001 #### [facility] [address] [place] [id number] OCCULT BLOOD-UR Normal Negative [facility] Comment on above: Order Comment: CLEAN CATCH Result Comment: TARI ENT DISCHARGED. Performed By: #### L 400.0001 #### [facility] [address] [facility] [address] pH UR Normal 5.0 - 8.0 [facility] Comment on above: Order Comment: CLEAN CATCH Result Comment: TARI ENT DISCHARGED. Performed By: #### L 400.0001 #### [facility] [address] [facility] [address] PROT DIPSTX Normal Negative [facility] Comment on above: Order Comment: CLEAN CATCH Result Comment: TARI ENT DISCHARGED. Performed By: #### L 400.0001 #### [facility] [address] [facility] [address] RBC Normal 0-5 [facility] Comment on above: Order Comment: CLEAN CATCH Result Comment: TARI ENT DISCHARGED. Performed By: #### L 400.0001 #### [facility] [address] [place], [address] SP.GR. DIPSTX Normal 1.002-1.030 [facility] Comment on above: Order Comment: CLEAN CATCH Result Comment: TARI ENT DISCHARGED. Performed By: #### L 400.0001 #### [facility] [address] [place], [address] UR Preservative Normal [facility] Comment on above: Order Comment: CLEAN CATCH Result Comment: TARI ENT DISCHARGED. Performed By: #### L 400.0001 #### [facility] [address] [place], [address] UROBILI Normal Normal [facility] Comment on above: Order Comment: CLEAN CATCH Result Comment: TARI ENT DISCHARGED. Performed By: #### L 400.0001 #### [facility] [address] [place], [address] WBC Normal 0-5 [facility] Comment on above: Order Comment: CLEAN CATCH Result Comment: TARI ENT DISCHARGED. Performed By: #### L 400.0001 #### [facility] [address] [place], [address] Urine clarityOrdered By: Derek Brizuela on 07-13-2025 Clarity (U) Clear Clear [facility] Urine color determinationOrd ered By: Berlin Brizuela on 07-13-2025 Color (U) Yellow Yellow [facility] Urine glucose detectionOrder ed By: Berlin Brizuela on 07-13-2025 Glucose Ql (U) Normal mg/dl Normal [facility] Urine leukocyte esterase det ection by dipstickOrdered By: Berlin Brizuela on 07-13-2025 Leukocyte esterase Test strip Ql (U) Negative Negative [facility] Urine pHOrdered By: Berlin Jensen on 07-13-2025 pH (U) 6.0 [pH] 5.0 - 8.0 [facility] Urine sediment bacteria coun t by microscopy (number/high power field)Ordered By: Berlin NarvaezShagufta on 07-13-2025 Bacteria LM.HPF (Urine sed) [#/Area] RARE /hpf None Seen [facility] Urine specific gravity measu rementOrdered By: [facility] 07-[facility] Specific gravity (U) [Rel density] 1.015 1.002-1.030 [facility] Urine urobilinogen measureme ntOrdered By: [facility] on 07-13-2025 Urobilinogen Ql (U) Normal mg/dl Normal [facility] Venous Blood Gason Blood Gas Type MOOK Normal [facility] Comment on above: Performed By: #### L 9000.0810 #### [facility] [address] [place], [address] CO2 [Moles/Vol] 30 mmol/L Normal 23-33 [facility] Comment on above: Performed By: #### L 9000.0810 #### [facility] [address] [place], [address] HCO3 (Bld) [Moles/Vol] 29 mmol/L High 22-26 [facility] Comment on above: Performed By: #### L 9000.0810 #### [facility] [address] [place], [address] O2 Delivery Dev Room Air Normal [facility] Comment on above: Performed By: #### L 9000.0810 #### [facility] [address] [place], [address] SITE vein Normal [facility] Comment on above: Performed By: #### L 9000.0810 #### [facility] [address] [place], [address] VBG BE 5 mmol/L High -1.0-3.5 [facility] Comment on above: Performed By: #### L 9000.0810 #### [facility] [address] [place], [place], [address] VBG pCO2 38.8 mmHg Low 41-51 [facility] Comment on above: Performed By: #### L 9000.0810 #### [facility] [address] [place], [place], [address] VBG pH 7.48 High 7.32-7.42 [facility] Comment on above: Performed By: #### L 9000.0810 #### [facility] [address] [place], [address] VBG PO2 62 mmHg High 25-40 [facility] Comment on above: Performed By: #### L 9000.0810 #### [facility] [address] [place], [place], [address] VBG SO2 93 High 50-70 [facility] Comment on above: Performed By: #### L 9000.0810 #### [facility] [address] [place], [place], [id number] Venous blood base excess haritha surementOrdered By: Annamarie Lira on 07-13-2025 Base excess Calc (BldV) [Moles/Vol] 5 mmol/L High -1.0-3.5 [facility] Venous blood bicarbonate haritha surementOrdered By: Annamarie Lira on 07-13-2025 HCO3 (Bld) [Moles/Vol] 29 mmol/L High 22-26 [facility] Venous blood oxygen saturati on measurementOrdered By: Annamarie Lira on 07-13-2025 Oxygen saturation in Blood 93 % High 50-70 [facility] Venous blood pH measurementO rdered By: Annamarie Lira on 07-13-2025 pH (BldV) 7.48 [pH] High 7.32-7.42 [facility] Venous blood partial pressur e of carbon dioxide measurementOrdered By: Annamarie Lira on 07-13-2025 CO2 (BldV) [Partial pressure] 38.8 mm[Hg] Low 41-51 [facility] Venous blood partial pressur e of oxygen measurementOrdered By: Annamarie Lira on 07-13-2025 Oxygen (BldV) [Partial pressure] 62 mm[Hg] High 25-40 [facility] White blood cell (WBC) count Ordered By: Annamarie Lira on 07-13-2025 WBC (Bld) [#/Vol] 7.3 10*3/uL 4.4-11.0 [facility] White blood cell countOrdere d By: Berlin Brizuela on 07-13-2025 White blood cell count 0 SEEN /hpf 0-5 [facility] Absolute lymphocyte countOrd ered By: Berlin Brizuela on 07-12-2025 Lymphocytes Auto (Unsp spec) [#/Vol] 1.02 10*3/uL 0.83-4.51 [facility] Absolute neutrophil countOrd ered By: Berlin Brizuela on 07-12-2025 Neutrophils (Bld) [#/Vol] 2.2 10*3/uL 2.0-7.7 [facility] Anion gap in Serum or Plasma Ordered By: Berlin Brizuela on 07-12-2025 Anion gap [Moles/Vol] 12 mmol/L 5-15 [facility] Automated lymphocyte count a s percentage of total leukocytesOrdered By: Berlin Brizuela on 07-12-2025 Lymphocytes/100 WBC Auto (Unsp spec) 27.2 % 19-41 [facility] BRCon 07-12-2025 RC Normal [facility] Comment on above: Result Comment: [id number] AP RC TRANSFUSED 07/12/25 1840 [id number] AP RC TRANSFUSED 07/12/25 2206 Performed By: #### L 100.0100 #### [facility] [place], [address] BUN/creatinine ratioOrdered By: Berlin Brizuela on 07-12-2025 Urea nitrogen/Creatinine [Mass ratio] 20.4 mg/mg High 10-20 [facility] Basic Metabolic Profile (BMP )on 07-12-2025 BUN/CRE 20.4 RATIO High 10-20 [facility] Comment on above: Performed By: #### L 100.0100 #### [facility] [address] [place], [address] Calcium [Mass/Vol] 8.9 mg/dL Normal 7.6-11.0 [facility] Comment on above: Performed By: #### L 100.0100 #### [facility] [address] [place], [address] Chloride [Moles/Vol] 107 mmol/L Normal 98-108 [facility] Comment on above: Performed By: #### L 100.0100 #### [facility] [address] [place], [address] CO2 [Moles/Vol] 20.6 mmol/L Low 21.0-32.0 [facility] Comment on above: Performed By: #### L 100.0100 #### [facility] [address] [place], [address] Creatinine [Mass/Vol] 0.44 mg/dL Low 0.70-1.20 [facility] Comment on above: Performed By: #### L 100.0100 #### [facility] [address] [place], [address] ECRCL 151.17 ml/min Normal 50-250 [facility] Comment on above: Performed By: #### L 100.0100 #### [facility] [address] [place], [address] GAP 12 Normal 5-15 [facility] Comment on above: Performed By: #### L 100.0100 #### [facility] [address] [place], [address] GFR/1.73 sq M.predicted among non-blacks MDRD (S/P/Bld) [Vol rate/Area] 128 mL/min/{1.73_m2} Normal >60 [facility] Comment on above: Result Comment: mL/m in/1.73m2 CKD-EPI Creatinine Equation (2020) Performed By: #### L 100.0100 #### [facility] [address] [place], [address] Glucose [Mass/Vol] 99 mg/dL Normal 70-99 [facility] Comment on above: Performed By: #### L 100.0100 #### [facility] [address] [place], [address] Potassium [Moles/Vol] 3.9 mmol/L Normal 3.3-5.1 [facility] Comment on above: Performed By: #### L 100.0100 #### [facility] [address] [place], [address] Sodium [Moles/Vol] 139 mmol/L Normal 133-145 [facility] Comment on above: Performed By: #### L 100.0100 #### [facility] [address] [place], [address] Urea nitrogen [Mass/Vol] 9 mg/dL Normal 4-19 [facility] Comment on above: Performed By: #### L 100.0100 #### [facility] [address] [place], [address] Basophil percentageOrdered B y: Berlin Brizuela on 07-12-2025 Basophils/100 WBC (Bld) 0.3 % 0-1 [facility] CBC W/Diff, Automatedon 07-02 Hemoglobin (Bld) [Mass/Vol] 5.6 g/dL Invalid Interpretation Code 12.0-15.0 [facility] Comment on above: Result Comment: CRIT ICAL VALUE CALLED TO VIANNEY HOOD 07/12/25 1704 Galilea Kaufman. RESULTS READ BACK BY SAME. Performed By: #### L 100.0100 #### [facility] [address] [place], [address] Absolute Lymph 1.02 X10 3/uL Normal 0.83-4.51 [facility] Comment on above: Performed By: #### L 100.0100 #### [facility] [address] [place], [address] Absolute Neut 2.2 X10 3/uL Normal 2.0-7.7 [facility] Comment on above: Performed By: #### L 100.0100 #### [facility] [address] [place], [address] Basophils/100 WBC (Bld) 0.3 % Normal 0-1 [facility] Comment on above: Performed By: #### L 100.0100 #### [facility] [address] [place], [address] Eosinophils/100 WBC (Bld) 1.6 % Normal 0-5 [facility] Comment on above: Performed By: #### L 100.0100 #### [facility] [address] [place], [address] Erythrocyte distribution width (RBC) [Ratio] 20.0 % High 11.6-14.6 [facility] Comment on above: Performed By: #### L 100.0100 #### [facility] [address] [place], [address] Hematocrit (Bld) [Volume fraction] 20.0 % Low 37-47 [facility] Comment on above: Performed By: #### L 100.0100 #### [facility] [address] [place], [address] IG% 0.300 Normal 0.0-0.9 [facility] Comment on above: Result Comment: IG% - Immature Granulocytes (promyelocytes, myelocytes and metamyelocytes) > 1% indicates that a LEFT SHIFT is Present. Performed By: #### L 100.0100 #### [facility] [address] [place], [address] Lymphocytes/100 WBC (Bld) 27.2 % Normal 19-41 [facility] Comment on above: Performed By: #### L 100.0100 #### [facility] [address] [place], [address] MCH (RBC) [Entitic mass] 16.7 pg Low 27.0-32.0 [facility] Comment on above: Performed By: #### L 100.0100 #### [facility] [address] [place], [address] MCHC (RBC) [Mass/Vol] 28.0 g/dL Low 32-36 [facility] Comment on above: Performed By: #### L 100.0100 #### [facility] [address] [place], [address] MCV (RBC) [Entitic vol] 59.7 fL Low 81-99 [facility] Comment on above: Performed By: #### L 100.0100 #### [facility] [address] [place], [address] Monocytes/100 WBC (Bld) 12.5 % High 0-10 [facility] Comment on above: Performed By: #### L 100.0100 #### [facility] [address] [place], [address] Neutrophils/100 WBC (Bld) 58.1 % Normal 47-70 [facility] Comment on above: Performed By: #### L 100.0100 #### [facility] [address] [place], [address] Nucleated RBC (Bld) [#/Vol] 0 10*3/uL Normal 0-5 [facility] Comment on above: Performed By: #### L 100.0100 #### [facility] [address] [place], [address] Platelet mean volume (Bld) [Entitic vol] 8.9 fL Normal 6.2-12.0 [facility] Comment on above: Performed By: #### L 100.0100 #### [facility] [address] [place], [address] Platelets (Bld) [#/Vol] 225 10*3/uL Normal 150-450 [facility] Comment on above: Performed By: #### L 100.0100 #### [facility] [address] [place], [address] RBC (Bld) [#/Vol] 3.35 10*6/uL Low 4.2-5.4 [facility] Comment on above: Performed By: #### L 100.0100 #### [facility] [address] [place], [address] RDW SD 42.0 fl Normal 35.1-43.9 [facility] Comment on above: Performed By: #### L 100.0100 #### [facility] [address] [place], [address] WBC (Bld) [#/Vol] 3.8 10*3/uL Low 4.4-11.0 [facility] Comment on above: Performed By: #### L 100.0100 #### [facility] [address] [place], [address] Carbon dioxide, total [Moles /volume] in Central venous bloodOrdered By: Berlin Brizuela on 07-12-2025 CO2 [Moles/Vol] 20.6 mmol/L Low 21.0-32.0 [facility] Chloride assayOrdered By: Nicholas Brizuela on 07-12-2025 Chloride [Moles/Vol] 107 mmol/L 98-108 [facility] Emergency Department Summary on 07-12-2025 Emergency Department Summary [facility] Medical Records Department [address] [place] [address] Emergency Department Summary 07/12/25 MR#: [id number] Acct: [id number] Name: TED ZABALA Rep #: [id number] : 1990 35 From: Berlin Brizuela DO PCP: Care Physician,No Primary Status:REG ER Location: ED HPI HPI - Female History of Present Illness Chief Complaint: Vag Bleeding Narrative Narrative: Chief complaint and HPI: Vaginal bleeding. 35-year-old female with past medical history of menorrhagia and iron deficiency anemia presents for evaluation of vaginal bleeding with symptoms of anemia. 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 Patient states that she has a history of iron deficiency anemia but stopped taking iron supplementation secondary to medication side effects. She states in January she had an IUD placed that helped with her menorrhagia. States she still gets monthly periods however they are not heavy. Patient states that the end of her last menstrual period was 8/5. She states on her IUD fell out. She states shortly [...] on the chart. Reviewed. Physical exam: Gen: A O x3, NAD Head: Normocephalic, atraumatic Eyes: No [...] intact Psych: Cooperative, appropriate mood and affect PFSH PFS Medical History (Updated 02/17/25 @ 14:21 by Sultana Hernandez) Apneic episode Weight gain History of opioid abuse Anemia Encounter for IUD removal Home Medications ???Medication ???Instructions ???Recorded ???Last Taken ???Type buprenorphine 8 mg-naloxone 2 mg 8 mg PO BID 10/25/16 Unknown Histo ry sublingual film hydroxyzine HCl 10 mg tablet 10 mg PO QHS #2 tabs 03/13/24 Unkn own Rx levonorgestrel 14 mcg/24 hr (up to 1 insert intrauterine ONCE #1 ea 11/16/24 Unknown Clinic 3 yrs) 13.5 mg intrauterine device levonorgestrel 14 mcg/24 hr (up to 1 device intrauterine ONCE 01/15 Unknown History 3 yrs) 13.5 mg intrauterine [...] Monitor Blood Pressure Position Supine Blood Pressure (more content not included)... Normal [facility] Eosinophil percentageOrdered By: [facility] on 07-12-2025 Eosinophils/100 WBC (Bld) 1.6 % 0-5 [facility] Erythrocyte distribution wid th ratioOrdered By: [facility] 07-12-[facility] Erythrocyte distribution width (RBC) [Ratio] 20.0 % High 11.6-14.6 [facility] Erythrocyte distribution wid th standard deviationOrdered By: [facility] Shagufta on 07-12-2025 Erythrocyte distribution width (RBC) [Ratio] 42.0 fl 35.1-43.9 [facility] Glomerular filtration rate ( GFR) estimation/1.73 sq m using serum, plasma, or whole bOrdered By: [facility] on 07-12-2025 GFR/1.73 sq M.predicted among non-blacks MDRD (S/P/Bld) [Vol rate/Area] 128 mL/min/{1.73_m2} >60 [facility] Comment on above: mL/min/1.73m2 CKD-EP I Creatinine Equation (2020) H AND P Exam - OB/GYNon 07-02 H&P Exam - [employer]PER[employer]OR [facility] Medical Records Department [address] [place] [address] H P Exam - [employer]PER[employer]OR 07/12/252022 MR#: [id number] Acct: [id number] Name: TED ZABALA Rep #: [id number] : 1990 35 From: Annamarie Lira MD PCP: Care Physician,No Primary Status:ADM ALFREDITO Location: MS3 AM189-1 HPI - General General Date of Admission: 07/12/25 HPI Narrative TED ZABALA, is a 35 F who presents with acute heavy menstrual bleeding. Patient is a history of using IUDs in the past which have worked well for her to have minimal to light bleeding and then she has had intermittent heavy bleeding since the fall, she had her IUD replaced in January and has had bleeding persistent since and then it fell out several weeks ago. She hadn't followed up for her string check and declined coming in sooner as recommended. She started feeling dizzy and lightheaded and has been passing large clots with changing a pad several times an hour the last few days and presented to the ED with a Hg of 5.6 and mild tachycardia. bleeding ahs been slowing down the last few hours while in the ED and she is receiving a transfusion. US showed 4.5 cm fibroid. [facility] Medical History (Updated 07/12/25 @ 20:[address] Annamarie Lira MD) Apneic episode Weight gain History of opioid abuse Anemia Encounter for IUD removal Home Medications ???Medication ???Instructions ???Recorded ???Last Taken ???Type buprenorphine 8 mg-naloxone 2 mg 8 mg PO BID 10/25/16 07/11/25 Hist ory sublingual film Allergy/AdvReac Type Severity Reaction Status Date / [...] 42 live - full term Male epidural [facility] Dr Rahman Unknown Talia 2011 36 live - full term Female epidural W Dr Errol [place] Constitutional Constitutional: Reports systems reviewed and no addt'l complaints, except as documented, fatigue and weakness; Denies as per HPI, change in weight, fever(s), malaise or other Eyes Eyes: Reports systems reviewed and no addt'l complaints, except as documented; Denies as per HPI, change in vision or other ENT HEENT: Reports systems reviewed and no addt'l complaints, except as documented Respiratory/Chest Respiratory/Chest: Reports systems reviewed and no addt'l complaints, except as documented Gastrointestinal Gastrointestinal: Reports systems reviewed and no addt'l complaints, except as documented and as per HPI Genitourinary Genitourinary: Reports as per HPI Musculoskeletal Musculoskeletal: Reports systems reviewed and no addt'l complaints, except as documented Neurologic Neurologic: Reports systems reviewed and no addt'l complaints, except as documented Psychiatric Psychiatric: Reports systems reviewed and no addt'l complaints, except as documented Endocrine Endocrinology: Reports systems reviewed and no addt'l complaints, except as documented Hematologic/Lymphatic Hematologic/Lymphatic: Reports systems reviewed and no addt'l complaints, except as documented Vital Signs Vital Signs Vital Signs: 07/12/25 16:26 07/12/25 18:25 07/12/25 18:53 Temperature 98.2 F 99.0 F Temperature Source Oral Oral Pulse Rate 109 H 100 100 Respiratory Rate 16 16 Blood Pressure 114/74 99/63 109/64 Blood Pressure Mean 87 75 79 Blood Pressure Source Monitor Blood Pressure Position Supine Blood Pr (more content not included)... Normal [facility] Hematocrit Auto (Bld) [Volum e fraction]Ordered By: Berlin Brizuela on 07-12-2025 Hematocrit (Bld) [Volume fraction] 20.0 % Low 37-47 [facility] Hemoglobin measurementOrdere d By: Berlin Brizuela on 07-12-2025 Hemoglobin (Bld) [Mass/Vol] 5.6 g/dL Low 12.0-15.0 [facility] Comment on above: CRITICAL VALUE MICHELE D TO VIANNEY HOOD07/12/25 1704 Galilea Kaufman.RESULTS READ BACK BY SAME. Immature granulocytes/100 WB C Auto (Bld)Ordered By: Berlin Brizuela on 07-12-2025 Immature granulocytes/100 WBC (Bld) 0.300 % 0.0-0.9 [facility] Comment on above: IG% - Immature Granu locytes (promyelocytes, myelocytes and metamyelocytes) > 1% indicates that a LEFT SHIFT is Present. MCV (mean corpuscular volume ) determinationOrdered By: Berlin Brizuela on 07-12-2025 MCV (RBC) [Entitic vol] 59.7 fL Low 81-99 [facility] Mean corpuscular hemoglobin (MCH) determinationOrdered By: Berlin Brizuela on 07-12-2025 MCH (RBC) [Entitic mass] 16.7 pg Low 27.0-32.0 [facility] Mean corpuscular hemoglobin concentration (MCHC) determinationOrdered By: Berlin Brizuela on 07-12-2025 MCHC (RBC) [Mass/Vol] 28.0 g/dL Low 32-36 [facility] Mean platelet volume determi nationOrdered By: Berlin Brizuela on 07-12-2025 Platelet mean volume (Bld) [Entitic vol] 8.9 fL 6.2-12.0 [facility] Monocyte percentageOrdered B y: Berlin Brizuela on 07-12-2025 Monocytes/100 WBC (Bld) 12.5 % High 0-10 [facility] Neutrophil percentageOrdered By: Berlin Brizuela on 07-12-2025 Neutrophils/100 WBC (Bld) 58.1 % 47-70 [facility] Nucleated red blood cell per centageOrdered By: Berlin Brizuela on 07-12-2025 Nucleated RBC/100 WBC (Bld) [Ratio] 0 % 0-5 [facility] Platelet countOrdered By: Nicholas Brizuela on 07-12-2025 Platelets (Bld) [#/Vol] 225 10*3/uL 150-450 [facility] Potassium measurement (mass/ volume)Ordered By: Berlin Brizuela on 07-12-2025 Potassium (Unsp spec) [Mass/Vol] 3.9 mmol/L 3.3-5.1 [facility] ,Serum,hCG Quali.on 07-12-2025 HCG, SERUM QUAL Negative Normal [facility] Comment on above: Performed By: #### L 100.0100 #### [facility] [address] [place], [place] [address], [place], [address] RBC Auto (Bld) [#/Vol]Ordere d By: Berlin Brizuela on 07-12-2025 RBC (Bld) [#/Vol] 3.35 10*6/uL Low 4.2-5.4 [facility] Serum beta-hCG test, qualita tiveOrdered By: Berlin Brizuela on 07-12-2025 Beta HCG ( test) Ql Negative [facility] Serum creatinine measurement (mass/volume)Ordered By: Berlin Brizuela on 07-12-2025 Creatinine [Mass/Vol] 0.44 mg/dL Low 0.70-1.20 [facility] Serum glucose measurement (m ass/volume)Ordered By: Berlin Brizuela on 07-12-2025 Glucose [Mass/Vol] 99 mg/dL 70-99 [facility] Serum or plasma calcium rick urement (mass/volume)Ordered By: Berlin Eagle on 07-12-2025 Calcium [Mass/Vol] 8.9 mg/dL 7.6-11.0 [facility] Serum or plasma urea nitroge n measurement (mass/volume)Ordered By: Berlin Brizuela on 07-12-2025 Urea nitrogen [Mass/Vol] 9 mg/dL 4-19 [facility] Sodium levelOrdered By: Silas Brizuela on 07-12-2025 Sodium [Moles/Vol] 139 mmol/L 133-145 [facility] Transvaginal Non-on 07-12-2025 Transvaginal Non- [facility] Imaging Services [address] [place] [address] Transvaginal Non- MR#: [id number] Acct: [id number] Name: TED ZABALA Rep #: [id number] : 1990 F 35 From: Ayden Mcgowan MD PCP: Care Physician,No Primary Status: REG ER Study: Transvaginal Non- Date of Exam: Exam# [id number] Ordering Dr: Berlin Brizuela DO EXAM: US Pelvis Transvaginal CLINICAL INDICATION: [...] US/Transvaginal Non- IMPRESSION: Uterine fibroid. Reading Location: [facility] CC: Dr. Berlin Brizuela DO; No Primary Care Physician Caddy/Caddie Supervisor: Signed Normal [facility] Type AND Screenon 07-12-2025 ABO and Rh group Nom (Bld) Blood group A Rh(D) positive Normal [facility] Comment on above: Order Comment: A Performed By: #### L 100.0100 #### [facility] [address] [place], [address] White blood cell (WBC) count Ordered By: Berlin Brizuela on 07-12-2025 WBC (Bld) [#/Vol] 3.8 10*3/uL Low 4.4-11.0 [facility] Free T3on 01-15-2025 Free T3 [Mass/Vol] 2.9 pg/mL Normal 2.18-3.98 [facility] Comment on above: Performed By: #### L 501.46987, L506.0400 #### [facility] [address] [place], [address] Road Supervisor Office Visit Reporton 01-15-2025 Road Supervisor Office Visit Report [facility] [address], [address] [place] [address] OFFICE VISIT Date of Service: 01/15/25 MR#: [id number] Acct: [id number] Name: TED ZABALA Rep #: [id number] : 1990 Provider: Dr. Annamarie narayan MD Age/Sex: 34/F Location: [facility] Status: Signed with Addenda [...] Performing Provider: Annamarie Lira MD Performing Location: [facility] Administered by: Annamarie Lira MD on 01/15/25 11:16 [address]ose [address] Admin Location Dispensed Lot Number Expiration Date [facility] Man ufacturer [address] 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 Normal [facility] T4 Free Directon 01-15-2025 T4 FREE DIRECT 0.97 ng/dL Normal 0.76-1.46 [facility] Comment on above: Performed By: #### L 501.39340, L506.0400 #### [facility] [place], [address] Road Supervisor Office Visit Reporton 11-16-2024 Road Supervisor Office Visit Report [facility] [address], [address] [place] [address] OFFICE VISIT Date of Service: 11/16/24 MR#: [id number] Acct: [id number] Name: TED ZABALA Rep #: [id number] : 1990 Provider: Dr. Michelle Mejia DO Age/Sex: 34/F Location: [facility] Status: Signed with Addenda ADDENDUM by Dr. Annmaarie Lira MD on 07/30/25 at 1502 Assessment and Plan Assessment and Plan (1) Abnormal uterine bleeding: Status: Acute Comment: US reviewed and fibroid present. TXA ordered for acute, transfusion. plan EMB at fu visit, discussed risks of waiting vs immediate, comfortable with waiting. plan myfembree. Orders: Orders POC Urine 11/16/24 Z30.9 - Encounter for contraceptive management, unspecified Josephine IUD 11/16/24 Z30.430 - Encounter for insertion of intrauterine contraceptive device Medications: New levonorgestrel 1 insert intrauterine ONCE 1 ea 0RF Z30.430 - Encounter for insertion of intrauterine contraceptive device Comments Comments: [id number] 07/30/25 1502 Date Annamarie Lira MD cc: * Signed ADDENDUM by Kiki Cadena on 11/26/24 at [...] contraceptive device Plan Details Additional Comments: IUD [facility] [id number] Expiration 12/2024 [id number] 12/01/24 1059 Date Michelle Luis DO cc: [...] 42 live - full term Male epidural [facility] Dr Rahman Unknown Talia 2011 36 live - full term Female epidural [facility] Lira [facility] Josephine IUD insertion Details: TED ZABALA is a 34 year old who presents for IUD insertion ROS Const ROS Unobtainable: All systems reviewed are unremarkable except as noted in H Resp Resp: Reports system reviewed and no additional complaints, except as documented; Denies cough (more content not included)... [facility] [facility] .Auto Diffon 11-12-2024 Basophil, Absolute 0.1 10 3/mcL Normal 0.0-0.2 [facility] Comment on above: Performed By: #### F OL, B12 #### [address] [address] #### IBC, ADIFF, FE, FERR, RETO, TSH, CBC, CMP, ANEU, GFR #### [address] [address] Basophils/100 WBC (Bld) 1.3 % Normal 0.0-2.5 [facility] Comment on above: Performed By: #### F OL, B12 #### [address] [address] #### IBC, ADIFF, FE, FERR, RETO, TSH, CBC, CMP, ANEU, GFR #### [address] [address] Eosinophil, Absolute 0.1 10 3/mcL Normal 0.0-0.7 [facility] Comment on above: Performed By: #### F OL, B12 #### [address] [address] #### IBC, ADIFF, FE, FERR, RETO, TSH, CBC, CMP, ANEU, GFR #### [address] [address] Eosinophils/100 WBC (Bld) 3.3 % Normal 0.0-7.0 [facility] Comment on above: Performed By: #### F OL, B12 #### [place] [address] #### IBC, ADIFF, FE, FERR, RETO, TSH, CBC, CMP, ANEU, GFR #### [address] [address] Lymphocyte, Absolute 1.4 10 3/mcL Normal 0.9-4.3 [facility] Comment on above: Performed By: #### F OL, B12 #### [place] [address] #### IBC, ADIFF, FE, FERR, RETO, TSH, CBC, CMP, ANEU, GFR #### [address] [address] Lymphocytes/100 WBC (Bld) 34.9 % Normal 20.0-40.0 [facility] Comment on above: Performed By: #### F OL, B12 #### [place] [address] #### IBC, ADIFF, FE, FERR, RETO, TSH, CBC, CMP, ANEU, GFR #### [address] [address] Monocyte, Absolute 0.5 10 3/mcL Normal 0.1-1.4 [facility] Comment on above: Performed By: #### F OL, B12 #### [place] [address] #### IBC, ADIFF, FE, FERR, RETO, TSH, CBC, CMP, ANEU, GFR #### [address] [address] Monocytes/100 WBC (Bld) 11.7 % Normal 2.0-13.0 [facility] Comment on above: Performed By: #### F OL, B12 #### [address] [address] #### IBC, ADIFF, FE, FERR, RETO, TSH, CBC, CMP, ANEU, GFR #### [address] [address] Neutrophils/100 WBC (Bld) 48.8 % Low 50.0-75.0 [facility] Comment on above: Performed By: #### F OL, B12 #### [address] [address] #### IBC, ADIFF, FE, FERR, RETO, TSH, CBC, CMP, ANEU, GFR #### [address] [address] .GFRon 11-12-2024 GFR 145 ml/min/1.73sqm [facility] Comment on above: Result Comment: GFR [...] Performed By: #### F OL, B12 #### [address] [address] #### IBC, ADIFF, FE, FERR, RETO, TSH, CBC, CMP, ANEU, GFR #### [address] [address] GFR Non- 120 ml/min/1.73sqm Normal [facility] Comment on above: Result Comment: GFR Population [...] Performed By: #### F OL, B12 #### [address] [address] #### IBC, ADIFF, FE, FERR, RETO, TSH, CBC, CMP, ANEU, GFR #### [address] [address] .NEUABSon 11-12-2024 Neutrophil, Absolute 2.0 10 3/mcL Low 2.3-8.1 [facility] Comment on above: Performed By: #### F OL, B12 #### [address] [address] #### IBC, ADIFF, FE, FERR, RETO, TSH, CBC, CMP, ANEU, GFR #### [address] [address] B12on 11-12-2024 Cobalamin (Vitamin B12) [Mass/Vol] 455 pg/mL Normal 211-911 [facility] Comment on above: Performed By: #### F OL, B12 #### [address] [address] #### IBC, ADIFF, FE, FERR, RETO, TSH, CBC, CMP, ANEU, GFR #### [address] [address] CBCon 11-12-2024 Erythrocyte distribution width (RBC) [Ratio] 15.7 % High 11.5-15.5 [facility] Comment on above: Performed By: #### F OL, B12 #### [facility] [address] [place], [place] [address] #### IBC, ADIFF, FE, FERR, RETO, TSH, CBC, CMP, ANEU, GFR #### [address] [address] Hematocrit (Bld) [Volume fraction] 25.4 % Low 34.0-46.0 [facility] Comment on above: Performed By: #### F OL, B12 #### [place] [address] #### IBC, ADIFF, FE, FERR, RETO, TSH, CBC, CMP, ANEU, GFR #### [place] [address] Hgb 8.3 G/dL Low 12.0-16.0 [facility] Comment on above: Performed By: #### F OL, B12 #### [place] [address] #### IBC, ADIFF, FE, FERR, RETO, TSH, CBC, CMP, ANEU, GFR #### [address] [address] MCH (RBC) [Entitic mass] 24.2 pg Low 27.0-33.0 [facility] Comment on above: Performed By: #### F OL, B12 #### [place] [address] #### IBC, ADIFF, FE, FERR, RETO, TSH, CBC, CMP, ANEU, GFR #### [place] [address] MCHC 32.5 G/dL Normal 32.0-36.0 [facility] Comment on above: Performed By: #### F OL, B12 #### [place] [address] #### IBC, ADIFF, FE, FERR, RETO, TSH, CBC, CMP, ANEU, GFR #### [address] [address] MCV (RBC) [Entitic vol] 74.6 fL Low 80.0-99.0 [facility] Comment on above: Performed By: #### F OL, B12 #### [place] [address] #### IBC, ADIFF, FE, FERR, RETO, TSH, CBC, CMP, ANEU, GFR #### [address] [address] Platelet 214 10 3/mcL Normal 150-450 [facility] Comment on above: Performed By: #### F OL, B12 #### [place] [address] #### IBC, ADIFF, FE, FERR, RETO, TSH, CBC, CMP, ANEU, GFR #### [place] [address] Platelet mean volume (Bld) [Entitic vol] 7.2 fL Normal 6.6-10.5 [facility] Comment on above: Performed By: #### F OL, B12 #### [place] [address] #### IBC, ADIFF, FE, FERR, RETO, TSH, CBC, CMP, ANEU, GFR #### [address] [address] RBC 3.41 10 6/mcL Low 4.10-5.30 [facility] Comment on above: Performed By: #### F OL, B12 #### [place] [address] #### IBC, ADIFF, FE, FERR, RETO, TSH, CBC, CMP, ANEU, GFR #### [address] [address] WBC 4.1 10 3/mcL Low 4.5-10.8 [facility] Comment on above: Performed By: #### F OL, B12 #### [place] [address] #### IBC, ADIFF, FE, FERR, RETO, TSH, CBC, CMP, ANEU, GFR #### [address] [address] CMPon 12-12-2024 Albumin Level 4.0 G/dL Normal 3.5-5.0 [facility] Comment on above: Performed By: #### F OL, B12 #### [place] [address] #### IBC, ADIFF, FE, FERR, RETO, TSH, CBC, CMP, ANEU, GFR #### [address] [address] Albumin/Globulin [Mass ratio] 1.2 {ratio} Normal 1.1-2.5 [facility] Comment on above: Performed By: #### F OL, B12 #### [place] [address] #### IBC, ADIFF, FE, FERR, RETO, TSH, CBC, CMP, ANEU, GFR #### [address] [address] ALP [Catalytic activity/Vol] 54 U/L Normal 40-135 [facility] Comment on above: Performed By: #### F OL, B12 #### [place] [address] #### IBC, ADIFF, FE, FERR, RETO, TSH, CBC, CMP, ANEU, GFR #### [address] [address] ALT [Catalytic activity/Vol] 28 U/L Normal 14-59 [facility] Comment on above: Performed By: #### F OL, B12 #### [place] [address] #### IBC, ADIFF, FE, FERR, RETO, TSH, CBC, CMP, ANEU, GFR #### [address] [address] AST [Catalytic activity/Vol] 18 U/L Normal 10-40 [facility] Comment on above: Performed By: #### F OL, B12 #### [place] [address] #### IBC, ADIFF, FE, FERR, RETO, TSH, CBC, CMP, ANEU, GFR #### [address] [address] Bili Total 0.2 mg/dL Normal 0.2-1.0 [facility] Comment on above: Result Comment: Use of this assay is not recommended for patients undergoing treatment with eltrombopag due to the potential for falsely elevated results. Performed By: #### F OL, B12 #### [place] [address] #### IBC, ADIFF, FE, FERR, RETO, TSH, CBC, CMP, ANEU, GFR #### [address] [address] BUN/Creatinine Ratio 23 ratio Normal 7-27 [facility] Comment on above: Performed By: #### F OL, B12 #### [place] [address] #### IBC, ADIFF, FE, FERR, RETO, TSH, CBC, CMP, ANEU, GFR #### [address] [address] Calcium [Mass/Vol] 8.9 mg/dL Normal 8.4-10.2 [facility] Comment on above: Performed By: #### F OL, B12 #### [place] [address] #### IBC, ADIFF, FE, FERR, RETO, TSH, CBC, CMP, ANEU, GFR #### [address] [address] Chloride [Moles/Vol] 103 mmol/L Normal 98-107 [facility] Comment on above: Performed By: #### F OL, B12 #### [place] [address] #### IBC, ADIFF, FE, FERR, RETO, TSH, CBC, CMP, ANEU, GFR #### [address] [address] CO2 [Moles/Vol] 27 mmol/L Normal 22-29 [facility] Comment on above: Performed By: #### F OL, B12 #### [place] [address] #### IBC, ADIFF, FE, FERR, RETO, TSH, CBC, CMP, ANEU, GFR #### [address] [address] Creatinine [Mass/Vol] 0.57 mg/dL Normal 0.55-1.02 [facility] Comment on above: Result Comment: Test ing performed on Siemens Dimension EXL analyzer using a modified kinetic Antonella technique. Performed By: #### F OL, B12 #### [place] [address] #### IBC, ADIFF, FE, FERR, RETO, TSH, CBC, CMP, ANEU, GFR #### [address] [address] Electrolyte Balance 9.0 mEq/L Normal 4.0-15.0 [facility] Comment on above: Performed By: #### F OL, B12 #### [place] [address] #### IBC, ADIFF, FE, FERR, RETO, TSH, CBC, CMP, ANEU, GFR #### [place] [id number] Globulin 3.3 G/dL Normal [facility] Comment on above: Performed By: #### F OL, B12 #### [place] [address] #### IBC, ADIFF, FE, FERR, RETO, TSH, CBC, CMP, ANEU, GFR #### [address] [address] Glucose [Mass/Vol] 90 mg/dL Normal 70-105 [facility] Comment on above: Performed By: #### F OL, B12 #### [place] [address] #### IBC, ADIFF, FE, FERR, RETO, TSH, CBC, CMP, ANEU, GFR #### [address] [address] Potassium [Moles/Vol] 4.0 mmol/L Normal 3.5-5.1 [facility] Comment on above: Performed By: #### F OL, B12 #### [place] [address] #### IBC, ADIFF, FE, FERR, RETO, TSH, CBC, CMP, ANEU, GFR #### [address] [address] Sodium [Moles/Vol] 139 mmol/L Normal 136-145 [facility] Comment on above: Performed By: #### F OL, B12 #### [place] [address] #### IBC, ADIFF, FE, FERR, RETO, TSH, CBC, CMP, ANEU, GFR #### [address] [address] Total Protein 7.3 G/dL Normal 6.4-8.2 [facility] Comment on above: Performed By: #### F OL, B12 #### [place] [address] #### IBC, ADIFF, FE, FERR, RETO, TSH, CBC, CMP, ANEU, GFR #### [address] [address] Urea nitrogen [Mass/Vol] 13 mg/dL Normal 7-18 [facility] Comment on above: Performed By: #### F OL, B12 #### [place] [address] #### IBC, ADIFF, FE, FERR, RETO, TSH, CBC, CMP, ANEU, GFR #### [address] [address] FEon 11-12-2024 Iron [Mass/Vol] 9 ug/dL Low 50-170 [facility] Comment on above: Performed By: #### F OL, B12 #### [place] [address] #### IBC, ADIFF, FE, FERR, RETO, TSH, CBC, CMP, ANEU, GFR #### [address] [address] Adan 11-12-2024 Ferritin [Mass/Vol] 5.0 ng/mL Low 8.0-252.0 [facility] Comment on above: Performed By: #### F OL, B12 #### [address] [address] #### IBC, ADIFF, FE, FERR, RETO, TSH, CBC, CMP, ANEU, GFR #### [address] [address] FOLon 11-12-2024 Folate 14.16 ng/mL Normal 5.38-24.00 [facility] Comment on above: Performed By: #### F OL, B12 #### [address] [address] #### IBC, ADIFF, FE, FERR, RETO, TSH, CBC, CMP, ANEU, GFR #### [address] [address] IBCon 11-12-2024 TIBC 456 mcg/dL High 250-450 [facility] Comment on above: Performed By: #### F OL, B12 #### [address] [address] #### IBC, ADIFF, FE, FERR, RETO, TSH, CBC, CMP, ANEU, GFR #### [address] [address] LABORATORYOrdered By: SYSTEM SYSTEM on 11-12-2024 Albumin [...] above: Interpretive Data: T esting performed on [employer] Dimension EXL analyzer using a modified kinetic [...] 14.16 ng/mL Normal 5.38 - 24.00 ng/mL AH ADM SS GFR/1.73 sq M.predicted among blacks [...] Retic Fraction 0.45 IRF Normal 0.20-0.46 [facility] Comment on above: Performed By: #### F OL, B12 #### [address] [address] #### IBC, ADIFF, FE, FERR, RETO, TSH, CBC, CMP, ANEU, GFR #### [address] [address] Reticulocytes, Auto 1.0 % Normal 0.2-2.3 [facility] Comment on above: Performed By: #### F OL, B12 #### [address] [address] #### IBC, ADIFF, FE, FERR, RETO, TSH, CBC, CMP, ANEU, GFR #### [address] [address] TSHon 11-12-2024 TSH Qn 1.39 m[IU]/L Normal 0.36-3.74 [facility] Comment on above: Performed By: #### F OL, B12 #### [place] [address] #### IBC, ADIFF, FE, FERR, RETO, TSH, CBC, CMP, ANEU, GFR #### [address] [address] MRI BRAIN WO IVCONon 018 MRI BRAIN WO IVCON * * *Final Report* * *DATE OF EXAM: Jan 28 2018 3:44PM [facility] 0294 - MRI BRAIN WO IVCON / REASON: Tinnitus of both ears [...] EVANGELISTA MD on Jan 28 2018 4:05PM EST [facility] Vital Signs Date Time Vital Sign Value Performing Clinician Faci lity 07-16-2025 13:00-0400 Body height 162.56 cm No Primary Care Physician [facility] 07-16-2025 13:00-0400 Body mass index (BMI) [Ratio] 23.9 kg/m2 No Primary Care Physician [facility] 07-16-2025 13:00-0400 Body weight 63.19 kg No Primary Care Physician [facility] 07-16-2025 13:00-0400 Diastolic blood pressure 72 mm[Hg] No Primary Care Physician [facility] 07-16-2025 13:00-0400 Systolic blood pressure 113 mm[Hg] No Primary Care Physician [facility] 07-13-2025 10:00-0400 Body temperature 98.1 [degF] No Primary Care Physician [facility] 07-13-2025 10:00-0400 Diastolic blood pressure 56 mm[Hg] No Primary Care Physician [facility] 07-13-2025 10:00-0400 Heart rate 88 /min No Primary Care Physician [facility] 07-13-2025 10:00-0400 Respiratory rate 11 /min No Primary Care Physician [facility] 07-13-2025 10:00-0400 SaO2% (BldA) [Mass fraction] 98 % No Primary Care Physician [facility] 07-13-2025 10:00-0400 Systolic blood pressure 100 mm[Hg] No Primary Care Physician [facility] 07-12-2025 21:12-0400 Body height 162.56 cm No Primary Care Physician [facility] 07-12-2025 21:12-0400 Body mass index (BMI) [Ratio] 23.1 kg/m2 No Primary Care Physician [facility] 07-12-2025 21:12-0400 Body weight 61.2 kg No Primary Care Physician [facility] 07-12-2025 20:12-0400 Body temperature 98.4 [degF] No Primary Care Physician [facility] 07-12-2025 20:12-0400 Diastolic blood pressure 69 mm[Hg] No Primary Care Physician [facility] 07-12-2025 20:12-0400 Heart rate 92 /min No Primary Care Physician [facility] 07-12-2025 20:12-0400 Respiratory rate 18 /min No Primary Care Physician [facility] 07-12-2025 20:12-0400 SaO2% (BldA) [Mass fraction] 98 % No Primary Care Physician [facility] 07-12-2025 20:12-0400 Systolic blood pressure 106 mm[Hg] No Primary Care Physician [facility] 07-12-2025 16:26-0400 Body height 162.56 cm No Primary Care Physician [facility] 07-12-2025 16:26-0400 Body mass index (BMI) [Ratio] 23.3 kg/m2 No Primary Care Physician [facility] 07-12-2025 16:26-0400 Body weight 61.68 kg No Primary Care Physician [facility] 10-16-2023 13:05-0500 Body height 162.[address] Beny Crocker Work Phone: [facility] 10-16-2023 13:02-0500 Body mass index (BMI) [Ratio] 20.9 kg/m2 Dr. Beny Crocker Work Phone: [facility] 10-16-2023 13:02-0500 Body weight 55.[address] Beny Crocker Work Phone: [facility] 10-16-2023 13:02-0500 Diastolic blood pressure 69 mm[Hg] Dr. Beny Crocker Work Phone: [facility] 10-16-2023 13:02-0500 Systolic blood pressure 107 mm[Hg] Dr. Beny Crocker Work Phone: [facility] Encounters Encounter Date Encounter Type Care Provider Facility Start: 10-22-2025 ambulatory Michelle Luis Fa cility:[facility] Start: 10-15-2025 ambulatory No Primary Car e Physician Facility:[facility] Start: 10-11-2025 End: 10-11-2025 ambulatory Luis Felipe Nguyen Facility:[facility] Start: 10-07-2025 End: 10-07-2025 ambulatory No Primary Care Physician Facility:[facility] Start: 10-06-2025 ambulatory No Primary Car e Physician Facility:[facility] Start: 10-05-2025 End: 10-05-2025 ambulatory Michelle Luis Facility:[facility] Start: 09-24-2025 ambulatory No Primary Car e Physician [facility] Start: 07-16-2025 End: 07-16-[address] Annamarie Lira MD -[facility] Work Phone: Start: 07-16-2025 End: 07-16-2025 ambulatory No Primary Care Physician -[facility] Start: 07-13-2025 Non-patient / Non-visit Dr. Sadia Adan DO -[facility] Work Phone: Start: 07-12-2025 Non-patient / Non-visit Dr. Serena Lira MD -[facility] Start: 07-12-2025 End: 07-13-2025 ambulatory Annamarie Lira Facility:[facility] Start: 07-12-2025 End: 07-13-2025 Evaluation and management of inpatient Dr. Annamarie Lira MD -[facility] Work Phone: Start: 07-12-2025 End: 07-13-2025 observation encounter No Primary Care Physician -[facility] Start: 02-22-2025 ambulatory No Primary Car e Physician Facility:[facility] Start: 02-19-2025 ambulatory No Primary Car e Physician Facility:[facility] Start: 01-15-2025 End: 01-15-2025 ambulatory No Primary Care Physician [facility] Start: 01-15-2025 End: 01-15-2025 ambulatory No Primary Care Physician Facility:[facility] Start: 11-16-2024 ambulatory Michelle Cazares cility:[facility] Start: 11-12-2024 End: 11-12-2024 ambulatory WILLIAM VANN DO Facility:[facility] Start: 11-12-2024 End: 11-12-2024 Patient encounter procedure WILLIAM VANN DO [facility] Start: 09-09-2024 End: 09-09-2024 Patient encounter procedure Radha Ervin APRN.[employer] ASSISTANT AND FEEDER Work Phone: Family Medicine Comment on above: No-show for appointm ent (Primary Dx) Start: 09-09-2024 End: 09-09-2024 Telemedicine consultation with patient Radha Ervin APRN.PRESS ASSISTANT AND FEEDER Work Phone: [facility] Start: 10-21-2023 End: 10-21-[address] Beny Crocker Work Phone: [facility] Work Phone: Start: 10-21-2023 End: 10-21-[address] Beny Crocker Work Phone: [facility] Work Phone: Start: 10-16-2023 End: 10-16-[address] Beny Crocker Work Phone: [facility] Work Phone: Start: 01-28-2018 Ambulatory BENY CROCKER [facility] Start: 04-15-2012 End: 09-25-2012 Patient requested procedure Radha Ervin APRN.PRESS ASSISTANT AND FEEDER Work Phone: [facility] Work Phone: Procedures Date Procedure Procedure Detail Performing Clinician Start: 07-13-2025 Blood culture No Primary Care Physician Start: 07-13-2025 Investigation of transfusion reaction No Primary Care Physician Start: 07-13-2025 Plain chest X-ray No Primary Care Physician Start: 07-13-2025 Urnls dip stick/tablet reagent auto microscopy No Primary Care Physician Start: 07-13-2025 Estimated creatinine clearance No Primary Care Physician Start: 07-12-2025 Estimated creatinine clearance No Primary Care Physician Start: 07-12-2025 Transvaginal echography No Primary Care Physician Start: 10-21-[address] Beny Crocker Work Phone: Start: 10-21-[address] Beny Gaviria Work Phone: Start: 12-01-2012 section WILLIAM VANN DO Start: 04-15-2012 End: 01-12-2013 H/O: section Previous section Radha Azizacarlos manuel DAVIS Work Phone: Start: 02-05-2007 section WILLIAM VANN DO Plan of Treatment Date Care Activity Detail Author Start: 07-13-2025 Bacteria identified in Blood by Culture Blood Culture [facility] Start: 07-13-2025 Blood culture [facility] Start: 07-13-2025 Transfusion Reaction Culture Transfusion Reaction Culture [facility] Start: 07-13-2025 [facility] Start: 07-13-2025 Patient discharge [facility] Start: 07-13-2025 Consultation [facility] Start: 07-12-2025 Following clinical pathway protocol [facility] Start: 07-12-2025 Transfusion of blood product [facility] Start: 07-12-2025 Ambulation without limitation [facility] Start: 07-12-2025 Assessment of risk of venous thromboembolism [facility] Start: 07-12-2025 Inhalation therapy procedure [facility] Start: 07-12-2025 Insertion of catheter into peripheral vein [facility] Start: 07-12-2025 Providing care according to standard [facility] Start: 07-12-2025 End: 07-12-2025 [facility] Start: 07-12-2025 Verification routine [facility] Start: 07-12-2025 Admission procedure [facility] Start: 07-12-2025 Hospital admission, emergency, from emergency room, medical nature [facility] Start: 07-12-2025 Leukocyte reduced red blood cells [facility] Start: 07-12-2025 Administration of blood product [facility] Start: 07-12-2025 [facility] Start: 08-02-2024 Covid-19 Vaccine () Covid-19 Vaccine () [facility] Start: 08-02-2024 Influenza vaccination Influenza Vaccine (#1) [facility] Start: 10-21-2023 Digital breast tomosynthesis bilateral BREAST TOMOSYNTHESIS BI [facility] Start: 02-10-2023 Urine microalbumin profile DTaP,Tdap,Td Vaccine (3 - Td or Tdap) [facility] Start: 03-05-2022 Screening for malignant neoplasm of cervix Cervical Cancer Screening [facility] Start: 2007 Hepatitis B Vaccine (1 of 3 - 19+ 3-dose series) Hepatitis B Vaccine (1 of 3 - 19+ 3-dose series) [facility] Start: 2006 Anxiety Screening Anxiety Screening [facility] Start: 2006 Depression Screening Depression Screening [facility] Start: 1994 Pneumococcal vaccination Pneumococcal Vaccine (1 of 2 - PCV) [facility] Bilirubin measuremen t, urine [facility] Bilirubin measuremen t, urine [facility] Hemoglobin [Presence ] in Urine [facility] Hemoglobin [Presence ] in Urine [facility] Measurement of keton es in urine using dipstick [facility] Measurement of [place] es in urine using dipstick [facility] Microscopic urinalysis [facility] Microscopic urinalysis [facility] pH of Urine [facility] pH of Urine [facility] Specific gravity of Urine [facility] Specific gravity of Urine [facility] Urine blood test [facility] Urine blood test [facility] Urine dipstick for glucose [facility] Urine dipstick for glucose [facility] Urine dipstick for leukocyte esterase [facility] Urine dipstick for leukocyte esterase [facility] Urine dipstick for nitrite [facility] Urine dipstick for nitrite [facility] Urine dipstick for protein [facility] Urine dipstick for protein [facility] Urine examination [facility] Urine examination [facility] Urine microscopy: epithelial cells [facility] Urine microscopy: epithelial cells [facility] Urine Microscopy: wh ite cells [facility] Urine Microscopy: [facility] cells [facility] Urobilinogen [Presen ce] in Urine [facility] Urobilinogen [Presen ce] in Urine [facility] Immunizations Immunization Date Immunization Notes Care Provider Fa earline 11-09-2017 influenza virus vacc ine, unspecified formulation Radha Aziza HAZARDOUS WASTE TECHNICIAN.[employer] ASSISTANT AND FEEDER Work Phone: [facility] 02-10-2013 tetanus toxoid, redu janine diphtheria toxoid, and acellular pertussis vaccine, adsorbed Radha Aziza HAZARDOUS WASTE TECHNICIAN.PRESS ASSISTANT AND FEEDER Work Phone: [facility] 10-17-2005 tetanus and diphther ia toxoids, adsorbed, preservative free, for adult use (2 Lf of tetanus toxoid and 2 Lf of diphtheria toxoid) Radha Aziza HAZARDOUS WASTE TECHNICIAN.PRESS ASSISTANT AND FEEDER Work Phone: [facility] Payers Date Payer Category Payer Self-pay [id number] 2024 Unknown [id number] 2021 Medicaid [place] [id number] 2021-Present [phone] [place] [address] Medicaid [id number] 2012 Unknown [id number] 1988 Unknown [id number] Unknown [id number] 2.16.840.1.032368.3.579.2.462 Unknown [id number] 2.16.840.1.704197.3.579.2.462 Unknown [id number] 2.16.840.1.243706.3.579.2.462 Unknown [id number] 2..840.1.555872.3.579.2.462 Unknown [id number] 2.840.1.387390.3.579.2.462 Unknown [id number] 2.840.1.760082.3.579.2.462 Unknown [id number] 2.840.1.453236.3.579.2.462 Unknown [id number] 2.840.1.355890.3.579.2.462 Unknown [id number] 2.840.1.170737.3.579.2.462 Unknown [id number] 2.840.1.221667.3.579.2.462 Unknown [id number] 2.840.1.082719.3.579.2.462 Unknown [id number] .840.1.699707.3.579.2.462 Unknown [id number] 2.840.1.739867.3.579.2.462 Unknown [id number] .840.1.845997.3.579.2.462 Unknown [id number] .840.1.295411.3.579.2.462 Unknown [id number] .840.1.582098.3.579.2.462 Unknown [id number] 2.840.1.742338.3.579.2.462 Unknown [id number] 2.840.1.277738.3.579.2.462 Social History Date Type Detail Facility Start: 10-16-2023 Tobacco smoking stat us NHIS Unknown if ever smoked [facility] Start: 01-09-[address] [facility] Start: 01-09-[address] [facility] Start: 1990 Sex Assigned At Female W [facility] Start: 02-04-2015 End: 07-13-2025 Tobacco smoking status NHIS Smokes tobacco daily [facility] History of tobacco use Cigarette Smoker [facility] Start: 02-04-2015 Tobacco use and exposure Smokeless tobacco non-user [facility] Start: 07-18-2022 Alcoholic beverage intake Current drinker of alcohol (finding) [facility] Start: 03-04-2019 End: 09-09-2024 History of Social function [facility] Start: 03-04-2019 End: 09-09-2024 Tobacco use panel [facility] Adult Depression Screening Assessment 1 [facility] Start: 04-15-2012 Tobacco Comment 1-2 CIGARETTES A DAY [facility] Start: 04-15-2012 Alcohol Comment Rarely, NOT WH ILE [facility] Start: 08-25-2024 Gender identity Identifies as female gender (finding) [facility] Start: 11-12-2024 Tobacco smoking status Ex-smoker (fi nding) [facility] Goals Date Patient Goal Desired Activity /State Functional Status Date Assessment Result Facility 07-13-2025 Functional status [address]ulates [facility] Work Phone: Mental Status Date Assessment Result Facility 07-13-2025 Cognitive function Voice/Name [facility] Work Phone: Clinical Notes 09-09-2024 to 07-13-2025 Note Date & Type Note Facility 07-13-2025 Progress note [facility] 07-13-2025 Discharge summary [facility] 07-13-2025 Consult note Note Date/Time July 13, 2025 6:38am [facility] Medical Records Department [address] [place] [address] Consultation - Hospitalist 07/13/25 0417 MR#: [id number] Acct: [id number] Name: TED ZABALA Rep #:[id number] : 1990 35 From: Ilya Treviño DO PCP: Care Physician,No Primary Status :ADM ALFREDITO Location: [place] [address] Assessment & Plan Assessment/Plan (1) Transfusion reaction: QUALIFIERS: Encounter type: initial encounter Qualified Code(s): T80.92XA - Unspecified transfusion reaction, initial encounter (2) Fever: QUALIFIERS: Fever type: febrile nonhemolytic transfusion reaction Qualified Code(s): R50.84 - Febrile nonhemolytic transfusion reaction (3) Tachycardia as manifestation of blood transfusion reaction: (4) Abnormal uterine bleeding: (5) Fibroid: (6) Opiate withdrawal: (7) History of opioid abuse: (8) Depression with anxiety: (9) Hypokalemia: (10) Tobacco abuse: PLAN: Plan 1. Transfusion Reaction with Fever and Tachycardia - Continue supportive care with prn acetaminophen and prn diphenhydramine. Direct antiglobulin test negative. Check UA, Blood Cultures x 2 and CXR in case of evolving infection and to evaluate for possible TRALI. Check VBG to establish baseline. Blood Bank has been notified of suspected transfusion reaction. Patient has suspectedfebrile non-hemolytic transfusion reaction. The [employer] informed me he patient'sfever defervesced before she was treated with IM hydroxyzine after refusing diphenhydramine because it makes her sleepy. In the unlikely event the patient worsens in spite of conservative treatment the plan is to treat with steroids and consult fuel storage technician for further recommendations. 2. Acute heavy menstrual bleeding with associated dizziness and lightheadednessafter passing large clots and having to change her menstrual pads several times an hour for the past few days culminating in patient presenting to the ER here with a critically low hemoglobin of 5.6 g/dL and mild resting tachycardia with patient subsequently found to have n ~4.5 cm fibroid on ultrasound. She was then admitted and treated with IV tranexamic acid and transfused PRBC's with subsequent Fever up to 102.6 degrees Fahrenheit and sinus tachycardia of 129 bpm~1 hour after transfusion prompting urgent hospitalist consultation for suspected transfusion reaction complicating #1 - Noted with improved hemoglobin up to 7.8 g/dL. 3. History of opiate abuse with patient temporarily refusing to take buprenorphine-naloxone for ~24 hours prompting concern for evolving opiate withdrawal compounding #1 & #2 - Patient now taking her medications as prescribed after mina counseling from INFORMATICS ANALYST attending. 4. Depression with Anxiety; currently not on treatment exacerbated by #1 - #3 -We will give hydroxyzine prn for breakthrough symptoms. Patient also noted to have severe anxiety with panic after she was going to be admitted to the 3rd floor - but could not be sent there because she refused to get on the elevator -resulting in her admission to PCU. 5. G3-P2; s/p x 2 (with one elective two living children) with history of IUD placement (01/2024); with intermittent heavy bleeding since last Fall and chronic anemia with patient reporting device fell out several weeks ago with no follow up for string check in addition to declining to come in sooner than recommended adding to the medical complexity of #1 - #4 - Noted. 6. Hypokalemia of 3.2 mmol/L noted on lab testing this AM - Give supplemental oral KCl and then recheck level to confirm repletion. 7. Tobacco abuse - Tobacco Cessation will be strongly encouraged. 8. DVT prophylaxis - SCD's only in light of #2. Total time: Approximately (but not less than) 60 minutes. HPI Consult Data Date of Consult: 07/13/25 HPI Narrative Reason for Consultation: Suspected Transfusion Reaction. HPI Narrative: TED ZABALA, is a 35 F with a past medical history of G3-P2; s/p x 2 (with one elective two living children) tobacco abuse, history of chronic opiate abuse; on buprenorphine-naloxone BID, history of depression with anxiety; currently not on treatment, history of IUD placement (01/2024); with intermittent heavy bleeding since last Fall and chronic anemia with patient reporting device fell out several weeks ago with no follow up for string check in addition to declining to come in sooner than recommended who was admitted to the INFORMAT[facility] A[facility]LYST service of Dr. Lira on the evening of July 12, 2025with acute heavy menstrual bleeding with associated dizziness and lightheadedness after passing large clots and having to change her menstrual pads several times an hour for the past few days culminating in patient presenting to the ER here with a critically low hemoglobin of 5.6 g/dL and mild resting tachycardia with patient subsequently found to have n ~4.5 cm fibroid onultrasound. She was then admitted and treated with IV tranexamic acid and transfused PRBC's with subsequent Fever up to 102.6 degrees Fahrenheit and sinustachycardia of 129 bpm ~1 hour after transfusion prompting urgent hospitalist consultation for suspected transfusion reaction. I spoke directly to Dr. Lira and she informed me the patient has been very anxious and fearful throughout this admission with patient temporarily refusing to take her buprenorphine-naloxone adding concern for possible evolving superimposed opiate withdrawal. Her most recent hemoglobin has risen to 7.8 g/dL with moderate thrombocytopenia of 110K (down form 225K at 16:41 hours yesterday). I advised notification of the blood bank and stopping transfusion in addition to antihistamines with hydroxyzine as patient does not like to take diphenhydramine. Patient was also treated with acetaminophen for her fever. A CXR was also ordered to evaluate for TRALI with patient only admitting to nauseaand anxiety - with no complaints of SOB or rash at this time. We will check VBGto establish baseline. Patient allegedly has no history of blood transfusions. Patient has suspected non-antibody medicated acute hemolytic reaction to damagedRBC's but we will also check UA and blood cultures in case of underlying infection. If patient worsens the plan is to treat with steroids and consult fuel storage technician for further recommendations. Thank you for allowing us to participate in the care of your patient. [facility] Medical History Apneic episode Weight gain History of opioid abuse Anemia Encounter for IUD removal Home Medications ?Medication ?Instructions ?Recorded ?Last Taken ?Type buprenorphine 8 mg-naloxone 2 mg 8 mg PO BID 10/25/16 07/11/25 History sublingual film Allergy/AdvReac Type Severity Reaction Status Date / Time mebendazole Allergy Unknown Verified 07/12/25 16:26 promethazine HCl (From Allergy Other Verified 07/12/25 16:26 Phenergan) sertraline HCl (From Zoloft) Allergy Unknown Verified 07/12/25 16:26 Family History Grandfather Colon cancer Cancer prostate Surgical History H/O: Social History adopted: No household members: family [...] do you feel safe at home: Yes ROS ROS Narrative Review of Systems: Constitutional: Patient admits to fever as per HPI. Eyes: Patient denies changes in vision or discharge from eyes. ENT: Patient denies runny nose, sore throat or ear pain. Resp: Patient denies SOB or cough. CV: Patient denies chest pain, palpitations, heart racing or LE edema. GI: Patient denies abdominal pain, nausea, vomiting, diarrhea or constipation. : Patient denies dysuria or hematuria. MSK: Patient denies arthralgia or myalgias, Skin: Patient has no evidence of rash or jaundice. Psych: Patient admits to heightened anxiety but she denies SI or HI. Neuro: Patient denies headache, paresthesias or focal neurologic deficits. Allergy: Patient denies lip swelling, tongue swelling or urticaria. Hematology: Patient admits to recent heavy vaginal bleeding with fever spiking ~1 hour after transfusion as per HPI. Endocrinology: Patient denies polyuria, polydipsia, polyphagia or heat/cold intolerance. 14 point ROS otherwise negative except for positives noted above in HPI. Physical Exam Const alert, oriented x3, no apparent distress, average body habitus and healthy appearing Constitutional Narrative: Patient nontoxic in appearance. General Appearance: cooperative HEENT normocephalic, head/scalp atraumatic, hearing grossly normal bilaterally and moist oral mucous membranes Eyes PERRL, EOMs intact bilaterally and conjunctivae normal Neck no lymphadenopathy, supple and no JVD Resp normal respiratory effort, no retractions, no use of accessory muscles and clearto auscultation bilaterally Cardio regular rate and regular rhythm Cardio Narrative: Tachycardia in the ~120 bpm range noted. GI normal to inspection, nondistended, normoactive bowel sounds, soft to palpation,non-tender and non-distended Extremity normal to inspection, full ROM and no clubbing, cyanosis or edema Skin Skin Narrative: Patient has no evidence of rash or jaundice. She does have a large tattoo over her Left forearm. Neuro oriented x3, CN's II-XII intact bilaterally, moves all extremities, no focal motor deficits and no sensory deficits noted Sensorium / Orientation: awake, alert, oriented to person, oriented to place andoriented to time Speech: speech normal Psych Mood & Affect: anxious Medical Records Data Attestation: I reviewed the patient's medical records Lab / Micro Data Attestation: I reviewed the patient's lab results. 07/13/25 03:51 07/13/25 03:51 Labs: Laboratory Results - last 24 hr 07/12/25 16:41: WBC 3.8 L, RBC 3.35 L, Hgb 5.6 L*, Hct 20.0 L, MCV 59.7 L, MCH 16.7 L, MCHC 28.0 L, RDW Std Deviation 42.0, RDW Coeff of German 20.0 H, Plt Count 225, MPV 8.9, Immature Gran % (Auto) 0.300, Neut % (Auto) 58.1, Lymph % (Auto) 27.2, Preston % (Auto) 12.5 H, Eos % (Auto) 1.6, Baso % (Auto) 0.3, Absolute Neuts (auto) 2.2, Absolute Lymphs (auto) 1.02, Nucleated RBC % 0, Sodium 139, Potassium 3.9, Chloride 107, Carbon Dioxide 20.6 L, Anion Gap 12, BUN 9, Creatinine 0.44 L, Estim Creat Clear Calc 151.17, Est GFR (MDRD) Non-Af 128, BUN/Creatinine Ratio 20.4 H, Glucose 99, Calcium 8.9, Serum , Qual NEGATIVE 07/12/25 17:31: Blood Type A POSITIVE, Antibody Screen NEGATIVE, Crossmatch See Detail 07/13/25 03:51: WBC 5.9, RBC 3.81 L, Hgb 7.8 L, Hct 24.7 L, MCV 64.8 L D, MCH 20.5 L, MCHC 31.6 L D, RDW Std Deviation 57.1 H, RDW Coeff of German 25.3 H, Plt Count 110 L, MPV 8.4, Immature Gran % (Auto) 0.500, Neut % (Auto) 81.1 H, Lymph % (Auto) 8.1 L, Preston % (Auto) 9.6, Eos % (Auto) 0.2, Baso % (Auto) 0.5, AbsoluteNeuts (auto) 4.8, Absolute Lymphs (auto) 0.48 L, Nucleated RBC % 0 Imaging Radiology Impression Transvaginal US 07/12/25 16:30 IMPRESSION: Uterine fibroid. Reading Location: [facility] Imaging Services [address] [place] [id number] Chest 1 View (Portable) MR#: [id number] Acct: [id number] Name: TED ZABALA Rep #: [id number] : 1990 F 35 From: Shiraz Chery MD PCP: Care Physician,No Primary Status: ADM ALFREDITO Study: Chest 1 View (Portable) Date of Exam: 07/13/25 Exam# [id number] Ordering Dr: Ilya Adan DO PROCEDURE: CHEST 1 VIEW (PORTABLE) 07/13/2025 REASON FOR EXAM: SUSPECTED TRANSFUSION REACTION. TECHNIQUE: Frontal view of the chest. COMPARISON: No FINDINGS: Normal heart size. Well inflated lungs. No consolidation, effusion, or pneumothorax. RAD/Chest 1 View (Portable) IMPRESSION: No acute chest findings Reading Location: [place] [address] CC: Dr. Ilya Adan, ; No Primary Care Physician ~ Caddy/Caddie Supervisor: Signed Charges/Coding Multi Select Codes Visit Charges Office Visit/Consults: 17912 IP Consult L4 07/13/25 0638 <Electronically signed by Ilya Adan DO> Cosigner Signature (if applicable): CC: No Primary Care Physician~ Signed [facility] Work Phone: 1(999) 419-135908-12-2025 Consult note [facility] Medical Records Department [address] [place] [address] Consultation - Hospitalist 07/13/25 0417 MR#: [id number] Acct: [id number] Name: TED ZABALA Rep #:[id number] : 1990 35 From: Ilya Treviño DO PCP: Care Physician,No Primary Status :ADM ALFREDITO Location: [place] [address] Assessment & Plan Assessment/Plan (1) Transfusion reaction: QUALIFIERS: Encounter type: initial encounter Qualified Code(s): T80.92XA - Unspecified transfusionreaction, initial encounter (2) Fever: QUALIFIERS: Fever type: febrile nonhemolytic transfusion reaction Qualified Code(s): R50.84 - Febrile nonhemolytic transfusion reaction (3) Tachycardia as manifestation of blood transfusion reaction: (4) Abnormal uterine bleeding: (5) Fibroid: (6) Opiate withdrawal: (7) History of opioid abuse: (8) Depression with anxiety: (9) Hypokalemia: (10) Tobacco abuse: PLAN: Plan 1. Transfusion Reaction with Fever and Tachycardia - Continue supportive care with prn acetaminophen and prn diphenhydramine. Direct antiglobulin test negative. Check UA, Blood Cultures x 2 and CXR in case of evolving infection and to evaluate for possible TRALI. Check VBG to establish baseline. Blood Bank has been notified of suspected transfusion reaction. Patient has suspectedfebrile non-hemolytic transfusion reaction. The [employer] informed me he patient'sfever defervesced before she was treated with IM hydroxyzine after refusing diphenhydramine because it makes her sleepy. In the unlikelyevent the patient worsens in spite of conservative treatment the plan is to treat with steroids andconsult fuel storage technician for further recommendations. 2. Acute heavy menstrual bleeding with associated dizziness and lightheadednessafter passing large clots and having to change her menstrual pads several times an hour for the past few days culminating in patient presenting to the ER here with a critically low hemoglobin of 5.6 g/dL and mild resting tachycardia with patient subsequently found to have n ~4.5 cm fibroid on ultrasound. She was then admitted and treated with IV tranexamic acid and transfused PRBC's with subsequent Fever up to 102.6 degrees Fahrenheit and sinus tachycardia of 129 bpm~1 hour after transfusion prompting urgent hospitalist consultation for suspected transfusion reaction complicating #1 - Noted with improved hemoglobin up to 7.8 g/dL. 3. History of opiate abuse with patient temporarily refusing to take buprenorphine-naloxone for ~24hours prompting concern for evolving opiate withdrawal compounding #1 & #2 - Patient now takingher medications as prescribed after mina counseling from INFORMATICS ANALYST attending. 4. Depression with Anxiety; currently not on treatment exacerbated by #1 - #3 - We will give hydroxyzine prn for breakthrough symptoms. Patient also noted to have severe anxiety with panic after she was going to be admitted to the 3rd floor - but could not be sent there because she refused to get onthe elevator - resulting in her admission to PCU. 5. G3-P2; s/p x 2 (with one elective two living children) with history of IUD placement (01/2024); with intermittent heavy bleeding since last Fall and chronic anemia with patient reporting device fell out several weeks ago with no follow up for string check in addition to declining to come in sooner than recommended adding to the medical complexity of #1 - #4 - Noted. 6. Hypokalemia of 3.2 mmol/L noted on lab testing this AM - Give supplemental oral KCl and then recheck level to confirm repletion. 7. Tobacco abuse - Tobacco Cessation will be strongly encouraged. 8. DVT prophylaxis - SCD's only in light of #2. Total time: Approximately (but not less than) 60 minutes. HPI Consult Data Date of Consult: 07/13/25 HPI Narrative Reason for Consultation: Suspected Transfusion Reaction. HPI Narrative: TED ZABALA, is a 35 F with a past medical history of G3-P2; s/p x 2 (with one elective two living children) tobacco abuse, history of chronic opiate abuse; on buprenorphine-naloxone BID, history of depression with anxiety; currently not on treatment, history of IUD placement (01/2024); with intermittent heavy bleeding since last Fall and chronic anemia with patient reporting device fell out several weeks ago with no follow up for string check in addition to decliningto come in sooner than recommended who was admitted to the [facility] ANA[facility] service of Dr. Lira on the evening of July 12, 2025with acute heavy menstrual bleeding with associated dizziness and lightheadedness after passing large clots and having to change her menstrual pads several times an hour for the past few days culminating in patient presenting to the ER here with a critically low hemoglobin of5.6 g/dL and mild resting tachycardia with patient subsequently found to have n ~4.5 cm fibroid onultrasound. She was then admitted and treated with IV tranexamic acid and transfused PRBC's with subsequent Fever up to 102.6 degrees Fahrenheit and sinustachycardia of 129 bpm ~1 hour after transfusion prompting urgent hospitalist consultation for suspected transfusion reaction. I spoke directly to Dr. Liar and she informed me the patient has been very anxious and fearful throughout this admission with patient temporarily refusing to take her buprenorphine-naloxone adding concern for possible evolving superimposed opiate withdrawal. Her most recent hemoglobin has risen to 7.8 g/dL with moderate thrombocytopenia of 110K (down form 225K at 16:41 hours yesterday). I advised notification of the blood bank and stopping transfusion in addition to antihistamines with hydroxyzine as patientdoes not like to take diphenhydramine. Patient was also treated with acetaminophen for her fever. ACXR was also ordered to evaluate for TRALI with patient only admitting to nauseaand anxiety - with no complaints of SOB or rash at this time. We will check VBGto establish baseline. Patient allegedlyhas no history of blood transfusions. Patient has suspected non-antibody medicated acute hemolytic reaction to damagedRBC's but we will also check UA and blood cultures in case of underlying infection. If patient worsens the plan is to treat with steroids and consult fuel storage technician for further recommendations. Thank you for allowing us to participate in the care of your patient. [facility] Medical History Apneic episode Weight gain History of opioid abuse Anemia Encounter for IUD removal Home Medications ?Medication ?Instructions ?Recorded ?Last Taken ?Type buprenorphine 8 mg-naloxone 2 mg 8 mg PO BID 10/25/16 07/11/25 History sublingual film Allergy/AdvReac Type Severity Reaction Status Date / Time mebendazole Allergy Unknown Verified 07/12/25 16:26 promethazine HCl (From Allergy Other Verified 07/12/25 16:26 Phenergan) sertraline HCl (From Zoloft) Allergy Unknown Verified 07/12/25 16:26 Family History Grandfather Colon cancer Cancer prostate Surgical History H/O: Social History adopted: No household members: family [...] do you feel safe at home: Yes ROS ROS Narrative Review of Systems: Constitutional: Patient admits to fever as per HPI. Eyes: Patient denies changes in vision or discharge from eyes. ENT: Patient denies runny nose, sore throat or ear pain. Resp: Patient denies SOB or cough. CV: Patient denies chest pain, palpitations, heart racing or LE edema. GI: Patient denies abdominal pain, nausea, vomiting, diarrhea or constipation. : Patient denies dysuria or hematuria. MSK: Patient denies arthralgia or myalgias, Skin: Patient has no evidence of rash or jaundice. Psych: Patient admits to heightened anxiety but she denies SI or HI. Neuro: Patient denies headache, paresthesias or focal neurologic deficits. Allergy: Patient denies lip swelling, tongue swelling or urticaria. Hematology: Patient admits to recent heavy vaginal bleeding with fever spiking ~1 hour after transfusion as per HPI. Endocrinology: Patient denies polyuria, polydipsia, polyphagia or heat/cold intolerance. 14 point ROS otherwise negative except for positives noted above in HPI. Physical Exam Const alert, oriented x3, no apparent distress, average body habitus and healthy appearing Constitutional Narrative: Patient nontoxic in appearance. General Appearance: cooperative HEENT normocephalic, head/scalp atraumatic, hearing grossly normal bilaterally and moist oral mucous membranes Eyes PERRL, EOMs intact bilaterally and conjunctivae normal Neck no lymphadenopathy, supple and no JVD Resp normal respiratory effort, no retractions, no use of accessory muscles and clearto auscultation bilaterally Cardio regular rate and regular rhythm Cardio Narrative: Tachycardia in the ~120 bpm range noted. GI normal to inspection, nondistended, normoactive bowel sounds, soft to palpation,non-tender and non-distended Extremity normal to inspection, full ROM and no clubbing, cyanosis or edema Skin Skin Narrative: Patient has no evidence of rash or jaundice. She does have a large tattoo over her Left forearm. Neuro oriented x3, CN's II-XII intact bilaterally, moves all extremities, no focal motor deficits and no sensory deficits noted Sensorium / Orientation: awake, alert, oriented to person, oriented to place andoriented to time Speech: speech normal Psych Mood & Affect: anxious Medical Records Data Attestation: I reviewed the patient's medical records Lab / Micro Data Attestation: I reviewed the patient's lab results. 07/13/25 03:51 07/13/25 03:51 Labs: Laboratory Results - last 24 hr 07/12/25 16:41: WBC 3.8 L, RBC 3.35 L, Hgb 5.6 L*, Hct 20.0 L, MCV 59.7 L, MCH 16.7 L, MCHC 28.0 L,RDW Std Deviation 42.0, RDW Coeff of German 20.0 H, Plt Count 225, MPV 8.9, Immature Gran % (Auto) 0.300, Neut % (Auto) 58.1, Lymph % (Auto) 27.2, Preston % (Auto) 12.5 H, Eos % (Auto) 1.6, Baso % (Auto) 0.3, Absolute Neuts (auto) 2.2, Absolute Lymphs (auto) 1.02, Nucleated RBC % 0, Sodium 139, Potassium3.9, Chloride 107, Carbon Dioxide 20.6 L, Anion Gap 12, BUN 9, Creatinine 0.44 L, Estim Creat ClearCalc 151.17, Est GFR (MDRD) Non-Af 128, BUN/Creatinine Ratio 20.4 H, Glucose 99, Calcium 8.9, SerumPregnancy, Qual NEGATIVE 07/12/25 17:31: Blood Type A POSITIVE, Antibody Screen NEGATIVE, Crossmatch See Detail 07/13/25 03:51: WBC 5.9, RBC 3.81 L, Hgb 7.8 L, Hct 24.7 L, MCV 64.8 L D, MCH 20.5 L, MCHC 31.6 L D, RDW Std Deviation 57.1 H, RDW Coeff of German 25.3 H, Plt Count 110 L, MPV 8.4, Immature Gran % (Auto) 0.500, Neut % (Auto) 81.1 H, Lymph % (Auto) 8.1 L, Preston % (Auto) 9.6, Eos % (Auto) 0.2, Baso % (Auto) 0.5, AbsoluteNeuts (auto) 4.8, Absolute Lymphs (auto) 0.48 L, Nucleated RBC % 0 Imaging Radiology Impression Transvaginal US 07/12/25 16:30 IMPRESSION: Uterine fibroid. Reading [facility] Imaging Services [address] [place] [address] Chest 1 View (Portable) MR#: [id number] Acct: [id number] Name: TED ZABALA Rep #: [id number] : 1990 F 35 From: Shiraz Chery MD PCP: Care Physician,No Primary Status: ADM ALFREDITO Study: Chest 1 View (Portable) Date of Exam: 07/13/25 Exam# [id number] Ordering Dr: Ilya Adan DO PROCEDURE: CHEST 1 VIEW (PORTABLE) 07/13/2025 REASON FOR EXAM: SUSPECTED TRANSFUSION REACTION. TECHNIQUE: Frontal view of the chest. COMPARISON: No FINDINGS: Normal heart size. Well inflated lungs. No consolidation, effusion, or pneumothorax. RAD/Chest 1 View (Portable) IMPRESSION: No acute chest findings Reading Location: [place] [address] CC: Dr. Ilya Adan DO; No Primary Care Physician ~ Caddy/Caddie Supervisor: Signed Charges/Coding Multi Select Codes Visit Charges Office Visit/Consults: 76386 IP Consult L4 07/13/25 0638 Cosigner Signature (if applicable): CC: No Primary Care Physician~ Signed [facility]08-12-2025 Progress note Author Annamarie Lira [facility] Note Date/Time July 13, 2025 4: 05am [facility] Medical Records Department [address] [place] [address] Progress Note - OBGYN 07/13/25 0400 MR#: [id number] Acct: [id number] Name: TED ZABALA Rep #:[id number] : 1990 35 From: Annamarie bright MD PCP: Care Physician,No Primary Status :ADM ALFREDITO Location: [place] [address] Subjective Subjective called by nursing at 315 and evaluated at 330. patient refusing subuxone and refusing benadryl and tylenol after febrile episode post transfusion. temp 102.6 initially right after finishing the 2nd unit of blood. patient feeling feverish and chills. she denies any CP SOB feels some nausea no abdominal pain or flank pain. has only changed her pad once since 730 last night. Objective Data Objective Data Vital Signs: Vital Signs Temp Pulse Resp BP Pulse Ox O2 Del Method 102.6 F H 129 H 14 108/64 95 Room Air 07/13/25 02:40 07/13/25 02:40 07/13/25 02:40 07/13/25 02:40 07/13/25 02:40 07/13/25 02:40 Oxygen Delivery Method Room Air Weight: 134 lb 14.766 oz Body Mass Index (BMI) 23.1 Intake & Output: Intake and Output for Last 24 Hours 07/11/25 07/12/25 07/13/25 23:59 23:59 23:59 Intake Total 1506 / 1506 400 / 400 Balance 1506 / 1506 400 / 400 Lab / Micro Data 07/12/25 16:41 07/12/25 16:41 Labs: Laboratory Results - last 24 hr 07/12/25 16:41: WBC 3.8 L, RBC 3.35 L, Hgb 5.6 L*, Hct 20.0 L, MCV 59.7 L, MCH 16.7 L, MCHC 28.0 L, RDW Std Deviation 42.0, RDW Coeff of German 20.0 H, Plt Count 225, MPV 8.9, Immature Gran % (Auto) 0.300, Neut % (Auto) 58.1, Lymph % (Auto) 27.2, Preston % (Auto) 12.5 H, Eos % (Auto) 1.6, Baso % (Auto) 0.3, Absolute Neuts (auto) 2.2, Absolute Lymphs (auto) 1.02, Nucleated RBC % 0, Sodium 139, Potassium 3.9, Chloride 107, Carbon Dioxide 20.6 L, Anion Gap 12, BUN 9, Creatinine 0.44 L, Estim Creat Clear Calc 151.17, Est GFR (MDRD) Non-Af 128, BUN/Creatinine Ratio 20.4 H, Glucose 99, Calcium 8.9, Serum , Qual NEGATIVE 07/12/25 17:31: Blood Type A POSITIVE, Antibody Screen NEGATIVE, Crossmatch See Detail Radiography Diagnostic Testing: Radiology Impression Transvaginal US 07/12/25 16:30 IMPRESSION: Uterine fibroid. Reading Location: [facility] ROS Constitutional Constitutional: Reports as per HPI Cardiovascular Cardiovascular: Reports as per HPI Respiratory/Chest Respiratory/Chest: Reports as per HPI Gastrointestinal Gastrointestinal: Reports as per HPI Assessment & Plan (1) History of opioid abuse: COMMENT: on suboxone (2) Fibroid: COMMENT: 4 cm submucosal. s/p IUD. anemic. admit for transfusion, IV TXA. (3) Anemia: COMMENT: chronic- transfuse 2 units prbcs and reassess (4) Abnormal uterine bleeding: COMMENT: US reviewed and fibroid present. TXA ordered for acute, transfusion. (5) Transfusion reaction: COMMENT: evaluate blood products, supportive care, cbc brent test ua tylenol hydroxyzine (refused benadryl) (6) Opiate withdrawal: COMMENT: patient initially refusing suboxone, now accepting restarting therapy- given. PLAN: Plan consulted hospitalist for additional management, supportive care. patient now agreeing to take suboxone, tylenol, and agrees to hydroxyzine. 07/13/25 0405 <Electronically signed by Annamarie Lira MD> Cosigner Signature (if applicable): CC: ~ Signed [facility] Work Phone: 1(961) 882-608108-12-2025 Radiology Diagnostic study note [facility] Imaging Services [address] [place] [address] Chest 1 View (Portable) MR#: [id number] Acct: [id number] Name: TED ZABALA Rep #: [id number] : 1990 F 35 From: Oneyda Chrey MD PCP: Care Physician,No Primary Status: ADM ALFREDITO Study:Chest 1 View (Portable) Date of Exam: 07/13/25 Exam# [id number] Ordering Dr: Ilya Campos DO PROCEDURE: CHEST 1 VIEW (PORTABLE) 07/13/2025 REASON FOR EXAM: SUSPECTED TRANSFUSION REACTION. TECHNIQUE: Frontal view of the chest. COMPARISON: No FINDINGS: Normal heart size. Well inflated lungs. No consolidation, effusion, or pneumothorax. RAD/Chest 1 View (Portable) IMPRESSION: No acute chest findings Reading Location: [facility] CC: Dr. Ilya Adan, DO; No Primary Care Physician ~ Caddy/Caddie Supervisor: Signed [facility]08-12-2025 Progress note [facility] Medical Records Department [address] [place] [address] Progress Note - OBGYN 07/13/25 0400 MR#: [id number] Acct: [id number] Name: TED ZABALA Rep #:[id number] : 1990 35 From: Annamarie bright MD PCP: Care Physician,No Primary Status :ADM ALFREDITO Location: [place] [address] Subjective Subjective called by nursing at 315 and evaluated at 330. patient refusing subuxone and refusing benadryl and tylenol after febrile episode post transfusion. temp 102.6 initially right after finishing the 2nd unit of blood. patient feeling feverish and chills. she denies any CP SOB feels some nausea no abdominal pain or flank pain. has only changed her pad once since 730 last night. Objective Data Objective Data Vital Signs: Vital Signs Temp Pulse Resp BP Pulse Ox O2 Del Method 102.6 F H 129 H 14 108/64 95 Room Air 07/13/25 02:40 07/13/25 02:40 07/13/25 02:40 07/13/25 02:40 07/13/25 02:40 07/13/25 02:40 Oxygen Delivery Method Room Air Weight: 134 lb 14.766 oz Body Mass Index (BMI) 23.1 Intake & Output: Intake and Output for Last 24 Hours 07/11/25 07/12/25 07/13/25 23:59 23:59 23:59 Intake Total 1506 / 1506 400 / 400 Balance 1506 / 1506 400 / 400 Lab / Micro Data 07/12/25 16:41 07/12/25 16:41 Labs: Laboratory Results - last 24 hr 07/12/25 16:41: WBC 3.8 L, RBC 3.35 L, Hgb 5.6 L*, Hct 20.0 L, MCV 59.7 L, MCH 16.7 L, MCHC 28.0 L,RDW Std Deviation 42.0, RDW Coeff of German 20.0 H, Plt Count 225, MPV 8.9, Immature Gran % (Auto) 0.300, Neut % (Auto) 58.1, Lymph % (Auto) 27.2, Preston % (Auto) 12.5 H, Eos % (Auto) 1.6, Baso % (Auto) 0.3, Absolute Neuts (auto) 2.2, Absolute Lymphs (auto) 1.02, Nucleated RBC % 0, Sodium 139, Potassium3.9, Chloride 107, Carbon Dioxide 20.6 L, Anion Gap 12, BUN 9, Creatinine 0.44 L, Estim Creat ClearCalc 151.17, Est GFR (MDRD) Non-Af 128, BUN/Creatinine Ratio 20.4 H, Glucose 99, Calcium 8.9, SerumPregnancy, Qual NEGATIVE 07/12/25 17:31: Blood Type A POSITIVE, Antibody Screen NEGATIVE, Crossmatch See Detail Radiography Diagnostic Testing: Radiology Impression Transvaginal US 07/12/25 16:30 IMPRESSION: Uterine fibroid. Reading Location: [facility] Constitutional Constitutional: Reports as per HPI Cardiovascular Cardiovascular: Reports as per HPI Respiratory/Chest Respiratory/Chest: Reports as per HPI Gastrointestinal Gastrointestinal: Reports as per HPI Assessment & Plan (1) History of opioid abuse: COMMENT: on suboxone (2) Fibroid: COMMENT: 4 cm submucosal. s/p IUD. anemic. admit for transfusion, IV TXA. (3) Anemia: COMMENT: chronic- transfuse 2 units prbcs and reassess (4) Abnormal uterine bleeding: COMMENT: US reviewed and fibroid present. TXA ordered for acute, transfusion. (5) Transfusion reaction: COMMENT: evaluate blood products, supportive care, cbc brent test ua tylenol hydroxyzine (refused benadryl) (6) Opiate withdrawal: COMMENT: patient initially refusing suboxone, now accepting restarting therapy- given. PLAN: Plan consulted hospitalist for additional management, supportive care. patient now agreeing to take suboxone, tylenol, and agrees to hydroxyzine. 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 Patient is a history of using IUDs in the past which have worked well for her tohave minimal to light bleeding and then she has had intermittent heavy bleeding since the fall, she had her IUD replaced in January and has had bleeding persistent since and then it fell out several weeks ago. She hadn't followed up for her string check and declined coming in sooner as recommended. She started feeling dizzy and lightheaded and has been passing large clots with changing a pad several times an hour the last few days and presented to the ED with a Hg of5.6 and mild tachycardia. bleeding ahs been slowing down the last few hours while in the ED and she is receiving a transfusion. US showed 4.5 cm fibroid. [facility] Medical History (Updated 07/12/25 @ 20:[address] Annamarie Lira MD) Apneic episode Weight gain History of opioid abuse Anemia Encounter for IUD removal Home Medications ?Medication ?Instructions ?Recorded ?Last Taken ?Type buprenorphine 8 mg-naloxone 2 mg 8 mg PO BID 10/25/16 07/11/25 History sublingual film Allergy/AdvReac Type Severity Reaction Status Date / [...] 42 live - full term Male epidural [facility] Dr Lacey Johnson Talia 2011 38 live - full term Female epidural [facility] Dr Errol ASH[place]ORD Constitutional Constitutional: Reports systems reviewed and no addt'l complaints, except as documented, fatigue and weakness; Denies as per HPI, change in weight, fever(s), malaise or other Eyes Eyes: Reports systems reviewed and no addt'l complaints, except as documented; Denies as per HPI, change in vision or other ENT HEENT: Reports systems reviewed and no addt'l complaints, except as documented Respiratory/Chest Respiratory/Chest: Reports systems reviewed and no addt'l complaints, except as documented Gastrointestinal Gastrointestinal: Reports systems reviewed and no addt'l complaints, except as documented and as per HPI Genitourinary Genitourinary: Reports as per HPI Musculoskeletal Musculoskeletal: Reports systems reviewed and no addt'l complaints, except as documented Neurologic Neurologic: Reports systems reviewed and no addt'l complaints, except as documented Psychiatric Psychiatric: Reports systems reviewed and no addt'l complaints, except as documented Endocrine Endocrinology: Reports systems reviewed and no addt'l complaints, except as documented Hematologic/Lymphatic Hematologic/Lymphatic: Reports systems reviewed and no addt'l complaints, exceptas documented Vital Signs Vital Signs Vital Signs: 07/12/25 16:26 07/12/25 18:25 07/12/25 18:53 Temperature 98.2 F 99.0 F Temperature Source Oral Oral Pulse Rate 109 H 100 100 Respiratory Rate 16 16 Blood Pressure 114/74 99/63 109/64 Blood Pressure Mean 87 75 79 Blood Pressure Source Monitor Blood Pressure Position Supine Blood Pressure Location Right Arm Pulse Ox 98 100 Oxygen Delivery Method Room Air 07/12/25 19:08 07/12/25 20:06 07/12/25 20:12 Temperature 98.9 F 98.4 F 98.4 F Temperature Source Oral Oral Pulse Rate 99 96 92 Respiratory Rate 12 18 18 Blood Pressure 102/65 106/69 106/69 Blood Pressure Mean 77 81 81 Blood Pressure Source Monitor Monitor Blood Pressure Position Supine Semi-Fowlers Blood Pressure Location Right Arm Right Arm Pulse Ox 99 98 98 Oxygen Delivery Method Room Air Weight Weight: 136 lb Body Mass Index (BMI) 23.3 Physical Exam Const alert, oriented x3 and no apparent distress HEENT normocephalic Head and Scalp: atraumatic Eyes EOMs intact bilaterally and conjunctivae normal Neck full ROM, no lymphadenopathy, supple and thyroid normal General: trachea midline Lymph Lymphatic: no lymphadenopathy noted Resp normal respiratory effort, no retractions and no use of accessory muscles Cardio Rate: tachycardic GI soft to palpation, non-tender, non-distended and no masses Inspection: Negative for abdominal distention Back/Spine no CVA tenderness Extremity normal to inspection Skin no rashes or lesions noted Neuro moves all extremities and deep tendon reflexes 2+ bilaterally Psych mental status grossly normal Labs Labs Labs: Blood Type A POSITIVE Antibody Screen NEGATIVE Hct 20.0 % (37-47) L Hgb 5.6 g/dL (12.0-15.0) L* Assessment & Plan (1) Abnormal uterine bleeding: COMMENT: US reviewed and fibroid present. TXA ordered for acute, transfusion. (2) Fibroid: COMMENT: 4 cm submucosal. s/p IUD. anemic. admit for transfusion, IV TXA. (3) History of opioid abuse: COMMENT: on suboxone PLAN: Plan admit for monitoring, transfusion, give IV TXA. repeat cbc 4 hours post transfusion. s/p US. continue suboxone. scds. 07/12/252032 <Electronically signed by Annamarie Lira MD> Cosigner Signature (if applicable): CC: Dr. Annamarie Lira MD; No Primary Care Physician~ Signed ADDENDUM by Dr. Annamarie Lira MD on 07/12/25 at 2032 Multi Select Codes Visit Charges Visit Charges: 77381 Init Hosp L3 07/12/252032<Electronically signed by Annamarie Lira MD> Cosigner Signature (if applicable): cc: Dr. Annamarie Lira MD; No Primary Care Physician ~* Signed [facility] Work Phone: 1(605) 937-823308-11-2025 Evaluation note* Diagnosis Onset Date Resolution Status Admit Date Abnormal uterine bleeding acute July 12, 2025 8:12pm Anemia acute July 12 8:12pm Depression with anxiety acute A ugust 2024 8:12pm Fever acute July 12 8:12pm Fibroid acute July 12 8:12pm History of opioid abuse acute A ugust 2024 8:12pm Hypokalemia acute July 12, 2025 8:12pm Opiate withdrawal acute July 12, 2025 8:12pm Tachycardia as manifestation of blood transfusion reaction acute Augus t 2024 8:12pm Tobacco abuse acute July 8:12pm Transfusion reaction acute Augu st 2024 8:12pm [facility] Work Phone: 1(676) 550-727708-11-2025 Discharge summary Author Berlin Brizuela [facility] Note Date/Time July 12, 2025 7: 38pm 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 Has a history of iron deficiency anemia. [...] RDW Std Deviation 42.0 RDW Coeff of Geramn 20.0 H Plt Count 225 MPV 8.9 Immature Gran % (Auto) 0.300 Neut % (Auto) 58.1 Lymph % (Auto) 27.2 Preston % (Auto) 12.5 H Eos % (Auto) [...] Triage Chief Complaint: Vag Bleeding ED Provider: Berlin Brizuela Dx/Rx/DC Orders Prescriptions: No Action hydroxyzine [...] Primary [Primary Care Provider] - Print Language: Indian What to do if you have Problems For any increased pain, shortness of breath, bleeding, nausea or vomiting, chestpain, or any unexpected problems, contact your Primary Care Provider. Call [facility] ([phone]) or report to the closest Emergency Room. Call 911 if necessary. 07/12/251937 <Electronically signed by Berlin Brizuela DO> Cosigner Signature (if applicable): CC: No Primary Care Physician ~ Signed [facility] Work Phone: 1([phone]) 805-220708-11-2025 History and physical note [facility] Medical Records Department [address] [place] [address] H&P Exam - CHICK ROOM SUPERVISOR 07/12/252022 MR#: [id number] Acct: [id number] Name: TED ZABALA Rep #:[id number] : 1990 35 From: Annamarie bright MD PCP: Care Physician,No Primary Status :ADM ALFREDITO Location: [address] - General General Date of Admission: 07/12/25 HPI Narrative TED ZABALA, is a 35 F who presents with acute heavy menstrual bleeding. Patient is a history of using IUDs in the past which have worked well for her tohave minimal to light bleeding and then she has had intermittent heavy bleeding since the fall, she had her IUD replaced in January and has had bleeding persistent since and then it fell out several weeks ago. She hadn't followed up for herstring check and declined coming in sooner as recommended. She started feeling dizzy and lightheaded and has been passing large clots with changing a pad several times an hour the last few days and presented to the ED with a Hg of5.6 and mild tachycardia. bleeding ahs been slowing down the last fewhours while in the ED and she is receiving a transfusion. US showed 4.5 cm fibroid. [facility] Medical History (Updated 07/12/25 @ 20:[address] Annamarie Lira MD) Apneic episode Weight gain History of opioid abuse Anemia Encounter for IUD removal Home Medications ?Medication ?Instructions ?Recorded ?Last Taken ?Type buprenorphine 8 mg-naloxone 2 mg 8 mg PO BID 10/25/16 07/11/25 History sublingual film Allergy/AdvReac Type Severity Reaction Status Date / [...] 42 live - full term Male epidural [facility] Dr Lacey Melgar 2011 38 live - full term Female epidural [facility] Dr Errol A[place] Constitutional Constitutional: Reports systems reviewed and no addt'l complaints, except as documented, fatigue and weakness; Denies as per HPI, change in weight, fever(s), malaise or other Eyes Eyes: Reports systems reviewed and no addt'l complaints, except as documented; Denies as per HPI, change in vision or other ENT HEENT: Reports systems reviewed and no addt'l complaints, except as documented Respiratory/Chest Respiratory/Chest: Reports systems reviewed and no addt'l complaints, except as documented Gastrointestinal Gastrointestinal: Reports systems reviewed and no addt'l complaints, except as documented and as per HPI Genitourinary Genitourinary: Reports as per HPI Musculoskeletal Musculoskeletal: Reports systems reviewed and no addt'l complaints, except as documented Neurologic Neurologic: Reports systems reviewed and no addt'l complaints, except as documented Psychiatric Psychiatric: Reports systems reviewed and no addt'l complaints, except as documented Endocrine Endocrinology: Reports systems reviewed and no addt'l complaints, except as documented Hematologic/Lymphatic Hematologic/Lymphatic: Reports systems reviewed and no addt'l complaints, exceptas documented Vital Signs Vital Signs Vital Signs: 07/12/25 16:26 07/12/25 18:25 07/12/25 18:53 Temperature 98.2 F 99.0 F Temperature Source Oral Oral Pulse Rate 109 H 100 100 Respiratory Rate 16 16 Blood Pressure 114/74 99/63 109/64 Blood Pressure Mean 87 75 79 Blood Pressure Source Monitor Blood Pressure Position Supine Blood Pressure Location Right Arm Pulse Ox 98 100 Oxygen Delivery Method Room Air 07/12/25 19:08 07/12/25 20:06 07/12/25 20:12 Temperature 98.9 F 98.4 F 98.4 F Temperature Source Oral Oral Pulse Rate 99 96 92 Respiratory Rate 12 18 18 Blood Pressure 102/65 106/69 106/69 Blood Pressure Mean 77 81 81 Blood Pressure Source Monitor Monitor Blood Pressure Position Supine Semi-Fowlers Blood Pressure Location Right Arm Right Arm Pulse Ox 99 98 98 Oxygen Delivery Method Room Air Weight Weight: 136 lb Body Mass Index (BMI) 23.3 Physical Exam Const alert, oriented x3 and no apparent distress HEENT normocephalic Head and Scalp: atraumatic Eyes EOMs intact bilaterally and conjunctivae normal Neck full ROM, no lymphadenopathy, supple and thyroid normal General: trachea midline Lymph Lymphatic: no lymphadenopathy noted Resp normal respiratory effort, no retractions and no use of accessory muscles Cardio Rate: tachycardic GI soft to palpation, non-tender, non-distended and no masses Inspection: Negative for abdominal distention Back/Spine no CVA tenderness Extremity normal to inspection Skin no rashes or lesions noted Neuro moves all extremities and deep tendon reflexes 2+ bilaterally Psych mental status grossly normal Labs Labs Labs: Blood Type A POSITIVE Antibody Screen NEGATIVE Hct 20.0 % (37-47) L Hgb 5.6 g/dL (12.0-15.0) L* Assessment & Plan (1) Abnormal uterine bleeding: COMMENT: US reviewed and fibroid present. TXA ordered for acute, transfusion. (2) Fibroid: COMMENT: 4 cm submucosal. s/p IUD. anemic. admit for transfusion, IV TXA. (3) History of opioid abuse: COMMENT: on suboxone PLAN: Plan admit for monitoring, transfusion, give IV TXA. repeat cbc 4 hours post transfusion. s/p US. continue suboxone. scds. 07/12/252032 Cosigner Signature (if applicable): CC: Dr. Annamarie Lira MD; No Primary Care Physician~ Signed ADDENDUM by Dr. Annamarie Lira MD on 07/12/25 at 2032 Multi Select Codes Visit Charges Visit Charges: 20675 Init Hosp L3 07/12/252032 Cosigner Signature (if applicable): cc: Dr. Annamarie Lira MD; No Primary Care Physician ~* Signed [facility]08-11-2025 Radiology Diagnostic study note [facility] Imaging Services [address] [place], [place] [id number] Transvaginal Non- MR#: [id number] Acct: [id number] Name: TED ZABALA #: [id number] : 1990 F 35 From: Octavia Mcgowan MD PCP: Care Physician,No Primary Status: REG ER Study:Transvaginal Non- Date of Exam: 07/12/25 Exam# [id number] Ordering Dr: Berlin Platt DO EXAM: US [...] US/Transvaginal Non- IMPRESSION: Uterine fibroid. Reading Location: [facility] CC: Dr. 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 Lira for [employer] SUPERVISOR. Patient states that she has a history of iron deficiency anemia but stopped taking iron supplementation secondary to medication side effects.She states in January she had an IUD placed that helped with her menorrhagia. States she still gets monthly periods however they are not heavy. Patient states that the end of her last menstrual period was 8/5. She states onThursday her IUD fell out. She states shortly after she developed heavy blee ding with clots. She states the bleeding is intermittent. She states she feels lightheaded and short of breath when ambulating. States this feels similar to her symptomatic anemia which is why she presents to the emergency department. She denies any transfer one fever, chills, chest pain, abdominalpain, nausea, vomiting, dysuria. Review of systems: See [...] intact Psych: Cooperative, appropriate mood and affect [facility] Medical History (Updated 02/17/25 @ 14:21 [...] of menorrhagia and iron deficiency anemia presents forevaluation of vaginal bleeding with symptoms of anemia. 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 Has a history of iron deficiency anemia. [...] still having vaginal bleeding with acute anemia. Idid reach out to Dr. Tai Kerr. She agrees that the patient will need to be admitted. Recommendsupdating her on transvaginal ultrasound results. BMP relatively [...] % (Auto) 58.1 Lymph % (Auto) 27.2 Preston % (Auto) 12.5 H Eos % (Auto) [...] Triage Chief Complaint: Vag Bleeding ED Provider: Berlin Brizuela Dx/Rx/DC Orders Prescriptions: No Action hydroxyzine [...] Primary [Primary Care Provider] - Print Language: Indian What to do if you have Problems For any increased pain, shortness of breath, bleeding, nausea or vomiting, chestpain, or any unexpected problems, contact your Primary Care Provider. Call [facility] ([phone]) or report tothe closest Emergency Room. Call 911 if necessary. 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 Has a history of iron deficiency anemia. [...] % (Auto) 58.1 Lymph % (Auto) 27.2 Preston % (Auto) 12.5 H Eos % (Auto) [...] Triage Chief Complaint: Vag Bleeding ED Provider: Berlin Brizuela Dx/Rx/DC Orders Prescriptions: No Action hydroxyzine [...] Primary [Primary Care Provider] - Print Language: Indian What to do if you have Problems For any increased pain, shortness of breath, bleeding, nausea or vomiting, chestpain, or any unexpected problems, contact your Primary Care Provider. Call [facility] ([phone]) or report to the closest Emergency Room. Call 911 if necessary. 07/12/251937 <Electronically signed by Berlin Brizuela DO> Cosigner Signature (if applicable): CC: No Primary Care Physician ~ Signed [facility] Work Phone: [phone]) 468-804310-09-2024 NoteHNO ID: [id number] Author: AIDE WOODS MA Service: ? Author Type: Manager Social Type: Progress Notes Filed: 09/10/2024 17:31 Note Text: Items addressed in this encounter: Virtual Visit Pre Check In Attempted to reach patient no answer GALLO Woods MA September 09, 2024 12:46 PM 12:46 [facility]10-09-2024 History of Present illness Narrative* Aide Woods MA - 09/09/2024 12:46 PM EDT Items addressed in this encounter: Virtual Visit Pre Check In Attempted to reach patient no answer GALLO Woods MA September 09, 2024 12:46 PM 12:46 PM documented in [facility] encounter[facility] summary Author Annamarie Lira [facility] Note Date/Time July 13, 2025 10 :57am [facility] Medical Records Department [address] [place] [address] Instructions for Home/Discharge Instructions 07/13/25 1054 MR#: [id number] Acct: [id number] Name: TED ZABALA Rep #:[id number] : 1990 35 From: Annamarie bright MD PCP: Care Physician,No Primary Status :ADM ALFREDITO Discharge Instructions DC O2, CPAP, BIPAP needs Home O2 Discharge instructions: No Dressing / Incision Discharge Activity: Return to Normal Activity May shower in (days): 0 Dressing / Incision Call your doctor if you observe: Fever of 101 or Higher, Using more than 1 pad per hour (for 2 hours in a row or more), Shortness of breath, Dizziness, Chest pain, Increased palpitations (irregular heartbeat) and - Follow Up Care Test Results: Test results from this visit will be discussed in further detail at your follow- up appointment, if applicable. Discharge Plan Admission Admit Date/Time: 07/12/25 20:12 Attending Provider: Annamarie Lira Primary Care Provider: Care Physician,No Primary Consulting Providers: Ilya Adan; Oscar Thompson Discharge Orders/Prescriptions Prescriptions: New tranexamic acid 650 mg tablet 1,300 mg PO TID 4 Days Qty: 24 0RF ferrous sulfate [FeroSul] 325 mg (65 mg iron) tablet 325 mg PO BID Qty: 60 1RF No Action buprenorphine-naloxone 1 EACH film 8 mg PO BID Patient Comments: Referrals / Follow Up: Care Physician,No Primary [Primary Care Provider] - Disposition Disposition (needs filled in before D/C Order can be placed): Home, Self Care 07/13/25 1057<Electronically signed by Annamarie Lira MD>Annamarie Lira MD CC: Dr. Ilya Adan DO; Dr. Oscar Thompson MD; No Primary Care Physician~ Signed [facility] Work Phone: Evaluation + Plan note No data available for this section [facility] Evaluation note* Diagnosis Onset Date Resolution Status Breast lump in female acute Encounter for IUD removal [place] [facility] Work Phone: Evaluation note* Diagnosis No-show for appointment- Primary documented in this encounter [facility] [place] noteNo assessment information availableWUniversity [facility]als [facility] Work Phone: Hospital Discharge instructions No data available for this section [facility] Progress note No data available for this section [facility] Progress note Author Oscar Thompson [facility] Note Date/Time July 13, 2025 11 :26am [facility] Medical Records Department [address] [place] [id number] Progress Note - Hospitalist 07/13/25 1117 MR#: [id number] Acct: [id number] Name: TED ZABALA Rep #:[id number] : 1990 35 From: Oscar Medrano PCP: Care Physician,No Primary Status :ADM ALFREDITO Location: [place] [address] Objective Data Objective Data Vital Signs: Vital Signs Temp Pulse Resp BP Pulse Ox O2 Del Method 98.1 F 88 11 L 100/56 L 98 Room Air 07/13/25 10:00 07/13/25 10:00 07/13/25 10:00 07/13/25 10:00 07/13/25 10:07/13/25 10:00 Oxygen Delivery Method Room Air Weight: 134 lb 14.766 oz Body Mass Index (BMI) 23.1 Intake & Output: Intake and Output for Last 24 Hours 07/11/25 07/12/25 07/13/25 23:59 23:59 23:59 Intake Total 1506 / 1506 1006 / 1006 Balance 1506 / 1506 1006 / 1006 Lab / Micro Data 07/13/25 08:20 07/13/25 03:51 Labs: Laboratory Results - last 24 hr 07/12/25 16:41: WBC 3.8 L, RBC 3.35 L, Hgb 5.6 L*, Hct 20.0 L, MCV 59.7 L, MCH 16.7 L, MCHC 28.0 L, RDW Std Deviation 42.0, RDW Coeff of German 20.0 H, Plt Count 225, MPV 8.9, Immature Gran % (Auto) 0.300, Neut % (Auto) 58.1, Lymph % (Auto) 27.2, Preston % (Auto) 12.5 H, Eos % (Auto) 1.6, Baso % (Auto) 0.3, Absolute Neuts (auto) 2.2, Absolute Lymphs (auto) 1.02, Nucleated RBC % 0, Sodium 139, Potassium 3.9, Chloride 107, Carbon Dioxide 20.6 L, Anion Gap 12, BUN 9, Creatinine 0.44 L, Estim Creat Clear Calc 151.17, Est GFR (MDRD) Non-Af 128, BUN/Creatinine Ratio 20.4 H, Glucose 99, Calcium 8.9, Serum , Qual NEGATIVE 07/12/25 17:31: Blood Type A POSITIVE, Antibody Screen NEGATIVE, Crossmatch See Detail 07/13/25 03:51: WBC 5.9, RBC 3.81 L, Hgb 7.8 L, Hct 24.7 L, MCV 64.8 L D, MCH 20.5 L, MCHC 31.6 L D, RDW Std Deviation 57.1 H, RDW Coeff of German 25.3 H, Plt Count 110 L, MPV 8.4, Immature Gran % (Auto) 0.500, Neut % (Auto) 81.1 H, Lymph % (Auto) 8.1 L, Preston % (Auto) 9.6, Eos % (Auto) 0.2, Baso % (Auto) 0.5, AbsoluteNeuts (auto) 4.8, Absolute Lymphs (auto) 0.48 L, Nucleated RBC % 0, DifferentialComment SCANNED, Hypochromasia 1+, Anisocytosis 2+, Sodium 138, Potassium 3.2 L,Chloride 105, Carbon Dioxide 21.7, Anion Gap 11, BUN 9, Creatinine 0.47 L, EstimCreat Clear Calc 141.52, Est GFR (MDRD) Non-Af 126, BUN/Creatinine Ratio 20.0, Glucose 111 H, Calcium 8.5 07/13/25 04:07: Urine Color Yellow, Urine Clarity Clear, Urine pH 6.0, Ur Specific [place] 1.015, Urine Protein Negative, Urine Glucose (UA) Normal, UrineKetones 15 H, Urine Occult Blood 150 H, Urine Nitrite Negative, Urine Bilirubin Negative, Urine Urobilinogen Normal, Ur Leukocyte Esterase Negative, Urine RBC 25-50 SEEN, Urine WBC 0 SEEN, Ur Squamous Epith Cells 0-5 SEEN, Urine Bacteria RARE, Urine Mucus 0 SEEN 07/13/25 04:15: Direct Antiglob Test NEG w/POLYSPECIFIC 07/13/25 08:20: WBC 7.3, RBC 3.68 L, Hgb 7.4 L, Hct 24.0 L, MCV 65.2 L, MCH 20.1L, MCHC 30.8 L, RDW Std Deviation 58.3 H, RDW Coeff of German 25.3 H, Plt Count 132L, MPV 9.4, Immature Gran % (Auto) 0.400, Neut % (Auto) 80.2 H, Lymph % (Auto) 11.5 L, Preston % (Auto) 7.4, Eos % (Auto) 0.1, Baso % (Auto) 0.4, Absolute Neuts (auto) 5.9, Absolute Lymphs (auto) 0.84, Nucleated RBC % 0, Platelet Estimate SLT DEC, Polychromasia 1+, Anisocytosis 1+, Ovalocytes 1+ Micro: Microbiology 07/13/25 04:15 Blood product unit Transfusion Reaction Gram Stain - Final ABG Data ABG results: ABG 07/13/25 06:18 Specimen Type MOOK Sample Site vein VBG pH 7.48 H VBG pO2 62 H VBG HCO3 29 H VBG Total CO2 30 VBG O2 Sat (Calc) 93 H VBG Base Excess 5 H POC Mix VBG pCO2 Pt Tmp 38.8 L O2 Delivery Device Room Air Radiography Diagnostic Testing: Radiology Impression Transvaginal US 07/12/25 16:30 IMPRESSION: Uterine fibroid. Reading Location: [facility] Chest X-Ray 07/13/25 04:30 IMPRESSION: No acute chest findings Reading Location: [place] [address] Physical Exam Narrative Seen and examined Patient was admitted with severe anemia and vaginal bleeding. Discussed with the INFORMATICS ANALYST attending Dr. Ayden Kerr. Patient had fever at the end of the second transfusion 102 Fahrenheit but no hives rash, wheals or other systemic symptoms including nausea vomiting, abdominal pain or hematuria Physical exam General: Alert, Oriented x3, Cooperative HEENT: Atraumatic, PERRLA, EOMI, Normocephalic. Oral: No Gingival or Mucosal Lesions/ Ulcerations Neck: Supple, No JVD, Negative Carotid Bruits Chest wall/Lungs: Air entry equal in bilateral lung bases. No crepitation/rhonchi Cardiovascular: Regular rate and rhythm, Normal S1,S2, No M/G/R Abdomen: Bowel Sounds Present, Soft, Non Tender, Non-Distended : Minorities he has decreased and almost stopped. No dysuria. No renal angle tenderness. No suprapubic tenderness. Extremities: No edema, Capillary Refill Less than 3 Seconds Skin: No rashes, No breakdown Musculoskeletal: No Tenderness to Palpation of Joints or Extremities Neurological: Cranial nerves II-XII grossly intact, DTR 2+/4. No acute focal neurological deficit. Psych/Mental Status: Normal Affect, Appropriate. Assessment & Plan Assessment/Plan (1) Transfusion reaction: QUALIFIERS: Encounter type: initial encounter Qualified Code(s): T80.92XA - Unspecified transfusion reaction, initial encounter (2) Fever: QUALIFIERS: Fever type: febrile nonhemolytic transfusion reaction Qualified Code(s): R50.84 - Febrile nonhemolytic transfusion reaction (3) Tachycardia as manifestation of blood transfusion reaction: (4) Abnormal uterine bleeding: (5) Fibroid: (6) Opiate withdrawal: (7) History of opioid abuse: (8) Depression with anxiety: (9) Hypokalemia: (10) Tobacco abuse: PLAN: Plan The patient was admitted with severe vaginal bleeding started on past after she noticed her IUD fell out. Her bleeding was intermittent but heavy with clots. Mild shortness of breath and lightheadedness from embolization. Mild sinus tachycardia. H&H was 5.6/20% on admission 1. Acute severe symptomatic anemia with dizziness and lightheadedness due to vaginal bleeding/menorrhagia from uterine fibroid: Patient was admitted by CHICK ROOM SUPERVISOR attending. Medicine was consulted to manage anemia. Patient had 2 unitsof PRBC transfusion. H&H improved from 5.6/20% to 7.8/24.7%. Patient is discharged on ferrous sulfate by INFORMATICS ANALYST attending and tranexamic acid. Follow-up with area representative Dr. Ayden Kerr. 2. Febrile nonhemolytic transfusion reaction: Patient had fever 102 Fahrenheitalmost at the end of the second liter Purves transfusion. She denies any rash hives wheals abdominal pain, nausea vomiting hematuria or abdominal pain. Her hemoglobin went up appropriately after initial transfusion therefore no hemolytic reaction. It might be triggered by cytokines related from the donor WBC. 3. History of opiate abuse with patient temporarily refusing to take buprenorphine-naloxone for ~24 hours: No acute withdrawal noticed. 4. Depression with Anxiety; follow with PCP 5. Hypokalemia of 3.2 mmol/L: Was corrected . 7. Tobacco abuse - Tobacco Cessation strongly encouraged 8. DVT prophylaxis - SCD's Patient discharged by CHICK ROOM SUPERVISOR attending. Charges/Coding Visit Charges Inpatient E&M: 79592 Subs Hosp L2 07/13/25 1126 <Electronically signed by Oscar Thompson MD> Cosigner Signature (if applicable): CC: ~ Signed [facility] Work Phone: Reason for referral (narrative)No reason for referral information availableWUniversity Hospitals [facility] Work Phone: Summary Purpose Family History No Family History Records Found Relationship Condition Age at Onset Recorded Date/T cyndie grandfather Malignant neoplasm of colon Unknown Malignant neoplasm Unknown Advance Directives No Advanced Directives Records Found Advance Directive Response Recorded Date/ Time Advance Directives No February 18 023 12:29pm Living Will No February 18, 2023 12:29pm Power of Furniture Repair Technician No February 18 12:29pm Advance Directive Response Recorded Date/ Time Do you have a Healthcare Power of Furniture Repair Technician? No July 12, 2025 4:42pm Advance Directives No November 09, 2024 11:24am Advance Directive Response Recorded Date/ Time Do you have a Healthcare Power of Furniture Repair Technician? No July 12, 2025 9:23pm Advance Directives No November 09, 2024 11:24am Chief Complaint and Reason for Visit Chief Complaint IUD removal only, pt no show last appt UNSPECIFIED LUMP IN UNSPECIFIED BREAST Reason for Visit Breast lump in femal e Encounter for IUD removal Chief Complaint Admit Date ANEMIA, VAGINAL BLEEDING July 12 8:12pm Chief Complaint Admit Date ANEMIA, VAGINAL BLEEDING July 12 8:12pm ANEMIA, VAGINAL BLEEDING July 12 8:23pm ANEMIA, VAGINAL BLEEDING July 13 4:00am ANEMIA, VAGINAL BLEEDING July 13 4:17am Reason for Visit Admit Date Abnormal uterine bleeding July 12, 025 8:12pm Anemia July 12, 2025 8: 12pm Depression with anxiety July 12 8:12pm Fever July 12, 2025 8: 12pm Fibroid July 12, 2025 8: 12pm History of opioid abuse July 12 8:12pm Hypokalemia July 12, 2025 8: 12pm Opiate withdrawal July 12, 2025 8: 12pm Tachycardia as manifestation of blood tr ansfusion reaction July 12, 2025 8:12pm Tobacco abuse July 12, 2025 8: 12pm Transfusion reaction July 12, 2025 8 :12pm Chief Complaint Admit Date ANEMIA, VAGINAL BLEEDING July 12 8:12pm ANEMIA, VAGINAL BLEEDING July 12 8:23pm ANEMIA, VAGINAL BLEEDING July 13 4:00am ANEMIA, VAGINAL BLEEDING July 13 4:17am Heavy bleeding post IUD July 16 12:56pm Additional Source Comments INFORMATION SOURCE (unrecogn ized section and content) DATE CREATED AUTHOR 05/23/2018 [facility] DATE CREATED AUTHOR AUTHOR'S ORGANIZ ATION 09/13/2024 [facility] DATE CREATED AUTHOR AUTHOR'S ORGANIZ ATION 11/15/2024 [facility] DATE CREATED AUTHOR AUTHOR'S ORGANIZ ATION 10/14/2025 [facility] Care Teams (unrecognized sec tion and content) Team Status: Active Member Role Status Dates Dr. Beny Crocker MD Family Provider Active Dr. Beny Crocker MD Primary Care Provider Active Team Status: Inactive Member Role Status Dates Dr. Beny Crocker MD Primary Care Provider, Referring Provider Active Autumn Ramos CNM Attending Provider Active Team Status: Inactive Member Role Status Dates Dr. Beny Crocker MD Primary Care Provider Active Autumn Ramos CNM Attending Provider, Referring Rosa tillman Active Team Status: Active Member Role/Relationship Status [...] Attending Provider Active Start: July 12, 2025 Team Status: Inactive Member Role/Relationship Status Dates No Primary Care Physician Primary Care Provider Active Start: July 12, 2025 End: July 13, 2025 Dr. Berlin Brizuela DO Emergency Provider Activ e Start: July 12, 2025 End: July 13, 2025 Dr. Annamarie Lira MD Admit Provider Active Start: July 12, 2025 End: July 13, 2025 Dr. Annamarie Lira MD Attending Provider Active Start: July 12, 2025 End: July 13, 2025 Dr. Ilya Adan DO Other Provider Active Start: July 12, 2025 End: July 13, 2025 Dr. Oscar Thompson MD Other Provider Active Sta rt: July 12, 2025 End: July 13, 2025 Team Status: Active Member Role/Relationship Status Dates No Primary Care Physician Primary Care Provider Active Start: July 12, 2025 Dr. Berlin Brizuela DO Emergency Provider Activ e Start: July 12, 2025 Dr. Annamarie Lira MD Admit Provider Active Start: July 12, 2025 Dr. Annamarie Lira MD Attending Provider Active Start: July 12, 2025 Dr. Annamarie Lira MD Other Provider Active Start: July 12, 2025 Team Status: Active Member Role/Relationship Status Dates No Primary Care Physician Primary Care Provider Active Start: July 13, 2025 Dr. Berlin Brizuela DO Emergency Provider Activ e Start: July 13, 2025 Dr. Annamarie Lira MD Admit Provider Active Start: July 13, 2025 Dr. Annamarie Lira MD Attending Provider Active Start: July 13, 2025 Dr. Annamarie Lira MD Other Provider Active Start: July 13, 2025 Dr. Ilya Adan DO Other Provider Active Start: July 13, 2025 Team Status: Active Member Role/Relationship Status Dates No Primary Care Physician Primary Care Provider Active Start: July 13, 2025 Dr. Berlin Brizuela DO Emergency Provider Activ e Start: July 13, 2025 Dr. Annamarie Lira MD Admit Provider Active Start: July 13, 2025 Dr. Annamarie Lira MD Other Provider Active Start: July 13, 2025 Dr. Ilya Adan DO Attending Provider Active Start: July 13, 2025 Dr. Ilya Adan DO Other Provider Active Start: July 13, 2025 Team Status: Inactive Member Role/Relationship Status Dates No Primary Care Physician Primary Care Provider Active Start: July 12, 2025 End: July 13, 2025 Dr. Berlin Brizuela DO Emergency Provider Activ e Start: July 12, 2025 End: July 13, 2025 Dr. Annamarie Lira MD Admit Provider Active Start: July 12, 2025 End: July 13, 2025 Dr. Annamarie Lira MD Attending Provider Active Start: July 12, 2025 End: July 13, 2025 Dr. Oscar Thompson MD Other Provider Active Sta rt: July 12, 2025 End: July 13, 2025 Dr. Ilya Adan DO Other Provider Active Start: July 12, 2025 End: July 13, 2025 Team Status: Inactive Member Role/Relationship Status Dates No Primary Care Physician Primary Care Provider Active Start: July 16, 2025 End: July 16, 2025 No Primary Care Physician Referring Provider Active Start: July 16, 2025 End: July 16, 2025 Dr. Annamarie Lira MD Attending Provider Active Start: July 16, 2025 End: July 16, 2025 Goals (unrecognized section and content) Goals [...] or prosecute any alcohol or drug abuse patient.[facility] Reason for Visit (unrecogniz ed section and [...] BE BASED ON THE PRIMARY CLINICAL RECORDS. [employer] [facility]. provides no warranty or guarantee of the accuracy or completeness of information in this document.
[2025-10-29 10:03] VITALS: BP 96/63; PULSE 89; RESP 16; TEMP 35.9; O2SAT 100; BMI 20.5
[2025-10-29] MEDS: 0.9% NaCl IVPB Med Flush (100mL) 15 ML IV (10:06)
[2025-10-29] MEDS: Iron Sucrose Complex 300 MG in 0.9% Normal Saline (250mL Bag) 250 ML 177 MG IV (10:06)
[2025-10-29] MEDS: 0.9% NaCl Peripheral Flush Adult IV (10:06)
[2025-10-29 12:07] VITALS: BP 111/93; PULSE 89; RESP 16; TEMP 35.8; O2SAT 100
== END 2025-10-29 23:59 | disposition home or self-care (01) ==
LOC: MEDOUTP 09:46
PROVIDERS: Referring Provider Obstetrics & Gynecology; Visit Provider Obstetrics & Gynecology
DX: D64.9 Anemia, unspecified (principal)
CPT/HCPCS: 96365; 96366; J1756; A4216

== ENCOUNTER → 2025-11-09 | Outpatient (CLI) | payer MEDICAID, SELFPAY ==
[2025-11-09 17:22] LABS: Free T3 2.0 pg/mL (2.18-3.98)
--- OUTSIDE RECORDS SUMMARY | 2025-11-09 18:53 | XMS RPT_ITS | CCD ---
Author Organization [facility] CliniSyak Care Team Providers Care Expert Witness Name Role Phone BENY CROCKER Unavailable Unavailable BENY CROCKER Unavailable Dr. Beny Reynolds Primary Care Provider Dr. Beny Crocker Referring Provider [phone] CHAUNCEY Ramos Attending Provider Unavailable Primary Care Provider UnavailWILLIAM Denise DO Primary Care Physician WILLIAM VANN DO Attending Unavailable WILLIAM VNAN DO Primary Care Unavailable Care Physician, No Primary Primary Care Provider Unavailable Dr. Berlin Brizuela DO Emergency Provider Errol JADE, Dr. De Luna Admit Provider Errol JADE, Dr. De Luna Attending Provider [phone] Dr. Ilya Adan DO Other Provider Unavail able Dr. Oscar Thompson MD Other Provider [phone] Dr. Annamarie Lira MD Other Provider Dr. [...] Translations: [MEBENDAZOLE] Drug Allergy 5 GI Upset [facility] Repository (7 sources) promethazine; Translations: [PROMETHAZINE HCL] Drug Allergy 2 Other: See Comments [facility] Repository (7 sources) sertraline; Translations: [SERTRALINE HCL] Drug Allergy 05-23-200 8 GI Upset [facility] Repository (1 source) Promethazine; Translations: [promethazine] Drug Allergy Anxiety (finding) [facility] (1 source) Sertraline; Translations: [sertraline] Drug Allergy Mood swings (finding) [facility] Medications Current Medications Medication Drug Class(es) [...] 2024 12:00am July 12, 2025 8:09pm levonorgestrel 0.914027 mg/hr intrauterine system (4 sources) Progestin, Progestin-containin [...] Endocrinology Visit Reporton 10-11-2025 Endocrinology Visit Report [facility] [address] [place] [address] OFFICE VISIT Date of Service: 10/11/25 MR#: [id number] Acct: [id number] Name: TED ZABALA Rep #: [id number] : 1990 Provider: Alexia Schofield Age/Sex: 35/F Location: [facility] Status: Signed Intake Vital Signs 10/07/25 12:03 [...] palpation inspection (more content not included)... Normal [facility] Thyroid Peroxidase ABon 11-0 THYR PEROX AB 144 IU/mL High 0-34 [facility] Comment on above: Result Comment: Perf ormed at: CB - [facility] [address] [id number] Powerhouse Tender: Rodney Espinoza PhD, Phone: [phone] Performed By: #### L 400.0001 #### [facility] [address] [place], [address] Sawdust Machine Operator Office Visit Reporton 10-07-2025 Sawdust Machine Operator Office Visit Report [facility] [address], [address] [place] [address] OFFICE VISIT Date of Service: 10/07/25 MR#: [id number] Acct: [id number] Name: TED ZABALA Rep #: [id number] : 1990 Provider: Dr. Michelle Mejia DO Age/Sex: 35/F Location[place] [facility] Status: Signed with Addenda ADDENDUM by Dr. [...] crisis or storm Office Visits / Consults: [address] OV L4 Est 30min 10/07/25 1650 Date Michelle Luis DO cc: * Signed Intake Vital Signs 07/16/25 13:00 10/07/25 12:02 10/07/25 12:03 Height 5 ft 4 in 5 ft 4 in 5 ft 4 in Weight: 122 lb 1 oz BMI 20.9 BP 111/77 Intake Visit Reasons: Hyperthyroidism and anemia Chief Complaint: Hyperthyroidism and Anemia County Engineer Required: No Is patient in pain?: [...] stopped. - Last two menstrual cycles were ecological technical officer and shorter, lasting 4-5 days with minimal bleeding and no clots. - Attribute (more content not included)... Normal [facility] PROGESTERONE 4317on 10-07-20 25 PROGESTERONE 0.4 ng/mL Normal . [facility] Comment on above: Order Comment: N Result Comment: Foll icular phase 0.1 - 0.9 Luteal phase 1.8 - 23.9 Ovulation phase 0.1 - 12.0 First trimester 11.0 - 44.3 Second trimester 25.4 - 83.3 Third trimester 58.7 - 214.0 Postmenopausal 0.0 - 0.1 Performed at: [address] [id number] Powerhouse Tender: Rodney Espinoza PhD, Phone: [phone] Performed By: #### L 9000.0810 #### [facility] [address] [place], [address] CBC W/Diff, Automatedon HYPOCHROMASIA 1+ Normal [facility] Comment on above: Performed By: #### L 400.0001 #### [facility] [address] [place], [address] Anisocytosis Ql (Bld) 2+ Normal [facility] Comment on above: Performed By: #### L 400.0001 #### [facility] [address] [place], [address] POLYCHROMASIA 1+ Normal [facility] Comment on above: Performed By: #### L 400.0001 #### [facility] [address] [place], [address] PLT EST ADEQUATE Normal ADEQ [facility] Comment on above: Performed By: #### L 400.0001 #### [facility] [address] [place], [address] SMEAR COMMENT SCANNED Normal [facility] Comment on above: Performed By: #### L 400.0001 #### [facility] [address] [place], [address] Free T3on 10-06-2025 Free T3 [Mass/Vol] 14.4 pg/mL High 2.18-3.98 [facility] Comment on above: Performed By: #### L 400.0001 #### [facility] [address] [place] [place], [address] T4 Free Directon 10-06-2025 T4 FREE DIRECT 3.00 ng/dL High 0.76-1.46 [facility] Comment on above: Performed By: #### L 400.0001 #### [facility] [address] [place], [place], [address] Estradiolon 10-05-2025 ESTRADIOL 107.0 pg/mL Normal [facility] Comment on above: Result Comment: FEMA [...] 18. Performed By: #### L 9000.0810 #### [facility] [address] [place], [place], [address] FSH and LHon 10-05-2025 FSH 8.9 mIU/mL Normal [facility] Comment on above: Result Comment: FEMA LE: Follicular: 1.4 - 18.1 mIU/mL Midcycle: 3.4 - 33.4 mIU/mL Luteal: 1.5 - 9.1 mIU/mL Post Menopause: 23.0 - 116.3 mIU/mL MALE: 1.4 - 18.1 mIU/mL Performed By: #### L 100.0100 #### [facility] [address] [place], [place], [address] LH 7.2 mIU/mL Normal [facility] Comment on above: Result Comment: FEMA LE: Follicular: 1.9-12.5 mIU/mL Midcycle: 8.7-76.3 mIU/mL Luteal: 0.5-16.9 mIU/mL Post Menopause: 15.9-54.0 mIU/mL MALE: 20-70 Years: 1.5-9.3 mIU/mL >70 Years: 3.1-34.6 mIU/mL Performed By: #### L 100.0100 #### [facility] [address], [address] Thyroid Stim Hormone (TSH)on 10-05-2025 TSH Qn m[IU]/L Low 0.300-4.200 [facility] Comment on above: Performed By: #### L 100.0100 #### [facility] [address] [place], [place], [address] hCG Titer Quant., Serumon HCG QUANT. < 1 Normal <9 non-preg [facility] Comment on above: Result Comment: Gest ational Age 0.2-1 Week: 5-50 mIU/mL 1-2 Weeks: 50-500 mIU/mL 2-3 Weeks: 100-5000 mIU/mL 3-4 Weeks: 500-10,000 mIU/mL 4-5 Weeks:1000-50,000 mIU/mL 5-6 Weeks: 10,000-100,000 mIU/mL 6-8 Weeks: 15,000-200,000 mIU/mL 2-3 Months:10,000-100,000 mIU/mL Performed By: #### L 100.0100 #### [facility] [address] [place], [place], [address] Culture, Blood (WB)on 2024 CUB Please obtain blood cultures x 2 from 2 diff sourc No growth in 5 days. Normal [facility] Comment on above: Performed By: #### L 500.2500 #### [facility] [address] [place] [place], [address] Transfusion RX Blood Culture on 07-18-2025 TXCUB PRBC UNIT [id number] No growth in 5 days. Normal [facility] Comment on above: Performed By: #### L 400.0001 #### [facility] [address] [place], [address] Sawdust Machine Operator Office Visit Reporton 07-16-2025 Sawdust Machine Operator Office Visit Report [facility] [address] [place] [address] OFFICE VISIT Date of Service: 07/16/25 MR#: [id number] Acct: [id number] Name: TED ZABALA Rep #: [id number] : 1990 Provider: Dr. Annamarie narayan MD Age/Sex: 35/F Location: [facility] [place] Status: Signed Intake Vital Signs 01/15/25 10:39 07/12/25 21:12 07/16/25 13:00 Height 5 ft 4 in 5 ft 4 in 5 ft 4 in Weight: 139 lb 5 oz BMI 23.9 BP 113/72 Intake Visit Reasons: Heavy bleeding post IUD County Engineer Required: No Is patient in pain?: [...] menopausal: No Patient : No : No [facility] Medical History Apneic episode Weight gain History [...] and then removed, and was [facility] and transfused 2 unit sof [...] 40 live - full term Male epidural [facility] Dr Rahman Unknown Talia2011 36 live - [...] plan myfembre (more content not included)... Normal [facility] Absolute lymphocyte countOrd ered By: Annamarie Lira on 07-13-2025 Lymphocytes Auto (Unsp spec) [#/Vol] 0.84 10*3/uL 0.83-4.51 [facility] Absolute neutrophil countOrd ered By: Annamarie Lira on 07-13-2025 Neutrophils (Bld) [#/Vol] 5.9 10*3/uL 2.0-7.7 [facility] Anion gap in Serum or Plasma Ordered By: Annamarie Lira on 07-13-2025 Anion gap [Moles/Vol] 11 mmol/L 5-15 [facility] Automated lymphocyte count a s percentage of total leukocytesOrdered By: Annamarie Lira on 07-13-2025 Lymphocytes/100 WBC Auto (Unsp spec) 11.5 % Low 19-41 [facility] [id number] 07-13-2025 DIRECT BRENT NEG w/POLYSPECIFIC Normal NEGATIVE [facility] Comment on above: Performed By: #### L 400.0001 #### [facility] [address] [place], [address] BUN/creatinine ratioOrdered By: Annamarie Lira on 07-13-2025 Urea nitrogen/Creatinine [Mass ratio] 20.0 mg/mg 10- [facility] Basic Metabolic Profile (BMP )on 07-13-2025 BUN Normal 4-19 [facility] Comment on above: Result Comment: Canc elled via OM: Order cancelled - Patient discharged Performed By: #### L 500.2500 #### [facility] [address] [facility] [address] BUN/CRE Normal 10- [facility] Comment on above: Result Comment: Canc elled via OM: Order cancelled - Patient discharged Performed By: #### L 500.2500 #### [facility] [address] [facility] [address] Calcium Normal 7.6-11.0 [facility] Comment on above: Result Comment: Canc elled via OM: Order cancelled - Patient discharged Performed By: #### L 500.2500 #### [facility] [address] [place], [address] CL Normal 98-108 [facility] Comment on above: Result Comment: Canc elled via OM: Order cancelled - Patient discharged Performed By: #### L 500.2500 #### [facility] [address] [place], [address] CO2 Normal 21.0-32.0 [facility] Comment on above: Result Comment: Canc elled via OM: Order cancelled - Patient discharged Performed By: #### L 500.2500 #### [facility] [address] [place], [address] CREAT,SERUM Normal 0.70-1.20 [facility] Comment on above: Result Comment: Canc elled via OM: Order cancelled - Patient discharged Performed By: #### L 500.2500 #### [facility] [address] [place], [address] eGFR Normal >60 [facility] Comment on above: Result Comment: Canc elled via OM: Order cancelled - Patient discharged Performed By: #### L 500.2500 #### [facility] [address] [place], [address] GAP Normal 5-15 [facility] Comment on above: Result Comment: Canc elled via OM: Order cancelled - Patient discharged Performed By: #### L 500.2500 #### [facility] [address] [place], [address] GLU Normal 70-99 [facility] Comment on above: Result Comment: Canc elled via OM: Order cancelled - Patient discharged Performed By: #### L 500.2500 #### [facility] [address] [place], [address] Potassium Normal 3.3-5.1 [facility] Comment on above: Result Comment: Canc elled via OM: Order cancelled - Patient discharged Performed By: #### L 500.2500 #### [facility] [address] [place], [address] Basic Metabolic Profile (BMP) Normal 133-145 [facility] Comment on above: Result Comment: Canc elled via OM: Order cancelled - Patient discharged Performed By: #### L 500.2500 #### [facility] [address] [place], [address] BUN/CRE 20.0 RATIO Normal 10-20 [facility] Comment on above: Performed By: #### L 500.2500, L100.0100 #### [facility] [address] [place], [address] Calcium [Mass/Vol] 8.5 mg/dL Normal 7.6-11.0 [facility] Comment on above: Performed By: #### L 500.2500, L100.0100 #### [facility] [address] [place], [address] Chloride [Moles/Vol] 105 mmol/L Normal 98-108 [facility] Comment on above: Performed By: #### L 500.2500, L100.0100 #### [facility] [address] [place], [address] CO2 [Moles/Vol] 21.7 mmol/L Normal 21.0-32.0 [facility] Comment on above: Performed By: #### L 500.2500, L100.0100 #### [facility] [address] [place], [address] Creatinine [Mass/Vol] 0.47 mg/dL Low 0.70-1.20 [facility] Comment on above: Performed By: #### L 500.2500, L100.0100 #### [facility] [address] [place] [place], [address] ECRCL 141.52 ml/min Normal 50-250 [facility] Comment on above: Performed By: #### L 500.2500, L100.0100 #### [facility] [address] [place] [place], [address] GAP 11 Normal 5-15 [facility] Comment on above: Performed By: #### L 500.2500, L100.0100 #### [facility] [address] [place], [address] GFR/1.73 sq M.predicted among non-blacks MDRD (S/P/Bld) [Vol rate/Area] 126 mL/min/{1.73_m2} Normal >60 [facility] Comment on above: Result Comment: mL/m in/1.73m2 CKD-EPI Creatinine Equation (2020) Performed By: #### L 500.2500, L100.0100 #### [facility] [address] [place], [address] Glucose [Mass/Vol] 111 mg/dL High 70-99 [facility] Comment on above: Performed By: #### L 500.2500, L100.0100 #### [facility] [address] [place], [address] Potassium [Moles/Vol] 3.2 mmol/L Low 3.3-5.1 [facility] Comment on above: Performed By: #### L 500.2500, L100.0100 #### [facility] [address] [place], [address] Sodium [Moles/Vol] 138 mmol/L Normal 133-145 [facility] Comment on above: Performed By: #### L 500.2500, L100.0100 #### [facility] [address] [place], [address] Urea nitrogen [Mass/Vol] 9 mg/dL Normal 4-19 [facility] Comment on above: Performed By: #### L 500.2500, L100.0100 #### [facility] [address] [place], [address] Basophil percentageOrdered B y: Annamarie Lira on 07-13-2025 Basophils/100 WBC (Bld) 0.4 % 0-1 [facility] Bilirubin Test strip Ql (U)O rdered By: [place] Brizuela on 07-13-2025 Bilirubin Ql (U) Negative Negative [facility] Blood manual differential co mment interpretation (narrative result)Ordered By: Annamarie Lira on 07-13-2025 Manual differential comment Cipriano (Bld) [Interp] SCANNED [facility] Comment on above: LYMPHOPENIA NOTED Blood polychromasia detectio n by light microscopyOrdered By: Annamarie Lira on 07-13-2025 Polychromasia LM Ql (Bld) 1+ [facility] CBC W/Diff, Automatedon 07-02 Anisocytosis Ql (Bld) 1+ Normal [facility] Comment on above: Performed By: #### L 100.0100 #### [facility] [address] [place], [address] OVALOCYTE 1+ Normal [facility] Comment on above: Performed By: #### L 100.0100 #### [facility] [address] [place], [address] PLT EST SLT DEC Normal ADEQ [facility] Comment on above: Performed By: #### L 100.0100 #### [facility] [address] [place], [address] POLYCHROMASIA 1+ Normal [facility] Comment on above: Performed By: #### L 100.0100 #### [facility] [address] [place], [address] Absolute Neut Normal 2.0-7.7 [facility] Comment on above: Result Comment: OVER LAPPING ORDERS-TIMED CBCD ALSO ORDERED Performed By: #### L 500.2500, L100.0100 #### [facility] [address] [place], [address] HCT Normal 37-47 [facility] Comment on above: Result Comment: OVER LAPPING ORDERS-TIMED CBCD ALSO ORDERED Performed By: #### L 500.2500, L100.0100 #### [facility] [address] [place], [address] HGB Normal 12.0-15.0 [facility] Comment on above: Result Comment: OVER LAPPING ORDERS-TIMED CBCD ALSO ORDERED Performed By: #### L 500.2500, L100.0100 #### [facility] [address] [place], [address] MCH Normal 27.0-32.0 [facility] Comment on above: Result Comment: OVER LAPPING ORDERS-TIMED CBCD ALSO ORDERED Performed By: #### L 500.2500, L100.0100 #### [facility] [address] [place], [address] MCHC Normal 32-36 [facility] Comment on above: Result Comment: OVER LAPPING ORDERS-TIMED CBCD ALSO ORDERED Performed By: #### L 500.2500, L100.0100 #### [facility] [address] [place], [address] MCV Normal 81-99 [facility] Comment on above: Result Comment: OVER LAPPING ORDERS-TIMED CBCD ALSO ORDERED Performed By: #### L 500.2500, L100.0100 #### [facility] [address] [place], [address] NEUT% Normal 47-70 [facility] Comment on above: Result Comment: OVER LAPPING ORDERS-TIMED CBCD ALSO ORDERED Performed By: #### L 500.2500, L100.0100 #### [facility] [address] [place], [address] PLT Normal 150-450 [facility] Comment on above: Result Comment: OVER LAPPING ORDERS-TIMED CBCD ALSO ORDERED Performed By: #### L 500.2500, L100.0100 #### [facility] [address] [place], [address] RBC Normal 4.2-5.4 [facility] Comment on above: Result Comment: OVER LAPPING ORDERS-TIMED CBCD ALSO ORDERED Performed By: #### L 500.2500, L100.0100 #### [facility] [address] [place], [address] RDW CV Normal 11.6-14.6 [facility] Comment on above: Result Comment: OVER LAPPING ORDERS-TIMED CBCD ALSO ORDERED Performed By: #### L 500.2500, L100.0100 #### [facility] [address] [place], [address] RDW SD Normal 35.1-43.9 [facility] Comment on above: Result Comment: OVER LAPPING ORDERS-TIMED CBCD ALSO ORDERED Performed By: #### L 500.2500, L100.0100 #### [facility] [address] [place] [place], [address] WBC Normal 4.4-11.0 [facility] Comment on above: Result Comment: OVER LAPPING ORDERS-TIMED CBCD ALSO ORDERED Performed By: #### L 500.2500, L100.0100 #### [facility] [address] [place], [address] Absolute Neut Normal 2.0-7.7 [facility] Comment on above: Result Comment: DUPL ICATE BY AFLICKINGER Performed By: #### L 400.0001 #### [facility] [address] [place], [address] HCT Normal 37-47 [facility] Comment on above: Result Comment: DUPL ICATE BY AFLICKINGER Performed By: #### L 400.0001 #### [facility] [address] [place], [address] HGB Normal 12.0-15.0 [facility] Comment on above: Result Comment: DUPL ICATE BY AFLICKINGER Performed By: #### L 400.0001 #### [facility] [address] [place], [address] MCH Normal 27.0-32.0 [facility] Comment on above: Result Comment: DUPL ICATE BY AFLICKINGER Performed By: #### L 400.0001 #### [facility] [address] [place], [address] MCHC Normal 32-36 [facility] Comment on above: Result Comment: DUPL ICATE BY AFLICKINGER Performed By: #### L 400.0001 #### [facility] [address] [place], [address] MCV Normal 81-99 [facility] Comment on above: Result Comment: DUPL ICATE BY AFLICKINGER Performed By: #### L 400.0001 #### [facility] [address] [place] [place], [address] NEUT% Normal 47-70 [facility] Comment on above: Result Comment: DUPL ICATE BY AFLICKINGER Performed By: #### L 400.0001 #### [facility] [address] [place], [address] PLT Normal 150-450 [facility] Comment on above: Result Comment: DUPL ICATE BY AFLICKINGER Performed By: #### L 400.0001 #### [facility] [address] [place], [address] RBC Normal 4.2-5.4 [facility] Comment on above: Result Comment: DUPL ICATE BY AFLICKINGER Performed By: #### L 400.0001 #### [facility] [address] [place], [address] RDW CV Normal 11.6-14.6 [facility] Comment on above: Result Comment: DUPL ICATE BY AFLICKINGER Performed By: #### L 400.0001 #### [facility] [address] [place], [address] RDW SD Normal 35.1-43.9 [facility] Comment on above: Result Comment: DUPL ICATE BY AFLICKINGER Performed By: #### L 400.0001 #### [facility] [address] [place], [address] WBC Normal 4.4-11.0 [facility] Comment on above: Result Comment: DUPL ICATE BY AFLICKINGER Performed By: #### L 400.0001 #### [facility] [address] [place] [place], [address] Anisocytosis Ql (Bld) 2+ Normal [facility] Comment on above: Performed By: #### L 100.0100 #### [facility] [address] [place], [address] HYPOCHROMASIA 1+ Normal [facility] Comment on above: Performed By: #### L 100.0100 #### [facility] [address] [facility] [address] SMEAR COMMENT SCANNED Normal [facility] Comment on above: Result Comment: LYMP HOPENIA NOTED Performed By: #### L 100.0100 #### [facility] [address] [place], [address] CO2 (BldV) [Moles/Vol]Ordere d By: Annamarie Lira on 07-13-2025 CO2 [Moles/Vol] 30 mmol/L 23-33 [facility] Carbon dioxide, total [Moles /volume] in Central venous bloodOrdered By: Annamarie Lira on 07-13-2025 CO2 [Moles/Vol] 21.7 mmol/L 21.0-32.0 [facility] Chest 1 View (Portable)on Chest 1 View (Portable) [facility] Imaging Services [address] [place] [address] Chest 1 View (Portable) MR#: [id number] Acct: [id number] Name: TED ZABALA Shefali Rep #: [id number] : 1990 F 35 From: Shiraz Chery MD PCP: Care Physician,No Primary Status: ADM ALFREDITO Study: Chest 1 View (Portable) Date of Exam: 07/13/25 Exam# [id number] Ordering Dr: Ilya Adan DO PROCEDURE: CHEST 1 VIEW (PORTABLE) 07/13/2025 REASON FOR EXAM: SUSPECTED TRANSFUSION REACTION. TECHNIQUE: Frontal view of the chest. COMPARISON: No FINDINGS: Normal heart size. Well inflated lungs. No consolidation, effusion, or pneumothorax. RAD/Chest 1 View (Portable) IMPRESSION: No acute chest findings Reading Location: [place] [address] CC: Dr. Ilya dAan, DO; No Primary Care Physician Healthcare Translator: Signed Normal [facility] Chloride assayOrdered By: Serena Lria on 07-13-2025 Chloride [Moles/Vol] 105 mmol/L 98-108 [facility] Consultation - Hospitaliston 07-13-2025 Consultation - Hospitalist [facility] Medical Records Department [address] [place] [address] Consultation - Hospitalist 07/13/25 0417 MR#: [id number] Acct: [id number] Name: TED ZABLAA Rep #: [id number] : 1990 35 From: Ilya Adan DO PCP: Care Physician,No Primary Status:ADM ALFREDITO Location: [place] [address] Assessment Plan Assessment/Plan (1) Transfusion reaction: QUALIFIERS: [...] has suspected febrile non-hemolytic transfusion reaction. The SENIOR ENGINEERING SPECIALIST informed me he patient's fever defervesced before she was treated with IM hydroxyzine after refusing diphenhydramine because it makes her sleepy. In the unlikely event the patient worsens in spite of conservative treatment the plan is to treat with steroids and consult power system electrical engineer for further recommendations. 2. Acute heavy menstrual [...] medications as prescribed after mina counseling from EMPLOYEE WELFARE MANAGER attending. 4. Depression with Anxiety; currently not [...] than recommended who was admitted to the EMPLOYEE WELFARE MANAGER service of Dr. Lira on the evening [...] cm fibroi (more content not included)... Normal [facility] Discharge Instructionon 07-[address] [facility] Medical Records Department [address] [place] [address] Instructions for Home/Discharge Instructions 07/13/25 1054 MR#: [id number] Acct: [id number] Name: TED ZABALA Rep #: [id number] : 1990 35 From: Annamarie Lira MD [...] be placed): Home, Self Care 07/13/25 1057 Annamarie Lira MD CC: Dr. Ilya Adan DO; Dr. Oscar Thompson MD; No Primary Care Physician Signed Normal [facility] Eosinophil percentageOrdered By: Annamarie Lira on 07-13-2025 Eosinophils/100 WBC (Bld) 0.1 % 0-5 [facility] Erythrocyte distribution wid th ratioOrdered By: Annamarie Lira on 07-13-2025 Erythrocyte distribution width (RBC) [Ratio] 25.3 % High 11.6-14.6 [facility] Erythrocyte distribution wid th standard deviationOrdered By: Annamarie Lira on 07-13-2025 Erythrocyte distribution width (RBC) [Ratio] 58.3 fl High 35.1-43.9 [facility] Glomerular filtration rate ( GFR) estimation/1.73 sq m using serum, plasma, or whole bOrdered By: Annamarie Lira on 07-13-2025 GFR/1.73 sq M.predicted among non-blacks MDRD (S/P/Bld) [Vol rate/Area] 126 mL/min/{1.73_m2} >60 [facility] Comment on above: mL/min/1.73m2 CKD-EP I Creatinine Equation (2020) Gram stain for investigation of transfusion reactionOrdered By: Annamarie Liar on 07-13-2025 Microscopic observation Gram stain Nom (Unsp spec) [facility] Hematocrit Auto (Bld) [Volum e fraction]Ordered By: Annamarie Lira on 07-13-2025 Hematocrit (Bld) [Volume fraction] 24.0 % Low 37-47 [facility] Hemoglobin measurementOrdere d By: Annamarie Lira on 07-13-2025 Hemoglobin (Bld) [Mass/Vol] 7.4 g/dL Low 12.0-15.0 [facility] Hypochromatic red blood cell detectionOrdered By: Annamarie iLra on 07-13-2025 Hypochromia Ql (Bld) 1+ [facility] Immature granulocytes/100 WB C Auto (Bld)Ordered By: Annaamrie Lira on 07-13-2025 Immature granulocytes/100 WBC (Bld) 0.400 % 0.0-0.9 [facility] Comment on above: IG% - Immature Granu locytes (promyelocytes, myelocytes and metamyelocytes) > 1% indicates that a LEFT SHIFT is Present. Ketones Test strip Ql (U)Ord ered By: Berlin Brizuela on 07-13-2025 Ketones Ql (U) 15 mg/dl High Negative [facility] Laboratory - Hematology and Cell countsOrdered By: Annamarie Lira on 07-13-2025 Anisocytosis Ql (Bld) 1+ [facility] MCV (mean corpuscular volume ) determinationOrdered By: Annamarie Lira on 07-13-2025 MCV (RBC) [Entitic vol] 65.2 fL Low 81-99 [facility] Mean corpuscular hemoglobin (MCH) determinationOrdered By: Annamarie Lira on 07-13-2025 MCH (RBC) [Entitic mass] 20.1 pg Low 27.0-32.0 [facility] Mean corpuscular hemoglobin concentration (MCHC) determinationOrdered By: Annamarie Lira on 07-13-2025 MCHC (RBC) [Mass/Vol] 30.8 g/dL Low 32-36 [facility] Mean platelet volume determi nationOrdered By: Annamarie Lira on 07-13-2025 Platelet mean volume (Bld) [Entitic vol] 9.4 fL 6.2-12.0 [facility] Microscopic analysis of urin e for red blood cells (RBC)Ordered By: Berlin Brizuela on 07-13-2025 Microscopic analysis of urine for red blood cells (RBC) 25-50 SEEN /hpf 0-5 [facility] Monocyte percentageOrdered B y: Annamarie Lria on 07-13-2025 Monocytes/100 WBC (Bld) 7.4 % 0-10 [facility] Mucus LM Ql (Urine sed)Order ed By: Berlin Brizuela on 07-13-2025 Mucus Ql (Urine sed) 0 SEEN /hpf [facility] Neutrophil percentageOrdered By: Annamarie Lira on 07-13-2025 Neutrophils/100 WBC (Bld) 80.2 % High 47-70 [facility] Nitrite Test strip Ql (U)Ord ered By: Berlin Brizuela on 07-13-2025 Nitrite Ql (U) Negative Negative [facility] No Panel InformationOrdered By: Annamarie Lira on 07-13-2025 Blood Gas Sample Site vein [facility] Blood Gas Specimen Type MOOK [facility] Oxygen Delivery Device Room Air [facility] Nucleated red blood cell per centageOrdered By: Annamaire Lira on 07-13-2025 Nucleated RBC/100 WBC (Bld) [Ratio] 0 % 0-5 [facility] Ovalocyte detectionOrdered B y: Annamarie Lira on 07-13-2025 Ovalocytes LM Ql (Bld) 1+ [facility] Platelet countOrdered By: Serena Lira on 07-13-2025 Platelets (Bld) [#/Vol] 132 10*3/uL Low 150-450 [facility] Platelet estimateOrdered By: Annamarie Lira on 07-13-2025 Platelets LM Ql (Bld) SLT DEC ADEQ [facility] Potassium measurement (mass/ volume)Ordered By: Annamarie Lira on 07-13-2025 Potassium (Unsp spec) [Mass/Vol] 3.2 mmol/L Low 3.3-5.1 [facility] Protein Test strip Ql (U)Ord ered By: Berlin Brizuela on 07-13-2025 Protein Ql (U) Negative Negative [facility] RBC Auto (Bld) [#/Vol]Ordere d By: Annamarie Lira on 07-13-2025 RBC (Bld) [#/Vol] 3.68 10*6/uL Low 4.2-5.4 [facility] Serum creatinine measurement (mass/volume)Ordered By: Annamarie Lira on 07-13-2025 Creatinine [Mass/Vol] 0.47 mg/dL Low 0.70-1.20 [facility] Serum glucose measurement (m ass/volume)Ordered By: Annamarie Lira on 07-13-2025 Glucose [Mass/Vol] 111 mg/dL High 70-99 [facility] Serum or plasma calcium rick urement (mass/volume)Ordered By: Annamarie Lujannik on 07-13-2025 Calcium [Mass/Vol] 8.5 mg/dL 7.6-11.0 [facility] Serum or plasma urea nitroge n measurement (mass/volume)Ordered By: Annamarie Lira on 07-13-2025 Urea nitrogen [Mass/Vol] 9 mg/dL 4-19 [facility] Sodium levelOrdered By: Refugio ally Errol on 07-13-2025 Sodium [Moles/Vol] 138 mmol/L 133-145 [facility] Squamous epithelial cells de tection in urine sediment by light microscopyOrdered By: Berlin Brizuela on 07-13-2025 Epithelial cells.squamous LM Ql (Urine sed) 0-5 SEEN /hpf 5-10 [facility] Transfusion RX Gram Stainon 07-13-2025 TXGS PRBC UNIT [id number] Gram Stain No organisms seen Normal [facility] Comment on above: Performed By: #### L 400.0001 #### [facility] [address] [place], [place], [id number] Transfusion RXN Urinalysison 07-13-2025 UR Preservative Normal [facility] Comment on above: Performed By: #### L 100.0100 #### [facility] [address] [place], [address] Txn Rxn Pre-Specmen Workupon 07-13-2025 *POST* GRIFFIN POS? Not performed Normal [facility] Comment on above: Result Comment: WRON G ORDER Performed By: #### L 100.0100 #### [facility] [address] [place], [address] A1 CELL Not performed Normal [facility] Comment on above: Result Comment: WRON G ORDER Performed By: #### L 100.0100 #### [facility] [address] [place], [address] ABO and Rh group Nom (Bld) Test Not Performed Normal [facility] Comment on above: Result Comment: WRON G ORDER Performed By: #### L 100.0100 #### [facility] [address] [place], [address] ANTI A Not performed Normal [facility] Comment on above: Result Comment: WRON G ORDER Performed By: #### L 100.0100 #### [facility] [address] [place], [address] ANTI B Not performed Normal [facility] Comment on above: Result Comment: WRON G ORDER Performed By: #### L 100.0100 #### [facility] [address] [place], [address] ANTI D Not performed Normal [facility] Comment on above: Result Comment: WRON G ORDER Performed By: #### L 100.0100 #### [facility] [address] [place], [address] B CELLS Not performed Normal [facility] Comment on above: Result Comment: WRON G ORDER Performed By: #### L 100.0100 #### [facility] [address] [place], [address] COMP BRENT Not performed Normal NEGATIVE [facility] Comment on above: Result Comment: WRON G ORDER Performed By: #### L 100.0100 #### [facility] [address] [place], [address] D CONTROL Not performed Normal [facility] Comment on above: Result Comment: WRON G ORDER Performed By: #### L 100.0100 #### [facility] [address] [place], [address] GRIFFIN INTERPR-PRE Not performed Normal NEGATIVE [facility] Comment on above: Result Comment: WRON G ORDER Performed By: #### L 100.0100 #### [facility] [address] [place], [address] GRIFFIN POLYSP -PRE Not performed Normal NEGATIVE [facility] Comment on above: Result Comment: WRON G ORDER Performed By: #### L 100.0100 #### [facility] [address] [place], [address] IgG BRENT Not performed Normal NEGATIVE [facility] Comment on above: Result Comment: WRON G ORDER Performed By: #### L 100.0100 #### [facility] [address] [place], [address] VISUAL,SERUM Not performed Normal Yellow [facility] Comment on above: Result Comment: WRON G ORDER Performed By: #### L 100.0100 #### [facility] [address] [place], [address] Urinalysis, Completeon 07-13 BACTERIA RARE Normal None Seen [facility] Comment on above: Order Comment: SPOKE WITH NURSE WILL TRY TO COLLECT 07-13-25 03:20AM CLEAN CATCH Performed By: #### L 400.0001 #### [facility] [address] [place], [address] BILIRUBIN URINE Negative Normal Negative [facility] Comment on above: Order Comment: SPOKE WITH NURSE WILL TRY TO COLLECT 07-13-25 03:20AM CLEAN CATCH Performed By: #### L 400.0001 #### [facility] [address] [place], [address] Clarity (U) Clear Normal Clear [facility] Comment on above: Order Comment: SPOKE WITH NURSE WILL TRY TO COLLECT 07-13-25 03:20AM CLEAN CATCH Performed By: #### L 400.0001 #### [facility] [address] [place], [address] Color (U) Yellow Normal Yellow [facility] Comment on above: Order Comment: SPOKE WITH NURSE WILL TRY TO COLLECT 07-13-25 03:20AM CLEAN CATCH Performed By: #### L 400.0001 #### [facility] [address] [facility] [address] EPI,SQUAMOUS 0-5 SEEN Normal 5-10 [facility] Comment on above: Order Comment: SPOKE WITH NURSE WILL TRY TO COLLECT 08-1225 03:20AM CLEAN CATCH Performed By: #### L 400.0001 #### [facility] [address] [place] [id number] GLUCOSE, UR Normal Normal Normal [facility] Comment on above: Order Comment: SPOKE WITH NURSE WILL TRY TO COLLECT 08 03:20AM CLEAN CATCH Performed By: #### L 400.0001 #### [facility] [address] [place] [address] KETONE UR 15 mg/dl Abnormal Negative [facility] Comment on above: Order Comment: SPOKE WITH NURSE WILL TRY TO COLLECT 0825 03:20AM CLEAN CATCH Performed By: #### L 400.0001 #### [facility] [address] [place] [id number] LEUK ESTERASE Negative Normal Negative [facility] Comment on above: Order Comment: SPOKE WITH NURSE WILL TRY TO COLLECT 08-1225 03:20AM CLEAN CATCH Performed By: #### L 400.0001 #### [facility] [address] [facility] [address] Nitrite Ql (U) Negative Normal Negative [facility] Comment on above: Order Comment: SPOKE WITH NURSE WILL TRY TO COLLECT 08-12-25 03:20AM CLEAN CATCH Performed By: #### L 400.0001 #### [facility] [address] [facility] [address] OCCULT BLOOD-UR 150 /ul Abnormal Negative [facility] Comment on above: Order Comment: SPOKE WITH NURSE WILL TRY TO COLLECT 081225 03:20AM CLEAN CATCH Performed By: #### L 400.0001 #### [facility] [address] [place], [address] pH UR 6.0 Normal 5.0 - 8.0 [facility] Comment on above: Order Comment: SPOKE WITH NURSE WILL TRY TO COLLECT 07-13-25 03:20AM CLEAN CATCH Performed By: #### L 400.0001 #### [facility] [address] [place], [address] PROT DIPSTX Negative Normal Negative [facility] Comment on above: Order Comment: SPOKE WITH NURSE WILL TRY TO COLLECT 07-13-25 03:20AM CLEAN CATCH Performed By: #### L 400.0001 #### [facility] [address] [facility] [address] RBC 25-50 SEEN Normal 0-5 [facility] Comment on above: Order Comment: SPOKE WITH NURSE WILL TRY TO COLLECT 07-13-25 03:20AM CLEAN CATCH Performed By: #### L 400.0001 #### [facility] [address] [facility] [address] SP.GR. DIPSTX 1.015 Normal 1.002-1.030 [facility] Comment on above: Order Comment: SPOKE WITH NURSE WILL TRY TO COLLECT 07-13-25 03:20AM CLEAN CATCH Performed By: #### L 400.0001 #### [facility] [address] [facility] [address] UROBILI Normal Normal Normal [facility] Comment on above: Order Comment: SPOKE WITH NURSE WILL TRY TO COLLECT 07-13-25 03:20AM CLEAN CATCH Performed By: #### L 400.0001 #### [facility] [address] [place], [address] Mucus Ql (Urine sed) 0 SEEN Normal [facility] Comment on above: Order Comment: SPOKE WITH NURSE WILL TRY TO COLLECT 07-13-25 03:20AM CLEAN CATCH Performed By: #### L 400.0001 #### [facility] [address] [place], [address] WBC 0 SEEN Normal 0-5 [facility] Comment on above: Order Comment: SPOKE WITH NURSE WILL TRY TO COLLECT 07-13-25 03:20AM CLEAN CATCH Performed By: #### L 400.0001 #### [facility] [address] [place], [address] BACTERIA Normal None Seen [facility] Comment on above: Order Comment: CLEAN CATCH Result Comment: TARI ENT DISCHARGED. Performed By: #### L 400.0001 #### [facility] [address] [place], [address] BILIRUBIN URINE Normal Negative [facility] Comment on above: Order Comment: CLEAN CATCH Result Comment: TARI ENT DISCHARGED. Performed By: #### L 400.0001 #### [facility] [address] [place], [address] Clarity (U) Normal Clear [facility] Comment on above: Order Comment: CLEAN CATCH Result Comment: TARI ENT DISCHARGED. Performed By: #### L 400.0001 #### [facility] [address] [place], [address] Color (U) Normal Yellow [facility] Comment on above: Order Comment: CLEAN CATCH Result Comment: TARI ENT DISCHARGED. Performed By: #### L 400.0001 #### [facility] [address] [place], [address] EPI,SQUAMOUS Normal 5-10 [facility] Comment on above: Order Comment: CLEAN CATCH Result Comment: TARI ENT DISCHARGED. Performed By: #### L 400.0001 #### [facility] [address] [place], [address] GLUCOSE, UR Normal Normal [facility] Comment on above: Order Comment: CLEAN CATCH Result Comment: TARI ENT DISCHARGED. Performed By: #### L 400.0001 #### [facility] [address] [place], [address] KETONE UR Normal Negative [facility] Comment on above: Order Comment: CLEAN CATCH Result Comment: TARI ENT DISCHARGED. Performed By: #### L 400.0001 #### [facility] [address] [place], [address] LEUK ESTERASE Normal Negative [facility] Comment on above: Order Comment: CLEAN CATCH Result Comment: TARI ENT DISCHARGED. Performed By: #### L 400.0001 #### [facility] [address] [place] [id number] Mucus Ql (Urine sed) Normal [facility] Comment on above: Order Comment: CLEAN CATCH Result Comment: TARI ENT DISCHARGED. Performed By: #### L 400.0001 #### [facility] [address] [place], [address] Nitrite Ql (U) Normal Negative [facility] Comment on above: Order Comment: CLEAN CATCH Result Comment: TARI ENT DISCHARGED. Performed By: #### L 400.0001 #### [facility] [address] [place] [id number] OCCULT BLOOD-UR Normal Negative [facility] Comment on above: Order Comment: CLEAN CATCH Result Comment: TARI ENT DISCHARGED. Performed By: #### L 400.0001 #### [facility] [address] [facility] [address] pH UR Normal 5.0 - 8.0 [facility] Comment on above: Order Comment: CLEAN CATCH Result Comment: TARI ENT DISCHARGED. Performed By: #### L 400.0001 #### [facility] [address] [facility] [address] PROT DIPSTX Normal Negative [facility] Comment on above: Order Comment: CLEAN CATCH Result Comment: TARI ENT DISCHARGED. Performed By: #### L 400.0001 #### [facility] [address] [facility] [address] RBC Normal 0-5 [facility] Comment on above: Order Comment: CLEAN CATCH Result Comment: TARI ENT DISCHARGED. Performed By: #### L 400.0001 #### [facility] [address] [place], [address] SP.GR. DIPSTX Normal 1.002-1.030 [facility] Comment on above: Order Comment: CLEAN CATCH Result Comment: TARI ENT DISCHARGED. Performed By: #### L 400.0001 #### [facility] [address] [place], [address] UR Preservative Normal [facility] Comment on above: Order Comment: CLEAN CATCH Result Comment: TARI ENT DISCHARGED. Performed By: #### L 400.0001 #### [facility] [address] [place], [address] UROBILI Normal Normal [facility] Comment on above: Order Comment: CLEAN CATCH Result Comment: TARI ENT DISCHARGED. Performed By: #### L 400.0001 #### [facility] [address] [place], [address] WBC Normal 0-5 [facility] Comment on above: Order Comment: CLEAN CATCH Result Comment: TARI ENT DISCHARGED. Performed By: #### L 400.0001 #### [facility] [address] [place], [address] Urine clarityOrdered By: Derek Brizuela on 07-13-2025 Clarity (U) Clear Clear [facility] Urine color determinationOrd ered By: Berlin Brizuela on 07-13-2025 Color (U) Yellow Yellow [facility] Urine glucose detectionOrder ed By: Berlin Brizuela on 07-13-2025 Glucose Ql (U) Normal mg/dl Normal [facility] Urine leukocyte esterase det ection by dipstickOrdered By: Berlin Brizuela on 07-13-2025 Leukocyte esterase Test strip Ql (U) Negative Negative [facility] Urine pHOrdered By: Berlin Jensen on 07-13-2025 pH (U) 6.0 [pH] 5.0 - 8.0 [facility] Urine sediment bacteria coun t by microscopy (number/high power field)Ordered By: Berlin NarvaezShagufta on 07-13-2025 Bacteria LM.HPF (Urine sed) [#/Area] RARE /hpf None Seen [facility] Urine specific gravity measu rementOrdered By: [facility] on 07-13-2025 Specific gravity (U) [Rel density] 1.015 1.002-1.030 [facility] Urine urobilinogen measureme ntOrdered By: [facility] on 07-13-2025 Urobilinogen Ql (U) Normal mg/dl Normal [facility] Venous Blood Gason Blood Gas Type MOOK Normal [facility] Comment on above: Performed By: #### L 9000.0810 #### [facility] [address] [place], [address] CO2 [Moles/Vol] 30 mmol/L Normal 23-33 [facility] Comment on above: Performed By: #### L 9000.0810 #### [facility] [address] [place], [address] HCO3 (Bld) [Moles/Vol] 29 mmol/L High 22-26 [facility] Comment on above: Performed By: #### L 9000.0810 #### [facility] [address] [place], [address] O2 Delivery Dev Room Air Normal [facility] Comment on above: Performed By: #### L 9000.0810 #### [facility] [address] [place], [address] SITE vein Normal [facility] Comment on above: Performed By: #### L 9000.0810 #### [facility] [address] [place], [address] VBG BE 5 mmol/L High -1.0-3.5 [facility] Comment on above: Performed By: #### L 9000.0810 #### [facility] [address] [place], [place], [address] VBG pCO2 38.8 mmHg Low 41-51 [facility] Comment on above: Performed By: #### L 9000.0810 #### [facility] [address] [place], [place], [address] VBG pH 7.48 High 7.32-7.42 [facility] Comment on above: Performed By: #### L 9000.0810 #### [facility] [address] [place], [address] VBG PO2 62 mmHg High 25-40 [facility] Comment on above: Performed By: #### L 9000.0810 #### [facility] [address] [place], [place], [address] VBG SO2 93 High 50-70 [facility] Comment on above: Performed By: #### L 9000.0810 #### [facility] [address] [place], [place], [address] Venous blood base excess haritha surementOrdered By: Annamarie Lira on 07-13-2025 Base excess Calc (BldV) [Moles/Vol] 5 mmol/L High -1.0-3.5 [facility] Venous blood bicarbonate haritha surementOrdered By: Annamarie Lira on 07-13-2025 HCO3 (Bld) [Moles/Vol] 29 mmol/L High 22-26 [facility] Venous blood oxygen saturati on measurementOrdered By: Annamarie Lira on 07-13-2025 Oxygen saturation in Blood 93 % High 50-70 [facility] Venous blood pH measurementO rdered By: Annamarie Lira on 07-13-2025 pH (BldV) 7.48 [pH] High 7.32-7.42 [facility] Venous blood partial pressur e of carbon dioxide measurementOrdered By: Annamarie Lira on 07-13-2025 CO2 (BldV) [Partial pressure] 38.8 mm[Hg] Low 41-51 [facility] Venous blood partial pressur e of oxygen measurementOrdered By: Annamarie Lira on 07-13-2025 Oxygen (BldV) [Partial pressure] 62 mm[Hg] High 25-40 [facility] White blood cell (WBC) count Ordered By: Annamarie Lira on 07-13-2025 WBC (Bld) [#/Vol] 7.3 10*3/uL 4.4-11.0 [facility] White blood cell countOrdere d By: Berlin Brizuela on 07-13-2025 White blood cell count 0 SEEN /hpf 0-5 [facility] Absolute lymphocyte countOrd ered By: Berlin Brizuela on 07-12-2025 Lymphocytes Auto (Unsp spec) [#/Vol] 1.02 10*3/uL 0.83-4.51 [facility] Absolute neutrophil countOrd ered By: Berlin Brizuela on 07-12-2025 Neutrophils (Bld) [#/Vol] 2.2 10*3/uL 2.0-7.7 [facility] Anion gap in Serum or Plasma Ordered By: Berlin Brizuela on 07-12-2025 Anion gap [Moles/Vol] 12 mmol/L 5-15 [facility] Automated lymphocyte count a s percentage of total leukocytesOrdered By: Berlin Brizuela on 07-12-2025 Lymphocytes/100 WBC Auto (Unsp spec) 27.2 % 19-41 [facility] BRCon 07-12-2025 RC Normal [facility] Comment on above: Result Comment: [id number] AP RC TRANSFUSED 07/12/25 1840 [id number] AP RC TRANSFUSED 07/12/25 2206 Performed By: #### L 100.0100 #### [facility] [place], [address] BUN/creatinine ratioOrdered By: Berlin Brizuela on 07-12-2025 Urea nitrogen/Creatinine [Mass ratio] 20.4 mg/mg High 10-20 [facility] Basic Metabolic Profile (BMP )on 07-12-2025 BUN/CRE 20.4 RATIO High 10-20 [facility] Comment on above: Performed By: #### L 100.0100 #### [facility] [address] [place], [address] Calcium [Mass/Vol] 8.9 mg/dL Normal 7.6-11.0 [facility] Comment on above: Performed By: #### L 100.0100 #### [facility] [address] [place], [address] Chloride [Moles/Vol] 107 mmol/L Normal 98-108 [facility] Comment on above: Performed By: #### L 100.0100 #### [facility] [address] [place], [address] CO2 [Moles/Vol] 20.6 mmol/L Low 21.0-32.0 [facility] Comment on above: Performed By: #### L 100.0100 #### [facility] [address] [place], [address] Creatinine [Mass/Vol] 0.44 mg/dL Low 0.70-1.20 [facility] Comment on above: Performed By: #### L 100.0100 #### [facility] [address] [place], [address] ECRCL 151.17 ml/min Normal 50-250 [facility] Comment on above: Performed By: #### L 100.0100 #### [facility] [address] [place], [address] GAP 12 Normal 5-15 [facility] Comment on above: Performed By: #### L 100.0100 #### [facility] [address] [place], [address] GFR/1.73 sq M.predicted among non-blacks MDRD (S/P/Bld) [Vol rate/Area] 128 mL/min/{1.73_m2} Normal >60 [facility] Comment on above: Result Comment: mL/m in/1.73m2 CKD-EPI Creatinine Equation (2020) Performed By: #### L 100.0100 #### [facility] [address] [place], [address] Glucose [Mass/Vol] 99 mg/dL Normal 70-99 [facility] Comment on above: Performed By: #### L 100.0100 #### [facility] [address] [place], [address] Potassium [Moles/Vol] 3.9 mmol/L Normal 3.3-5.1 [facility] Comment on above: Performed By: #### L 100.0100 #### [facility] [address] [place], [address] Sodium [Moles/Vol] 139 mmol/L Normal 133-145 [facility] Comment on above: Performed By: #### L 100.0100 #### [facility] [address] [place], [address] Urea nitrogen [Mass/Vol] 9 mg/dL Normal 4-19 [facility] Comment on above: Performed By: #### L 100.0100 #### [facility] [address] [place], [address] Basophil percentageOrdered B y: Berlin Brizuela on 07-12-2025 Basophils/100 WBC (Bld) 0.3 % 0-1 [facility] CBC W/Diff, Automatedon 07-02 Hemoglobin (Bld) [Mass/Vol] 5.6 g/dL Invalid Interpretation Code 12.0-15.0 [facility] Comment on above: Result Comment: CRIT ICAL VALUE CALLED TO VIANNEY HOOD 07/12/25 1704 Galilea Kaufman. RESULTS READ BACK BY SAME. Performed By: #### L 100.0100 #### [facility] [address] [place], [address] Absolute Lymph 1.02 X10 3/uL Normal 0.83-4.51 [facility] Comment on above: Performed By: #### L 100.0100 #### [facility] [address] [place], [address] Absolute Neut 2.2 X10 3/uL Normal 2.0-7.7 [facility] Comment on above: Performed By: #### L 100.0100 #### [facility] [address] [place], [address] Basophils/100 WBC (Bld) 0.3 % Normal 0-1 [facility] Comment on above: Performed By: #### L 100.0100 #### [facility] [address] [place], [address] Eosinophils/100 WBC (Bld) 1.6 % Normal 0-5 [facility] Comment on above: Performed By: #### L 100.0100 #### [facility] [address] [place], [address] Erythrocyte distribution width (RBC) [Ratio] 20.0 % High 11.6-14.6 [facility] Comment on above: Performed By: #### L 100.0100 #### [facility] [address] [place], [address] Hematocrit (Bld) [Volume fraction] 20.0 % Low 37-47 [facility] Comment on above: Performed By: #### L 100.0100 #### [facility] [address] [place], [address] IG% 0.300 Normal 0.0-0.9 [facility] Comment on above: Result Comment: IG% - Immature Granulocytes (promyelocytes, myelocytes and metamyelocytes) > 1% indicates that a LEFT SHIFT is Present. Performed By: #### L 100.0100 #### [facility] [address] [place], [address] Lymphocytes/100 WBC (Bld) 27.2 % Normal 19-41 [facility] Comment on above: Performed By: #### L 100.0100 #### [facility] [address] [place], [address] MCH (RBC) [Entitic mass] 16.7 pg Low 27.0-32.0 [facility] Comment on above: Performed By: #### L 100.0100 #### [facility] [address] [place], [address] MCHC (RBC) [Mass/Vol] 28.0 g/dL Low 32-36 [facility] Comment on above: Performed By: #### L 100.0100 #### [facility] [address] [place], [address] MCV (RBC) [Entitic vol] 59.7 fL Low 81-99 [facility] Comment on above: Performed By: #### L 100.0100 #### [facility] [address] [place], [address] Monocytes/100 WBC (Bld) 12.5 % High 0-10 [facility] Comment on above: Performed By: #### L 100.0100 #### [facility] [address] [place], [address] Neutrophils/100 WBC (Bld) 58.1 % Normal 47-70 [facility] Comment on above: Performed By: #### L 100.0100 #### [facility] [address] [place], [address] Nucleated RBC (Bld) [#/Vol] 0 10*3/uL Normal 0-5 [facility] Comment on above: Performed By: #### L 100.0100 #### [facility] [address] [place], [address] Platelet mean volume (Bld) [Entitic vol] 8.9 fL Normal 6.2-12.0 [facility] Comment on above: Performed By: #### L 100.0100 #### [facility] [address] [place], [address] Platelets (Bld) [#/Vol] 225 10*3/uL Normal 150-450 [facility] Comment on above: Performed By: #### L 100.0100 #### [facility] [address] [place], [address] RBC (Bld) [#/Vol] 3.35 10*6/uL Low 4.2-5.4 [facility] Comment on above: Performed By: #### L 100.0100 #### [facility] [address] [place], [address] RDW SD 42.0 fl Normal 35.1-43.9 [facility] Comment on above: Performed By: #### L 100.0100 #### [facility] [address] [place], [address] WBC (Bld) [#/Vol] 3.8 10*3/uL Low 4.4-11.0 [facility] Comment on above: Performed By: #### L 100.0100 #### [facility] [address] [place], [address] Carbon dioxide, total [Moles /volume] in Central venous bloodOrdered By: Berlin Brizuela on 07-12-2025 CO2 [Moles/Vol] 20.6 mmol/L Low 21.0-32.0 [facility] Chloride assayOrdered By: Nicholas Brizuela on 07-12-2025 Chloride [Moles/Vol] 107 mmol/L 98-108 [facility] Emergency Department Summary on 07-12-[address] [facility] Medical Records Department [address] [place] [address] Emergency Department Summary 07/12/25 MR#: [id number] Acct: [id number] Name: TED ZABALA Rep #: [id number] : 1990 35 From: Berlin Brizuela DO [...] she follows with Dr. Tai Kerr for BENDING ROLL HAND. Patient states that she has a history [...] Blood Pressure (more content not included)... Normal [facility] Eosinophil percentageOrdered By: [facility]niyahBritney on 07-12-2025 Eosinophils/100 WBC (Bld) 1.6 % 0-5 [facility] Erythrocyte distribution wid th ratioOrdered By: [facility] on 07-12-2025 Erythrocyte distribution width (RBC) [Ratio] 20.0 % High 11.6-14.6 [facility] Erythrocyte distribution wid th standard deviationOrdered By: [facility] Shagufta on 07-12-2025 Erythrocyte distribution width (RBC) [Ratio] 42.0 fl 35.1-43.9 [facility] Glomerular filtration rate ( GFR) estimation/1.73 sq m using serum, plasma, or whole bOrdered By: [facility] CountyCamila on 07-12-2025 GFR/1.73 sq M.predicted among non-blacks MDRD (S/P/Bld) [Vol rate/Area] 128 mL/min/{1.73_m2} >60 [facility] Comment on above: mL/min/1.73m2 CKD-EP I Creatinine Equation (2020) H AND P Exam - OB/GYNon 07-02 H&P Exam - BENDING ROLL HAND [facility] Medical Records Department [address] [place] [address] H P Exam - BENDING ROLL HAND 07/12/252022 MR#: [id number] Acct: [id number] Name: TED ZABALA Rep #: [id number] : 1990 35 From: Annamarie Lira MD PCP: Care Physician,No Primary Status:ADM ALFREDITO Location: MS3 [id number] HPI - General General Date of Admission: [...] a transfusion. US showed 4.[address] [facility] Medical History (Updated 07/12/25 @ 20:22 by [...] 40 live - full term Male epidural [facility] Dr Rahman Unknown Talia 2011 36 live [...] Blood Pr (more content not included)... Normal [facility] Hematocrit Auto (Bld) [Volum e fraction]Ordered By: Berlin Brizuela on 07-12-2025 Hematocrit (Bld) [Volume fraction] 20.0 % Low 37-47 [facility] Hemoglobin measurementOrdere d By: Berlin Brizuela on 07-12-2025 Hemoglobin (Bld) [Mass/Vol] 5.6 g/dL Low 12.0-15.0 [facility] Comment on above: CRITICAL VALUE MICHELE D TO VIANNEY HOOD07/12/25 1704 Galilea Kaufman.RESULTS READ BACK BY SAME. Immature granulocytes/100 WB C Auto (Bld)Ordered By: Berlin Brizuela on 07-12-2025 Immature granulocytes/100 WBC (Bld) 0.300 % 0.0-0.9 [facility] Comment on above: IG% - Immature Granu locytes (promyelocytes, myelocytes and metamyelocytes) > 1% indicates that a LEFT SHIFT is Present. MCV (mean corpuscular volume ) determinationOrdered By: Berlin Brizuela on 07-12-2025 MCV (RBC) [Entitic vol] 59.7 fL Low 81-99 [facility] Mean corpuscular hemoglobin (MCH) determinationOrdered By: Berlin Brizuela on 07-12-2025 MCH (RBC) [Entitic mass] 16.7 pg Low 27.0-32.0 [facility] Mean corpuscular hemoglobin concentration (MCHC) determinationOrdered By: Berlin Brizuela on 07-12-2025 MCHC (RBC) [Mass/Vol] 28.0 g/dL Low 32-36 [facility] Mean platelet volume determi nationOrdered By: Berlin Brizuela on 07-12-2025 Platelet mean volume (Bld) [Entitic vol] 8.9 fL 6.2-12.0 [facility] Monocyte percentageOrdered B y: Berlin Brizuela on 07-12-2025 Monocytes/100 WBC (Bld) 12.5 % High 0-10 [facility] Neutrophil percentageOrdered By: Berlin Brizuela on 07-12-2025 Neutrophils/100 WBC (Bld) 58.1 % 47-70 [facility] Nucleated red blood cell per centageOrdered By: Berlin Brizuela on 07-12-2025 Nucleated RBC/100 WBC (Bld) [Ratio] 0 % 0-5 [facility] Platelet countOrdered By: Nicholas Brizuela on 07-12-2025 Platelets (Bld) [#/Vol] 225 10*3/uL 150-450 [facility] Potassium measurement (mass/ volume)Ordered By: Berlin Brizuela on 07-12-2025 Potassium (Unsp spec) [Mass/Vol] 3.9 mmol/L 3.3-5.1 [facility] ,Serum,hCG Quali.on 07-12-2025 HCG, SERUM QUAL Negative Normal [facility] Comment on above: Performed By: #### L 100.0100 #### [facility] [address] [place], [place] [address], [place], [address] RBC Auto (Bld) [#/Vol]Ordere d By: Berlin Brizuela on 07-12-2025 RBC (Bld) [#/Vol] 3.35 10*6/uL Low 4.2-5.4 [facility] Serum beta-hCG test, qualita tiveOrdered By: Berlin Brizuela on 07-12-2025 Beta HCG ( test) Ql Negative [facility] Serum creatinine measurement (mass/volume)Ordered By: Berlin Brizuela on 07-12-2025 Creatinine [Mass/Vol] 0.44 mg/dL Low 0.70-1.20 [facility] Serum glucose measurement (m ass/volume)Ordered By: Berlin Brizuela on 07-12-2025 Glucose [Mass/Vol] 99 mg/dL 70-99 [facility] Serum or plasma calcium rick urement (mass/volume)Ordered By: Berlin Eagle on 07-12-2025 Calcium [Mass/Vol] 8.9 mg/dL 7.6-11.0 [facility] Serum or plasma urea nitroge n measurement (mass/volume)Ordered By: Berlin Brizuela on 07-12-2025 Urea nitrogen [Mass/Vol] 9 mg/dL 4-19 [facility] Sodium levelOrdered By: Silas Brizuela on 07-12-2025 Sodium [Moles/Vol] 139 mmol/L 133-145 [facility] Transvaginal Non-on 07-12-2025 Transvaginal Non- [facility] Imaging Services [address] [place] [address] Transvaginal Non- MR#: [id number] Acct: [id number] Name: TED ZABALA Rep #: [id number] : 1990 F 35 From: Ayden Mcgowan MD PCP: Care Physician,No Primary Status: REG ER Study: Transvaginal Non- Date of Exam: Exam# [id number] Ordering Dr: Berlin Brizuela DO EXAM: US [...] US/Transvaginal Non- IMPRESSION: Uterine fibroid. Reading Location: [facility] CC: Dr. Berlin Brizuela DO; No Primary Care Physician Healthcare Translator: Signed Normal [facility] Type AND Screenon 07-12-2025 ABO and Rh group Nom (Bld) Blood group A Rh(D) positive Normal [facility] Comment on above: Order Comment: A Performed By: #### L 100.0100 #### [facility] [address] 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 Annamarie narayan MD Age/Sex: 34/F Location[place] [facility] Status: Signed with Addenda ADDENDUM by Natasha [...] Performing Provider: Annamarie Lira MD Performing Location: [facility] Administered by: Annamarie Lira MD on 01/15/25 11:16 Dose Route Admin Location Dispensed Lot Number Expiration Date 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 Normal [facility] T4 Free Directon 01-15-2025 T4 FREE DIRECT 0.97 ng/dL Normal 0.76-1.46 [facility] Comment on above: Performed By: #### L 501.82174, L506.0400 #### [facility] 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 Michelle Mejia DO Age/Sex: 34/F Location: [facility] Status: Signed with Addenda ADDENDUM by Dr. Annamarie Lira MD on 07/30/25 at 1502 Assessment [...] insertion of intrauterine contraceptive device Comments Comments: [id number] 07/30/25 1502 Date Annamarie Lira MD cc: [...] contraceptive device Plan Details Additional Comments: IUD [facility] [id number] Expiration 12/2024 [id number] 12/01/24 1059 Date Michelle Luis DO cc: [...] 40 live - full term Male epidural [facility] Dr Rahman Unknown Talia 2011 36 live - full term Female epidural [facility] Lira [facility] Josephine IUD insertion Details: TED ZABALA is a 34 year old who presents for IUD insertion ROS Const ROS Unobtainable: All systems reviewed are unremarkable except as noted in H Resp Resp: Reports system reviewed and no additional complaints, except as documented; Denies cough (more content not included)... Normal [facility] .Auto Diffon 11-12-2024 Basophil, Absolute 0.1 10 3/mcL Normal 0.0-0.2 [facility] Comment on above: Performed By: #### F OL, B12 #### [address] [address] #### IBC, ADIFF, FE, FERR, RETO, TSH, CBC, CMP, ANEU, GFR #### [address] [address] Basophils/100 WBC (Bld) 1.3 % Normal 0.0-2.5 [facility] Comment on above: Performed By: #### F OL, B12 #### [address] [address] #### IBC, ADIFF, FE, FERR, RETO, TSH, CBC, CMP, ANEU, GFR #### [address] [address] Eosinophil, Absolute 0.1 10 3/mcL Normal 0.0-0.7 [facility] Comment on above: Performed By: #### F OL, B12 #### [address] [address] #### IBC, ADIFF, FE, FERR, RETO, TSH, CBC, CMP, ANEU, GFR #### [address] [address] Eosinophils/100 WBC (Bld) 3.3 % Normal 0.0-7.0 [facility] Comment on above: Performed By: #### F OL, B12 #### [place] [address] #### IBC, ADIFF, FE, FERR, RETO, TSH, CBC, CMP, ANEU, GFR #### [address] [address] Lymphocyte, Absolute 1.4 10 3/mcL Normal 0.9-4.3 [facility] Comment on above: Performed By: #### F OL, B12 #### [place] [address] #### IBC, ADIFF, FE, FERR, RETO, TSH, CBC, CMP, ANEU, GFR #### [address] [address] Lymphocytes/100 WBC (Bld) 34.9 % Normal 20.0-40.0 [facility] Comment on above: Performed By: #### F OL, B12 #### [place] [address] #### IBC, ADIFF, FE, FERR, RETO, TSH, CBC, CMP, ANEU, GFR #### [address] [address] Monocyte, Absolute 0.5 10 3/mcL Normal 0.1-1.4 [facility] Comment on above: Performed By: #### F OL, B12 #### [place] [address] #### IBC, ADIFF, FE, FERR, RETO, TSH, CBC, CMP, ANEU, GFR #### [address] [address] Monocytes/100 WBC (Bld) 11.7 % Normal 2.0-13.0 [facility] Comment on above: Performed By: #### F OL, B12 #### [address] [address] #### IBC, ADIFF, FE, FERR, RETO, TSH, CBC, CMP, ANEU, GFR #### [address] [address] Neutrophils/100 WBC (Bld) 48.8 % Low 50.0-75.0 [facility] Comment on above: Performed By: #### F OL, B12 #### [address] [address] #### IBC, ADIFF, FE, FERR, RETO, TSH, CBC, CMP, ANEU, GFR #### [address] [address] .GFRon 11-12-2024 GFR 145 ml/min/1.73sqm [place] [...] Performed By: #### F OL, B12 #### [address] [address] #### IBC, ADIFF, FE, FERR, RETO, TSH, CBC, CMP, ANEU, GFR #### [address] [address] GFR Non- 120 ml/min/1.73sqm Normal [facility] Comment on above: Result Comment: GFR [...] Performed By: #### F OL, B12 #### [address] [address] #### IBC, ADIFF, FE, FERR, RETO, TSH, CBC, CMP, ANEU, GFR #### [address] [address] .NEUABSon 11-12-2024 Neutrophil, Absolute 2.0 10 3/mcL Low 2.3-8.1 [facility] Comment on above: Performed By: #### F OL, B12 #### [address] [address] #### IBC, ADIFF, FE, FERR, RETO, TSH, CBC, CMP, ANEU, GFR #### [address] [address] B12on 11-12-2024 Cobalamin (Vitamin B12) [Mass/Vol] 455 pg/mL Normal 211-911 [facility] Comment on above: Performed By: #### F OL, B12 #### [address] [address] #### IBC, ADIFF, FE, FERR, RETO, TSH, CBC, CMP, ANEU, GFR #### [address] [address] CBCon 11-12-2024 Erythrocyte distribution width (RBC) [Ratio] 15.7 % High 11.5-15.5 [facility] Comment on above: Performed By: #### F OL, B12 #### [facility] [address] [place], [place] [address] #### IBC, ADIFF, FE, FERR, RETO, TSH, CBC, CMP, ANEU, GFR #### [address] [address] Hematocrit (Bld) [Volume fraction] 25.4 % Low 34.0-46.0 [facility] Comment on above: Performed By: #### F OL, B12 #### [place] [address] #### IBC, ADIFF, FE, FERR, RETO, TSH, CBC, CMP, ANEU, GFR #### [place] [address] Hgb 8.3 G/dL Low 12.0-16.0 [facility] Comment on above: Performed By: #### F OL, B12 #### [place] [address] #### IBC, ADIFF, FE, FERR, RETO, TSH, CBC, CMP, ANEU, GFR #### [address] [address] MCH (RBC) [Entitic mass] 24.2 pg Low 27.0-33.0 [facility] Comment on above: Performed By: #### F OL, B12 #### [place] [address] #### IBC, ADIFF, FE, FERR, RETO, TSH, CBC, CMP, ANEU, GFR #### [place] [address] MCHC 32.5 G/dL Normal 32.0-36.0 [facility] Comment on above: Performed By: #### F OL, B12 #### [place] [address] #### IBC, ADIFF, FE, FERR, RETO, TSH, CBC, CMP, ANEU, GFR #### [address] [address] MCV (RBC) [Entitic vol] 74.6 fL Low 80.0-99.0 [facility] Comment on above: Performed By: #### F OL, B12 #### [place] [address] #### IBC, ADIFF, FE, FERR, RETO, TSH, CBC, CMP, ANEU, GFR #### [address] [address] Platelet 214 10 3/mcL Normal 150-450 [facility] Comment on above: Performed By: #### F OL, B12 #### [place] [address] #### IBC, ADIFF, FE, FERR, RETO, TSH, CBC, CMP, ANEU, GFR #### [place] [address] Platelet mean volume (Bld) [Entitic vol] 7.2 fL Normal 6.6-10.5 [facility] Comment on above: Performed By: #### F OL, B12 #### [place] [address] #### IBC, ADIFF, FE, FERR, RETO, TSH, CBC, CMP, ANEU, GFR #### [address] [address] RBC 3.41 10 6/mcL Low 4.10-5.30 [facility] Comment on above: Performed By: #### F OL, B12 #### [place] [address] #### IBC, ADIFF, FE, FERR, RETO, TSH, CBC, CMP, ANEU, GFR #### [address] [address] WBC 4.1 10 3/mcL Low 4.5-10.8 [facility] Comment on above: Performed By: #### F OL, B12 #### [place] [address] #### IBC, ADIFF, FE, FERR, RETO, TSH, CBC, CMP, ANEU, GFR #### [address] [address] CMPon 12-12-2024 Albumin Level 4.0 G/dL Normal 3.5-5.0 [facility] Comment on above: Performed By: #### F OL, B12 #### [place] [address] #### IBC, ADIFF, FE, FERR, RETO, TSH, CBC, CMP, ANEU, GFR #### [address] [address] Albumin/Globulin [Mass ratio] 1.2 {ratio} Normal 1.1-2.5 [facility] Comment on above: Performed By: #### F OL, B12 #### [place] [address] #### IBC, ADIFF, FE, FERR, RETO, TSH, CBC, CMP, ANEU, GFR #### [address] [address] ALP [Catalytic activity/Vol] 54 U/L Normal 40-135 [facility] Comment on above: Performed By: #### F OL, B12 #### [place] [address] #### IBC, ADIFF, FE, FERR, RETO, TSH, CBC, CMP, ANEU, GFR #### [address] [address] ALT [Catalytic activity/Vol] 28 U/L Normal 14-59 [facility] Comment on above: Performed By: #### F OL, B12 #### [place] [address] #### IBC, ADIFF, FE, FERR, RETO, TSH, CBC, CMP, ANEU, GFR #### [address] [address] AST [Catalytic activity/Vol] 18 U/L Normal 10-40 [facility] Comment on above: Performed By: #### F OL, B12 #### [place] [address] #### IBC, ADIFF, FE, FERR, RETO, TSH, CBC, CMP, ANEU, GFR #### [address] [address] Bili Total 0.2 mg/dL Normal 0.2-1.0 [facility] Comment on above: Result Comment: Use of this assay is not recommended for patients undergoing treatment with eltrombopag due to the potential for falsely elevated results. Performed By: #### F OL, B12 #### [place] [address] #### IBC, ADIFF, FE, FERR, RETO, TSH, CBC, CMP, ANEU, GFR #### [address] [address] BUN/Creatinine Ratio 23 ratio Normal 7-27 [facility] Comment on above: Performed By: #### F OL, B12 #### [place] [address] #### IBC, ADIFF, FE, FERR, RETO, TSH, CBC, CMP, ANEU, GFR #### [address] [address] Calcium [Mass/Vol] 8.9 mg/dL Normal 8.4-10.2 [facility] Comment on above: Performed By: #### F OL, B12 #### [place] [address] #### IBC, ADIFF, FE, FERR, RETO, TSH, CBC, CMP, ANEU, GFR #### [address] [address] Chloride [Moles/Vol] 103 mmol/L Normal 98-107 [facility] Comment on above: Performed By: #### F OL, B12 #### [place] [address] #### IBC, ADIFF, FE, FERR, RETO, TSH, CBC, CMP, ANEU, GFR #### [address] [address] CO2 [Moles/Vol] 27 mmol/L Normal 22-29 [facility] Comment on above: Performed By: #### F OL, B12 #### [place] [address] #### IBC, ADIFF, FE, FERR, RETO, TSH, CBC, CMP, ANEU, GFR #### [address] [address] Creatinine [Mass/Vol] 0.57 mg/dL Normal 0.55-1.02 [facility] Comment on above: Result Comment: Test ing performed on Siemens Dimension EXL analyzer using a modified kinetic Antonella technique. Performed By: #### F OL, B12 #### [place] [address] #### IBC, ADIFF, FE, FERR, RETO, TSH, CBC, CMP, ANEU, GFR #### [address] [address] Electrolyte Balance 9.0 mEq/L Normal 4.0-15.0 [facility] Comment on above: Performed By: #### F OL, B12 #### [place] [address] #### IBC, ADIFF, FE, FERR, RETO, TSH, CBC, CMP, ANEU, GFR #### [place] [id number] Globulin 3.3 G/dL Normal [facility] Comment on above: Performed By: #### F OL, B12 #### [place] [address] #### IBC, ADIFF, FE, FERR, RETO, TSH, CBC, CMP, ANEU, GFR #### [address] [address] Glucose [Mass/Vol] 90 mg/dL Normal 70-105 [facility] Comment on above: Performed By: #### F OL, B12 #### [place] [address] #### IBC, ADIFF, FE, FERR, RETO, TSH, CBC, CMP, ANEU, GFR #### [address] [address] Potassium [Moles/Vol] 4.0 mmol/L Normal 3.5-5.1 [facility] Comment on above: Performed By: #### F OL, B12 #### [place] [address] #### IBC, ADIFF, FE, FERR, RETO, TSH, CBC, CMP, ANEU, GFR #### [address] [address] Sodium [Moles/Vol] 139 mmol/L Normal 136-145 [facility] Comment on above: Performed By: #### F OL, B12 #### [place] [address] #### IBC, ADIFF, FE, FERR, RETO, TSH, CBC, CMP, ANEU, GFR #### [address] [address] Total Protein 7.3 G/dL Normal 6.4-8.2 [facility] Comment on above: Performed By: #### F OL, B12 #### [place] [address] #### IBC, ADIFF, FE, FERR, RETO, TSH, CBC, CMP, ANEU, GFR #### [address] [address] Urea nitrogen [Mass/Vol] 13 mg/dL Normal 7-18 [facility] Comment on above: Performed By: #### F OL, B12 #### [place] [address] #### IBC, ADIFF, FE, FERR, RETO, TSH, CBC, CMP, ANEU, GFR #### [address] [address] FEon 11-12-2024 Iron [Mass/Vol] 9 ug/dL Low 50-170 [facility] Comment on above: Performed By: #### F OL, B12 #### [place] [address] #### IBC, ADIFF, FE, FERR, RETO, TSH, CBC, CMP, ANEU, GFR #### [address] [address] Adan 11-12-2024 Ferritin [Mass/Vol] 5.0 ng/mL Low 8.0-252.0 [facility] Comment on above: Performed By: #### F OL, B12 #### [address] [address] #### IBC, ADIFF, FE, FERR, RETO, TSH, CBC, CMP, ANEU, GFR #### [address] [address] FOLon 11-12-2024 Folate 14.16 ng/mL Normal 5.38-24.00 [facility] Comment on above: Performed By: #### F OL, B12 #### [address] [address] #### IBC, ADIFF, FE, FERR, RETO, TSH, CBC, CMP, ANEU, GFR #### [address] [address] IBCon 11-12-2024 TIBC 456 mcg/dL High 250-450 [facility] Comment on above: Performed By: #### F OL, B12 #### [address] [address] #### IBC, ADIFF, FE, FERR, RETO, TSH, CBC, CMP, ANEU, GFR #### [address] [address] LABORATORYOrdered By: SYSTEM SYSTEM on 11-12-2024 Albumin [...] above: Interpretive Data: T esting performed on [employer] Dimension EXL analyzer using a modified kinetic [...] Performed By: #### F OL, B12 #### [address] [address] #### IBC, ADIFF, FE, FERR, RETO, TSH, CBC, CMP, ANEU, GFR #### [address] [address] Reticulocytes, Auto 1.0 % Normal 0.2-2.3 [facility] Comment on above: Performed By: #### F OL, B12 #### [address] [address] #### IBC, ADIFF, FE, FERR, RETO, TSH, CBC, CMP, ANEU, GFR #### [address] [address] TSHon 11-12-2024 TSH Qn 1.39 m[IU]/L Normal 0.36-3.74 [facility] Comment on above: Performed By: #### F OL, B12 #### [place] [address] #### IBC, ADIFF, FE, FERR, RETO, TSH, CBC, CMP, ANEU, GFR #### [address] [address] MRI BRAIN WO IVCONon 018 MRI BRAIN WO IVCON * * *Final Report* * *DATE OF EXAM: Jan 28 2018 3:44PM [facility] 0294 - MRI BRAIN WO IVCON / [...] MD on Jan 28 2018 4:05PM EST [facility] Vital Signs Date Time Vital Sign Value Performing Clinician Faci lity 07-16-2025 13:00-0400 Body height 162.56 cm No Primary Care Physician [facility] 07-16-2025 13:00-0400 Body mass index (BMI) [Ratio] 23.9 kg/m2 No Primary Care Physician [facility] 07-16-2025 13:00-0400 Body weight 63.19 kg No Primary Care Physician [facility] 07-16-2025 13:00-0400 Diastolic blood pressure 72 mm[Hg] No Primary Care Physician [facility] 07-16-2025 13:00-0400 Systolic blood pressure 113 mm[Hg] No Primary Care Physician [facility] 07-13-2025 10:00-0400 Body temperature 98.1 [degF] No Primary Care Physician [facility] 07-13-2025 10:00-0400 Diastolic blood pressure 56 mm[Hg] No Primary Care Physician [facility] 07-13-2025 10:00-0400 Heart rate 88 /min No Primary Care Physician [facility] 07-13-2025 10:00-0400 Respiratory rate 11 /min No Primary Care Physician [facility] 07-13-2025 10:00-0400 SaO2% (BldA) [Mass fraction] 98 % No Primary Care Physician [facility] 07-13-2025 10:00-0400 Systolic blood pressure 100 mm[Hg] No Primary Care Physician [facility] 07-12-2025 21:12-0400 Body height 162.56 cm No Primary Care Physician [facility] 07-12-2025 21:12-0400 Body mass index (BMI) [Ratio] 23.1 kg/m2 No Primary Care Physician [facility] 07-12-2025 21:12-0400 Body weight 61.2 kg No Primary Care Physician [facility] 07-12-2025 20:12-0400 Body temperature 98.4 [degF] No Primary Care Physician [facility] 07-12-2025 20:12-0400 Diastolic blood pressure 69 mm[Hg] No Primary Care Physician [facility] 07-12-2025 20:12-0400 Heart rate 92 /min No Primary Care Physician [facility] 07-12-2025 20:12-0400 Respiratory rate 18 /min No Primary Care Physician [facility] 07-12-2025 20:12-0400 SaO2% (BldA) [Mass fraction] 98 % No Primary Care Physician [facility] 07-12-2025 20:12-0400 Systolic blood pressure 106 mm[Hg] No Primary Care Physician [facility] 07-12-2025 16:26-0400 Body height 162.56 cm No Primary Care Physician [facility] 07-12-2025 16:26-0400 Body mass index (BMI) [Ratio] 23.3 kg/m2 No Primary Care Physician [facility] 07-12-2025 16:26-0400 Body weight 61.68 kg No Primary Care Physician [facility] 10-16-2023 13:05-0500 Body height 162.[address] Beny Crocker Work Phone: [facility] 10-16-2023 13:02-0500 Body mass index (BMI) [Ratio] 20.9 kg/m2 Dr. Beny Crocker Work Phone: [facility] 10-16-2023 13:02-0500 Body weight 55.[address] Beny Crocker Work Phone: [facility] 10-16-2023 13:02-0500 Diastolic blood pressure 69 mm[Hg] Dr. Beny Crocker Work Phone: [facility] 10-16-2023 13:02-0500 Systolic blood pressure 107 mm[Hg] Dr. Beny Crocker Work Phone: [facility] Encounters Encounter Date Encounter Type Care Provider Facility Start: 10-22-2025 ambulatory Michelle Luis Fa cility:[facility] Start: 10-15-2025 ambulatory No Primary Car e Physician Facility:[facility] Start: 10-11-2025 End: 10-11-2025 ambulatory Luis Felipe Nguyen Facility:[facility] Start: 10-07-2025 End: 10-07-2025 ambulatory No Primary Care Physician Facility:[facility] Start: 10-06-2025 ambulatory No Primary Car e Physician Facility:[facility] Start: 10-05-2025 End: 10-05-2025 ambulatory Michelle Luis Facility:[facility] Start: 09-24-2025 ambulatory No Primary Car e Physician Facility:[facility] Start: 07-16-2025 End: 07-16-[address] Annamarie Lira MD -[facility] Work Phone: Start: 07-16-2025 End: 07-16-2025 ambulatory No Primary Care Physician -[facility] Start: 07-13-2025 Non-patient / Non-visit Dr. Sadia Adan DO -[facility] Work Phone: Start: 07-12-2025 Non-patient / Non-visit Dr. Serena Lira MD -[facility] Start: 07-12-2025 End: 07-13-2025 ambulatory Annamarie Lira Facility:[facility] Start: 07-12-2025 End: 07-13-2025 Evaluation and management of inpatient Dr. Annamarie Lira MD -[facility] Work Phone: Start: 07-12-2025 End: 07-13-2025 observation encounter No Primary Care Physician -[facility] Start: 02-22-2025 ambulatory No Primary Car e Physician Facility:[facility] Start: 02-19-2025 ambulatory No Primary Car e Physician Facility:[facility] Start: 01-15-2025 End: 01-15-2025 ambulatory No Primary Care Physician Facility:[facility] Start: 01-15-2025 End: 01-15-2025 ambulatory No Primary Care Physician Facility:[facility] Start: 11-16-2024 ambulatory Michelle Cazares cility:[facility] Start: 11-12-2024 End: 11-12-2024 ambulatory WILLIAM VANN DO Facility:[facility] Start: 11-12-2024 End: 11-12-2024 Patient encounter procedure WILLIAM VANN DO [facility] Start: 09-09-2024 End: 09-09-2024 Patient encounter procedure Radha Ervin APRN.CIRCUS SUPERVISOR Work Phone: Family Medicine Comment on above: No-show for appointm ent (Primary Dx) Start: 09-09-2024 End: 09-09-2024 Telemedicine consultation with patient Radha Ervin APRN.CIRCUS SUPERVISOR Work Phone: [facility] Start: 10-21-2023 End: 10-21-[address] Beny Crocker Work Phone: [facility] Work Phone: Start: 10-21-2023 End: 10-21-[address] Beny Crocker Work Phone: [facility] Work Phone: Start: 10-16-2023 End: 10-16-[address] Beny Crocker Work Phone: [facility] Work Phone: Start: 01-28-2018 Ambulatory BENY CROCKER [facility] Start: 04-15-2012 End: 09-25-2012 Patient requested procedure Radha Ervin APRN.CIRCUS SUPERVISOR Work Phone: [facility] Work Phone: Procedures Date Procedure Procedure [...] identified in Blood by Culture Blood Culture [facility] Start: 07-13-2025 Blood culture [facility] Start: 07-13-2025 Transfusion Reaction Culture Transfusion Reaction Culture [facility] Start: 07-13-2025 [facility] Start: 07-13-2025 Patient discharge [facility] Start: 07-13-2025 Consultation [facility] Start: 07-12-2025 Following clinical pathway protocol [facility] Start: 07-12-2025 Transfusion of blood product [facility] Start: 07-12-2025 Ambulation without limitation [facility] Start: 07-12-2025 Assessment of risk of venous thromboembolism [facility] Start: 07-12-2025 Inhalation therapy procedure [facility] Start: 07-12-2025 Insertion of catheter into peripheral vein [facility] Start: 07-12-2025 Providing care according to standard [facility] Start: 07-12-2025 End: 07-12-2025 [facility] Start: 07-12-2025 Verification routine [facility] Start: 07-12-2025 Admission procedure [facility] Start: 07-12-2025 Hospital admission, emergency, from emergency room, medical nature [facility] Start: 07-12-2025 Leukocyte reduced red blood cells [facility] Start: 07-12-2025 Administration of blood product [facility] Start: 07-12-2025 [facility] Start: 08-02-2024 Covid-19 Vaccine () Covid-19 Vaccine () [facility] Start: 08-02-2024 Influenza vaccination Influenza Vaccine (#1) [facility] Start: 10-21-2023 Digital breast tomosynthesis bilateral BREAST TOMOSYNTHESIS BI [facility] Start: 02-10-2023 Urine microalbumin profile DTaP,Tdap,Td Vaccine (3 - Td or Tdap) [facility] Start: 03-05-2022 Screening for malignant neoplasm of cervix Cervical Cancer Screening [facility] Start: 2007 Hepatitis B Vaccine (1 of 3 - 19+ 3-dose series) Hepatitis B Vaccine (1 of 3 - 19+ 3-dose series) [facility] Start: 2006 Anxiety Screening Anxiety Screening [facility] Start: 2006 Depression Screening Depression Screening [facility] Start: 1994 Pneumococcal vaccination Pneumococcal Vaccine (1 of 2 - PCV) [facility] Bilirubin measuremen t, urine [facility] Bilirubin measuremen t, urine [facility] Hemoglobin [Presence ] in Urine [facility] Hemoglobin [Presence ] in Urine [facility] Measurement of keton es in urine using dipstick [facility] Measurement of keton es in urine using dipstick [facility] Microscopic urinalysis [facility] Microscopic urinalysis [facility] pH of Urine [facility] pH of Urine [facility] Specific gravity of Urine [facility] Specific gravity of Urine [facility] Urine blood test [facility] Urine blood test [facility] Urine dipstick for glucose [facility] Urine dipstick for glucose [facility] Urine dipstick for leukocyte esterase [facility] Urine dipstick for leukocyte esterase [facility] Urine dipstick for nitrite [facility] Urine dipstick for nitrite [facility] Urine dipstick for protein [facility] Urine dipstick for protein [facility] Urine examination [facility] Urine examination [facility] Urine microscopy: epithelial cells [facility] Urine microscopy: epithelial cells [facility] Urine Microscopy: wh ite cells [facility] Urine Microscopy: [facility] cells [facility] Urobilinogen [Presen ce] in Urine [facility] Urobilinogen [Presen ce] in Urine [facility] Immunizations Immunization Date Immunization Notes Care Provider Fa earline 11-09-2017 influenza virus vacc ine, unspecified formulation Radha Aziza ENGINEERING ASSISTANT.CIRCUS SUPERVISOR Work Phone: [facility] 02-10-2013 tetanus toxoid, redu janine diphtheria toxoid, and acellular pertussis vaccine, adsorbed Radha Aziza ENGINEERING ASSISTANT.CIRCUS SUPERVISOR Work Phone: [facility] 10-17-2005 tetanus and diphther ia toxoids, adsorbed, preservative free, for adult use (2 Lf of tetanus toxoid and 2 Lf of diphtheria toxoid) Radha Aziza ENGINEERING ASSISTANT.CIRCUS SUPERVISOR Work Phone: [facility] Payers Date Payer Category Payer Self-pay [id number] 2024 Unknown [id number] 2021 Medicaid [place] [employer] [place] [employer] [id number] 2021-Present [phone] [address] [place] [address] Medicaid [id number] 2012 Unknown [id number] 1988 Unknown [id number] Unknown [id number] [id number] Unknown [id number] [id number] Unknown [id number] [id number] Unknown [id number] 2..[id number] Unknown [id number] [id number] Unknown [id number] [id number] Unknown [id number] 2.840.1.533034.3.579.2.462 Unknown [id number] [id number] Unknown [id number] 2.840.1.886072.3.579.2.462 Unknown [id number] [id number] Unknown [id number] [id number] Unknown [id number] .[id number] Unknown [id number] [id number] Unknown [id number] .[id number] Unknown [id number] .[id number] Unknown [id number] .[id number] Unknown [id number] [id number] Unknown [id number] [id number] Social History Date Type Detail Facility Start: 10-16-2023 Tobacco smoking stat us NHIS Unknown if ever smoked [facility] Start: 01-09-2014 None [facility] Start: 01-09-2014 Cigarettes [facility] Start: 1990 Sex Assigned At Female [facility] Start: 02-04-2015 End: 07-13-2025 Tobacco smoking status NHIS Smokes tobacco daily [facility] History of tobacco use Cigarette Smoker [facility] Start: 02-04-2015 Tobacco use and exposure Smokeless tobacco non-user [facility] Start: 07-18-2022 Alcoholic beverage intake Current drinker of alcohol (finding) [facility] Start: 03-04-2019 End: 09-09-2024 History of Social function [facility] Start: 03-04-2019 End: 09-09-2024 Tobacco use panel [facility] Adult Depression Screening Assessment 1 [facility] Start: 04-15-2012 Tobacco Comment 1-2 CIGARETTES A DAY [facility] Start: 04-15-2012 Alcohol Comment Rarely, NOT WH ILE [facility] Start: 08-25-2024 Gender identity Identifies as female gender (finding) [facility] Start: 11-12-2024 Tobacco smoking status Ex-smoker (fi nding) [facility] Goals Date Patient Goal Desired Activity /State Functional Status Date Assessment Result Facility 07-13-2025 Functional status Ambulates [facility] Work Phone: Mental Status Date Assessment Result Facility 07-13-2025 Cognitive function Voice/Name [facility] Work Phone: Clinical Notes 09-09-2024 to 07-13-2025 Note Date & Type Note Facility 07-13-2025 Progress note [facility] 07-13-2025 Discharge summary [facility] 07-13-2025 Consult note Note Date/Time July 13, 2025 6:38am [facility] Medical Records Department [address] [place] [address] Consultation - Hospitalist 07/13/25 0417 MR#: [id number] Acct: [id number] Name: TED ZABALA Rep #:[id number] : 1990 35 From: Ilya Treviño DO PCP: Care Physician,No Primary Status :ADM ALFREDITO Location: [place] [address] Assessment & Plan Assessment/Plan (1) Transfusion reaction: [...] Patient has suspectedfebrile non-hemolytic transfusion reaction. The SENIOR ENGINEERING SPECIALIST informed me he patient'sfever defervesced before she was treated with IM hydroxyzine after refusing diphenhydramine because it makes her sleepy. In the unlikely event the patient worsens in spite of conservative treatment the plan is to treat with steroids and consult power system electrical engineer for further recommendations. 2. Acute heavy menstrual [...] medications as prescribed after mina counseling from EMPLOYEE WELFARE MANAGER attending. 4. Depression with Anxiety; currently not [...] than recommended who was admitted to the EMPLOYEE WELFARE MANAGER service of Dr. Lira on the evening [...] is to treat with steroids and consult power system electrical engineer for further recommendations. Thank you for allowing us to participate in the care of your patient. [facility] Medical History Apneic episode Weight gain History [...] % (Auto) 58.1, Lymph % (Auto) 27.2, [place] % (Auto) 12.5 H, Eos % (Auto) [...] 81.1 H, Lymph % (Auto) 8.1 L, [place] % (Auto) 9.6, Eos % (Auto) 0.2, Baso % (Auto) 0.5, AbsoluteNeuts (auto) 4.8, Absolute Lymphs (auto) 0.48 L, Nucleated RBC % 0 Imaging Radiology Impression Transvaginal US 07/12/25 16:30 IMPRESSION: Uterine fibroid. Reading Location: [id number] Imaging Services [address] [place] [address] Chest 1 View (Portable) MR#: [id number] Acct: [id number] Name: TED ZABALA Rep #: [id number] : 1990 F 35 From: Shiraz Chery MD PCP: Care Physician,No Primary Status: ADM ALFREDITO Study: Chest 1 View (Portable) Date of Exam: 07/13/25 Exam# [id number] Ordering Dr: Ilya Adan DO PROCEDURE: CHEST 1 VIEW (PORTABLE) 07/13/2025 REASON FOR EXAM: SUSPECTED TRANSFUSION REACTION. TECHNIQUE: Frontal view of the chest. COMPARISON: No FINDINGS: Normal heart size. Well inflated lungs. No consolidation, effusion, or pneumothorax. RAD/Chest 1 View (Portable) IMPRESSION: No acute chest findings Reading Location: [place] [address] CC: Dr. Ilya Adan, ; No Primary Care Physician ~ Healthcare Translator: Signed Charges/Coding Multi Select Codes Visit Charges Office Visit/Consults: 42190 IP Consult L4 07/13/25 0638 <Electronically signed by Ilya Adan DO> Cosigner Signature (if applicable): CC: No Primary Care Physician~ Signed [facility] Work Phone: 1(109) 753-696408-12-[address] [facility] Medical Records Department [address] [place] [address] Consultation - Hospitalist 07/13/25 0417 MR#: [id number] Acct: [id number] Name: TED ZABALA Rep #:[id number] : 1990 35 From: Ilya Treviño DO PCP: Care Physician,No Primary Status :ADM ALFREDITO Location: [place] [address] Assessment & Plan Assessment/Plan (1) Transfusion reaction: [...] Patient has suspectedfebrile non-hemolytic transfusion reaction. The SENIOR ENGINEERING SPECIALIST informed me he patient'sfever defervesced before she was treated with IM hydroxyzine after refusing diphenhydramine because it makes her sleepy. In the unlikelyevent the patient worsens in spite of conservative treatment the plan is to treat with steroids andconsult power system electrical engineer for further recommendations. 2. Acute heavy menstrual [...] medications as prescribed after mina counseling from EMPLOYEE WELFARE MANAGER attending. 4. Depression with Anxiety; currently not [...] Consultation: Suspected Transfusion Reaction. HPI Narrative: TED ZABAAL, is a 35 F with a past [...] than recommended who was admitted to the EMPLOYEE WELFARE MANAGER service of Dr. Lira on the evening [...] is to treat with steroids and consult power system electrical engineer for further recommendations. Thank you for allowing us to participate in the care of your patient. [facility] Medical History Apneic episode Weight gain History [...] % (Auto) 58.1, Lymph % (Auto) 27.2, [place] % (Auto) 12.5 H, Eos % (Auto) [...] 81.1 H, Lymph % (Auto) 8.1 L, [place] % (Auto) 9.6, Eos % (Auto) 0.2, Baso % (Auto) 0.5, AbsoluteNeuts (auto) 4.8, Absolute Lymphs (auto) 0.48 L, Nucleated RBC % 0 Imaging Radiology Impression Transvaginal US 07/12/25 16:30 IMPRESSION: Uterine fibroid. Reading [id number] Imaging Services [address] [place] [address] Chest 1 View (Portable) MR#: [id number] Acct: [id number] Name: TED ZABALA Rep #: [id number] : 1990 F 35 From: Shiraz Chery MD PCP: Care Physician,No Primary Status: ADM ALFREDITO Study: Chest 1 View (Portable) Date of Exam: 07/13/25 Exam# [id number] Ordering Dr: Ilya Adan DO PROCEDURE: CHEST 1 VIEW (PORTABLE) 07/13/2025 REASON FOR EXAM: SUSPECTED TRANSFUSION REACTION. TECHNIQUE: Frontal view of the chest. COMPARISON: No FINDINGS: Normal heart size. Well inflated lungs. No consolidation, effusion, or pneumothorax. RAD/Chest 1 View (Portable) IMPRESSION: No acute chest findings Reading Location: [place] [address] CC: Dr. Ilya Adan DO; No Primary Care Physician ~ Healthcare Translator: Signed Charges/Coding Multi Select Codes Visit Charges Office Visit/Consults: 29859 IP Consult L4 07/13/25 0638 Cosigner Signature (if applicable): CC: No Primary Care Physician~ Signed [facility]08-12-2025 Progress note Author Annamarie Lira [facility] Note Date/Time July 13, 2025 4: 05am [facility] Medical Records Department [address] [place] [address] Progress Note - OBGYN 07/13/25 0400 MR#: [id number] Acct: [id number] Name: TED ZABALA Rep #:[id number] : 1990 35 From: Annamarie bright MD PCP: Care Physician,No Primary Status :ADM ALFREDITO Location: [place] [address] Subjective Subjective called by nursing at 315 [...] % (Auto) 58.1, Lymph % (Auto) 27.2, [place] % (Auto) 12.5 H, Eos % (Auto) [...] 07/12/25 16:30 IMPRESSION: Uterine fibroid. Reading Location: [facility] ROS Constitutional Constitutional: Reports as per HPI [...] Cosigner Signature (if applicable): CC: ~ Signed [facility] Work Phone: 1(411) 821-668608-12-2025 Radiology Diagnostic study note [facility] Imaging Services [address] [place] [address] Chest 1 View (Portable) MR#: [id number] Acct: [id number] Name: TED ZABALA Rep #: [id number] : 1990 F 35 From: Oneyda Chery MD PCP: Care Physician,No Primary Status: ADM ALFREDITO Study:Chest 1 View (Portable) Date of Exam: 07/13/25 Exam# [id number] Ordering Dr: Ilya Campos DO PROCEDURE: CHEST 1 VIEW (PORTABLE) 07/13/2025 REASON FOR EXAM: SUSPECTED TRANSFUSION REACTION. TECHNIQUE: Frontal view of the chest. COMPARISON: No FINDINGS: Normal heart size. Well inflated lungs. No consolidation, effusion, or pneumothorax. RAD/Chest 1 View (Portable) IMPRESSION: No acute chest findings Reading Location: RAD-CHERY-2 CC: Dr. Ilya Adan, DO; No Primary Care Physician ~ Healthcare Translator: Signed [facility]08-12-2025 Progress note [facility] Medical Records Department [address] [place] [address] Progress Note - OBGYN 07/13/25 0400 MR#: [id number] Acct: [id number] Name: TED ZABALA Rep #:[id number] : 1990 35 From: Annamarie bright MD PCP: Care Physician,No Primary Status :ADM ALFREDITO Location: [place] [address] Subjective Subjective called by nursing at 315 [...] % (Auto) 58.1, Lymph % (Auto) 27.2, [place] % (Auto) 12.5 H, Eos % (Auto) [...] 07/12/25 16:30 IMPRESSION: Uterine fibroid. Reading Location: [facility] Constitutional Constitutional: Reports as per HPI [...] Cosigner Signature (if applicable): CC: ~ Signed [facility]08-11-2025 History and physical note Author Annamarie Lira [facility] Note Date/Time July 12, 2025 8: 33pm [facility] Medical Records Department [address] [place] [address] H&P Exam - BENDING ROLL HAND 07/12/252022 MR#: [id number] Acct: [id number] Name: TED ZABALA Rep #:[id number] : 1990 35 From: Annamarie bright MD PCP: Care Physician,No Primary Status :ADM ALFREDITO Location: [place] [address] HPI - General General Date of Admission: [...] a transfusion. US showed 4.[address] [facility] Medical History (Updated 07/12/25 @ 20:22 by [...] 40 live - full term Male epidural [facility] Dr Lacey Johnson Talia 2011 36 live - full term Female epidural [facility] Dr Errol [place] Constitutional Constitutional: Reports systems [...] Multi Select Codes Visit Charges Visit Charges: 39597 Init Hosp L3 07/12/252032<Electronically signed by Annamarie Lira MD> Cosigner Signature (if applicable): cc: Dr. Annamarie Lira MD; No Primary Care Physician ~* Signed [facility] Work Phone: 1(611) 972-203808-11-2025 Evaluation note* Diagnosis Onset Date Resolution Status [...] Transfusion reaction acute Augu st 2024 8:12pm [facility] Work Phone: 1(906) 433-685808-11-2025 Discharge summary Author Berlin Brizuela [facility] Note Date/Time July 12, 2025 7: 38pm [facility] Medical Records Department [address] [place] [address] Emergency Department Summary 07/12/25 MR#: [id number] Acct: [id number] Name: TED ZABALA Rep #:[id number] : [...] states she follows with Dr. Lira for BENDING ROLL HAND. Patient states that she has a history [...] intact Psych: Cooperative, appropriate mood and affect [facility] Medical History (Updated 02/17/25 @ 14:21 by [...] she follows with Dr. Tai Kerr for BENDING ROLL HAND. Has a history of iron deficiency anemia. [...] % (Auto) 58.1 Lymph % (Auto) 27.2 Genes[place] % (Auto) 12.5 H Eos % (Auto) [...] Primary [Primary Care Provider] - Print Language: Sierra Leonean What to do if you have Problems For any increased pain, shortness of breath, bleeding, nausea or vomiting, chestpain, or any unexpected problems, contact your Primary Care Provider. Call [facility] ([phone]) or report to the closest Emergency Room. Call 911 if necessary. 07/12/251937 <Electronically signed by Berlin Brizuela DO> Cosigner Signature (if applicable): CC: No Primary Care Physician ~ Signed [facility] Work Phone: 1(750) 598-378408-11-2025 History and physical note [facility] Medical Records Department [address] [place] [address] H&P Exam - BENDING ROLL HAND 07/12/252022 MR#: [id number] Acct: [id number] Name: TED ZABALA Rep #:[id number] : 1990 35 From: Annamarie bright MD PCP: Care Physician,No Primary Status :ADM ALFREDITO Location: [address] - General General Date of Admission: [...] a transfusion. US showed 4.[address] [facility] Medical History (Updated 07/12/25 @ 20:22 by [...] 40 live - full term Male epidural [facility] Dr Lacey Melgar 2011 36 live - full term Female epidural [facility] Dr Errol [place] Constitutional Constitutional: Reports systems [...] Multi Select Codes Visit Charges Visit Charges: 73870 Init Hosp L3 07/12/252032 Cosigner Signature (if applicable): cc: Dr. Annamarie Lira MD; No Primary Care Physician ~* Signed [facility]08-11-2025 Radiology Diagnostic study note [facility] Imaging Services [address] [place], [place] [id number] Transvaginal Non- MR#: [id number] Acct: [id number] Name: TED ZABALA #: [id number] : 1990 F 35 From: Octavia Mcgowan MD PCP: Care Physician,No Primary Status: REG ER Study:Transvaginal Non- Date of Exam: 07/12/25 Exam# [id number] Ordering Dr: Berlin Platt DO EXAM: US [...] US/Transvaginal Non- IMPRESSION: Uterine fibroid. Reading Location: [facility] CC: Dr. Berlin Brizuela DO; No Primary Care Physician ~ Healthcare Translator: Signed [facility]08-11-[address] [facility] Medical Records Department [address] [place] [address] Emergency Department Summary 07/12/25 MR#: [id number] Acct: [id number] Name: TED ZABALA Rep #:[id number] : [...] states she follows with Dr. Lira for BENDING ROLL HAND. Patient states that she has a history [...] intact Psych: Cooperative, appropriate mood and affect [facility] Medical History (Updated 02/17/25 @ 14:21 by [...] she follows with Dr. Tai Kerr for BENDING ROLL HAND. Has a history of iron deficiency anemia. [...] % (Auto) 58.1 Lymph % (Auto) 27.2 [place] % (Auto) 12.5 H Eos % (Auto) [...] Primary [Primary Care Provider] - Print Language: [place] Leonean What to do if you have Problems For any increased pain, shortness of breath, bleeding, nausea or vomiting, chestpain, or any unexpected problems, contact your Primary Care Provider. Call [facility] ([phone]) or report tothe closest Emergency Room. Call 911 if necessary. 07/12/25 193 Cosigner Signature (if applicable): CC: No Primary Care Physician ~ Signed [facility]08-11-2025 Discharge summary Author Berlin Brizuela [facility] Note Date/Time July 12, 2025 7: 38pm [facility] Medical Records Department [address] [place] [address] Emergency Department Summary 07/12/25 MR#: [id number] Acct: [id number] Name: TED ZABALA Rep #:[id number] : [...] states she follows with Dr. Lira for BENDING ROLL HAND. Patient states that she has a history [...] intact Psych: Cooperative, appropriate mood and affect [facility] Medical History (Updated 02/17/25 @ 14:21 by [...] she follows with Dr. Tai Kerr for BENDING ROLL HAND. Has a history of iron deficiency anemia. [...] % (Auto) 58.1 Lymph % (Auto) 27.2 [place] % (Auto) 12.5 H Eos % (Auto) [...] Primary [Primary Care Provider] - Print Language: [place] Leonean What to do if you have Problems For any increased pain, shortness of breath, bleeding, nausea or vomiting, chestpain, or any unexpected problems, contact your Primary Care Provider. Call [facility] ([phone]) or report to the closest Emergency Room. Call 911 if necessary. 07/12/251937 <Electronically signed by Berlin Brizuela DO> Cosigner Signature (if applicable): CC: No Primary Care Physician ~ Signed [facility] Work Phone: 1(612) 872-286910-09-2024 NoteHNO ID: [id number] Author: AIDE WOODS MA Service: ? Author Type: Post Framer Type: Progress Notes Filed: 09/10/2024 17:31 Note Text: Items addressed in this encounter: Virtual Visit Pre Check In Attempted to reach patient no answer GALLO Woods MA September 09, 2024 12:46 PM 12:46 [facility]10-09-2024 History of Present illness Narrative* Aide Woods MA - 09/09/2024 12:46 PM EDT Items addressed in this encounter: Virtual Visit Pre Check In Attempted to reach patient no answer GALLO Woods MA September 09, 2024 12:46 PM 12:46 PM documented in [facility] encounter[facility] Author Annamarie Lira [facility] Note Date/Time July 13, 2025 10 :57am [facility] Medical Records Department [address] [place] [address] Instructions for Home/Discharge Instructions 07/13/25 1054 MR#: [id number] Acct: [id number] Name: TED ZABALA Rep #:[id number] : [...] Self Care 07/13/25 1057<Electronically signed by Annamarie iLra MD>Annamarie Lira MD CC: Dr. Ilya Adan DO; Dr. Oscar Thompson MD; No Primary Care Physician~ Signed [facility] Work Phone: Evaluation + Plan note No data available for this section [facility] Evaluation note* Diagnosis Onset Date Resolution Status Breast lump in female acute Encounter for IUD removal ac kathleen [facility] Work Phone: Evaluation note* Diagnosis No-show for appointment- Primary documented in this encounter [facility] noteNo assessment information availableWClerm[facility] Work Phone: Hospital Discharge instructions No data available for this section [facility] Progress note No data available for this section [facility] Progress note Author Oscar Thompson [facility] Note Date/Time July 13, 2025 11 :26am [facility] Medical Records Department [address] [place] [address] Progress Note - Hospitalist 07/13/25 1117 MR#: [id number] Acct: [id number] Name: TED ZABALA Rep #:[id number] : 1990 35 From: Oscar Medrano PCP: Care Physician,No Primary Status :ADM ALFREDITO Location: [place] [address] Objective Data Objective Data Vital Signs: Vital [...] % (Auto) 58.1, Lymph % (Auto) 27.2, [place] % (Auto) 12.5 H, Eos % (Auto) [...] 81.1 H, Lymph % (Auto) 8.1 L, [place] % (Auto) 9.6, Eos % (Auto) 0.2, [...] Clarity Clear, Urine pH 6.0, Ur Specific [place] 1.015, Urine Protein Negative, Urine Glucose (UA) [...] 80.2 H, Lymph % (Auto) 11.5 L, [place] % (Auto) 7.4, Eos % (Auto) 0.1, [...] 07/12/25 16:30 IMPRESSION: Uterine fibroid. Reading Location: [facility] Chest X-Ray 07/13/25 04:30 IMPRESSION: No acute chest findings Reading Location: [place] [address] Physical Exam Narrative Seen and examined Patient was admitted with severe anemia and vaginal bleeding. Discussed with the EMPLOYEE WELFARE MANAGER attending Dr. Ayden Kerr. Patient had fever [...] from uterine fibroid: Patient was admitted by BENDING ROLL HAND attending. Medicine was consulted to manage anemia. Patient had 2 unitsof PRBC transfusion. H&H improved from 5.6/20% to 7.8/24.7%. Patient is discharged on ferrous sulfate by EMPLOYEE WELFARE MANAGER attending and tranexamic acid. Follow-up with residential interior designer Dr. Ayden Kerr. 2. Febrile nonhemolytic transfusion [...] DVT prophylaxis - SCD's Patient discharged by BENDING ROLL HAND attending. Charges/Coding Visit Charges Inpatient E&M: 48585 Subs Hosp L2 07/13/25 1126 <Electronically signed by Oscar Thompson MD> Cosigner Signature (if applicable): CC: ~ Signed [facility] Work Phone: Reason for referral (narrative)No reason for referral information availableWClermont [facility] Hospital Work Phone: Summary Purpose Family History No Family History Records Found Relationship Condition Age at Onset Recorded Date/T cyndie grandfather Malignant neoplasm of colon Unknown Malignant neoplasm Unknown Advance Directives No Advanced Directives Records Found Advance Directive Response Recorded Date/ Time Advance Directives No February 18 023 12:29pm Living Will No February 18, 2023 12:29pm Power of Senior Office Assistant No February 18 12:29pm Advance Directive Response Recorded Date/ Time Do you have a Healthcare Power of Senior Office Assistant? No July 12, 2025 4:42pm Advance Directives No November 09, 2024 11:24am Advance Directive Response Recorded Date/ Time Do you have a Healthcare Power of Senior Office Assistant? No July 12, 2025 9:23pm Advance Directives [...] section and content) DATE CREATED AUTHOR 05/23/2018 [facility] DATE CREATED AUTHOR AUTHOR'S ORGANIZ ATION 09/13/2024 [facility] DATE CREATED AUTHOR AUTHOR'S ORGANIZ ATION 11/15/2024 [facility] DATE CREATED AUTHOR AUTHOR'S ORGANIZ ATION 10/14/2025 [facility] Care Teams (unrecognized sec tion and content) [...] or prosecute any alcohol or drug abuse patient.[facility] Reason for Visit (unrecogniz ed section [...] BE BASED ON THE PRIMARY CLINICAL RECORDS. [employer] [facility]. provides no warranty or guarantee of the accuracy or completeness of information in this document.
== END | disposition home or self-care (01) ==
LOC: LAB 15:14
PROVIDERS: Referring Provider Internal Medicine Endocrinology, Diabetes & Metabolism; Visit Provider Internal Medicine Endocrinology, Diabetes & Metabolism
DX: E05.00 Thyrotoxicosis with diffuse goiter without thyrotoxic crisis or storm (principal)
CPT/HCPCS: 36415; 84439; 84443; 84481